=== PATIENT | male | born 1965 | race Two or more races ===

== ENCOUNTER 2024-08-30 23:13 | Inpatient (IN) | payer MEDICAID, OTHER ==
[~2024-08-30] VITALS: Ht 175.3 cm; Wt 88.5 kg
[2024-08-30 23:50] VITALS: PULSE 112; RESP 17; O2SAT 90
[2024-08-30] MEDS: DexAMETHasone SOD PHOS 10MG/1ML VIAL INJ IV ONE (23:50)
[2024-08-30 23:51] LABS: Basophils # (auto) 0.1 10 ^3/uL (0-0.2); Basophils % (auto) 0.5 % (0.0-2.0); Eosinophils # (auto) 0 10 ^3/uL (0-0.8); Hemoglobin 11.1 g/dL (13.5-17.5); Lymphocytes # (auto) 2.2 10 ^3/uL (0.4-5.4); Lymphocytes % (auto) 14.5 % (10.0-50.0); Mean Corpuscular Hemoglobin 29.5 pg (28.0-32.0); Mean Corpuscular Hgb Conc. 32.5 g/dL (32.0-36.0); Mean Corpuscular Volume 90.7 fL (80.0-100.0); Monocytes # (auto) 0.5 10 ^3/uL (0-1.3); Monocytes % (auto) 3.2 % (0.0-12.0); Neutrophils # (auto) 12.7 10 ^3/uL (1.6-8.6); Neutrophils % (auto) 81.8 % (37.0-80.0); Nucleated Red Blood Cells % 0.1 %; Platelet Count (auto) 88 10^3/uL (140-450); Red Blood Cells 3.75 10^6/uL (4.5-5.90); Red Cell Distribution Width 16.8 % (11.8-14.3); White Blood Cell 15.5 10^3/uL (4.4-10.8)
[2024-08-31] VITALS (12 sets, daily range): BP systolic 107–134; BP diastolic 68–82; PULSE 85–105; RESP 18–31; TEMP 97.9–98.2; O2SAT 93–97
[2024-08-31 00:06] LABS: Anion Gap 6 (5-15); Aspartate Aminotransferase 30 U/L (13-40); Blood Urea Nitrogen 16 mg/dL (9-23); Carbon Dioxide 27 mmol/L (20-31); Potassium 3.5 mmol/L (3.5-5.1); Sodium 142 mmol/L (136-145)
[2024-08-31 00:07] LABS: Alanine Aminotransferase 90 U/L (7-40); Albumin 3.1 g/dL (3.2-4.8); Alkaline Phosphatase 194 U/L (46-116); Bilirubin, Total 0.8 mg/dL (0.2-1.0); Calcium 8.4 mg/dL (8.7-10.4); Chloride 109 mmol/L (98-107); Glucose 118 mg/dL (74-106); Total Protein 4.5 g/dL (5.7-8.2)
--- NOTE | 2024-08-31 00:21 | DVH ---
CHEST RADIOGRAPH Indication: Shortness of breath Technique: Single frontal view of the chest was obtained COMPARISON: None FINDINGS: Lines and Tubes: None Lungs: Extensive opacities noted throughout both lungs greater on the right side. Pleura: No effusion. No pneumothorax. Cardiomediastinal contours: Unremarkable IMPRESSION: Extensive opacities throughout both lungs greater on the right side consistent with pneumonia.
[2024-08-31] MEDS ORDERED: VANCOMYCIN PER PHARMACY 0 MG IV SCH ×2 (01:15→03:00)
[2024-08-31] MEDS: SODIUM CHLORIDE 0.9% 2,000 ML IV ONE (01:16)
[2024-08-31] MEDS: PIPERACILLIN-TAZOB 3.375GM 100 ML IV ONE (01:16)
--- NOTE | 2024-08-31 01:25 | ED.PDOC ---
SOB-HPI HPI Comments This patient is a pleasant 58-year-old male who arrives the ED today via EMS due to complaints of shortness a breath and low O2 sats. Patient is currently at [facility] for management of acute respiratory distress secondary to a pneumonia diagnosis. EMS stated of on arrival, patient's O2 sat was in the mid 80s. Patient denies any fever nausea or vomiting. At arrival, patient was tachycardic and hypertensive. Patient was satting at 84% On room air. Chief Complaint: Shortness of Breath Time Seen by MD: 23:16 Reviewed notes: Nurses Notes, Clinical Data Management Director Notes Information Source: Patient, Emergency Med Personnel Mode of Arrival: Ambulatory Severity: Severe Timing: Hours Duration: Since onset Context: At Rest PE Risk Factors: None History of: Other (Currently being treated for pneumonia) Prehospital treatment: Treatment Modifying Factors: Nothing Associated Signs and Symptoms: Wheeze Past Medical History Past Medical History (Other): currently at [facility] receiving treatment for pneumonia Surgical History: Denies all surgeries Family History Family History: Reviewed,noncontributory to illness, No family hx of Cancer, No family hx of DM, No family hx of Heart osmar, No family hx of HTN, No family hx ofKidney osmar, No family hx of Liver osmar, No family hx of Lung osmar, No family hx of Stroke Social History Smoker: Non-Smoker Alcohol: Denies ETOH Use Drugs: Denies Drug Use Lives In: Home Constitutional: reports: weakness; denies: chills, diaphoresis, fatigue, fever, malaise, sweats, others EENTM: reports: throat swelling, others ( dysphagia); denies: blurred vision, double vision, ear bleeding, ear discharge, ear drainage, ear pain, ear ringing, eye pain, eye redness, hearing loss, mouth pain, mouth swelling, nasal discharge, nose bleeding, nose congestion, nose pain, photophobia, tearing, throat pain, voice changes Respiratory: reports: cough, shortness of breath; denies: hemoptysis, orthopnea, SOB at rest, SOB with excertion, stridor, wheezing, others Cardiovascular: denies: chest pain, dizzy spells, diaphoresis, Dyspnea on exertion, edema, irregular heart beat, left arm pain, lightheadedness, palpitations, PND, syncope, others Gastrointestinal: denies: abdomen distended, abdominal pain, blood streaked bowels, constipated, diarrhea, dysphagia, difficulty swallowing, hematemesis, melena, nausea, poor appetite, poor fluid intake, rectal bleeding, rectal pain, vomiting, others Genitourinary: denies: burning, dysuria, flank pain, frequency, hematuria, incontinence, penile discharge, penile sore, pain, testicle pain, testicle swelling, urgency, others Neurological: denies: dizziness, fainting, headache, left sided numbness, left sided weakness, numbness, paresthesia, pre-existing deficit, right sided numbness, right sided weakness, seizure, speech problems, tingling, tremors, weakness, others Musculoskeletal: denies: back pain, gout, joint pain, joint swelling, muscle pain, muscle stiffness, neck pain, others Integumetry: denies: bruises, change in color, change in hair/nails, dryness, laceration, lesions, lumps, rash, wounds, others Allergic/Immunocompromised: denies: Difficulty Healing, Frequent Infections, Hives, Itching, others Hematologic/Lymphatic: denies: anemia, blood clots, easy bleeding, easy bruising, swollen glands, others Endocrine: denies: excessive hunger, excessive sweating, excessive thirst, excessive urination, flushing, intolerance to cold, intolerance to heat, unexplained weight gain, unexplained weight loss, others Psychiatric: denies: anxiety, bipolar disorder, depression, hopeless, panic disorder, schizophrenia, sleepless, suicidal, others Physical Exam General Appearance: Moderate Distress ( moderate distress due to shortness a breath and throat tightness concerns.), Normal HEENT: Normal ENT Inspection, Pharynx Normal, TMs Normal, Other ( Patient complains of tightness in the throat, but on evaluation airway looks patent. No erythema or edema.) Neck: Full Range of Motion, Non-Tender, Normal, Normal Inspection Respiratory: Other ( Diffuse rhonchi and wheezing appreciated throughout complete right upper middle and lower lung anderson as well as left lower lung field. No definitive accessory muscle use, but approaching mild respiratory distress.) Cardiovascular: No Edema, No JVD, No Murmur, No Gallop, Normal Peripheral Pulses, Tachycardia Breast Exam: Deferred Gastrointestinal: No Organomegaly, Non Tender, No Pulsatile Mass, Normal Bowel Sounds, Soft Genitalia: Deferred Pelvic: Deferred Rectal: Deferred Extremities: No calf tenderness, Normal capillary refill, Non-tender, No pedal edema Neurologic: Alert, Normal Affect, No Sensory Deficits Cerebellar Function: NOT DONE Reflexes: NOT DONE Skin: Dry, Normal Color, Warm Lymphatic: No Adenopathy Was a procedure done? Was a procedure done?: No Differential Dx Differential Diagnosis: Anxiety, Asthma, Bronchitis, CHF, COPD, Pneumonia, Pneumothorax, Respiratory Distress, URI, Other ( Mets) X-Ray, Labs, Meds, VS Vital Signs Date Time Temp Pulse Resp B/P (MAP) Pulse Ox O2 Delivery O2 Flow Rate FiO2 08/31/24 02:00 98.2 102 31 119/69 (86) 93 98.2 08/30/24 23:50 98.4 112 17 110/74 (86) 90 98.4 08/30/24 23:50 112 17 90 Simple Mask* 10 99 08/30/24 23:13 114 08/30/24 23:13 98.9 112 30 117/73 (88) 84 98.9 Lab Test 08/31/24 02:05 08/30/24 23:30 Range/Units Lactic Acid Level 1.8 2.5 *H 0.4-2.0 mmol/L White Blood Count 15.5 H 4.4-10.8 10^3/uL Red Blood Count 3.75 L 4.5-5.90 10^6/uL Hemoglobin 11.1 L 13.5-17.5 g/dL Hematocrit 34.0 L 41.0-53.0 % Mean Corpuscular Volume 90.7 80.0-100.0 fL Mean Corpuscular Hemoglobin 29.5 28.0-32.0 pg Mean Corpuscular Hemoglobin Concent 32.5 32.0-36.0 g/dL Red Cell Distribution Width 16.8 H 11.8-14.3 % Platelet Count 88 L 140-450 10^3/uL Mean Platelet Volume 8.8 6.9-10.8 fL Neutrophils (%) (Auto) 81.8 H 37.0-80.0 % Lymphocytes (%) (Auto) 14.5 10.0-50.0 % Monocytes (%) (Auto) 3.2 0.0-12.0 % Eosinophils (%) (Auto) 0.0 0.0-7.0 % Basophils (%) (Auto) 0.5 0.0-2.0 % Neutrophils # (Auto) 12.7 H 1.6-8.6 10 ^3/uL Lymphocytes # (Auto) 2.2 0.4-5.4 10 ^3/uL Monocytes # (Auto) 0.5 0-1.3 10 ^3/uL Eosinophils # (Auto) 0 0-0.8 10 ^3/uL Basophils # (Auto) 0.1 0-0.2 10 ^3/uL Nucleated Red Blood Cells 0.1 % Prothrombin Time Pending Prothrombin Time INR Pending Activated Partial Thromboplast Time Pending Sodium Level 142 136-145 mmol/L Potassium Level 3.5 3.5-5.1 mmol/L Chloride Level 109 H 98-107 mmol/L Carbon Dioxide Level 27 20-31 mmol/L Anion Gap 6 5-15 Blood Urea Nitrogen 16 9-23 mg/dL Creatinine 0.41 L 0.700-1.30 mg/dL Glomerular Filtration Rate Calc 126 >90 mL/min BUN/Creatinine Ratio 39.0 H 10.0-20.0 Serum Glucose 118 H 74-106 mg/dL Calcium Level 8.4 L 8.7-10.4 mg/dL Total Bilirubin 0.8 0.2-1.0 mg/dL Aspartate Amino Transferase (AST) 30 13-40 U/L Alanine Aminotransferase (ALT) 90 H 7-40 U/L Alkaline Phosphatase 194 H 46-116 U/L Troponin I High Sensitivity 9 </=54 ng/L B-Type Natriuretic Peptide 92.95 0-100 pg/mL Total Protein 4.5 L 5.7-8.2 g/dL Albumin 3.1 L 3.2-4.8 g/dL Current Medications Medications (Trade) Dose Ordered Sig/Jaden Route Start Time Stop Time Status Last Admin Dexamethasone Sodium Phosphate (Decadron Injection) 10 mg ONCE ONCE IV 08/30/24 23:30 08/30/24 23:31 DC 08/30/24 23:50 Piperacillin Sod/ Tazobactam Sod 100 ml @ 100 mls/hr ONCE ONCE IV 08/31/24 01:15 08/31/24 02:14 DC 08/31/24 01:16 Sodium Chloride 2,000 ml @ 1,000 mls/hr Q2H ONCE IV 08/31/24 01:15 08/31/24 03:14 DC 08/31/24 01:16 Vancomycin HCl 200 ml @ 133.333 mls/hr Q2H IV 08/31/24 01:30 08/31/24 04:59 08/31/24 01:59 X-Ray, Labs, Meds, VS Comment Patient continued to require increase oxygen needs while in the ED. patient is currently on 10 L of O2 on a mass. all studies performed the ED were evaluated by me personally. EKG revealed a sinus tachycardia with a rate of 114. Atrial premature complexes noted with the abnormal R-wave progression and nonspecific T-wave abnormalities. NC interval of 112 and QT interval of 344. [place] [id number]. Mild anemia and elevated alk phosphatase noted. Imaging studies revealed extensive opacities throughout both lung anderson with right-sided greater than left consistent with Pneumonia. Patient's x-rays were concerning for possible mets. CT of neck and chest were pending at time of this note. Patient will be admitted for sepsis and acute respiratory distress. Time of 1ST Reevaluation: 01:20 Reevaluation 1ST: Improved Consultation: PCP Patient Education/Counseling: Diagnosis, Treatment Family Education/Counseling: Diagnosis, Treatment Sepsis Sepsis Reasesment Focused Exam Sepsis focused exam: focus exam completed (01:00) Departure 1 Departure Time of Disposition: 03:22 ([place] Authorization to admit at [facility]: [id number] with multifocal pulmonary emboli as well as multifocal consolidation. Patient with a history of lymphoma. We will empirically cover patient with antibiotics start patient on anticoagulation consulted DNR team. And we will admit patient for further workup.) Impression: Primary Impression: Acute respiratory distress Additional Impressions: Pneumonia Qualified Codes: J18.9 - Pneumonia, unspecified organism Bilateral pulmonary embolism Disposition: ADMITTED INPATIENT Admit to: [facility] Condition: Guarded Discharged With: Self Critical Care Note Critical Care Time?: Yes (1 hr-critical care time only) Critical care comment: Due to the high probability of a clinically significant and possibly life- threatening deterioration, the patient required my highest level of preparedness to intervene emergently and therefore, I personally provided 1 hour of critical care time exclusive of time spent on separate billable procedures. This critical care time includes, but is not limited to, obtaining additional history, re-examination of the patient, evaluation of pulse oximetry, ordering and reviewing of studies, arranging urgent treatment with the development of a management plan as well as evaluation of patient's response to treatments, frequent reassessments and discussions with other providers. Stability Stability form required: No Heart Score Heart Score: Heart Score Response (Comments) Value History Slightly Suspicious 0 EKG Repolarization Disturb 1 Age 45-64 1 Risk Factors 1 or 2 risk factors 1 Troponin Normal limit 0 Total 3 ROSALIA CRAIG August 31, 2024 01:25 GLORIA RITCHIE MD August 31, 2024 03:23
[2024-08-31 01:42] LABS: Lactic Acid w/Reflex 2.5 mmol/L (0.4-2.0)
[2024-08-31] MEDS: IOHEXOL 350 MG/ML 100ML IJ ONE (01:58)
[2024-08-31] MEDS: VANCOMYCIN 1GM/200ML PM 200 ML IV SCH ×2 (01:59→21:11)
[2024-08-31] MEDS: PANTOPRAZOLE 40 MG/10 ML VIAL INJ IV ONE (03:00)
[2024-08-31] MEDS: SODIUM CHLORIDE 0.9% 1,000 ML IV ONE (03:00)
[2024-08-31] MEDS ORDERED: HEPARIN DRIP/D5W 100UNITS/ML 250 ML IV SCH (03:00)
[2024-08-31] MEDS ORDERED: HEPARIN SODIUM (PORCINE) 5000 UNITS/ML 1ML VIAL IV ONE (03:00)
--- NOTE | 2024-08-31 03:03 | DVHHPRES ---
History of Present Illness Resident Creating Document: BOOM BRADFORD History of Present Illness Jose Aaron is a 58-year-old male patient who presents to the ED with chief complaint of desaturation at the low 80s on his home oxygen (3 L/min), not responding with increasing oxygen flow. Patient also complains of oral cavity pain associated with thrush. Patient does have history of lymphoma, was treated with chemotherapy but since receiving chemotherapy patient had multifocal pneumonia, completed t5 different courses of antibiotics with no response, last admission due to multifocal pneumonia he was diagnosed with PE and DVT, he is currently on Pradaxa. Patient decided to discontinue chemotherapy, patient is currently a chemical code. Denies fever, chills, palpitation, syncope, chest pain, dyspnea, nausea, vomiting, diarrhea, constipation, bleeding, recent travel, sick contacts and motor or sensory deficits. Past medical history: Lymphoma diagnosed approximately three years ago, started chemotherapy and presented multifocal pneumonia requiring five different courses of antibiotic (all between one in two weeks) but did not respond. Patient is currently with no chemotherapy. Last admission was approximately two wants and a half ago where he was diagnosed with PE and DVT besides is multifocal pneumonia. Completed bronchoscopy which was complicated by pneumothorax. GERD Surgical history: Bronchoscopy complicated with pneumothorax, Family history: Mother has heart disease Social history: Lives in [place] with (she is the next of kin). Denies current tobacco, alcohol and other drug abuse. Allergies: Bactrim and metoprolol Home medication: Albuterol, amlodipine, Benadryl, bisoprolol, Diflucan, Dulcolax, Atrovent, Lomotil, Maalox, Pradaxa, prednisone, Protonix, Remeron, Sudafed Patient seen and examined at bedside. Still does not complain of dyspnea. He is currently on BiPAP. Past Medical History Per HPI Past Surgical History Per HPI Family History Per HPI Past Social History Per HPI Review of Systems Review of Systems Per HPI Allergies: Coded Allergies: Metoprolol (Verified Allergy, Unknown, 08/31/24) Sulfamethoxazole w/Trimethoprim (Verified Allergy, Unknown, 08/31/24) Medications Current Medications Medications Dose Ordered Sig/Jaden Route Start Time Stop Time Status Last Admin Dose Admin Vancomycin HCl 0 ml @ 0 mls/hr UD IV 08/31/24 01:15 UNV Vancomycin HCl 200 ml @ 133.333 mls/hr Q2H IV 08/31/24 01:30 08/31/24 04:59 08/31/24 01:59 133.333 MLS/HR Heparin Sodium/ Dextrose 250 ml @ 32.4 mls/hr Q7H43M IV 08/31/24 03:00 UNV Vancomycin HCl 0 ml @ 0 mls/hr UD IV 08/31/24 03:00 UNV Piperacillin Sod/ Tazobactam Sod 100 ml @ 25 mls/hr Q8HR IV 08/31/24 06:00 UNV Pantoprazole Sodium 40 mg DAILY IV 08/31/24 10:00 UNV Sodium Chloride 1,000 ml @ 100 mls/hr Q10H IV 08/31/24 03:00 UNV Exam Vital Signs Vital Signs Date Time Temp Pulse Resp B/P (MAP) Pulse Ox O2 Delivery O2 Flow Rate FiO2 08/31/24 02:00 98.2 102 31 119/69 (86) 93 98.2 08/30/24 23:50 Simple Mask* 10 99 Exam Patient lying in bed, in no acute distress General: Lucid, afebrile, mucosae are moist, presents oral thrush. Hard lymphadenopathy on neck which showed non mobile Cardiovascular: Normal S1 and S2. No murmurs, gallops or rubs Respiratory: Regular ventilation mechanics, tachypnea. Bilateral rhonchus diffusely Abdomen: Soft, nontender, no organomegaly, normal bowel sounds MSK/skin: Mobilizes 4 limbs. Skin is dry and warm Neurological: Oriented in 3 spheres. No motor no sensitive deficits. Pupils are isocoric and reactive Labs/Xrays Labs Test 08/31/24 02:05 08/30/24 23:30 Range/Units Lactic Acid Level 1.8 0.4-2.0 mmol/L White Blood Count 15.5 H 4.4-10.8 10^3/uL Red Blood Count 3.75 L 4.5-5.90 10^6/uL Hemoglobin 11.1 L 13.5-17.5 g/dL Hematocrit 34.0 L 41.0-53.0 % Mean Corpuscular Volume 90.7 80.0-100.0 fL Mean Corpuscular Hemoglobin 29.5 28.0-32.0 pg Mean Corpuscular Hemoglobin Concent 32.5 32.0-36.0 g/dL Red Cell Distribution Width 16.8 H 11.8-14.3 % Platelet Count 88 L 140-450 10^3/uL Mean Platelet Volume 8.8 6.9-10.8 fL Neutrophils (%) (Auto) 81.8 H 37.0-80.0 % Lymphocytes (%) (Auto) 14.5 10.0-50.0 % Monocytes (%) (Auto) 3.2 0.0-12.0 % Eosinophils (%) (Auto) 0.0 0.0-7.0 % Basophils (%) (Auto) 0.5 0.0-2.0 % Neutrophils # (Auto) 12.7 H 1.6-8.6 10 ^3/uL Lymphocytes # (Auto) 2.2 0.4-5.4 10 ^3/uL Monocytes # (Auto) 0.5 0-1.3 10 ^3/uL Eosinophils # (Auto) 0 0-0.8 10 ^3/uL Basophils # (Auto) 0.1 0-0.2 10 ^3/uL Nucleated Red Blood Cells 0.1 % Sodium Level 142 136-145 mmol/L Potassium Level 3.5 3.5-5.1 mmol/L Chloride Level 109 H 98-107 mmol/L Carbon Dioxide Level 27 20-31 mmol/L Anion Gap 6 5-15 Blood Urea Nitrogen 16 9-23 mg/dL Creatinine 0.41 L 0.700-1.30 mg/dL Glomerular Filtration Rate Calc 126 >90 mL/min BUN/Creatinine Ratio 39.0 H 10.0-20.0 Serum Glucose 118 H 74-106 mg/dL Calcium Level 8.4 L 8.7-10.4 mg/dL Total Bilirubin 0.8 0.2-1.0 mg/dL Aspartate Amino Transferase (AST) 30 13-40 U/L Alanine Aminotransferase (ALT) 90 H 7-40 U/L Alkaline Phosphatase 194 H 46-116 U/L Troponin I High Sensitivity 9 </=54 ng/L B-Type Natriuretic Peptide 92.95 0-100 pg/mL Total Protein 4.5 L 5.7-8.2 g/dL Albumin 3.1 L 3.2-4.8 g/dL Assessment/Plan Assessment/Plan Assessment: Acute on chronic respiratory failure Sepsis secondary to pneumonia Multifocal pneumonia Gram-positive/Gram-negative/fungal Pulmonary embolism DVT Lymphoma currently under no chemotherapy Thrombocytopenia Normocytic anemia Oral thrush Plan: Currently under IV fluids, empiric IV antibiotics (fluconazole, vancomycin and Zosyn), on apixaban (patient has thrombocytopenia, could not give heparin drip), and requiring oxygen therapy, steroids and bronchodilators. Ordered cardiological consult to evaluate thrombectomy and IVC placement. Patient is on apixaban since he has thrombocytopenia, can not indicate heparin drip. Patient currently with recurrent lymphoma, did not tolerate chemotherapy since patient presented multifocal pneumonia after treatment. Indicated nystatin and lidocaine swish and swallow. Goals of care discussed with patient for over 18 minutes: Chemical code. Patient does not want to be comfort measures at this time, he does agree currently with eventual thrombectomy in IVC filter placement. To be discussed with primary team. Discussed plan with Dr. Grewal, patient and nurses: Currently on oxygen therapy (between non-rebreather mask and BiPAP), IV fluids in, empiric IV antibiotic, on apixaban, IV steroids and bronchodilators. Consulted Cardiology to evaluate eventual thrombectomy/IVC filter placement. Further discussion of goals of care in hospice care should be considered. Patient has poor prognosis Plan discussed with: Patient, Other (Nurses) My Orders Orders - BOOM BRADFORD RESIDENT Procedure Category Date Status Time Admit ADMIT 08/31/24 Transmitted 02:54 Code Status CODE 08/31/24 Transmitted 02:54 Vital Signs [facility] 08/31/24 In Process 02:54 Review Orders With [facility] 08/31/24 In Process Adm. 02:54 Notify Of Changes [facility] 08/31/24 In Process From Base 02:54 Advance Directive [facility] 08/31/24 In Process 02:54 Patient Condition ORDERS 08/31/24 Transmitted 02:54 Allergies [facility] 08/31/24 In Process 02:54 Oxygen By Nasal RT 08/31/24 Transmitted Cannula 02:54 Stat Ekg For Chest [facility] 08/31/24 In Process Pain 02:54 Notify Of Changes [facility] 08/31/24 In Process From Base 02:54 Silverware Etcher For [facility] 08/31/24 In Process 24 Hours 02:54 Emergency Dysrhythmia [facility] 08/31/24 In Process Protocol 02:54 Rhythm Strips Once [facility] 08/31/24 In Process Every Shift 02:54 Platelet Monitoring [facility] 08/31/24 In Process 02:55 Vte Protocol Initiated [facility] 08/31/24 In Process 02:55 Heparin Per [facility] 08/31/24 In Process Standardized Proce 02:55 Discontinue All Im [facility] 08/31/24 In Process Injections 02:55 PTPTT LAB 08/31/24 Logged 02:55 Complete Blood Count LAB 08/31/24 Logged 02:55 Heparin Sodium PHA 08/31/24 Logged (Porcine) 03:00 Piperacillin-Tazob PHA 08/31/24 Logged 3.375gm (Zosyn 3.375g 06:00 Pantoprazole PHA 08/31/24 Logged (Protonix) 03:00 Pantoprazole PHA 08/31/24 Logged (Protonix) 10:00 Sodium Chloride 0.9% PHA 08/31/24 Logged 03:00 Sodium Chloride 0.9% PHA 08/31/24 Logged 03:00 Echo 2d Mode Cardiac US 08/31/24 Logged DOP 02:55 Bilat Lower Dvt US 08/31/24 Logged 02:55 Abg W/ Co-Ox RT 08/31/24 Logged 02:55 Heparin Drip/D5w PHA 08/31/24 Logged 100units/Ml 03:00 Vancomycin Per PHA 08/31/24 Logged Pharmacy 03:00 Mrsa Screen [facility] 08/31/24 Logged 03:00 Urine Bacterial [facility] 08/31/24 Logged Culture 03:00 Respiratory Culture [facility] 08/31/24 Logged W/ Gs 03:00 Sputum Induction RT 08/31/24 Logged 03:00 Covid19 Antigen [facility] 08/31/24 Logged Rapid Influenza A&B LAB 08/31/24 Logged 03:00 Electrocardigram EKG 08/31/24 Transmitted 03:00 * Cardiology Consult CONS 08/31/24 Transmitted 03:00 Date of Service: August 31, 2024 Billing Provider: MAISHA GREWAL MD Common Visit Codes: [id number] INP/OBS CARE (HIGH) BOOM BRADFORD RESIDENT August 31, 2024 03:03
--- NOTE | 2024-08-31 03:04 | DVH ---
CTA Chest with intravenous contrast INDICATION: Shortness a breath/Mets COMPARISON: None TECHNIQUE: Multidetector spiral CTA of the chest was performed of the chest with intravenous contrast . PULMONARY ANGIOGRAPHY PROTOCOL was utilized using a bolus-tracking technique centered on the main p ulmonary artery. Axial, coronal and sagittal multiplanar and MIP reformats were performed. Radiation Dose : 1. Chest: CTDI volume is 47.21 mGy. Dose-length product is 1108.83 mGy*cm The dose indicators for CT are the volume Computed Tomography (CT) Dose Index (CTDIvol) and the Dose Length Product (DLP), and are measured in units of mGy and mGy-cm, respectively. These indicators are not patient dose, but values generated from the CT scanner acquisition factors. The report includes radiation exposure data for exposures received during this examination. Findings: Pulmonary artery: Multiple filling defects are noted bilaterally within the pulmonary arterial vasculature including at the left central lobar branch point extending into the segmental and subsegmental branches of the le ft upper and lower lobe as well as the lingula and also within the segmental and subsegmental branche s serving the right lower lobe. The main pulmonary artery is dilated, measuring 4.0 cm and the ascending aorta also measures 4.0 cm. Lower neck: Normal thyroid. Lungs: Multifocal parenchymal consolidation, most notably within almost the entire right upper lobe a s well as to a lesser degree within the left upper lobe, lingula and scattered infiltrate within the bibasilar regions. A 1.5 cm lateral left upper lobe nodular focus is noted. No evidence of pleural ef fusion or pneumothorax. Heart/Vascular Structures: Heart is mildly enlarged. No pericardial effusion. Lymph Nodes: Multiple pathologically enlarged mediastinal lymph nodes, the largest of which is a righ t paratracheal node measuring 4.6 x 3.3 cm. Additionally, multiple pathologically enlarged retroperitoneal lymph nodes adjacent to the aorta and inferior vena cava measure up to approximately 1.2 cm in short axis dimension. Musculoskeletal: No acute osseous abnormality. Soft tissues: Normal. Upper abdomen: Limited portions of the upper abdomen are unremarkable. IMPRESSION: 1. Multifocal bilateral pulmonary emboli, the largest of which is located at the left lobar branch po int. 2. Multifocal bilateral parenchymal consolidation, most notably within nearly the entire right upper lobe, consistent with multifocal pneumonia. Focal nodular morphology may be consistent with nodular c onsolidation versus underlying true pulmonary nodule. 3. Mediastinal and retroperitoneal lymphadenopathy concerning for metastatic disease and underlying m alignancy of uncertain origin. 4. These findings were discussed with and acknowledged by Dr. Best of the emergency department at 2: 54 a.m. On August 31, 2024
--- NOTE | 2024-08-31 03:19 | DVH ---
EXAM: CT NECK WITH CONTRAST SOFT INDICATION: Dysphagia /Mets Exam Date: 08/31/2024 01:52 AM COMPARISON: None TECHNIQUE: CT of the neck with intravenous contrast. RADIATION DOSE: CTDIvol: 22.05 mGy, DLP: 713.13 mGy*cm CONTRAST: Type of contrast: Omnipaque 350 Contrast injected: 50 ml Contrast ingested: None FINDINGS: Several conspicuous bilateral cervical lymph nodes measure up to approximately 1.0 cm in short axis d imension. Several enlarged lymph nodes within the superior mediastinum measure up to approximately 3. 6 x 3.1 cm. The fat planes of the neck appear intact. The airway and larynx are unremarkable. The parotid, submandibular and thyroid glands are unremarkable. The vascular structures of the neck appear patent. Multifocal consolidation is noted within the bilateral lung apices, right greater than left. The cadet ited visualized portions of the brain are unremarkable. The osseous structures are unremarkable. IMPRESSION: 1. Multiple pathologically enlarged superior mediastinal lymph nodes and conspicuous mildly enlarged bilateral cervical lymph nodes concerning for possible metastatic disease and underlying malignancy o f uncertain origin. 2. Biapical pulmonary parenchymal consolidation consistent with multifocal pneumonia.
[2024-08-31 03:27] LABS: INR 1.06 (0.9-1.15); Partial Thromboplastin Time 30.6 SEC (24.5-34.5); Prothrombin Time 11.2 sec (9.3-11.8)
[2024-08-31 04:01] LABS: Rapid Influenza A Negative (Negative); Rapid Influenza B Negative (Negative)
[2024-08-31 04:02] LABS: COVID19 ANTIGEN SOFIA FIA NEGATIVE (NEGATIVE)
[2024-08-31] MEDS: SODIUM CHLORIDE 0.9% 1,000 ML IV SCH (04:09)
[2024-08-31 04:47] LABS: Urine Bacteria None Seen /hpf (None Seen)
[2024-08-31 05:13] LABS: Basophils # (auto) 0 10 ^3/uL (0-0.2); Basophils % (auto) 0.1 % (0.0-2.0); Eosinophils # (auto) 0 10 ^3/uL (0-0.8); Hematocrit 29.1 % (41.0-53.0); Hemoglobin 9.6 g/dL (13.5-17.5); Lymphocytes # (auto) 0.7 10 ^3/uL (0.4-5.4); Lymphocytes % (auto) 6.4 % (10.0-50.0); Mean Corpuscular Hemoglobin 29.6 pg (28.0-32.0); Mean Corpuscular Volume 89.7 fL (80.0-100.0); Monocytes # (auto) 0.2 10 ^3/uL (0-1.3); Monocytes % (auto) 1.7 % (0.0-12.0); Neutrophils # (auto) 10.6 10 ^3/uL (1.6-8.6); Neutrophils % (auto) 91.8 % (37.0-80.0); Platelet Count (auto) 82 10^3/uL (140-450); Red Blood Cells 3.24 10^6/uL (4.5-5.90); Red Cell Distribution Width 16.1 % (11.8-14.3); White Blood Cell 11.6 10^3/uL (4.4-10.8)
[2024-08-31 05:17] LABS: Urine Blood Negative /uL (Negative); Urine Clarity Clear (Clear); Urine Color Light-Yellow (Yellow); Urine Protein, UAD Negative (Negative); Urine Specific Gravity 1.045 (1.001-1.035); Urine Squamous Epithelial Cell FEW /hpf (<5); Urine Urobilinogen Normal (Negative); Urine WBC 1 /HPF (0-3)
[2024-08-31 05:18] LABS: Amphetamine Screen, Urine Neg (NEGATIVE); Benzodiazephine Screen, Urine Neg (NEGATIVE)
[2024-08-31 05:19] LABS: Barbiturate Scree,Urine Neg (NEGATIVE); Cannabinoid Screen, Urine Neg (NEGATIVE); Cocaine Screen, Urine Neg (NEGATIVE); Opiate Scree,Urine Neg (NEGATIVE); Phencyclidine Screen, Urine Neg (NEGATIVE)
[2024-08-31 05:29] LABS: Anion Gap 10 (5-15); Aspartate Aminotransferase 25 U/L (13-40); BUN/Creatinine Ratio 38.7 (10.0-20.0); Blood Urea Nitrogen 12 mg/dL (9-23); Carbon Dioxide 23 mmol/L (20-31); LDL Cholesterol 61 mg/dL (< 100); Potassium 3.7 mmol/L (3.5-5.1); Sodium 141 mmol/L (136-145); Triglycerides 85 mg/dL (< 150)
[2024-08-31 05:30] LABS: Alanine Aminotransferase 79 U/L (7-40); Albumin 2.7 g/dL (3.2-4.8); Alkaline Phosphatase 168 U/L (46-116); Bilirubin, Total 0.8 mg/dL (0.2-1.0); Chloride 108 mmol/L (98-107); Cholesterol 104 mg/dL (< 200); Glucose 148 mg/dL (74-106); Magnesium 1.5 mg/dL (1.6-2.6); Phosphorus 2.5 mg/dL (2.4-5.1); Total Protein 4.1 g/dL (5.7-8.2)
[2024-08-31 05:31] LABS: HDL Cholesterol 28 mg/dL (40-59)
[2024-08-31] MEDS: PIPERACILLIN-TAZOB 3.375GM 100 ML IV SCH (06:02)
[2024-08-31] MEDS ORDERED: FLUCONAZOLE 200MG/100ML 100 ML IV SCH (07:00)
--- NOTE | 2024-08-31 07:12 | ECG ---
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
[2024-08-31] MEDS ORDERED: APIXABAN 5 MG TAB PO SCH (10:00)
[2024-08-31] MEDS: NYSTATIN (MOUTH-THROAT) 500,000 UNITS/5 ML SUSP MT ONE (10:37)
[2024-08-31] MEDS: methylPREDNISolone SOD SUCC 40 MG/ML VL IV SCH (11:14)
[2024-08-31] MEDS: PANTOPRAZOLE 40 MG/10 ML VIAL INJ IV SCH (11:14)
[2024-08-31] MEDS: FLUCONAZOLE 200MG/100ML 100 ML IV SCH (11:14)
--- NOTE | 2024-08-31 11:41 | DVHINCON2 ---
[facility] 08/31/24 1141: Date Seen: August 31, [address] Hughes Reason for Consultation Thrombectomy/IVC placement History of Present Illness This is a 58-year-old male presents in the ED with a chief complaint of low O2 saturation. Upon assessment, the patient is alert and oriented who reports resides in [place] [facility] acute when nursing staff noted O2 sat of 80%. In the emergency department, the patient is found to have multifocal bilateral pulmonary embolism for which prompted cardiology consult for evaluation of possible thrombectomy and IVC placement. The patient denies dizziness, syncope, chest pain, shortness of breath, or dyspnea. Significant past medical history of lymphoma opt out from chemo, DVT, PE on Pradaxa, and thrombocytopenia. Past Medical History As stated in HPI Past Surgical History Denies Family History Reviewed, non-contributory to the management of this case. Social History The patient lives at home, denies smoking, alcohol or illicit drugs abuse. Allergies: Coded Allergies: Metoprolol (Verified Allergy, Unknown, 08/31/24) Sulfamethoxazole w/Trimethoprim (Verified Allergy, Unknown, 08/31/24) Current Medications Current Medications Medications (Trade) Dose Ordered Sig/Jaden Route PRN Reason Start Time Stop Time Status Last Admin Vancomycin HCl 0 ml @ 0 mls/hr UD IV 08/31/24 01:15 08/31/24 06:03 DC Vancomycin HCl 200 ml @ 133.333 mls/hr Q2H IV 08/31/24 01:30 08/31/24 04:59 DC 08/31/24 03:30 Heparin Sodium/ Dextrose 250 ml @ 32.4 mls/hr Q7H43M IV 08/31/24 03:00 08/31/24 05:14 DC Vancomycin HCl 0 ml @ 0 mls/hr UD IV 08/31/24 03:00 Piperacillin Sod/ Tazobactam Sod 100 ml @ 25 mls/hr Q8HR IV 08/31/24 06:00 08/31/24 06:02 Pantoprazole Sodium (Protonix) 40 mg DAILY IV 08/31/24 10:00 08/31/24 11:14 Sodium Chloride 1,000 ml @ 100 mls/hr Q10H IV 08/31/24 03:00 08/31/24 04:09 Apixaban (Eliquis) 5 mg BID PO 08/31/24 10:00 Hold Methylprednisolone Sodium Succinate (Solu Medrol) 40 mg BID IV 08/31/24 10:00 08/31/24 11:14 Nystatin (Mycostatin (Mouth-Throat)) 5 ml QID MT 08/31/24 12:00 Lidocaine HCl (Xylocaine 2% Viscous) 10 ml Q4HP PRN MT FOR SORE THROAT 08/31/24 07:00 Fluconazole 100 ml @ 100 mls/hr Q1H IV 08/31/24 10:00 08/31/24 11:59 08/31/24 11:14 Fluconazole 100 ml @ 100 mls/hr Q1HR IV 08/31/24 07:00 08/31/24 06:56 DC Levalbuterol HCl (Xopenex Medneb) 0.625 mg Q6HR NEB 08/31/24 12:00 Ipratropium [place] (Atrovent Medneb) 0.5 mg Q6HWA NEB 08/31/24 12:00 Vancomycin HCl 200 ml @ 200 mls/hr Q8H IV 08/31/24 21:00 Review of Systems Constitutional: No symptom reported Ears, Nose, & Throat: No symptom reported Eyes: No symptom reported Neurological: No symptoms reported Pulmonary/Respiratory: low O2 sat Cardiovascular: No symptom reported Gastrointestinal: No symptom reported Genitourinary: No symptom reported Musculoskeletal: No symptom reported Skin: No symptom reported Psychiatric: No symptom reported Endocrine: No symptom reported Hematologic/Lymphatic: No symptom reported Vital Signs Vital Signs Date Time Temp Pulse Resp B/P (MAP) Pulse Ox O2 Delivery O2 Flow Rate FiO2 08/31/24 08:15 85 107/68 96 Facial BiPAP Mask 45 08/31/24 06:31 98.7 25 98.7 08/30/24 23:50 10 Physical Exam INITIAL VITAL SIGNS: Reviewed by me GENERAL: Alert and interactive. No acute distress. HEAD: Head is normocephalic and atraumatic. EYES: EOMI, PERRL. No scleral icterus. No conjunctival injection. ENT: Moist mucous membranes. NECK: Supple, No masses, Full range of motion. RESPIRATORY: No tachypnea. Clear breath sounds bilaterally. No wheezing, rales, rhonchi. CV: Regular rate and rhythm. No murmurs, rubs, or gallops. GI/: Active bowel sounds, soft, nondistended, nontender. No guarding. No rebound. No masses. No CVA tenderness. INTEGUMENTARY: Warm and dry. No obvious rashes. NEUROLOGIC: Alert and oriented. Face is symmetric. Speech is normal. Moves all extremities equally. Labs/Diagnostic Data Labs Test 08/31/24 04:47 08/31/24 04:35 08/31/24 03:20 08/31/24 03:08 Range/Units White Blood Count 11.6 #H 4.4-10.8 10^3/uL Red Blood Count 3.24 L 4.5-5.90 10^6/uL Hemoglobin 9.6 L 13.5-17.5 g/dL Hematocrit 29.1 #L 41.0-53.0 % Mean Corpuscular Volume 89.7 80.0-100.0 fL Mean Corpuscular Hemoglobin 29.6 28.0-32.0 pg Mean Corpuscular Hemoglobin Concent 33.0 32.0-36.0 g/dL Red Cell Distribution Width 16.1 H 11.8-14.3 % Platelet Count 82 L 140-450 10^3/uL Mean Platelet Volume 8.7 6.9-10.8 fL Neutrophils (%) (Auto) 91.8 H 37.0-80.0 % Lymphocytes (%) (Auto) 6.4 L 10.0-50.0 % Monocytes (%) (Auto) 1.7 0.0-12.0 % Eosinophils (%) (Auto) 0.0 0.0-7.0 % Basophils (%) (Auto) 0.1 0.0-2.0 % Neutrophils # (Auto) 10.6 H 1.6-8.6 10 ^3/uL Lymphocytes # (Auto) 0.7 0.4-5.4 10 ^3/uL Monocytes # (Auto) 0.2 0-1.3 10 ^3/uL Eosinophils # (Auto) 0 0-0.8 10 ^3/uL Basophils # (Auto) 0 0-0.2 10 ^3/uL Nucleated Red Blood Cells 0.0 % Sodium Level 141 136-145 mmol/L Potassium Level 3.7 3.5-5.1 mmol/L Chloride Level 108 H 98-107 mmol/L Carbon Dioxide Level 23 20-31 mmol/L Anion Gap 10 5-15 Blood Urea Nitrogen 12 9-23 mg/dL Creatinine 0.31 L 0.700-1.30 mg/dL Glomerular Filtration Rate Calc 137 >90 mL/min BUN/Creatinine Ratio 38.7 H 10.0-20.0 Serum Glucose 148 H 74-106 mg/dL Hemoglobin A1c 5.6 <5.7 % A1C Calcium Level 8.0 L 8.7-10.4 mg/dL Phosphorus Level 2.5 2.4-5.1 mg/dL Magnesium Level 1.5 L 1.6-2.6 mg/dL Total Bilirubin 0.8 0.2-1.0 mg/dL Aspartate Amino Transferase (AST) 25 13-40 U/L Alanine Aminotransferase (ALT) 79 H 7-40 U/L Alkaline Phosphatase 168 H 46-116 U/L Total Protein 4.1 L 5.7-8.2 g/dL Albumin 2.7 L 3.2-4.8 g/dL Triglycerides Level 85 < 150 mg/dL Cholesterol Level 104 < 200 mg/dL LDL Cholesterol 61 < 100 mg/dL HDL Cholesterol 28 L 40-59 mg/dL Thyroid Stimulating Hormone (TSH) 0.30 L 0.55-4.78 uIU/mL Urine Color Light-yellow Yellow Urine Clarity Clear Clear Urine pH 7.0 5.0-9.0 Urine Specific [place] 1.045 H 1.001-1.035 Urine Protein Negative Negative Urine Ketones Negative Negative Urine Blood Negative Negative /uL Urine Nitrite Negative Negative Urine Bilirubin Negative Negative Urine Urobilinogen Normal Negative mg/dL Urine Leukocyte Esterase Negative Negative /uL Urine RBC 1 0 - 3 /hpf Urine Microscopic WBC 1 0-3 /HPF Urine Squamous Epithelial Cells Few <5 /hpf Urine Bacteria None seen None Seen /hpf Urine Glucose Normal Normal mg/dL Urine Opiates Screen Neg NEGATIVE Urine Fentanyl Screen Neg NEGATIVE Urine Barbiturates Screen Neg NEGATIVE Urine Phencyclidine Screen Neg NEGATIVE Urine Amphetamines Screen Neg NEGATIVE Urine Benzodiazepines Screen Neg NEGATIVE Urine Cocaine Screen Neg NEGATIVE Urine Cannabinoids Screen Neg NEGATIVE Influenza Type A Antigen Negative Negative Influenza Type B Antigen Negative Negative SARS-CoV-2 Antigen (Rapid) Negative NEGATIVE Blood Gas Specimen Type Arterial Blood Gas Sample Site Right radial Blood Gas Patient Temperature 37.0 Arterial Blood Date Drawn [id number] Arterial Blood pH 7.439 7.350-7.450 Arterial Blood Partial Pressure CO2 36.2 35.0-48.0 mmHg Arterial Blood Partial Pressure O2 75.6 L 83.0-108.0 mmHg Arterial Blood HCO3 24.0 21.0-28.0 mmol/L Arterial Blood Oxygen Saturation 93.9 L 94.0-98.0 % Arterial Blood Base Excess 0.0 -2.0-3.0 mmol/L Arterial Blood Oxyhemoglobin 92.9 L 94.0-98.0 % Arterial Blood Carboxyhemoglobin 0.3 L 0.5-1.5 % Arterial Blood Methemoglobin 0.8 0.0-1.5 % Sim Test Modified Blood Gas Total Hemoglobin 9.50 L 13.5-17.5 g/dL Blood Gas Liter Flow 10.00 Blood Gas Modality Mask - simple FiO2 % 50.0 Test 08/31/24 02:05 08/30/24 23:30 Range/Units Lactic Acid Level 1.8 0.4-2.0 mmol/L Prothrombin Time 11.2 9.3-11.8 sec Prothrombin Time INR 1.06 0.9-1.15 Activated Partial Thromboplast Time 30.6 24.5-34.5 SEC Troponin I High Sensitivity 9 </=54 ng/L B-Type Natriuretic Peptide 92.95 0-100 pg/mL PROCEDURE(s): CTACH - CT ANGIO CHEST CONTRAST REASON: Shortness a breath/Mets ORDER NUMBER(s): [id number], ACCESSION NUMBER(s): [id number] CTA Chest with intravenous contrast INDICATION: Shortness a breath/Mets COMPARISON: None TECHNIQUE: Multidetector spiral CTA of the chest was performed of the chest with intravenous contrast. PULMONARY ANGIOGRAPHY PROTOCOL was utilized using a bolus- tracking technique centered on the main pulmonary artery. Axial, coronal and sagittal multiplanar and MIP reformats were performed. Radiation Dose : 1. Chest: CTDI volume is 47.21 mGy. Dose-length product is 1108.83 mGy*cm The dose indicators for CT are the volume Computed Tomography (CT) Dose Index (CTDIvol) and the Dose Length Product (DLP), and are measured in units of mGy and mGy-cm, respectively. These indicators are not patient dose, but values generated from the CT scanner acquisition factors. The report includes radiation exposure data for exposures received during this examination. Findings: Pulmonary artery: Multiple filling defects are noted bilaterally within the pulmonary arterial vasculature including at the left central lobar branch point extending into the segmental and subsegmental branches of the left upper and lower lobe as well as the lingula and also within the segmental and subsegmental branches serving the right lower lobe. The main pulmonary artery is dilated, measuring 4.0 cm and the ascending aorta also measures 4.0 cm. Lower neck: Normal thyroid. Lungs: Multifocal parenchymal consolidation, most notably within almost the entire right upper lobe as well as to a lesser degree within the left upper lobe, lingula and scattered infiltrate within the bibasilar regions. A 1.5 cm lateral left upper lobe nodular focus is noted. No evidence of pleural effusion or pneumothorax. Heart/Vascular Structures: Heart is mildly enlarged. No pericardial effusion. Lymph Nodes: Multiple pathologically enlarged mediastinal lymph nodes, the largest of which is a right paratracheal node measuring 4.6 x 3.3 cm. Additionally, multiple pathologically enlarged retroperitoneal lymph nodes adjacent to the aorta and inferior vena cava measure up to approximately 1.2 cm in short axis dimension. Musculoskeletal: No acute osseous abnormality. Soft tissues: Normal. Upper abdomen: Limited portions of the upper abdomen are unremarkable. IMPRESSION: 1. Multifocal bilateral pulmonary emboli, the largest of which is located at the left lobar branch point. 2. Multifocal bilateral parenchymal consolidation, most notably within nearly the entire right upper lobe, consistent with multifocal pneumonia. Focal nodular morphology may be consistent with nodular consolidation versus underlying true pulmonary nodule. 3. Mediastinal and retroperitoneal lymphadenopathy concerning for metastatic disease and underlying malignancy of uncertain origin. 4. These findings were discussed with and acknowledged by Dr. Best of the emergency department at 2:54 a.m. On August 31, 2024 Assessment Multifocal bilateral pulmonary embolism hx of DVT and PE eliquis on Pradaxa Thrombocytopenia Acute on chronic respiratory failure Sepsis, pneumonia Lymphoma Plan/Recommendation (Dr. Bolden ): Case discussed with Dr. Bolden, rare recommend consulting IR for IVC placement. Recommend to DC Eliquis and transition to therapeutic Lovenox until the procedure. In the meantime, we will get transthoracic echocardiogram to evaluate cardiac function. Given stable clinical presentation with stable BP and heart rate, recommends Medical management for now. This medical document was created using an electronic medical record system with voice recognition software and computerized dictation system. Although this document has been carefully reviewed, there might still be some phonetic and typographical errors. Occasional wrong-word or ``sound-alike substitutions may have occurred due to the inherent limitations of voice recognition software. These areas are purely typographical due to imperfections of the software programs and do not reflect any compromise in the patient's medical care. Please read the chart carefully and recognize, using context, where these substitutions have occurred. Plan discussed with: Patient Plan discussed with: Patient NYHA Physical activity limitations: NA Date of Service: August 31, 2024 Billing Provider: MAURICE BOLDEN MD Cardiology Common Codes: NOT BILLABLE Cardiology Consultation Codes: [id number] CONSULT <60MIN MAURICE BOLDEN MD 08/31/24 1356: Allergies: Coded Allergies: Metoprolol (Verified Allergy, Unknown, 08/31/24) Sulfamethoxazole w/Trimethoprim (Verified Allergy, Unknown, 08/31/24) Plan/Recommendation pt seen with RN agree with INTERNET MARKETING COORDINATOR assessment and plan CTA reviewed, significant L sided thrombus, some on R lower on o2 HR and bp stable echo -- medical therapy for now has active pop dvt and L leg > R leg, consider IVC filter given low PLTs very poor prognosis senior care Plan discussed with: Patient WILLIELALY Orr FOREIGN SERVICE TEACHER August 31, 2024 11:41 MAURICE BOLDEN MD August 31, 2024 13:56
[2024-08-31] MEDS: IPRATROPIUM BROM 0.5 MG/2.5ML INH SOL NEB SCH (12:18)
[2024-08-31] MEDS: LEVALBUTEROL HCL 1.25 MG/3 ML NEB NEB SCH (12:18)
--- NOTE | 2024-08-31 12:26 | DVHSR ---
APPROVED REPORT EXAM: Two-dimensional and M-mode echocardiogram with Doppler and color Doppler. Blood Pressure: 128/82 mmHg INDICATION PE RISK FACTORS Height: 5'9", Weight: 180 DIMENSIONS LVDd (3.8-5.7cm)LA (2D)3.8 (1.9-4.0cm)Aortic Root (2.0-3.7cm) EF (%) 58.0 (55-70%)Rt. Atrium3.4 (1.9-4.0cm)Asc. Aorta cm Mitral Valve MitralMitral Stenosis E wave0.74m/sMV Mean GR.mmHg A wave0.77m/sMV Peak GR.mmHg E/A ratio1.02D MVAcm2 DECEL [id number] 1/2 Timems Aortic Valve Aortic ValveAortic Stenosis V10.98m/Marcelo Mean GR.3mmHg V21.23m/Marcelo Peak GR.6mmHg LVOT Diameter1.8 (1.8-2.4cm)Doppler AVA2.03cm2 Tricuspid Valve TR Velocity2.92m/s [id number] Other Information Quality : Technically LimitedRhythm : Technically limited study due to body habitus. Conclusion lvef 65% normal rv function normal atria no severe valve abnormalities noted
--- NOTE | 2024-08-31 14:03 | DVH ---
EXAM: US Duplex Bilateral Lower Extremities Veins CLINICAL INDICATION: PE, rule out DVT TECHNIQUE: Real-time duplex ultrasound scan of the bilateral lower extremity veins integrating B-mod e two-dimensional vascular structure, Doppler spectral analysis, color flow Doppler imaging and compr ession. COMPARISON: None FINDINGS: RIGHT DEEP VEINS: Unremarkable. No DVT in the right common femoral, femoral, proximal deep femoral or popliteal veins. The veins demonstrate normal color flow, are normally compressible, with normal phasic flow and/or augmentation response. RIGHT SUPERFICIAL VEINS: Unremarkable. No thrombus in the visualized right great saphenous vein. LEFT DEEP VEINS: DVT in the distal left superficial femoral vein, popliteal vein, and posterior tib ial veins. LEFT SUPERFICIAL VEINS: Unremarkable. No thrombus in the visualized left great saphenous vein. SOFT TISSUES: No acute findings. No popliteal cyst. OTHER FINDINGS: . IMPRESSION: DVT in the distal left superficial femoral vein, popliteal vein, and posterior tibial veins.
[2024-08-31] MEDS: LIDOCAINE VISCOUS 2% 15ML UD MT PRN (15:06)
[2024-08-31] MEDS: NYSTATIN (MOUTH-THROAT) 500,000 UNITS/5 ML SUSP MT SCH (15:06)
[2024-08-31] MEDS: VANCOMYCIN 1GM/200ML PM 200 ML IV ONE (15:07)
[2024-08-31] MEDS: ENOXAPARIN SOD 80 MG/0.8ML SYRINGE SC SCH (22:56)
[2024-09-01] VITALS (18 sets, daily range): BP systolic 117–136; BP diastolic 70–76; PULSE 69–109; RESP 18–22; TEMP 97.4–98.7; O2SAT 91–100
[2024-09-01 04:13] LABS: Basophils # (auto) 0 10 ^3/uL (0-0.2); Basophils % (auto) 0.1 % (0.0-2.0); Eosinophils # (auto) 0 10 ^3/uL (0-0.8); Hematocrit 28.9 % (41.0-53.0); Hemoglobin 9.5 g/dL (13.5-17.5); Lymphocytes # (auto) 0.7 10 ^3/uL (0.4-5.4); Lymphocytes % (auto) 6.1 % (10.0-50.0); Mean Corpuscular Hemoglobin 29.7 pg (28.0-32.0); Mean Corpuscular Volume 90.1 fL (80.0-100.0); Monocytes # (auto) 0.2 10 ^3/uL (0-1.3); Neutrophils # (auto) 10.9 10 ^3/uL (1.6-8.6); Neutrophils % (auto) 91.8 % (37.0-80.0); Platelet Count (auto) 102 10^3/uL (140-450); Red Cell Distribution Width 16.8 % (11.8-14.3); White Blood Cell 11.9 10^3/uL (4.4-10.8)
--- NOTE | 2024-09-01 15:41 | DVHPN2 ---
Subjective in bed feeling better with less SOB Changes from previous H/P or p: No Changes Objective Vitals Vital Signs Date Time Temp Pulse Resp B/P (MAP) Pulse Ox O2 Delivery O2 Flow Rate FiO2 09/01/24 13:00 97.8 93 18 135/75 (95) 95 97.8 09/01/24 11:58 Oxymizer 6.0 09/01/24 11:58 N/A Intake/Output Intake and Output 09/01/24 07:00 Intake Total 825 ml Output Total 450 ml Balance 375 ml Intake Oral 400 ml IV Total 425 ml Output Urine Total 450 ml # Bowel Movements 1 General Appearance: Alert, Oriented X3 Lungs: Clear to auscultation Cardiovascular: Regular rate, Normal S1, Normal S2 Medications Current Medications Medications Dose Ordered Sig/Jaden Route Start Time Stop Time Status Last Admin Dose Admin Vancomycin HCl 0 ml @ 0 mls/hr UD IV 08/31/24 03:00 Piperacillin Sod/ Tazobactam Sod 100 ml @ 25 mls/hr Q8HR IV 08/31/24 06:00 09/01/24 15:14 25 MLS/HR Pantoprazole Sodium 40 mg DAILY IV 08/31/24 10:00 09/01/24 10:13 40 MG Sodium Chloride 1,000 ml @ 100 mls/hr Q10H IV 08/31/24 03:00 09/01/24 10:13 100 MLS/HR Methylprednisolone Sodium Succinate 40 mg BID IV 08/31/24 10:00 09/01/24 10:13 40 MG Nystatin 5 ml QID MT 08/31/24 12:00 09/01/24 12:02 5 ML Lidocaine HCl 10 ml Q4HP PRN MT 08/31/24 07:00 09/01/24 12:11 10 ML Levalbuterol HCl 0.625 mg Q6HR NEB 08/31/24 12:00 09/01/24 11:58 0.625 MG Ipratropium [place] 0.5 mg Q6HWA [facility] 08/31/24 12:00 09/01/24 11:57 0.5 MG Vancomycin HCl 200 ml @ 200 mls/hr Q8H IV 08/31/24 21:00 09/01/24 13:13 200 MLS/HR Enoxaparin Sodium 80 mg Q12HR SC 08/31/24 22:00 09/01/24 10:13 80 MG Laboratory Results Laboratory Tests 08/31/24 04:47 09/01/24 03:57 Urinalysis Test 08/31/24 04:35 Urine Color Light-yellow (Yellow) Urine Clarity Clear (Clear) Urine pH 7.0 (5.0-9.0) Urine Specific [place] 1.045 (1.001-1.035) Urine Protein Negative (Negative) Urine Ketones Negative (Negative) Urine Blood Negative /uL (Negative) Urine Nitrite Negative (Negative) Urine Bilirubin Negative (Negative) Urine Urobilinogen Normal mg/dL (Negative) Urine Leukocyte Esterase Negative /uL (Negative) Urine RBC 1 /hpf (0 - 3) Urine Microscopic WBC 1 /HPF (0-3) Urine Squamous Epithelial Cells Few /hpf (<5) Urine Bacteria None seen /hpf (None Seen) Urine Glucose Normal mg/dL (Normal) Microbiology Microbiology Date/Time Source Procedure Growth Status 08/31/24 04:35 Voided Urine Urine Culture - Preliminary Resulted 08/31/24 03:20 Nose MRSA Screen - Final Complete 08/30/24 23:30 Blood Blood Culture - Preliminary NO GROWTH AFTER 24 HOURS OF INCUBATION. Resulted Assessment/Plan Assessment/Plan Acute on chronic respiratory failure Sepsis secondary to pneumonia Multifocal pneumonia Gram-positive/Gram-negative/fungal Pulmonary embolism DVT Lymphoma currently under no chemotherapy Thrombocytopenia Normocytic anemia Oral thrush Plan: Currently under IV fluids, empiric IV antibiotics (fluconazole, vancomycin and Zosyn), on apixaban (patient has thrombocytopenia, could not give heparin drip), and requiring oxygen therapy, steroids and bronchodilators. On Lovenox Consult IR for IVC filter Patient currently with recurrent lymphoma, did not tolerate chemotherapy since patient presented multifocal pneumonia after treatment. Indicated nystatin and lidocaine swish and swallow. Plan discussed with: Patient My Orders Orders - PRAMOD BRAMBILA MD Procedure Category Date Status Time Mrsa Screen SANDRA 09/01/24 Logged 10:43 * Radiologist Consult CONS 09/01/24 Transmitted 10:37 Date of Service: September 01, 2024 Billing Provider: PRAMOD BRAMBILA MD Common Visit Codes: [id number] INP/OBS CARE(HIGH) PRAMOD BRAMBILA MD September 01, 2024 15:40
[2024-09-02] VITALS (26 sets, daily range): BP systolic 115–136; BP diastolic 73–93; PULSE 81–125; RESP 16–28; TEMP 97.6–98.6; O2SAT 84–97
--- NOTE | 2024-09-02 09:31 | DVHPN2 ---
Progress Note Date Seen: September 02, 2024 Medical Necessity Reason Pt with a Central, PICC or Fol: No Subjective Patient reports: Feels better Objective vital signs Vital Sign Date Time Temp Pulse Resp B/P (MAP) Pulse Ox O2 Delivery O2 Flow Rate FiO2 09/02/24 09:00 97.8 102 18 129/77 (94) 91 97.8 09/02/24 08:00 Nasal Cannula* 6 44 Total Intake and Output 09/01/24 09/01/24 09/02/24 15:00 23:00 07:00 Intake Total 600 ml 1075 ml 400 ml Output Total 300 ml Balance 600 ml 1075 ml 100 ml medications Current Medications Medications Dose Ordered Sig/Jaden Route Start Time Stop Time Status Last Admin Dose Admin Vancomycin HCl 0 ml @ 0 mls/hr UD IV 08/31/24 03:00 Piperacillin Sod/ Tazobactam Sod 100 ml @ 25 mls/hr Q8HR IV 08/31/24 06:00 09/01/24 23:24 25 MLS/HR Pantoprazole Sodium 40 mg DAILY IV 08/31/24 10:00 09/01/24 10:13 40 MG Sodium Chloride 1,000 ml @ 100 mls/hr Q10H IV 08/31/24 03:00 09/01/24 10:13 100 MLS/HR Methylprednisolone Sodium Succinate 40 mg BID IV 08/31/24 10:00 09/01/24 22:03 40 MG Nystatin 5 ml QID [place] 08/31/24 12:00 09/01/24 22:03 5 ML Lidocaine HCl 10 ml Q4HP PRN [place] 08/31/24 07:00 09/01/24 18:31 10 ML Levalbuterol HCl 0.625 mg Q6HR [facility] 08/31/24 12:00 09/02/24 06:07 0.625 MG Ipratropium [place] 0.5 mg Q6HWA [facility] 08/31/24 12:00 09/02/24 06:07 0.5 MG Vancomycin HCl 200 ml @ 200 mls/hr Q8H IV 08/31/24 21:00 09/02/24 05:45 200 MLS/HR Enoxaparin Sodium 80 mg Q12HR [place] 08/31/24 22:00 09/01/24 22:03 80 MG Examination: GENERAL:Abnormal, HEENT:Abnormal, LUNGS:Abnormal, CVS:Abnormal, ABDOMEN:Abnormal laboratory and microbiology Laboratory Tests 09/01/24 03:57 08/31/24 04:47 Test 08/31/24 04:47 Range/Units Serum Glucose 148 H 74-106 mg/dL Microbiology Date/Time Source Procedure Growth Status 08/31/24 04:35 Voided Urine Urine Culture - Final Complete 08/31/24 03:20 Nose MRSA Screen - Final Complete 08/30/24 23:30 Blood Blood Culture - Preliminary NO GROWTH AFTER 48 HOURS OF INCUBATION. Resulted Problem List/Assessment/Plan Problem List/Assessment/Plan DVT PE anemia lymphoma low PLTs consider IVC filter cont anticoag for now supportive care , medical therapy high risk pt given active malignancy untreated, poor prognosis Plan discussed with: Patient Date of Service: September 02, 2024 Billing Provider: MAURICE BOLDEN MD Common Visit Codes: NOT BILLABLE MAURICE BOLDEN MD September 02, 2024 09:31
[2024-09-02 10:38] LABS: Free T4 (Free Thyroxine) 0.81 ng/dL (0.89-1.76); T3 Total 0.62 ng/mL (0.60-1.81)
[2024-09-02] MEDS: IODIXANOL 320MG/ML 100ML BTL IV ONE (11:00)
[2024-09-02] MEDS: fentaNYL CITRATE 100 MCG/2 ML VL ONE (11:00)
[2024-09-02] MEDS: LIDOCAINE 2%HCL (LOCAL ANESTH.) INJ 10ml MDV ONE (11:01)
[2024-09-02] MEDS: MIDAZOLAM HCL 2MG/2ML 2ml VIAL (1mg/ml) ONE (11:01)
--- NOTE | 2024-09-02 11:28 | DVH ---
XY INFERIOR VENA CAVA FILTER, HISTORY: FILTER PL for DVT, PE, thrombocytopenia, high risk of bleeding. PROCEDURE: Informed consent was obtained. The patient was placed on the fluoroscopic table in supine position. The right groin was prepped with chlorhexidine which was allowed to dry and draped in the u sual sterile fashion. Time out was performed. Following administration of 1% local lidocaine, the com mon femoral vein was accessed with a micropuncture set under ultrasound guidance, and an image docume nting patency sent to PACS. A cavogram was performed and the level of the renal veins were identifie d. The catheter was exchanged for a 9.6 Georgian introducer sheath, and a Bard G2 Tonia IVC filter was deployed in an infrarenal location. The introducer sheath was removed and the venotomy closed with m anual compression. Post-deployment image was obtained. No immediate complication was identified. DAP 482 FLUOROSCOPY TIME: 1.9 minutes. CONTRAST USED: 15 mL . SEDATION: Dr. Maddie Mccarthy was personally responsible for the administration of moderate sedation during the procedure performed, including the use of an independent trained observer who had no other duties during the procedure. The drugs utilized were IV fentanyl and versed (see nursing log for details). The total time of supervision by the attending physician was approximately 30 minutes. FINDINGS: There is a patent single IVC visualized without intraluminal filling defect. No renal venou s anomaly is noted. Post-procedure image demonstrates good positioning of the IVC filter in an infrar enal position. IMPRESSION: Successful IVC filter placement in the infra-renal location. PLAN: Consideration should be made for removal of this retrievable filter after and if medical necess ity for caval filtration is no longer present. If we in IR are unable to contact the patient in a jeffery alli fashion, please contact our office, and we will attempt to arrange for filter retrieval at the ea rliest convenience.
--- NOTE | 2024-09-02 16:03 | DVHPN2 ---
Subjective Seen and examined at bedside, on 10L oxygen. Patient needs to be transferred to [facility] for Oncology. Changes from previous H/P or p: No Changes Objective Vitals Vital Signs Date Time Temp Pulse Resp B/P (MAP) Pulse Ox O2 Delivery O2 Flow Rate FiO2 09/02/24 15:33 94 Mask 10.0 09/02/24 15:33 99 09/02/24 13:00 98.1 102 18 133/85 (101) 98.1 Intake/Output Intake and Output 09/02/24 07:00 Intake Total 2075 ml Output Total 300 ml Balance 1775 ml Intake Oral 975 ml IV Total 1100 ml Output Urine Total 300 ml # Voids 4 # Bowel Movements 2 General Appearance: Alert, Oriented X3 Lungs: Other (diminished) Cardiovascular: Regular rate, Normal S1, Normal S2 Abdomen: Normal bowel sounds, Soft Medications Current Medications Medications Dose Ordered Sig/Jaden Route Start Time Stop Time Status Last Admin Dose Admin Vancomycin HCl 0 ml @ 0 mls/hr UD IV 08/31/24 03:00 Piperacillin Sod/ Tazobactam Sod 100 ml @ 25 mls/hr Q8HR IV 08/31/24 06:00 09/02/24 15:02 25 MLS/HR Pantoprazole Sodium 40 mg DAILY IV 08/31/24 10:00 09/01/24 10:13 40 MG Sodium Chloride 1,000 ml @ 100 mls/hr Q10H IV 08/31/24 03:00 09/01/24 10:13 100 MLS/HR Methylprednisolone Sodium Succinate 40 mg BID IV 08/31/24 10:00 09/01/24 22:03 40 MG Nystatin 5 ml QID MT 08/31/24 12:00 09/01/24 22:03 5 ML Lidocaine HCl 10 ml Q4HP PRN MT 08/31/24 07:00 09/01/24 18:31 10 ML Levalbuterol HCl 0.625 mg Q6HR [facility] 08/31/24 12:00 09/02/24 12:44 0.625 MG Ipratropium [place] 0.5 mg Q6HWA [facility] 08/31/24 12:00 09/02/24 12:44 0.5 MG Vancomycin HCl 200 ml @ 200 mls/hr Q8H IV 08/31/24 21:00 09/02/24 12:54 200 MLS/HR Enoxaparin Sodium 80 mg Q12HR SC 08/31/24 22:00 09/01/24 22:03 80 MG Laboratory Results Laboratory Tests 08/31/24 04:47 09/01/24 03:57 Urinalysis Test 08/31/24 04:35 Urine Color Light-yellow (Yellow) Urine Clarity Clear (Clear) Urine pH 7.0 (5.0-9.0) Urine Specific [place] 1.045 (1.001-1.035) Urine Protein Negative (Negative) Urine Ketones Negative (Negative) Urine Blood Negative /uL (Negative) Urine Nitrite Negative (Negative) Urine Bilirubin Negative (Negative) Urine Urobilinogen Normal mg/dL (Negative) Urine Leukocyte Esterase Negative /uL (Negative) Urine RBC 1 /hpf (0 - 3) Urine Microscopic WBC 1 /HPF (0-3) Urine Squamous Epithelial Cells Few /hpf (<5) Urine Bacteria None seen /hpf (None Seen) Urine Glucose Normal mg/dL (Normal) Microbiology Microbiology Date/Time Source Procedure Growth Status 08/31/24 04:35 Voided Urine Urine Culture - Final Complete 08/31/24 03:20 Nose MRSA Screen - Final Complete 08/30/24 23:30 Blood Blood Culture - Preliminary NO GROWTH AFTER 48 HOURS OF INCUBATION. Resulted Assessment/Plan Assessment/Plan Acute on chronic respiratory failure - Titrate oxygen as tolerated Sepsis secondary to pneumonia- COnt Abx Multifocal pneumonia Gram-positive/Gram-negative Pulmonary embolism- on Lovenox Subq/ s/p IVC Filter DVT Lymphoma currently under no chemotherapy Thrombocytopenia Normocytic anemia Oral thrush Moderate protein malnutrition- Dietary Consult Critical care time 45 mins Plan discussed with: Patient, Spouse My Orders Orders - MAISHA LIPSCOMB MD Procedure Category Date Status Time * City Mail Carrier CONS 09/02/24 Transmitted Consult Doxycycline Tablet PHA 09/02/24 Logged (Vibramycin Tablet) 16:00 Doxycycline Tablet PHA 09/02/24 Logged (Vibramycin Tablet) 22:00 Pantoprazole Tablet PHA 09/03/24 Logged (Protonix Tablet) 06:00 Micafungin Sodium PHA 09/02/24 Verified (Mycamine) 16:00 Micafungin Sodium PHA 09/03/24 Verified (Mycamine) 10:00 Magnesium Oxide PHA 09/02/24 Verified Tablet (Mag-Ox Tablet) 16:00 Magnesium Oxide PHA 09/02/24 Verified Tablet (Mag-Ox Tablet) 22:00 Date of Service: September 02, 2024 Billing Provider: MAISHA LIPSCOMB MD Common Visit Codes: [id number] CARE 30-74 MIN MAISHA LIPSCOMB MD September 02, 2024 16:03
[2024-09-02] MEDS: MICAFUNGIN SODIUM 100 MG in SODIUM CHL 0.9% 100 ML IV ONE (16:54)
[2024-09-02] MEDS: DOXYCYCLINE 100 MG TAB/CAP PO ONE (16:55)
[2024-09-02] MEDS: MAGNESIUM OXIDE 400 MG TAB PO ONE (16:55)
--- NOTE | 2024-09-02 18:51 | DVHDS2 ---
Discharge Summary Date of Admission August 31, 2024 at 02:54 Date of Discharge: Oct 27, 2024 Admitting Diagnosis Acute on chronic respiratory failure Labs/Diagnostic Data: Laboratory Results Test 09/01/24 03:57 08/31/24 04:47 08/31/24 04:35 08/31/24 03:20 White Blood Count 11.9 10^3/uL (4.4-10.8) Red Blood Count 3.20 10^6/uL (4.5-5.90) Hemoglobin 9.5 g/dL (13.5-17.5) Hematocrit 28.9 % (41.0-53.0) Mean Corpuscular Volume 90.1 fL (80.0-100.0) Mean Corpuscular Hemoglobin 29.7 pg (28.0-32.0) Mean Corpuscular Hemoglobin Concent 33.0 g/dL (32.0-36.0) Red Cell Distribution Width 16.8 % (11.8-14.3) Platelet Count 102 10^3/uL (140-450) Mean Platelet Volume 8.6 fL (6.9-10.8) Neutrophils (%) (Auto) 91.8 % (37.0-80.0) Lymphocytes (%) (Auto) 6.1 % (10.0-50.0) Monocytes (%) (Auto) 2.0 % (0.0-12.0) Eosinophils (%) (Auto) 0.0 % (0.0-7.0) Basophils (%) (Auto) 0.1 % (0.0-2.0) Neutrophils # (Auto) 10.9 10 ^3/uL (1.6-8.6) Lymphocytes # (Auto) 0.7 10 ^3/uL (0.4-5.4) Monocytes # (Auto) 0.2 10 ^3/uL (0-1.3) Eosinophils # (Auto) 0 10 ^3/uL (0-0.8) Basophils # (Auto) 0 10 ^3/uL (0-0.2) Nucleated Red Blood Cells 0.0 % Creatinine 0.31 mg/dL (0.700-1.30) Glomerular Filtration Rate Calc 137 mL/min (>90) Vancomycin Level Trough 13.6 ug/mL (5-10) Sodium Level 141 mmol/L (136-145) Potassium Level 3.7 mmol/L (3.5-5.1) Chloride Level 108 mmol/L (98-107) Carbon Dioxide Level 23 mmol/L (20-31) Anion Gap 10 (5-15) Blood Urea Nitrogen 12 mg/dL (9-23) BUN/Creatinine Ratio 38.7 (10.0-20.0) Serum Glucose 148 mg/dL (74-106) Hemoglobin A1c 5.6 % A1C (<5.7) Calcium Level 8.0 mg/dL (8.7-10.4) Phosphorus Level 2.5 mg/dL (2.4-5.1) Magnesium Level 1.5 mg/dL (1.6-2.6) Total Bilirubin 0.8 mg/dL (0.2-1.0) Aspartate Amino Transferase (AST) 25 U/L (13-40) Alanine Aminotransferase (ALT) 79 U/L (7-40) Alkaline Phosphatase 168 U/L (46-116) Total Protein 4.1 g/dL (5.7-8.2) Albumin 2.7 g/dL (3.2-4.8) Triglycerides Level 85 mg/dL (< 150) Cholesterol Level 104 mg/dL (< 200) LDL Cholesterol 61 mg/dL (< 100) HDL Cholesterol 28 mg/dL (40-59) Vitamin B12 Level 349 pg/mL (211-911) Vitamin D 25-Hydroxy 17.3 ng/mL (30.0-100) Thyroid Stimulating Hormone (TSH) 0.30 uIU/mL (0.55-4.78) Free Thyroxine (T4) Calculated 0.81 ng/dL (0.89-1.76) Total Triiodothyronine (TT3) 0.62 ng/mL (0.60-1.81) Urine Color Light-yellow (Yellow) Urine Clarity Clear (Clear) Urine pH 7.0 (5.0-9.0) Urine Specific [place] 1.045 (1.001-1.035) Urine Protein Negative (Negative) Urine Ketones Negative (Negative) Urine Blood Negative /uL (Negative) Urine Nitrite Negative (Negative) Urine Bilirubin Negative (Negative) Urine Urobilinogen Normal mg/dL (Negative) Urine Leukocyte Esterase Negative /uL (Negative) Urine RBC 1 /hpf (0 - 3) Urine Microscopic WBC 1 /HPF (0-3) Urine Squamous Epithelial Cells Few /hpf (<5) Urine Bacteria None seen /hpf (None Seen) Urine Glucose Normal mg/dL (Normal) Urine Opiates Screen Neg (NEGATIVE) Urine Fentanyl Screen Neg (NEGATIVE) Urine Barbiturates Screen Neg (NEGATIVE) Urine Phencyclidine Screen Neg (NEGATIVE) Urine Amphetamines Screen Neg (NEGATIVE) Urine Benzodiazepines Screen Neg (NEGATIVE) Urine Cocaine Screen Neg (NEGATIVE) Urine Cannabinoids Screen Neg (NEGATIVE) Influenza Type A Antigen Negative (Negative) Influenza Type B Antigen Negative (Negative) SARS-CoV-2 Antigen (Rapid) Negative (NEGATIVE) Test 08/31/24 03:08 08/31/24 02:05 08/30/24 23:30 Blood Gas Specimen Type Arterial Blood Gas Sample Site Right radial Blood Gas Patient Temperature 37.0 Arterial Blood Date Drawn [id number] Arterial Blood pH 7.439 (7.350-7.450) Arterial Blood Partial Pressure CO2 36.2 mmHg (35.0-48.0) Arterial Blood Partial Pressure O2 75.6 mmHg (83.0-108.0) Arterial Blood HCO3 24.0 mmol/L (21.0-28.0) Arterial Blood Oxygen Saturation 93.9 % (94.0-98.0) Arterial Blood Base Excess 0.0 mmol/L (-2.0-3.0) Arterial Blood Oxyhemoglobin 92.9 % (94.0-98.0) Arterial Blood Carboxyhemoglobin 0.3 % (0.5-1.5) Arterial Blood Methemoglobin 0.8 % (0.0-1.5) Sim Test Modified Blood Gas Total Hemoglobin 9.50 g/dL (13.5-17.5) Blood Gas Liter Flow 10.00 Blood Gas Modality Mask - simple FiO2 % 50.0 Lactic Acid Level 1.8 mmol/L (0.4-2.0) Prothrombin Time 11.2 sec (9.3-11.8) Prothrombin Time INR 1.06 (0.9-1.15) Activated Partial Thromboplast Time 30.6 SEC (24.5-34.5) Troponin I High Sensitivity 9 ng/L (</=54) B-Type Natriuretic Peptide 92.95 pg/mL (0-100) Other Laboratory Tests 09/01/24 03:57 08/31/24 04:47 Brief Hx & Hospital Course: Jose Aaron is a 58-year-old male patient who presents to the ED with chief complaint of desaturation at the low 80s on his home oxygen (3 L/min), not responding with increasing oxygen flow. Patient also complains of oral cavity pain associated with thrush. Patient does have history of lymphoma, was treated with chemotherapy but since receiving chemotherapy patient had multifocal pneumonia, completed t5 different courses of antibiotics with no response, last admission due to multifocal pneumonia he was diagnosed with PE and DVT, he is currently on Pradaxa. Patient decided to discontinue chemotherapy, patient is currently a chemical code. Patient was found to have a DVT and Pulm Embolism. Patient was on oxygen for an extended period of time. Ultimately, patient was discharged home to see Tal. Condition at Discharge: Poor Final Diagnosis/Problems List Acute on chronic respiratory failure - Titrate oxygen as tolerated Sepsis secondary to pneumonia- COnt Abx Multifocal pneumonia Gram-positive/Gram-negative Pulmonary embolism- on Lovenox Subq/ s/p IVC Filter DVT Lymphoma currently under no chemotherapy Thrombocytopenia Normocytic anemia Oral thrush Moderate protein malnutrition- Dietary Consult Discharge Disposition: Home Discharge Instruct/Medications Diet: Regular Activity: Bed rest Discharge Statement: "Patient was advised to return to the ER or call 911 if any headaches, dizziness, shortness of breath, chest pain, abdominal pain, bleeding, fevers, or worsening of medical condition. Patient was counseled about treatment plan, medications, possible side effects, patientverbalized understanding. All questions were answered to the best of my ability. This discharge took greater then 30 minutes in planning, reviewing documentation, counseling the patient, and discussing with other team members." ASSESSMENT ASSESSMENT Assessment Date of Service: September 02, 2024 Billing Provider: MAISHA LIPSCOMB MD Common Visit Codes: [id number] DISCH DAY >30min MAISHA LIPSCOMB MD September 02, 2024 18:51
[2024-09-02] MEDS: DOXYCYCLINE 100 MG TAB/CAP PO SCH (23:04)
[2024-09-02] MEDS: MAGNESIUM OXIDE 400 MG TAB PO SCH (23:04)
[2024-09-03] VITALS (21 sets, daily range): BP systolic 122–158; BP diastolic 74–99; PULSE 63–125; RESP 25–44; TEMP 97.8–99; O2SAT 90–97
[2024-09-03] MEDS: LORazepam 2MG/ML-1ML VIAL IV PRN (01:18)
[2024-09-03 07:54] LABS: Basophils # (auto) 0 10 ^3/uL (0-0.2); Basophils % (auto) 0.1 % (0.0-2.0); Eosinophils # (auto) 0 10 ^3/uL (0-0.8); Hematocrit 32.4 % (41.0-53.0); Hemoglobin 10.8 g/dL (13.5-17.5); Lymphocytes # (auto) 1.1 10 ^3/uL (0.4-5.4); Lymphocytes % (auto) 13.2 % (10.0-50.0); Mean Corpuscular Hemoglobin 30.4 pg (28.0-32.0); Mean Corpuscular Hgb Conc. 33.4 g/dL (32.0-36.0); Mean Corpuscular Volume 91.2 fL (80.0-100.0); Monocytes # (auto) 0.2 10 ^3/uL (0-1.3); Neutrophils % (auto) 84.7 % (37.0-80.0); Nucleated Red Blood Cells % 0.1 %; Platelet Count (auto) 105 10^3/uL (140-450); Red Blood Cells 3.56 10^6/uL (4.5-5.90); Red Cell Distribution Width 16.8 % (11.8-14.3); White Blood Cell 8.2 10^3/uL (4.4-10.8)
[2024-09-03 07:55] LABS: Anion Gap 8 (5-15); Carbon Dioxide 25 mmol/L (20-31); Chloride 105 mmol/L (98-107); Sodium 138 mmol/L (136-145)
[2024-09-03 08:01] LABS: BUN/Creatinine Ratio 30.3 (10.0-20.0); Blood Urea Nitrogen 10 mg/dL (9-23)
[2024-09-03 08:02] LABS: Calcium 8.4 mg/dL (8.7-10.4); Glucose 110 mg/dL (74-106); Potassium 3.4 mmol/L (3.5-5.1)
[2024-09-03] MEDS: PANTOPRAZOLE 40 MG TAB PO SCH (08:16)
[2024-09-03 08:23] LABS: Magnesium 1.7 mg/dL (1.6-2.6)
[2024-09-03] MEDS ORDERED: BISO5TAB44 PO (12:13)
[2024-09-03] MEDS: MICAFUNGIN SODIUM 100 MG in SODIUM CHL 0.9% 100 ML IV SCH (12:46)
[2024-09-03 14:20] LABS: INR 1.13 (0.9-1.15); Partial Thromboplastin Time 34.5 SEC (24.5-34.5); Prothrombin Time 11.8 sec (9.3-11.8)
[2024-09-03] MEDS: LIDOCAINE 1% (LOCAL ANESTH.) PF 5ml SDV ID ONE (15:15)
[2024-09-03] MEDS ORDERED: [UNRECOGNIZED DRUG - CODE] PO (20:07)
[2024-09-03] MEDS ORDERED: MIRT-94 PO (20:07)
[2024-09-03] MEDS ORDERED: PANT40TA2 PO (20:07)
[2024-09-03] MEDS ORDERED: MAA30LQ PO (20:07)
[2024-09-03] MEDS ORDERED: DABI150C5 PO (20:07)
[2024-09-03] MEDS ORDERED: AMLO1TAB22 PO (20:07)
[2024-09-03] MEDS ORDERED: MONT-8 PO (20:07)
[2024-09-03] MEDS ORDERED: PRE1T PO (20:07)
[2024-09-03] MEDS ORDERED: FLEETMIN PR (20:07)
[2024-09-03] MEDS ORDERED: PRED20TA2 PO (20:07)
[2024-09-03] MEDS ORDERED: FURO40TA4 PO (20:07)
[2024-09-03] MEDS ORDERED: MELA3TAB27 PO (20:07)
[2024-09-03] MEDS: VANCOMYCIN 1GM/200ML PM 200 ML IV SCH (20:38)
[2024-09-03] MEDS: FUROSEMIDE 40 MG/4 ML VIAL IV ONE (20:39)
[2024-09-03] MEDS: SODIUM CHLOR 0.9% PF (SALINE LOCK) 10ML VIAL/SYR IV SCH (21:55)
[2024-09-04] VITALS (19 sets, daily range): BP systolic 103–128; BP diastolic 57–91; PULSE 71–108; RESP 17–61; TEMP 97.6–99.3; O2SAT 90–95
[2024-09-04 07:03] LABS: Basophils # (auto) 0 10 ^3/uL (0-0.2); Basophils % (auto) 0.2 % (0.0-2.0); Eosinophils # (auto) 0 10 ^3/uL (0-0.8); Hematocrit 31.2 % (41.0-53.0); Hemoglobin 10.8 g/dL (13.5-17.5); Lymphocytes # (auto) 1.6 10 ^3/uL (0.4-5.4); Lymphocytes % (auto) 19.5 % (10.0-50.0); Mean Corpuscular Hemoglobin 30.8 pg (28.0-32.0); Mean Corpuscular Hgb Conc. 34.7 g/dL (32.0-36.0); Mean Corpuscular Volume 88.7 fL (80.0-100.0); Monocytes # (auto) 0.2 10 ^3/uL (0-1.3); Monocytes % (auto) 2.6 % (0.0-12.0); Neutrophils # (auto) 6.3 10 ^3/uL (1.6-8.6); Neutrophils % (auto) 77.7 % (37.0-80.0); Platelet Count (auto) 114 10^3/uL (140-450); Red Blood Cells 3.52 10^6/uL (4.5-5.90); Red Cell Distribution Width 16.6 % (11.8-14.3); White Blood Cell 8.1 10^3/uL (4.4-10.8)
[2024-09-04 07:15] LABS: Magnesium 1.9 mg/dL (1.6-2.6)
[2024-09-04] MEDS: FUROSEMIDE 40 MG/4 ML VIAL IV SCH (09:38)
[2024-09-04] MEDS: BISOPROLOL 5MG TABLET PO SCH (12:30)
[2024-09-04 13:49] LABS: Basophils # (auto) 0 10 ^3/uL (0-0.2); Basophils % (auto) 0.1 % (0.0-2.0); Eosinophils # (auto) 0 10 ^3/uL (0-0.8); Hemoglobin 11.6 g/dL (13.5-17.5); Lymphocytes # (auto) 0.7 10 ^3/uL (0.4-5.4); Lymphocytes % (auto) 6.1 % (10.0-50.0); Mean Corpuscular Hemoglobin 29.7 pg (28.0-32.0); Mean Corpuscular Hgb Conc. 33.3 g/dL (32.0-36.0); Mean Corpuscular Volume 89.3 fL (80.0-100.0); Monocytes # (auto) 0.3 10 ^3/uL (0-1.3); Monocytes % (auto) 2.7 % (0.0-12.0); Neutrophils # (auto) 10.8 10 ^3/uL (1.6-8.6); Neutrophils % (auto) 91.1 % (37.0-80.0); Platelet Count (auto) 145 10^3/uL (140-450); Red Blood Cells 3.91 10^6/uL (4.5-5.90); Red Cell Distribution Width 16.8 % (11.8-14.3); White Blood Cell 11.9 10^3/uL (4.4-10.8)
[2024-09-04] MEDS: PANTOPRAZOLE 80 MG in SODIUM CHL 0.9% 100 ML IV ONE (13:58)
[2024-09-04] MEDS: PANTOPRAZOLE 40mg/50ML NS AE 50 ML IV SCH (14:45)
--- NOTE | 2024-09-04 22:42 | DVHPN2 ---
Subjective The patient is seen and examined at bedside. The patient off BiPAP today. Feel better. The patient is supposed to be discharged today to [place]. Reviewed: Care Plan, H&P, Labs, Medications, Previous Orders, Radiology Changes from previous H/P or p: No Changes Objective Vitals Vital Signs Date Time Temp Pulse Resp B/P (MAP) Pulse Ox O2 Delivery O2 Flow Rate FiO2 09/04/24 19:29 101 22 92 09/04/24 19:23 Simple Mask* 10 99 09/04/24 16:38 99.3 128/85 (99) 99.3 Intake/Output Intake and Output 09/04/24 07:00 Intake Total 700 ml Output Total 5150 ml Balance -4450 ml Intake Oral 100 ml IV Total 600 ml Output Urine Total 5150 ml # Bowel Movements 1 General Appearance: Alert, Oriented X3 Lungs: Other (diminished) Cardiovascular: Regular rate, Normal S1, Normal S2 Abdomen: Normal bowel sounds, Soft Medications Current Medications Medications Dose Ordered Sig/Jaden Route Start Time Stop Time Status Last Admin Dose Admin Vancomycin HCl 0 ml @ 0 mls/hr UD IV 08/31/24 03:00 Piperacillin Sod/ Tazobactam Sod 100 ml @ 25 mls/hr Q8HR IV 08/31/24 06:00 09/04/24 14:43 25 MLS/HR Methylprednisolone Sodium Succinate 40 mg BID IV 08/31/24 10:00 09/04/24 21:10 40 MG Nystatin 5 ml QID OR 08/31/24 12:00 09/01/24 22:03 5 ML Lidocaine HCl 10 ml Q4HP PRN OR 08/31/24 07:00 09/01/24 18:31 10 ML Levalbuterol HCl 0.625 mg Q6HR [facility] 08/31/24 12:00 09/04/24 19:22 0.625 MG Ipratropium [place] 0.5 mg Q6HWA [facility] 08/31/24 12:00 09/04/24 19:22 0.5 MG Enoxaparin Sodium 80 mg Q12HR SC 08/31/24 22:00 09/04/24 09:36 80 MG Doxycycline Monohydrate 100 mg Q12HR PO 09/02/24 22:00 09/04/24 09:35 100 MG Pantoprazole Sodium 40 mg DAILY@0600 PO 09/03/24 06:00 09/04/24 05:10 40 MG Micafungin Sodium 100 mg/Sodium Chloride 100 ml @ 100 mls/hr DAILY IV 09/03/24 10:00 09/04/24 09:38 100 MLS/HR Magnesium Oxide 800 mg BID PO 09/02/24 22:00 09/04/24 21:10 800 MG Lorazepam 0.5 mg Q12HP PRN IV 09/03/24 01:15 09/03/24 01:18 0.5 MG Furosemide 40 mg DAILY IV 09/04/24 10:00 09/04/24 09:38 40 MG Patient Own Medication 1 DAILY PO 09/04/24 10:00 09/04/24 12:30 1 Vancomycin HCl 200 ml @ 200 mls/hr Q8H IV 09/03/24 21:00 09/04/24 20:58 200 MLS/HR Sodium Chloride 10 ml QSHIFT@10,22 IV 09/03/24 22:00 09/04/24 20:59 10 ML Pantoprazole Sodium 50 ml @ 10 mls/hr Q5H IV 09/04/24 13:15 09/04/24 18:15 10 MLS/HR Laboratory Results Laboratory Tests 09/03/24 06:22 09/04/24 06:06 09/04/24 13:30 Chemistry Test 09/04/24 06:06 Magnesium Level 1.9 mg/dL (1.6-2.6) Urinalysis Test 08/31/24 04:35 Urine Color Light-yellow (Yellow) Urine Clarity Clear (Clear) Urine pH 7.0 (5.0-9.0) Urine Specific [place] 1.045 (1.001-1.035) Urine Protein Negative (Negative) Urine Ketones Negative (Negative) Urine Blood Negative /uL (Negative) Urine Nitrite Negative (Negative) Urine Bilirubin Negative (Negative) Urine Urobilinogen Normal mg/dL (Negative) Urine Leukocyte Esterase Negative /uL (Negative) Urine RBC 1 /hpf (0 - 3) Urine Microscopic WBC 1 /HPF (0-3) Urine Squamous Epithelial Cells Few /hpf (<5) Urine Bacteria None seen /hpf (None Seen) Urine Glucose Normal mg/dL (Normal) Microbiology Microbiology Date/Time Source Procedure Growth Status 08/31/24 04:35 Voided Urine Urine Culture - Final Complete 08/31/24 03:20 Nose MRSA Screen - Final Complete 08/30/24 23:30 Blood Blood Culture - Preliminary NO GROWTH AFTER 72 HOURS OF INCUBATION. Resulted Labs and/or images reviewed: Labs reviewed by me Assessment/Plan Assessment/Plan Acute on chronic respiratory failure Sepsis secondary to pneumonia Multifocal pneumonia Gram-positive/Gram-negative Pulmonary embolism DVT Lymphoma currently under no chemotherapy Thrombocytopenia Normocytic anemia Oral thrush Moderate protein malnutrition- Dietary Consult Continuing current management. Continuing IV antibiotic. Continuing with Lovenox Transfer to [place] when bed available Patient is stable to transfer Addendum: RN informed me that the patient had a large bowel movement and is was bloody. I am going to hold Lovenox for now. I will put the patient on Protonix drip. I am going to consult GI. This medical document was created using an electronic medical record system with [employer] computerized dictation system. Although this document has been carefully reviewed, there may still be some phonetic and typographical errors. These areas are purely typographical due to imperfections of the software programs, and do not reflect any compromise in the patient's medical care. Plan discussed with: Patient My Orders Orders - KRISTI CRUZ MD Procedure Category Date Status Time * Wound Consult CONS 09/04/24 Transmitted Pantoprazole PHA 09/04/24 In Process 40mg/50ml Ns Ae 13:15 * [facility] [employer] Superintendent CONS 09/04/24 Transmitted 13:17 Date of Service: September 04, 2024 Billing Provider: KRISTI CRUZ MD Common Visit Codes: [id number] INP/OBS CARE(HIGH) KRISTI CRUZ MD September 04, 2024 22:42
--- NOTE | 2024-09-04 22:42 | DVHPN2 ---
Subjective Patient is seen and examined at bedside. Remained on BiPAP. Reviewed: Care Plan, H&P, Labs, Medications, Previous Orders, Radiology Changes from previous H/P or p: No Changes Objective Vitals Vital Signs Date Time Temp Pulse Resp B/P (MAP) Pulse Ox O2 Delivery O2 Flow Rate FiO2 09/03/24 19:29 101 22 92 09/03/24 19:23 Simple Mask* 10 99 09/02/24 16:38 99.3 128/85 (99) 99.3 Intake/Output Intake and Output 09/04/24 07:00 Intake Total 700 ml Output Total 5150 ml Balance -4450 ml Intake Oral 100 ml IV Total 600 ml Output Urine Total 5150 ml # Bowel Movements 1 General Appearance: Alert, Oriented X3 Lungs: Other (diminished) Cardiovascular: Regular rate, Normal S1, Normal S2 Abdomen: Normal bowel sounds, Soft Medications Current Medications Medications Dose Ordered Sig/Jaden Route Start Time Stop Time Status Last Admin Dose Admin Vancomycin HCl 0 ml @ 0 mls/hr UD IV 08/31/24 03:00 Piperacillin Sod/ Tazobactam Sod 100 ml @ 25 mls/hr Q8HR IV 08/31/24 06:00 09/04/24 14:43 25 MLS/HR Methylprednisolone Sodium Succinate 40 mg BID IV 08/31/24 10:00 09/04/24 21:10 40 MG Nystatin 5 ml QID MT 08/31/24 12:00 09/01/24 22:03 5 ML Lidocaine HCl 10 ml Q4HP PRN [place] 08/31/24 07:00 09/01/24 18:31 10 ML Levalbuterol HCl 0.625 mg Q6HR [facility] 08/31/24 12:00 09/04/24 19:22 0.625 MG Ipratropium [place] 0.5 mg Q6HWA [facility] 08/31/24 12:00 09/04/24 19:22 0.5 MG Enoxaparin Sodium 80 mg Q12HR SC 08/31/24 22:00 09/04/24 09:36 80 MG Doxycycline Monohydrate 100 mg Q12HR PO 09/02/24 22:00 09/04/24 09:35 100 MG Pantoprazole Sodium 40 mg DAILY@0600 PO 09/03/24 06:00 09/04/24 05:10 40 MG Micafungin Sodium 100 mg/Sodium Chloride 100 ml @ 100 mls/hr DAILY IV 09/03/24 10:00 09/04/24 09:38 100 MLS/HR Magnesium Oxide 800 mg BID PO 09/02/24 22:00 09/04/24 21:10 800 MG Lorazepam 0.5 mg Q12HP PRN IV 09/03/24 01:15 09/03/24 01:18 0.5 MG Furosemide 40 mg DAILY IV 09/04/24 10:00 09/04/24 09:38 40 MG Patient Own Medication 1 DAILY PO 09/04/24 10:00 09/04/24 12:30 1 Vancomycin HCl 200 ml @ 200 mls/hr Q8H IV 09/03/24 21:00 09/04/24 20:58 200 MLS/HR Sodium Chloride 10 ml QSHIFT@10,22 IV 09/03/24 22:00 09/04/24 20:59 10 ML Pantoprazole Sodium 50 ml @ 10 mls/hr Q5H IV 09/04/24 13:15 09/04/24 18:15 10 MLS/HR Laboratory Results Laboratory Tests 09/03/24 06:22 09/04/24 06:06 09/04/24 13:30 Chemistry Test 09/04/24 06:06 Magnesium Level 1.9 mg/dL (1.6-2.6) Urinalysis Test 08/31/24 04:35 Urine Color Light-yellow (Yellow) Urine Clarity Clear (Clear) Urine pH 7.0 (5.0-9.0) Urine Specific [place] 1.045 (1.001-1.035) Urine Protein Negative (Negative) Urine Ketones Negative (Negative) Urine Blood Negative /uL (Negative) Urine Nitrite Negative (Negative) Urine Bilirubin Negative (Negative) Urine Urobilinogen Normal mg/dL (Negative) Urine Leukocyte Esterase Negative /uL (Negative) Urine RBC 1 /hpf (0 - 3) Urine Microscopic WBC 1 /HPF (0-3) Urine Squamous Epithelial Cells Few /hpf (<5) Urine Bacteria None seen /hpf (None Seen) Urine Glucose Normal mg/dL (Normal) Microbiology Microbiology Date/Time Source Procedure Growth Status 08/31/24 04:35 Voided Urine Urine Culture - Final Complete 08/31/24 03:20 Nose MRSA Screen - Final Complete 08/30/24 23:30 Blood Blood Culture - Preliminary NO GROWTH AFTER 72 HOURS OF INCUBATION. Resulted Labs and/or images reviewed: Labs reviewed by me Assessment/Plan Assessment/Plan Acute on chronic respiratory failure - Titrate oxygen as tolerated Sepsis secondary to pneumonia Multifocal pneumonia Gram-positive/Gram-negative Pulmonary embolism- DVT Lymphoma currently under no chemotherapy Thrombocytopenia Normocytic anemia Oral thrush Moderate protein malnutrition- Dietary Consult Continuing current management. Continuing with Lovenox for DVT. Patient has status post IVC filter. Continuing to wean off BiPAP Continuing with IV antibiotics Stable to transfer to [place] Plan discussed with: Patient My Orders Orders - KRISTI CRUZ MD Procedure Category Date Status Time * Wound Consult CONS 09/04/24 Transmitted Pantoprazole PHA 09/04/24 In Process 40mg/50ml Ns Ae 13:15 * [facility] Statistician Theoretical CONS 09/04/24 Transmitted 13:17 Date of Service: September 03, 2024 Billing Provider: KRISTI CRUZ MD Common Visit Codes: [id number] INP/OBS CARE(HIGH) KRISTI CRUZ MD September 04, 2024 22:42
--- NOTE | 2024-09-04 23:13 | DVHINCON2 ---
Date of service: September 04, 2024 Referring Physician Annamaria Betancur Reason for Consultation Blood in stool History of Present Illness Jose Aaron is a 58-year-old male patient who presents to the ED with chief complaint of desaturation at the low 80s on his home oxygen (3 L/min), not responding with increasing oxygen flow. Patient also complains of oral cavity pain associated with thrush. Patient does have history of lymphoma, was treated with chemotherapy but since receiving chemotherapy patient had multifocal pneumonia, completed t5 different courses of antibiotics with no response, last admission due to multifocal pneumonia he was diagnosed with PE and DVT, he is currently on Pradaxa. Patient decided to discontinue chemotherapy, patient is currently a chemical code. Patient states he only has occasional bright red blood per rectum especially if he is straining or is constipated. Today because he had trouble using the be dpan he felt that aggravated his rectum and he had some Rectal bleeding along with his bowel movement. He has not had a recent colonoscopy Past Medical History Lymphoma PE DVT GERD Past Surgical History Bronchoscopy Family History: Patient reports no known family medical history. Allergies: Coded Allergies: Metoprolol (Verified Allergy, Unknown, 08/31/24) Sulfamethoxazole w/Trimethoprim (Verified Allergy, Unknown, 08/31/24) Home Meds Reported Medications Melatonin (KP MELATONIN) 3 Mg Tab, 3 MG PO HS PRN for FOR INSOMNIA, TAB 09/03/24 Prednisone (Prednisone) 20 Mg Tab, 40 MG PO DAILY, MG 09/03/24 Prednisone (PREDNISONE) 1 Mg Tb, 4 TAB PO DAILY, #120 TAB 3 Refills 09/03/24 Alum & Mag Hydrox-Simethicone (Maalox Plus) 30 Ml Ss, 30 ML PO Q6HP, ML 09/03/24 Sodium Phosphate/Biphosphate (Fleet Enema) 133 Ml Rc, 133 ML NV [id number], SUPP.RECT 09/03/24 Dabigatran Etexilate Mesylate (Pradaxa) 150 Mg Cap, 1 CAP PO BID, #180 CAP 1 Refill 09/03/24 Amlodipine Besylate (Amlodipine Besylate) 5 Mg Tab, 1 TAB PO DAILY, #30 TAB 5 Refills 09/03/24 Pantoprazole Sodium Sesquihydr (Protonix) 40 Mg Tab, 40 MG PO DAILY, #30 TAB 5/6/25 Montelukast Sodium (MONTELUKAST SODIUM) 10 Mg Tab, 1 TAB PO HS, #30 TAB 5 Refills 09/03/24 Dapsone (Dapsone) 100 Mg Tab, 100 MG PO DAILY, TAB 09/03/24 Mirtazapine (REMERON) 30 Mg Tab, 15 MG PO HS, TAB 09/03/24 Furosemide (Furosemide) 40 Mg Tab, 1 TAB PO DAILY, #30 TAB 5 Refills 09/03/24 Bisoprolol Fumarate (Bisoprolol Fumarate) 5 Mg Tab, 1 TAB PO DAILY, #90 TAB 3 Refills 09/03/24 Current Medications Current Medications Medications (Trade) Dose Ordered Sig/Jaden Route PRN Reason Start Time Stop Time Status Last Admin Furosemide (Lasix Injection) 40 mg DAILY IV 09/04/24 10:00 09/04/24 09:38 Patient Own Medication 1 DAILY PO 09/04/24 10:00 09/04/24 12:30 Pantoprazole Sodium 50 ml @ 10 mls/hr Q5H IV 09/04/24 13:15 09/04/24 18:15 Vital Signs Vital Signs Date Time Temp Pulse Resp B/P (MAP) Pulse Ox O2 Delivery O2 Flow Rate FiO2 09/04/24 19:29 101 22 92 09/04/24 19:23 Simple Mask* 10 99 09/04/24 16:38 99.3 128/85 (99) 99.3 Physical Exam GENERAL: Alert and interactive. No acute distress. HEAD: Head is normocephalic and atraumatic. EYES: EOMI, PERRL. No scleral icterus. No conjunctival injection. ENT: Moist mucous membranes. NECK: Supple, No masses, Full range of motion. RESPIRATORY: No tachypnea. Clear breath sounds bilaterally. No wheezing, rales, rhonchi. CV: Regular rate and rhythm. No murmurs, rubs, or gallops. GI/: Active bowel sounds, soft, nondistended, nontender. No guarding. No rebound. No masses. No CVA tenderness. INTEGUMENTARY: Warm and dry. No obvious rashes. NEUROLOGIC: Alert and oriented. Face is symmetric. Speech is normal. Moves all extremities equally. Labs/Diagnostic Data Labs Test 09/04/24 13:30 09/04/24 06:06 09/03/24 14:51 09/03/24 13:48 Range/Units White Blood Count 11.9 #H 4.4-10.8 10^3/uL Red Blood Count 3.91 L 4.5-5.90 10^6/uL Hemoglobin 11.6 L 13.5-17.5 g/dL Hematocrit 35.0 #L 41.0-53.0 % Mean Corpuscular Volume 89.3 80.0-100.0 fL Mean Corpuscular Hemoglobin 29.7 28.0-32.0 pg Mean Corpuscular Hemoglobin Concent 33.3 32.0-36.0 g/dL Red Cell Distribution Width 16.8 H 11.8-14.3 % Platelet Count 145 140-450 10^3/uL Mean Platelet Volume 8.3 6.9-10.8 fL Neutrophils (%) (Auto) 91.1 H 37.0-80.0 % Lymphocytes (%) (Auto) 6.1 L 10.0-50.0 % Monocytes (%) (Auto) 2.7 0.0-12.0 % Eosinophils (%) (Auto) 0.0 0.0-7.0 % Basophils (%) (Auto) 0.1 0.0-2.0 % Neutrophils # (Auto) 10.8 H 1.6-8.6 10 ^3/uL Lymphocytes # (Auto) 0.7 0.4-5.4 10 ^3/uL Monocytes # (Auto) 0.3 0-1.3 10 ^3/uL Eosinophils # (Auto) 0 0-0.8 10 ^3/uL Basophils # (Auto) 0 0-0.2 10 ^3/uL Nucleated Red Blood Cells 0.0 % Creatinine 0.36 L 0.700-1.30 mg/dL Glomerular Filtration Rate Calc 131 >90 mL/min Magnesium Level 1.9 1.6-2.6 mg/dL Vancomycin Level Trough 12.7 H 5-10 ug/mL Prothrombin Time 11.8 9.3-11.8 sec Prothrombin Time INR 1.13 0.9-1.15 Activated Partial Thromboplast Time 34.5 24.5-34.5 SEC Test 09/03/24 06:22 08/31/24 04:47 08/31/24 04:35 08/31/24 03:20 Range/Units Sodium Level 138 136-145 mmol/L Potassium Level 3.4 L 3.5-5.1 mmol/L Chloride Level 105 98-107 mmol/L Carbon Dioxide Level 25 20-31 mmol/L Anion Gap 8 5-15 Blood Urea Nitrogen 10 9-23 mg/dL BUN/Creatinine Ratio 30.3 H 10.0-20.0 Serum Glucose 110 H 74-106 mg/dL Calcium Level 8.4 L 8.7-10.4 mg/dL Hemoglobin A1c 5.6 <5.7 % A1C Phosphorus Level 2.5 2.4-5.1 mg/dL Total Bilirubin 0.8 0.2-1.0 mg/dL Aspartate Amino Transferase (AST) 25 13-40 U/L Alanine Aminotransferase (ALT) 79 H 7-40 U/L Alkaline Phosphatase 168 H 46-116 U/L Total Protein 4.1 L 5.7-8.2 g/dL Albumin 2.7 L 3.2-4.8 g/dL Triglycerides Level 85 < 150 mg/dL Cholesterol Level 104 < 200 mg/dL LDL Cholesterol 61 < 100 mg/dL HDL Cholesterol 28 L 40-59 mg/dL Vitamin B12 Level 349 211-911 pg/mL Vitamin D 25-Hydroxy 17.3 L 30.0-100 ng/mL Thyroid Stimulating Hormone (TSH) 0.30 L 0.55-4.78 uIU/mL Free Thyroxine (T4) Calculated 0.81 L 0.89-1.76 ng/dL Total Triiodothyronine (TT3) 0.62 0.60-1.81 ng/mL Urine Color Light-yellow Yellow Urine Clarity Clear Clear Urine pH 7.0 5.0-9.0 Urine Specific [place] 1.045 H 1.001-1.035 Urine Protein Negative Negative Urine Ketones Negative Negative Urine Blood Negative Negative /uL Urine Nitrite Negative Negative Urine Bilirubin Negative Negative Urine Urobilinogen Normal Negative mg/dL Urine Leukocyte Esterase Negative Negative /uL Urine RBC 1 0 - 3 /hpf Urine Microscopic WBC 1 0-3 /HPF Urine Squamous Epithelial Cells Few <5 /hpf Urine Bacteria None seen None Seen /hpf Urine Glucose Normal Normal mg/dL Urine Opiates Screen Neg NEGATIVE Urine Fentanyl Screen Neg NEGATIVE Urine Barbiturates Screen Neg NEGATIVE Urine Phencyclidine Screen Neg NEGATIVE Urine Amphetamines Screen Neg NEGATIVE Urine Benzodiazepines Screen Neg NEGATIVE Urine Cocaine Screen Neg NEGATIVE Urine Cannabinoids Screen Neg NEGATIVE Influenza Type A Antigen Negative Negative Influenza Type B Antigen Negative Negative SARS-CoV-2 Antigen (Rapid) Negative NEGATIVE Test 08/31/24 03:08 08/31/24 02:05 08/30/24 23:30 Range/Units Blood Gas Specimen Type Arterial Blood Gas Sample Site Right radial Blood Gas Patient Temperature 37.0 Arterial Blood Date Drawn [id number] Arterial Blood pH 7.439 7.350-7.450 Arterial Blood Partial Pressure CO2 36.2 35.0-48.0 mmHg Arterial Blood Partial Pressure O2 75.6 L 83.0-108.0 mmHg Arterial Blood HCO3 24.0 21.0-28.0 mmol/L Arterial Blood Oxygen Saturation 93.9 L 94.0-98.0 % Arterial Blood Base Excess 0.0 -2.0-3.0 mmol/L Arterial Blood Oxyhemoglobin 92.9 L 94.0-98.0 % Arterial Blood Carboxyhemoglobin 0.3 L 0.5-1.5 % Arterial Blood Methemoglobin 0.8 0.0-1.5 % Sim Test Modified Blood Gas Total Hemoglobin 9.50 L 13.5-17.5 g/dL Blood Gas Liter Flow 10.00 Blood Gas Modality Mask - simple FiO2 % 50.0 Lactic Acid Level 1.8 0.4-2.0 mmol/L Troponin I High Sensitivity 9 </=54 ng/L B-Type Natriuretic Peptide 92.95 0-100 pg/mL Microbiology Date/Time Source Procedure Growth Status 08/31/24 04:35 Voided Urine Urine Culture - Final Complete 08/31/24 03:20 Nose MRSA Screen - Final Complete 08/30/24 23:30 Blood Blood Culture - Preliminary NO GROWTH AFTER 72 HOURS OF INCUBATION. Resulted Venogram IMPRESSION: Successful IVC filter placement in the infra-renal location. CT scan soft tissues of the neck IMPRESSION: 1. Multiple pathologically enlarged superior mediastinal lymph nodes and conspicuous mildly enlarged bilateral cervical lymph nodes concerning for possible metastatic disease and underlying malignancy of uncertain origin. 2. Biapical pulmonary parenchymal consolidation consistent with multifocal pneumonia. Extremity venous study IMPRESSION: DVT in the distal left superficial femoral vein, popliteal vein, and posterior tibial veins. Problems(with codes): (1) Rectal bleeding (2) Pneumonia (3) Acute respiratory distress (4) Bilateral pulmonary embolism (5) Sepsis (6) Leukocytosis (7) Anemia (8) DVT (deep venous thrombosis) Plan/Recommendation Assessment and plan Since the patient has undergone an IVC filter placement at this time I will hold his Lovenox Continue local anorectal hemorrhoidal care Monitor labs, check CEA level Stool softeners Patient was advised an elective colonoscopy at [place] once medically stabilized Plan discussed with: Patient ELTON LEBLANC MD September 04, 2024 23:13
[2024-09-05] VITALS (18 sets, daily range): BP systolic 109–139; BP diastolic 55–76; PULSE 87–104; RESP 18–34; TEMP 97.8–99; O2SAT 85–99
[2024-09-05 07:20] LABS: Basophils # (auto) 0 10 ^3/uL (0-0.2); Basophils % (auto) 0.3 % (0.0-2.0); Eosinophils # (auto) 0 10 ^3/uL (0-0.8); Hematocrit 31.1 % (41.0-53.0); Hemoglobin 10.4 g/dL (13.5-17.5); Lymphocytes # (auto) 1.5 10 ^3/uL (0.4-5.4); Lymphocytes % (auto) 20.3 % (10.0-50.0); Mean Corpuscular Hemoglobin 29.9 pg (28.0-32.0); Mean Corpuscular Hgb Conc. 33.4 g/dL (32.0-36.0); Mean Corpuscular Volume 89.5 fL (80.0-100.0); Monocytes # (auto) 0.2 10 ^3/uL (0-1.3); Monocytes % (auto) 2.8 % (0.0-12.0); Neutrophils # (auto) 5.6 10 ^3/uL (1.6-8.6); Neutrophils % (auto) 76.6 % (37.0-80.0); Nucleated Red Blood Cells % 0.2 %; Platelet Count (auto) 123 10^3/uL (140-450); Red Blood Cells 3.47 10^6/uL (4.5-5.90); Red Cell Distribution Width 16.8 % (11.8-14.3); White Blood Cell 7.3 10^3/uL (4.4-10.8)
[2024-09-05 07:40] LABS: Magnesium 2.1 mg/dL (1.6-2.6)
--- NOTE | 2024-09-05 11:51 | DVHPN2 ---
Subjective The patient is seen and examined at bedside. The patient off BiPAP today. Feel better. The patient is supposed to be discharged today to [place]. Reviewed: Care Plan, H&P, Labs, Medications, Previous Orders, Radiology Changes from previous H/P or p: No Changes Objective Vitals Vital Signs Date Time Temp Pulse Resp B/P (MAP) Pulse Ox O2 Delivery O2 Flow Rate FiO2 09/05/24 08:54 121/68 09/05/24 08:42 98.7 104 18 90 98.7 09/05/24 08:00 Simple Mask* 10 60 Bi-Pap+ 60 Intake/Output Intake and Output 09/05/24 07:00 Intake Total 800 ml Output Total 2650 ml Balance -1850 ml Intake Oral 800 ml Output Urine Total 2650 ml # Bowel Movements 2 General Appearance: Alert, Oriented X3 Lungs: Other (diminished) Cardiovascular: Regular rate, Normal S1, Normal S2 Abdomen: Normal bowel sounds, Soft Medications Current Medications Medications Dose Ordered Sig/Jaden Route Start Time Stop Time Status Last Admin Dose Admin Vancomycin HCl 0 ml @ 0 mls/hr UD IV 08/31/24 03:00 Piperacillin Sod/ Tazobactam Sod 100 ml @ 25 mls/hr Q8HR IV 08/31/24 06:00 09/05/24 07:00 25 MLS/HR Methylprednisolone Sodium Succinate 40 mg BID IV 08/31/24 10:00 09/05/24 08:55 40 MG Nystatin 5 ml QID [place] 08/31/24 12:00 09/01/24 22:03 5 ML Lidocaine HCl 10 ml Q4HP PRN [place] 08/31/24 07:00 09/01/24 18:31 10 ML Levalbuterol HCl 0.625 mg Q6HR [facility] 08/31/24 12:00 09/05/24 06:18 0.625 MG Ipratropium [place] 0.5 mg Q6HWA [facility] 08/31/24 12:00 09/05/24 06:18 0.5 MG Doxycycline Monohydrate 100 mg Q12HR PO 09/02/24 22:00 09/05/24 08:57 100 MG Pantoprazole Sodium 40 mg DAILY@0600 PO 09/03/24 06:00 09/05/24 07:05 40 MG Micafungin Sodium 100 mg/Sodium Chloride 100 ml @ 100 mls/hr DAILY IV 09/03/24 10:00 09/05/24 08:53 100 MLS/HR Magnesium Oxide 800 mg BID PO 09/02/24 22:00 09/05/24 08:57 800 MG Lorazepam 0.5 mg Q12HP PRN IV 09/03/24 01:15 09/04/24 23:09 0.5 MG Furosemide 40 mg DAILY IV 09/04/24 10:00 09/05/24 08:54 40 MG Patient Own Medication 1 DAILY PO 09/04/24 10:00 09/05/24 08:56 1 Vancomycin HCl 200 ml @ 200 mls/hr Q8H IV 09/03/24 21:00 09/05/24 05:00 200 MLS/HR Sodium Chloride 10 ml QSHIFT@,22 IV 09/03/24 22:00 09/05/24 08:56 10 ML Pantoprazole Sodium 50 ml @ 10 mls/hr Q5H IV 09/04/24 13:15 09/05/24 11:17 10 MLS/HR Laboratory Results Laboratory Tests 09/03/24 06:22 09/05/24 06:46 Chemistry Test 09/05/24 06:46 Magnesium Level 2.1 mg/dL (1.6-2.6) Urinalysis Test 08/31/24 04:35 Urine Color Light-yellow (Yellow) Urine Clarity Clear (Clear) Urine pH 7.0 (5.0-9.0) Urine Specific [place] 1.045 (1.001-1.035) Urine Protein Negative (Negative) Urine Ketones Negative (Negative) Urine Blood Negative /uL (Negative) Urine Nitrite Negative (Negative) Urine Bilirubin Negative (Negative) Urine Urobilinogen Normal mg/dL (Negative) Urine Leukocyte Esterase Negative /uL (Negative) Urine RBC 1 /hpf (0 - 3) Urine Microscopic WBC 1 /HPF (0-3) Urine Squamous Epithelial Cells Few /hpf (<5) Urine Bacteria None seen /hpf (None Seen) Urine Glucose Normal mg/dL (Normal) Microbiology Microbiology Date/Time Source Procedure Growth Status 08/31/24 04:35 Voided Urine Urine Culture - Final Complete 08/31/24 03:20 Nose MRSA Screen - Final Complete 08/30/24 23:30 Blood Blood Culture - Final NO GROWTH AFTER 5 DAYS OF INCUBATION. Complete Labs and/or images reviewed: Labs reviewed by me Assessment/Plan Assessment/Plan Acute on chronic respiratory failure Sepsis secondary to pneumonia Multifocal pneumonia Gram-positive/Gram-negative Pulmonary embolism DVT Lymphoma currently under no chemotherapy Thrombocytopenia Normocytic anemia Oral thrush Moderate protein malnutrition- Dietary Consult Rectal bleed with hemorrhoid, Continuing current management. Continuing IV antibiotic. DC thanh Appreciate GI input Local treatment of hemorrhoid with cream Transfer to [place] when bed available Patient is stable to transfer This medical document was created using an electronic medical record system with [employer] direct computerized dictation system. Although this document has been carefully reviewed, there may still be some phonetic and typographical errors. These areas are purely typographical due to imperfections of the software programs, and do not reflect any compromise in the patient's medical care. Plan discussed with: Patient My Orders Orders - KRISTI CRUZ MD Procedure Category Date Status Time Pantoprazole PHA 09/04/24 In Process 40mg/50ml Ns Ae 13:15 * [facility] [employer] CONS 09/04/24 Transmitted 13:17 Date of Service: September 05, 2024 Billing Provider: KRISTI CRUZ MD Common Visit Codes: [id number] INP/OBS CARE(HIGH) KRISTI CRUZ MD September 05, 2024 11:51
[2024-09-05] MEDS: VANCOMYCIN 750MG KIT 100 ML IV SCH (20:14)
[2024-09-06] VITALS (15 sets, daily range): BP systolic 116–128; BP diastolic 72–79; PULSE 81–96; RESP 18–24; TEMP 97.4–98.7; O2SAT 91–100
[2024-09-06 06:48] LABS: Basophils # (auto) 0 10 ^3/uL (0-0.2); Basophils % (auto) 0.3 % (0.0-2.0); Eosinophils # (auto) 0 10 ^3/uL (0-0.8); Hematocrit 29.7 % (41.0-53.0); Lymphocytes # (auto) 0.6 10 ^3/uL (0.4-5.4); Lymphocytes % (auto) 9.9 % (10.0-50.0); Mean Corpuscular Hemoglobin 30.1 pg (28.0-32.0); Mean Corpuscular Hgb Conc. 33.5 g/dL (32.0-36.0); Mean Corpuscular Volume 89.7 fL (80.0-100.0); Monocytes # (auto) 0.1 10 ^3/uL (0-1.3); Monocytes % (auto) 2.4 % (0.0-12.0); Neutrophils # (auto) 5.1 10 ^3/uL (1.6-8.6); Neutrophils % (auto) 87.4 % (37.0-80.0); Nucleated Red Blood Cells % 0.1 %; Platelet Count (auto) 132 10^3/uL (140-450); Red Blood Cells 3.31 10^6/uL (4.5-5.90); Red Cell Distribution Width 16.5 % (11.8-14.3); White Blood Cell 5.9 10^3/uL (4.4-10.8)
[2024-09-06 06:49] LABS: Chloride 102 mmol/L (98-107); Potassium 3.8 mmol/L (3.5-5.1); Sodium 141 mmol/L (136-145)
[2024-09-06 06:50] LABS: Anion Gap 6 (5-15); Calcium 8.8 mg/dL (8.7-10.4)
[2024-09-06 06:54] LABS: Carbon Dioxide 33 mmol/L (20-31)
[2024-09-06 06:55] LABS: BUN/Creatinine Ratio 52.8 (10.0-20.0); Blood Urea Nitrogen 19 mg/dL (9-23)
[2024-09-06 06:56] LABS: Glucose 137 mg/dL (74-106)
--- NOTE | 2024-09-06 12:31 | DVHPN2 ---
Subjective The patient is seen and examined at bedside. The patient off BiPAP today. Feel better. The patient is supposed to be discharged today to [place]. The patient on 10L oxymizer, only increase up to 15 L when he eat. Reviewed: Care Plan, H&P, Labs, Medications, Previous Orders, Radiology Changes from previous H/P or p: No Changes Objective Vitals Vital Signs Date Time Temp Pulse Resp B/P (MAP) Pulse Ox O2 Delivery O2 Flow Rate FiO2 09/06/24 11:55 98.1 81 20 116/72 (87) 92 98.1 09/06/24 08:00 Simple Mask* 10 60 Bi-Pap+ 60 Intake/Output Intake and Output 09/06/24 07:00 Intake Total 1390 ml Output Total 2000 ml Balance -610 ml Intake Oral 700 ml IV Total 690 ml Output Urine Total 2000 ml General Appearance: Alert, Oriented X3 Lungs: Other (diminished) Cardiovascular: Regular rate, Normal S1, Normal S2 Abdomen: Normal bowel sounds, Soft Medications Current Medications Medications Dose Ordered Sig/Jaden Route Start Time Stop Time Status Last Admin Dose Admin Vancomycin HCl 0 ml @ 0 mls/hr UD IV 08/31/24 03:00 Piperacillin Sod/ Tazobactam Sod 100 ml @ 25 mls/hr Q8HR IV 08/31/24 06:00 09/06/24 05:20 25 MLS/HR Methylprednisolone Sodium Succinate 40 mg BID IV 08/31/24 10:00 09/06/24 09:03 40 MG Nystatin 5 ml QID [place] 08/31/24 12:00 09/06/24 12:12 5 ML Lidocaine HCl 10 ml Q4HP PRN [place] 08/31/24 07:00 09/05/24 21:40 10 ML Levalbuterol HCl 0.625 mg Q6HR [facility] 08/31/24 12:00 09/06/24 11:54 0.625 MG Ipratropium [place] 0.5 mg Q6HWA [facility] 08/31/24 12:00 09/06/24 11:54 0.5 MG Doxycycline Monohydrate 100 mg Q12HR PO 09/02/24 22:00 09/06/24 09:03 100 MG Pantoprazole Sodium 40 mg DAILY@0600 PO 09/03/24 06:00 09/06/24 05:20 40 MG Micafungin Sodium 100 mg/Sodium Chloride 100 ml @ 100 mls/hr DAILY IV 09/03/24 10:00 09/06/24 10:02 100 MLS/HR Magnesium Oxide 800 mg BID PO 09/02/24 22:00 09/06/24 09:04 800 MG Lorazepam 0.5 mg Q12HP PRN IV 09/03/24 01:15 09/04/24 23:09 0.5 MG Furosemide 40 mg DAILY IV 09/04/24 10:00 09/06/24 09:03 40 MG Patient Own Medication 1 DAILY PO 09/04/24 10:00 09/06/24 09:04 1 Sodium Chloride 10 ml QSHIFT@10,22 IV 09/03/24 22:00 09/06/24 09:04 10 ML Pantoprazole Sodium 50 ml @ 10 mls/hr Q5H IV 09/04/24 13:15 09/06/24 10:02 10 MLS/HR Vancomycin HCl 100 ml @ 100 mls/hr Q8H IV 09/05/24 20:00 09/06/24 12:12 100 MLS/HR Laboratory Results Laboratory Tests 09/06/24 06:18 Chemistry Test 09/06/24 06:18 Calcium Level 8.8 mg/dL (8.7-10.4) Urinalysis Test 08/31/24 04:35 Urine Color Light-yellow (Yellow) Urine Clarity Clear (Clear) Urine pH 7.0 (5.0-9.0) Urine Specific [place] 1.045 (1.001-1.035) Urine Protein Negative (Negative) Urine Ketones Negative (Negative) Urine Blood Negative /uL (Negative) Urine Nitrite Negative (Negative) Urine Bilirubin Negative (Negative) Urine Urobilinogen Normal mg/dL (Negative) Urine Leukocyte Esterase Negative /uL (Negative) Urine RBC 1 /hpf (0 - 3) Urine Microscopic WBC 1 /HPF (0-3) Urine Squamous Epithelial Cells Few /hpf (<5) Urine Bacteria None seen /hpf (None Seen) Urine Glucose Normal mg/dL (Normal) Microbiology Microbiology Date/Time Source Procedure Growth Status 08/31/24 04:35 Voided Urine Urine Culture - Final Complete 08/31/24 03:20 Nose MRSA Screen - Final Complete 08/30/24 23:30 Blood Blood Culture - Final NO GROWTH AFTER 5 DAYS OF INCUBATION. Complete Labs and/or images reviewed: Labs reviewed by me Assessment/Plan Assessment/Plan Acute on chronic respiratory failure Sepsis secondary to pneumonia Multifocal pneumonia Gram-positive/Gram-negative Pulmonary embolism DVT Lymphoma currently under no chemotherapy Thrombocytopenia Normocytic anemia Oral thrush Moderate protein malnutrition- Dietary Consult Rectal bleed with hemorrhoid, Continuing current management. Continuing IV antibiotic. JEN law Appreciate GI input Local treatment of hemorrhoid with cream Transfer to [place] when bed available Patient is stable to transfer Addendum, per CM, [place] doesn't want to take patient today because his oximyzer up to 15L. Told them that it only up when he eat. I will wean down. DW patient. This medical document was created using an electronic medical record system with [employer] direct computerized dictation system. Although this document has been carefully reviewed, there may still be some phonetic and typographical errors. These areas are purely typographical due to imperfections of the software programs, and do not reflect any compromise in the patient's medical care. Plan discussed with: Patient My Orders Orders - KRISTI CRUZ MD Procedure Category Date Status Time Apply Barrier Cream IRVIN 09/05/24 In Process 13:45 Date of Service: September 06, 2024 Billing Provider: KRISTI CRUZ MD Common Visit Codes: [id number] INP/OBS CARE(HIGH) KRISTI CRUZ MD September 06, 2024 12:31
--- NOTE | 2024-09-06 23:10 | DVHPN2 ---
Progress Note - Dictate Date Seen: September 06, 2024 Medical Necessity Reason Pt with a Central, PICC or Fol: No Subjective No new complaints Rectal bleeding resolving H/H stable at 10 vital signs Vital Sign Date Time Temp Pulse Resp B/P (MAP) Pulse Ox O2 Delivery O2 Flow Rate FiO2 09/06/24 21:07 98.4 93 18 119/77 (91) 96 98.4 09/06/24 19:30 Oxymizer 10 60 60 Total Intake and Output 09/05/24 09/05/24 09/06/24 15:00 23:00 07:00 Intake Total 200 ml 500 ml 690 ml Output Total 1700 ml 300 ml Balance 200 ml -1200 ml 390 ml medications Current Medications Medications Dose Ordered Sig/Jaden Route Start Time Stop Time Status Last Admin Dose Admin Vancomycin HCl 0 ml @ 0 mls/hr UD IV 08/31/24 03:00 Piperacillin Sod/ Tazobactam Sod 100 ml @ 25 mls/hr Q8HR IV 08/31/24 06:00 09/06/24 22:07 25 MLS/HR Methylprednisolone Sodium Succinate 40 mg BID IV 08/31/24 10:00 09/06/24 22:07 40 MG Nystatin 5 ml QID [place] 08/31/24 12:00 09/06/24 22:07 5 ML Lidocaine HCl 10 ml Q4HP PRN [place] 08/31/24 07:00 09/05/24 21:40 10 ML Levalbuterol HCl 0.625 mg Q6HR [facility] 08/31/24 12:00 09/06/24 18:45 0.625 MG Ipratropium [place] 0.5 mg Q6HWA [facility] 08/31/24 12:00 09/06/24 18:45 0.5 MG Doxycycline Monohydrate 100 mg Q12HR PO 09/02/24 22:00 09/06/24 22:08 100 MG Pantoprazole Sodium 40 mg DAILY@0600 PO 09/03/24 06:00 09/06/24 05:20 40 MG Micafungin Sodium 100 mg/Sodium Chloride 100 ml @ 100 mls/hr DAILY IV 09/03/24 10:00 09/06/24 10:02 100 MLS/HR Magnesium Oxide 800 mg BID PO 09/02/24 22:00 09/06/24 22:07 800 MG Lorazepam 0.5 mg Q12HP PRN IV 09/03/24 01:15 09/04/24 23:09 0.5 MG Furosemide 40 mg DAILY IV 09/04/24 10:00 09/06/24 09:03 40 MG Patient Own Medication 1 DAILY PO 09/04/24 10:00 09/06/24 09:04 1 Sodium Chloride 10 ml QSHIFT@10,22 IV 09/03/24 22:00 09/06/24 22:07 10 ML Pantoprazole Sodium 50 ml @ 10 mls/hr Q5H IV 09/04/24 13:15 09/06/24 20:21 10 MLS/HR Vancomycin HCl 100 ml @ 100 mls/hr Q8H IV 09/05/24 20:00 09/06/24 20:21 100 MLS/HR objective General Appearance: Alert, Oriented X3 Lungs: Other (diminished); on high flow oxygen Cardiovascular: Regular rate, Normal S1, Normal S2 Abdomen: Normal bowel sounds, Soft laboratory and microbiology Laboratory Tests 09/06/24 06:18 Test 09/06/24 06:18 Range/Units Serum Glucose 137 H 74-106 mg/dL Problems(with codes): (1) DVT (deep venous thrombosis) (2) Rectal bleeding (3) Pneumonia (4) Acute respiratory distress (5) Bilateral pulmonary embolism Prognosis PLAN Continue supportive care Pt not a candidate for colonoscopy at this time Pt will arrange it electively as an outpt once medically stabilized Plan discussed with: Patient, Other (Nurse) ELTON LEBLANC MD September 06, 2024 23:10
[2024-09-07] VITALS (24 sets, daily range): BP systolic 110–128; BP diastolic 67–80; PULSE 87–115; RESP 18–24; TEMP 97.8–98.6; O2SAT 85–98
[2024-09-07] MEDS: HEPARIN IN NS 1000Units/500mL 1,500 ML ONE (06:59)
[2024-09-07] MEDS: IOHEXOL 350 MG/ML 100ML IJ ONE (06:59)
[2024-09-07 11:37] LABS: Basophils # (auto) 0 10 ^3/uL (0-0.2); Eosinophils # (auto) 0 10 ^3/uL (0-0.8); Eosinophils % (auto) 0.1 % (0.0-7.0); Hematocrit 33.4 % (41.0-53.0); Lymphocytes # (auto) 0.6 10 ^3/uL (0.4-5.4); Lymphocytes % (auto) 5.4 % (10.0-50.0); Mean Corpuscular Hemoglobin 29.5 pg (28.0-32.0); Mean Corpuscular Volume 89.3 fL (80.0-100.0); Monocytes # (auto) 0.3 10 ^3/uL (0-1.3); Monocytes % (auto) 2.4 % (0.0-12.0); Neutrophils # (auto) 10.5 10 ^3/uL (1.6-8.6); Neutrophils % (auto) 92.1 % (37.0-80.0); Platelet Count (auto) 137 10^3/uL (140-450); Red Blood Cells 3.74 10^6/uL (4.5-5.90); Red Cell Distribution Width 16.3 % (11.8-14.3); White Blood Cell 11.4 10^3/uL (4.4-10.8)
[2024-09-07 11:43] LABS: Magnesium 1.9 mg/dL (1.6-2.6)
--- NOTE | 2024-09-07 14:00 | DVHPN2 ---
Subjective The patient is seen and examined at bedside. The patient off BiPAP today. Feel better. The patient on 10 L of Oxymizer today. at bedside. Reviewed: Care Plan, H&P, Labs, Medications, Previous Orders, Radiology Changes from previous H/P or p: No Changes Objective Vitals Vital Signs Date Time Temp Pulse Resp B/P (MAP) Pulse Ox O2 Delivery O2 Flow Rate FiO2 09/07/24 13:00 98.3 115 22 118/80 (93) 92 98.3 09/07/24 12:09 Mask 10.0 09/07/24 12:09 N/A Intake/Output Intake and Output 09/07/24 07:00 Intake Total 1490 ml Output Total 1875 ml Balance -385 ml Intake Oral 1040 ml IV Total 450 ml Output Urine Total 1875 ml # Bowel Movements 1 General Appearance: Alert, Oriented X3 Lungs: Other (diminished) Cardiovascular: Regular rate, Normal S1, Normal S2 Abdomen: Normal bowel sounds, Soft Medications Current Medications Medications Dose Ordered Sig/Jaden Route Start Time Stop Time Status Last Admin Dose Admin Vancomycin HCl 0 ml @ 0 mls/hr UD IV 08/31/24 03:00 Piperacillin Sod/ Tazobactam Sod 100 ml @ 25 mls/hr Q8HR IV 08/31/24 06:00 09/07/24 13:06 25 MLS/HR Methylprednisolone Sodium Succinate 40 mg BID IV 08/31/24 10:00 09/07/24 08:24 40 MG Nystatin 5 ml QID MT 08/31/24 12:00 09/07/24 10:48 5 ML Lidocaine HCl 10 ml Q4HP PRN OR 08/31/24 07:00 09/05/24 21:40 10 ML Levalbuterol HCl 0.625 mg Q6HR NEB 08/31/24 12:00 09/07/24 12:08 0.625 MG Ipratropium [place] 0.5 mg Q6HWA [facility] 08/31/24 12:00 09/07/24 12:08 0.5 MG Doxycycline Monohydrate 100 mg Q12HR PO 09/02/24 22:00 09/07/24 08:23 100 MG Pantoprazole Sodium 40 mg DAILY@0600 PO 09/03/24 06:00 09/06/24 05:20 40 MG Micafungin Sodium 100 mg/Sodium Chloride 100 ml @ 100 mls/hr DAILY IV 09/03/24 10:00 09/07/24 08:24 100 MLS/HR Magnesium Oxide 800 mg BID PO 09/02/24 22:00 09/07/24 08:23 800 MG Lorazepam 0.5 mg Q12HP PRN IV 09/03/24 01:15 09/07/24 00:24 0.5 MG Furosemide 40 mg DAILY IV 09/04/24 10:00 09/07/24 08:24 40 MG Patient Own Medication 1 DAILY PO 09/04/24 10:00 09/07/24 10:47 1 Sodium Chloride 10 ml QSHIFT@10,22 IV 09/03/24 22:00 09/07/24 10:53 10 ML Pantoprazole Sodium 50 ml @ 10 mls/hr Q5H IV 09/04/24 13:15 09/07/24 12:30 10 MLS/HR Vancomycin HCl 100 ml @ 100 mls/hr Q8H IV 09/05/24 20:00 09/07/24 10:48 100 MLS/HR Laboratory Results Laboratory Tests 09/06/24 06:18 09/07/24 10:32 Chemistry Test 09/07/24 10:32 Magnesium Level 1.9 mg/dL (1.6-2.6) Urinalysis Test 08/31/24 04:35 Urine Color Light-yellow (Yellow) Urine Clarity Clear (Clear) Urine pH 7.0 (5.0-9.0) Urine Specific [place] 1.045 (1.001-1.035) Urine Protein Negative (Negative) Urine Ketones Negative (Negative) Urine Blood Negative /uL (Negative) Urine Nitrite Negative (Negative) Urine Bilirubin Negative (Negative) Urine Urobilinogen Normal mg/dL (Negative) Urine Leukocyte Esterase Negative /uL (Negative) Urine RBC 1 /hpf (0 - 3) Urine Microscopic WBC 1 /HPF (0-3) Urine Squamous Epithelial Cells Few /hpf (<5) Urine Bacteria None seen /hpf (None Seen) Urine Glucose Normal mg/dL (Normal) Microbiology Microbiology Date/Time Source Procedure Growth Status 08/31/24 04:35 Voided Urine Urine Culture - Final Complete 08/31/24 03:20 Nose MRSA Screen - Final Complete 08/30/24 23:30 Blood Blood Culture - Final NO GROWTH AFTER 5 DAYS OF INCUBATION. Complete Labs and/or images reviewed: Labs reviewed by me Assessment/Plan Assessment/Plan Acute on chronic respiratory failure Sepsis secondary to pneumonia Multifocal pneumonia Gram-positive/Gram-negative Pulmonary embolism DVT Lymphoma currently under no chemotherapy Thrombocytopenia Normocytic anemia Oral thrush Moderate protein malnutrition- Dietary Consult Rectal bleed with hemorrhoid, Continuing current management. Continuing IV antibiotic. DC thanh Appreciate GI input Local treatment of hemorrhoid with cream Transfer to [place] when bed available Patient is stable to transfer Discussed with and patient regarding to delay and transfer and why. Addendum, per CM, [facility] doesn't want to take patient today because his oximyzer up to 10L. Per RN [facility] now want his Oxymizer down to 5L to be stable for them to transfer. DW patient. This medical document was created using an electronic medical record system with [employer] direct computerized dictation system. Although this document has been carefully reviewed, there may still be some phonetic and typographical errors. These areas are purely typographical due to imperfections of the software programs, and do not reflect any compromise in the patient's medical care. Plan discussed with: Patient Date of Service: September 07, 2024 Billing Provider: KRISTI CRUZ MD Common Visit Codes: [id number] INP/OBS CARE(HIGH) KRISTI CRUZ MD September 07, 2024 14:00
--- NOTE | 2024-09-07 16:58 | DVHPN2 ---
Progress Note - Dictate Date Seen: September 07, 2024 Medical Necessity Reason Pt with a Central, PICC or Fol: No Subjective No new complaints Rectal bleeding resolving H/H stable at 11 vital signs Vital Sign Date Time Temp Pulse Resp B/P (MAP) Pulse Ox O2 Delivery O2 Flow Rate FiO2 09/07/24 14:59 93 Simple Mask* 10 99 09/07/24 13:00 98.3 115 22 118/80 (93) 98.3 Total Intake and Output 09/06/24 09/06/24 09/07/24 15:00 23:00 07:00 Intake Total 350 ml 740 ml 400 ml Output Total 1475 ml 200 ml 200 ml Balance -1125 ml 540 ml 200 ml medications Current Medications Medications Dose Ordered Sig/Jaden Route Start Time Stop Time Status Last Admin Dose Admin Vancomycin HCl 0 ml @ 0 mls/hr UD IV 08/31/24 03:00 Piperacillin Sod/ Tazobactam Sod 100 ml @ 25 mls/hr Q8HR IV 08/31/24 06:00 09/07/24 13:06 25 MLS/HR Methylprednisolone Sodium Succinate 40 mg BID IV 08/31/24 10:00 09/07/24 08:24 40 MG Nystatin 5 ml QID MT 08/31/24 12:00 09/07/24 10:48 5 ML Lidocaine HCl 10 ml Q4HP PRN [place] 08/31/24 07:00 09/05/24 21:40 10 ML Levalbuterol HCl 0.625 mg Q6HR [facility] 08/31/24 12:00 09/07/24 12:08 0.625 MG Ipratropium [place] 0.5 mg Q6HWA [facility] 08/31/24 12:00 09/07/24 12:08 0.5 MG Doxycycline Monohydrate 100 mg Q12HR PO 09/02/24 22:00 09/07/24 08:23 100 MG Pantoprazole Sodium 40 mg DAILY@0600 PO 09/03/24 06:00 09/06/24 05:20 40 MG Micafungin Sodium 100 mg/Sodium Chloride 100 ml @ 100 mls/hr DAILY IV 09/03/24 10:00 09/07/24 08:24 100 MLS/HR Magnesium Oxide 800 mg BID PO 09/02/24 22:00 09/07/24 08:23 800 MG Lorazepam 0.5 mg Q12HP PRN IV 09/03/24 01:15 09/07/24 00:24 0.5 MG Furosemide 40 mg DAILY IV 09/04/24 10:00 09/07/24 08:24 40 MG Patient Own Medication 1 DAILY PO 09/04/24 10:00 09/07/24 10:47 1 Sodium Chloride 10 ml QSHIFT@10,22 IV 09/03/24 22:00 09/07/24 10:53 10 ML Pantoprazole Sodium 50 ml @ 10 mls/hr Q5H IV 09/04/24 13:15 09/07/24 16:32 10 MLS/HR Vancomycin HCl 100 ml @ 100 mls/hr Q8H IV 09/05/24 20:00 09/07/24 10:48 100 MLS/HR objective General Appearance: Alert, Oriented X3 Lungs: Other (diminished); on high flow oxygen Cardiovascular: Regular rate, Normal S1, Normal S2 Abdomen: Normal bowel sounds, Soft laboratory and microbiology Laboratory Tests 09/07/24 10:32 09/06/24 06:18 Test 09/06/24 06:18 Range/Units Serum Glucose 137 H 74-106 mg/dL Problems(with codes): (1) DVT (deep venous thrombosis) (2) Rectal bleeding (3) Pneumonia (4) Acute respiratory distress (5) Bilateral pulmonary embolism (6) Sepsis (7) Leukocytosis (8) Anemia Prognosis PLAN The patient off BiPAP today. Feel better. The patient is supposed to be discharged today to [place]. The patient on 10L oxymizer, only increase up to 15 L when he eat. Elective colonoscopy advised once patient is medically stabilized Dietary Evaluation Review Recommendations by RD: Protein Supplementation Comments: 1) Initiate Ensure qd; Encourage optimal PO intake 2) Refer to outpatient RD for weight management 3) Follow-up with cardiology, pulmonology, and gastroenterology 4) Continue to monitor I&O, labs, and skin integrity Expected Outcomes/Goals: 1) appetite and labs to improve 2) follow-up in 3-5 days Plan discussed with: Patient ELTON LEBLANC MD September 07, 2024 16:58
[2024-09-08] VITALS (27 sets, daily range): BP systolic 116–120; BP diastolic 62–83; PULSE 85–107; RESP 18–26; TEMP 97.6–98.1; O2SAT 75–98
[2024-09-08 06:02] LABS: Hematocrit 29.8 % (41.0-53.0); Hemoglobin 10.1 g/dL (13.5-17.5); Mean Corpuscular Hemoglobin 30.3 pg (28.0-32.0); Mean Corpuscular Volume 89.3 fL (80.0-100.0); Platelet Count (auto) 118 10^3/uL (140-450); Red Blood Cells 3.34 10^6/uL (4.5-5.90); Red Cell Distribution Width 16.3 % (11.8-14.3); White Blood Cell 7.8 10^3/uL (4.4-10.8)
[2024-09-08 06:15] LABS: Basophils % (manual) 0 (0.0-2.0); Blast Cells 0; Eosinophils % (manual) 0 (0-7); Metamyelocytes % 0; Myelocytes % 0; Promyelocytes % 0; Reactive Lymphocytes 0
[2024-09-08 07:34] LABS: Band Neutrophils % (manual) 29; Lymphocytes % (manual) 7 (10.0-50.0); Monocytes % (manual) 5 (0-12); Platelet Estimate Decreased
[2024-09-08 07:35] LABS: Anisocytosis Slight
[2024-09-08] MEDS ORDERED: ONDANSETRON HCL 4 MG/2 ML VIAL IV PRN (09:00)
[2024-09-08] MEDS: LORazepam 2MG/ML-1ML VIAL IV PRN (09:11)
--- NOTE | 2024-09-08 16:04 | DVH ---
CHEST RADIOGRAPH Indication: Increased oxygen demands Technique: Single frontal view of the chest was obtained Comparison: XY CHEST PORTABLE on DOS: 08/30/24 FINDINGS: Lines and Tubes: None Lungs: Extensive bilateral pulmonary airspace disease. Appears worsening on the right. Pleura: No effusion. No pneumothorax. Cardiomediastinal contours: Unremarkable Bones: No acute osseous abnormality. IMPRESSION: 1. Bilateral pulmonary airspace disease appears worsening on the right when compared to 08/30/2024. HS:Y
[2024-09-08 16:22] LABS: Base Excess 7.3 mmol/L (-2.0-3.0)
[2024-09-08 16:23] LABS: Basophils # (auto) 0 10 ^3/uL (0-0.2); Basophils % (auto) 0.2 % (0.0-2.0); Eosinophils # (auto) 0 10 ^3/uL (0-0.8); Hematocrit 30.1 % (41.0-53.0); Lymphocytes # (auto) 1.3 10 ^3/uL (0.4-5.4); Lymphocytes % (auto) 12.7 % (10.0-50.0); Mean Corpuscular Hemoglobin 29.9 pg (28.0-32.0); Mean Corpuscular Hgb Conc. 33.3 g/dL (32.0-36.0); Mean Corpuscular Volume 89.6 fL (80.0-100.0); Monocytes # (auto) 0.2 10 ^3/uL (0-1.3); Monocytes % (auto) 1.5 % (0.0-12.0); Neutrophils % (auto) 85.6 % (37.0-80.0); Platelet Count (auto) 131 10^3/uL (140-450); Red Blood Cells 3.35 10^6/uL (4.5-5.90); Red Cell Distribution Width 16.5 % (11.8-14.3); White Blood Cell 10.5 10^3/uL (4.4-10.8)
[2024-09-08 16:54] LABS: Alanine Aminotransferase 34 U/L (7-40); Anion Gap 5 (5-15); Aspartate Aminotransferase 14 U/L (13-40); BUN/Creatinine Ratio 43.9 (10.0-20.0); Bilirubin, Total 0.8 mg/dL (0.2-1.0); Blood Urea Nitrogen 18 mg/dL (9-23); Chloride 99 mmol/L (98-107); Magnesium 1.8 mg/dL (1.6-2.6); Phosphorus 2.9 mg/dL (2.4-5.1); Potassium 3.5 mmol/L (3.5-5.1); Sodium 141 mmol/L (136-145)
[2024-09-08 17:00] LABS: Albumin 2.9 g/dL (3.2-4.8); Alkaline Phosphatase 141 U/L (46-116); Calcium 8.6 mg/dL (8.7-10.4); Carbon Dioxide 37 mmol/L (20-31); Glucose 122 mg/dL (74-106); Total Protein 4.7 g/dL (5.7-8.2)
--- NOTE | 2024-09-08 23:09 | DVHPN2 ---
Subjective The patient is seen and examined at bedside. The patient has to restart BiPAP today. Reviewed: Care Plan, H&P, Labs, Medications, Previous Orders, Radiology Changes from previous H/P or p: No Changes Objective Vitals Vital Signs Date Time Temp Pulse Resp B/P (MAP) Pulse Ox O2 Delivery O2 Flow Rate FiO2 09/08/24 22:19 86 95 Facial BiPAP Mask 75 09/08/24 21:00 98.0 18 116/80 (92) 98.0 09/08/24 14:11 20.0 Intake/Output Intake and Output 09/08/24 07:00 Intake Total 1041 ml Output Total 1400 ml Balance -359 ml Intake Oral 641 ml IV Total 400 ml Output Urine Total 1400 ml General Appearance: Alert, Oriented X3 Lungs: Other (diminished) Cardiovascular: Regular rate, Normal S1, Normal S2 Abdomen: Normal bowel sounds, Soft Medications Current Medications Medications Dose Ordered Sig/Jaden Route Start Time Stop Time Status Last Admin Dose Admin Vancomycin HCl 0 ml @ 0 mls/hr UD IV 08/31/24 03:00 Piperacillin Sod/ Tazobactam Sod 100 ml @ 25 mls/hr Q8HR IV 08/31/24 06:00 09/08/24 22:10 25 MLS/HR Methylprednisolone Sodium Succinate 40 mg BID IV 08/31/24 10:00 09/08/24 22:10 40 MG Nystatin 5 ml QID MT 08/31/24 12:00 09/08/24 11:55 5 ML Lidocaine HCl 10 ml Q4HP PRN [place] 08/31/24 07:00 09/05/24 21:40 10 ML Levalbuterol HCl 0.625 mg Q6HR [facility] 08/31/24 12:00 09/08/24 18:27 0.625 MG Ipratropium [place] 0.5 mg Q6HWA [facility] 08/31/24 12:00 09/08/24 18:27 0.5 MG Doxycycline Monohydrate 100 mg Q12HR PO 09/02/24 22:00 09/08/24 08:09 100 MG Pantoprazole Sodium 40 mg DAILY@0600 PO 09/03/24 06:00 Hold 09/08/24 05:55 40 MG Micafungin Sodium 100 mg/Sodium Chloride 100 ml @ 100 mls/hr DAILY IV 09/03/24 10:00 09/08/24 08:10 100 MLS/HR Magnesium Oxide 800 mg BID PO 09/02/24 22:00 09/08/24 08:09 800 MG Furosemide 40 mg DAILY IV 09/04/24 10:00 09/08/24 08:10 40 MG Patient Own Medication 1 DAILY PO 09/04/24 10:00 09/08/24 11:55 1 Sodium Chloride 10 ml QSHIFT@10,22 IV 09/03/24 22:00 09/08/24 22:14 10 ML Pantoprazole Sodium 50 ml @ 10 mls/hr Q5H IV 09/04/24 13:15 09/08/24 22:11 10 MLS/HR Vancomycin HCl 100 ml @ 100 mls/hr Q8H IV 09/05/24 20:00 09/08/24 20:30 100 MLS/HR Lorazepam 0.5 mg Q6HP PRN IV 09/08/24 09:00 09/08/24 14:39 0.5 MG Ondansetron HCl 4 mg Q4HPRN PRN IV 09/08/24 09:00 Laboratory Results Laboratory Tests 09/08/24 16:07 Chemistry Test 09/08/24 16:07 Albumin 2.9 g/dL (3.2-4.8) L Calcium Level 8.6 mg/dL (8.7-10.4) L Magnesium Level 1.8 mg/dL (1.6-2.6) Phosphorus Level 2.9 mg/dL (2.4-5.1) Total Protein 4.7 g/dL (5.7-8.2) L LFT Test 09/08/24 16:07 Alanine Aminotransferase (ALT) 34 U/L (7-40) Alkaline Phosphatase 141 U/L (46-116) H Aspartate Amino Transferase (AST) 14 U/L (13-40) Total Bilirubin 0.8 mg/dL (0.2-1.0) Urinalysis Test 08/31/24 04:35 Urine Color Light-yellow (Yellow) Urine Clarity Clear (Clear) Urine pH 7.0 (5.0-9.0) Urine Specific [place] 1.045 (1.001-1.035) Urine Protein Negative (Negative) Urine Ketones Negative (Negative) Urine Blood Negative /uL (Negative) Urine Nitrite Negative (Negative) Urine Bilirubin Negative (Negative) Urine Urobilinogen Normal mg/dL (Negative) Urine Leukocyte Esterase Negative /uL (Negative) Urine RBC 1 /hpf (0 - 3) Urine Microscopic WBC 1 /HPF (0-3) Urine Squamous Epithelial Cells Few /hpf (<5) Urine Bacteria None seen /hpf (None Seen) Urine Glucose Normal mg/dL (Normal) Blood Gas Results Test 09/08/24 16:17 Arterial Blood pH 7.467 (7.350-7.450) FiO2 % 55.0 Microbiology Microbiology Date/Time Source Procedure Growth Status 08/31/24 04:35 Voided Urine Urine Culture - Final Complete 08/31/24 03:20 Nose MRSA Screen - Final Complete 08/30/24 23:30 Blood Blood Culture - Final NO GROWTH AFTER 5 DAYS OF INCUBATION. Complete Labs and/or images reviewed: Labs reviewed by me Assessment/Plan Assessment/Plan Acute on chronic respiratory failure Sepsis secondary to pneumonia Multifocal pneumonia Gram-positive/Gram-negative Pulmonary embolism DVT Lymphoma currently under no chemotherapy Thrombocytopenia Normocytic anemia Oral thrush Moderate protein malnutrition- Dietary Consult Rectal bleed with hemorrhoid, Continuing current management. Continuing IV antibiotic. JEN law Appreciate GI input Local treatment of hemorrhoid with cream Transfer to [place] when bed available This medical document was created using an electronic medical record system with [employer] direct computerized dictation system. Although this document has been carefully reviewed, there may still be some phonetic and typographical errors. These areas are purely typographical due to imperfections of the software programs, and do not reflect any compromise in the patient's medical care. Plan discussed with: Patient, Spouse My Orders Orders - KRISTI CRUZ MD Procedure Category Date Status Time Lorazepam 2mg/Ml Inj PHA 09/08/24 In Process (Ativan Inj) 09:00 Ondansetron Hcl PHA 09/08/24 In Process (Zofran) 09:00 Chest Xray 1 View XY 09/08/24 Resulted 15:06 *Consult CONS 09/08/24 Transmitted / 15:36 Date of Service: September 08, 2024 Billing Provider: KRISTI CRUZ MD Common Visit Codes: [id number] INP/OBS CARE(HIGH) KRISTI CRUZ MD September 08, 2024 23:09
--- NOTE | 2024-09-08 23:40 | DVHINCON2 ---
Date of service: September 08, 2024 Referring Physician Annamaria Betancur MD Reason for Consultation Acute hypoxic respiratory failure, multifocal pneumonia, pulmonary embolism, pulmonary edema History of Present Illness A 58-year-old man with PMHx of lymphoma, hx of PE/DVT, multifocal pneumonia. and GERD who presented to ED on 08/31/24 with chief complaint of desaturation to the low 80s on his home oxygen (3 L/min), not responding with increasing oxygen flow. Patient also complained of oral cavity pain from thrush. Note, lymphoma was dx'd approximately 2021, started chemotherapy and presented with multifocal pneumonia requiring 5 different courses of antibiotic (all between one and two weeks) but did not respond. Currently not on chemotherapy. Last admission was approximately 2.5 weeks ago, where he was diagnosed with PE and DVT besides multifocal pneumonia. Completed bronchoscopy which was complicated by pneumothorax. Pt is currently on Pradaxa. He decided to discontinue chemotherapy, he is currently a chemical code. Denies fever, chills, palpitations, chest pain or other acute complaints. Patient was admitted for further care, and pulmonary consultation is requested for evaluation and management due to the above findings. Review of Systems: 14-point review of systems negative unless otherwise noted above. Past Medical History: Lymphoma, PE, DVT, multifocal pneumonia. GERD. Past Surgical History: Bronchoscopy (complicated by pneumothorax) Medications: Reviewed. Allergies: Metoprolol Sulfamethoxazole Family History: Mother has heart disease. No family history of lung disorders. Social History: Nonsmoker. No alcohol or illicit drug use. Family History: Patient reports no known family medical history. Allergies: Coded Allergies: Metoprolol (Verified Allergy, Unknown, 08/31/24) Sulfamethoxazole w/Trimethoprim (Verified Allergy, Unknown, 08/31/24) Home Meds Reported Medications Melatonin ( MELATONIN) 3 Mg Tab, 3 MG PO HS PRN for FOR INSOMNIA, TAB 09/03/24 Prednisone (Prednisone) 20 Mg Tab, 40 MG PO DAILY, MG 09/03/24 Prednisone (PREDNISONE) 1 Mg Tb, 4 TAB PO DAILY, #120 TAB 3 Refills 09/03/24 Alum & Mag Hydrox-Simethicone (Maalox Plus) 30 Ml Ss, 30 ML PO Q6HP, ML 09/03/24 Sodium Phosphate/Biphosphate (Fleet Enema) 133 Ml Rc, 133 ML MS [id number], SUPP.RECT 5/6/25 Dabigatran Etexilate Mesylate (Pradaxa) 150 Mg Cap, 1 CAP PO BID, #180 CAP 1 Refill 09/03/24 Amlodipine Besylate (Amlodipine Besylate) 5 Mg Tab, 1 TAB PO DAILY, #30 TAB 5 Refills 09/03/24 Pantoprazole Sodium Sesquihydr (Protonix) 40 Mg Tab, 40 MG PO DAILY, #30 TAB 09/03/24 Montelukast Sodium (MONTELUKAST SODIUM) 10 Mg Tab, 1 TAB PO HS, #30 TAB 5 Refills 09/03/24 Dapsone (Dapsone) 100 Mg Tab, 100 MG PO DAILY, TAB 09/03/24 Mirtazapine (REMERON) 30 Mg Tab, 15 MG PO HS, TAB 09/03/24 Furosemide (Furosemide) 40 Mg Tab, 1 TAB PO DAILY, #30 TAB 5 Refills 09/03/24 Bisoprolol Fumarate (Bisoprolol Fumarate) 5 Mg Tab, 1 TAB PO DAILY, #90 TAB 3 Refills 09/03/24 Current Medications Current Medications Medications (Trade) Dose Ordered Sig/Jaden Route PRN Reason Start Time Stop Time Status Last Admin Lorazepam (Ativan Inj) 0.5 mg Q6HP PRN IV ANXIETY 09/08/24 09:00 09/08/24 14:39 Ondansetron HCl (Zofran) 4 mg Q4HPRN PRN IV NAUSEA / VOMITING 09/08/24 09:00 Vital Signs Vital Signs Date Time Temp Pulse Resp B/P (MAP) Pulse Ox O2 Delivery O2 Flow Rate FiO2 09/08/24 22:19 86 95 Facial BiPAP Mask 75 09/08/24 21:00 98.0 18 116/80 (92) 98.0 09/08/24 14:11 20.0 Physical Exam Gen.: Patient lying in bed in no apparent distress. On BiPAP. Head: Normocephalic, atraumatic. Eyes: EOMI/PERRLA. Ears: Normal hearing. Normal anatomy. Neck/trachea: Trachea midline, supple. Nose: Normal external anatomy. Mouth: Moist mucous membranes. Chest: Decreased air entry bilaterally. No wheezing or rhonchi. Cardiovascular: Positive S1, positive S2. Regular rate and rhythm. Abdomen: Positive bowel sounds in all 4 quadrants. Soft, non-tender, non- distended. : Deferred. Rectal: Deferred. Skin: Warm, dry. Intact. Extremities: 2+ radial pulses bilaterally. No lower extremity edema. Neuro: Awake, alert, oriented x3. No gross motor or sensory deficits. Cranial nerves II through XII intact. Gait not assessed. Labs/Diagnostic Data Labs Test 09/08/24 16:17 09/08/24 16:07 09/08/24 05:28 09/06/24 19:04 Range/Units Blood Gas Specimen Type Arterial Blood Gas Sample Site Right radial Blood Gas Patient Temperature 37.0 Arterial Blood Date Drawn [id number] Arterial Blood pH 7.467 H 7.350-7.450 Arterial Blood Partial Pressure CO2 45.1 35.0-48.0 mmHg Arterial Blood Partial Pressure O2 81.1 L 83.0-108.0 mmHg Arterial Blood HCO3 31.9 H 21.0-28.0 mmol/L Arterial Blood Oxygen Saturation 95.0 94.0-98.0 % Arterial Blood Base Excess 7.3 H -2.0-3.0 mmol/L Arterial Blood Oxyhemoglobin 94.5 94.0-98.0 % Arterial Blood Carboxyhemoglobin 0.2 L 0.5-1.5 % Arterial Blood Methemoglobin 0.3 0.0-1.5 % Sim Test Modified Blood Gas Total Hemoglobin 10.60 L 13.5-17.5 g/dL Blood Gas Set Respiration Rate 14.0 Blood Gas Modality Mask - bipap FiO2 % 55.0 Blood Gas EPAP 8 Blood Gas IPAP 12 White Blood Count 10.5 # 4.4-10.8 10^3/uL Red Blood Count 3.35 L 4.5-5.90 10^6/uL Hemoglobin 10.0 L 13.5-17.5 g/dL Hematocrit 30.1 L 41.0-53.0 % Mean Corpuscular Volume 89.6 80.0-100.0 fL Mean Corpuscular Hemoglobin 29.9 28.0-32.0 pg Mean Corpuscular Hemoglobin Concent 33.3 32.0-36.0 g/dL Red Cell Distribution Width 16.5 H 11.8-14.3 % Platelet Count 131 L 140-450 10^3/uL Mean Platelet Volume 8.1 6.9-10.8 fL Neutrophils (%) (Auto) 85.6 H 37.0-80.0 % Lymphocytes (%) (Auto) 12.7 10.0-50.0 % Monocytes (%) (Auto) 1.5 0.0-12.0 % Eosinophils (%) (Auto) 0.0 0.0-7.0 % Basophils (%) (Auto) 0.2 0.0-2.0 % Neutrophils # (Auto) 9.0 H 1.6-8.6 10 ^3/uL Lymphocytes # (Auto) 1.3 0.4-5.4 10 ^3/uL Monocytes # (Auto) 0.2 0-1.3 10 ^3/uL Eosinophils # (Auto) 0 0-0.8 10 ^3/uL Basophils # (Auto) 0 0-0.2 10 ^3/uL Nucleated Red Blood Cells 0.0 % Sodium Level 141 136-145 mmol/L Potassium Level 3.5 3.5-5.1 mmol/L Chloride Level 99 98-107 mmol/L Carbon Dioxide Level 37 H 20-31 mmol/L Anion Gap 5 5-15 Blood Urea Nitrogen 18 9-23 mg/dL Creatinine 0.41 L 0.700-1.30 mg/dL Glomerular Filtration Rate Calc 126 >90 mL/min BUN/Creatinine Ratio 43.9 H 10.0-20.0 Serum Glucose 122 H 74-106 mg/dL Calcium Level 8.6 L 8.7-10.4 mg/dL Phosphorus Level 2.9 2.4-5.1 mg/dL Magnesium Level 1.8 1.6-2.6 mg/dL Total Bilirubin 0.8 0.2-1.0 mg/dL Aspartate Amino Transferase (AST) 14 13-40 U/L Alanine Aminotransferase (ALT) 34 7-40 U/L Alkaline Phosphatase 141 H 46-116 U/L Total Protein 4.7 L 5.7-8.2 g/dL Albumin 2.9 L 3.2-4.8 g/dL Differential Total Cells Counted 100.0 100 Neutrophils % (Manual) 59 37.0-80.0 Band Neutrophils % (Manual) 29 Lymphocytes % (Manual) 7 L 10.0-50.0 Monocytes % (Manual) 5 0-12 Eosinophils % (Manual) 0 0-7 Basophils % (Manual) 0 0.0-2.0 Metamyelocytes % (manual) 0 Myelocytes % (Manual) 0 Promyelocytes % (Manual) 0 Blast Cells % (Manual) 0 Reactive Lymphocytes 0 Platelet Estimate Decreased Anisocytosis (manual) Slight Vancomycin Level Trough 17.3 H 5-10 ug/mL Test 09/05/24 18:17 09/05/24 06:46 09/03/24 13:48 08/31/24 04:47 Range/Units Random Vancomycin Level 13.2 H 5-10 ug/mL Carcinoembryonic Antigen 10.19 <=5.0 ng/mL Prothrombin Time 11.8 9.3-11.8 sec Prothrombin Time INR 1.13 0.9-1.15 Activated Partial Thromboplast Time 34.5 24.5-34.5 SEC Hemoglobin A1c 5.6 <5.7 % A1C Triglycerides Level 85 < 150 mg/dL Cholesterol Level 104 < 200 mg/dL LDL Cholesterol 61 < 100 mg/dL HDL Cholesterol 28 L 40-59 mg/dL Vitamin B12 Level 349 211-911 pg/mL Vitamin D 25-Hydroxy 17.3 L 30.0-100 ng/mL Thyroid Stimulating Hormone (TSH) 0.30 L 0.55-4.78 uIU/mL Free Thyroxine (T4) Calculated 0.81 L 0.89-1.76 ng/dL Total Triiodothyronine (TT3) 0.62 0.60-1.81 ng/mL Test 08/31/24 04:35 08/31/24 03:20 08/31/24 03:08 08/31/24 02:05 Range/Units Urine Color Light-yellow Yellow Urine Clarity Clear Clear Urine pH 7.0 5.0-9.0 Urine Specific [place] 1.045 H 1.001-1.035 Urine Protein Negative Negative Urine Ketones Negative Negative Urine Blood Negative Negative /uL Urine Nitrite Negative Negative Urine Bilirubin Negative Negative Urine Urobilinogen Normal Negative mg/dL Urine Leukocyte Esterase Negative Negative /uL Urine RBC 1 0 - 3 /hpf Urine Microscopic WBC 1 0-3 /HPF Urine Squamous Epithelial Cells Few <5 /hpf Urine Bacteria None seen None Seen /hpf Urine Glucose Normal Normal mg/dL Urine Opiates Screen Neg NEGATIVE Urine Fentanyl Screen Neg NEGATIVE Urine Barbiturates Screen Neg NEGATIVE Urine Phencyclidine Screen Neg NEGATIVE Urine Amphetamines Screen Neg NEGATIVE Urine Benzodiazepines Screen Neg NEGATIVE Urine Cocaine Screen Neg NEGATIVE Urine Cannabinoids Screen Neg NEGATIVE Influenza Type A Antigen Negative Negative Influenza Type B Antigen Negative Negative SARS-CoV-2 Antigen (Rapid) Negative NEGATIVE Blood Gas Liter Flow 10.00 Lactic Acid Level 1.8 0.4-2.0 mmol/L Test 08/30/24 23:30 Range/Units Troponin I High Sensitivity 9 </=54 ng/L B-Type Natriuretic Peptide 92.95 0-100 pg/mL Microbiology Date/Time Source Procedure Growth Status 08/31/24 04:35 Voided Urine Urine Culture - Final Complete 08/31/24 03:20 Nose MRSA Screen - Final Complete 08/30/24 23:30 Blood Blood Culture - Final NO GROWTH AFTER 5 DAYS OF INCUBATION. Complete Assessment Impression: Acute hypoxic respiratory failure On noninvasive ventilation Pneumonia, multifocal Pulmonary embolism Atelectasis Pulmonary edema Hemorrhoids Plan: Started BiPAP with IPAP 12, EPAP 8, FiO2 50% Taper FiO2 as tolerated Titrate to keep O2 sats above 92%. Monitor respiratory status closely Obtain STAT ABG and STAT chest x-ray Continue antibiotics Micafungin Continue bronchodilators Incentive spirometry Continue diuresis with Lasix d/t pulmonary edema Monitor renal function. Monitor electrolytes. Supplement as necessary. Monitor ins and outs. Monitor hemoglobin Obtain STAT CBC, CMP, mag and phos GI prophylaxis - Protonix drip DVT prophylaxis. Prognosis: Poor given patient's multiple co-morbidities. Condition: Critical Rest of plan per hospitalist and other consultants. A total of 35 minutes of critical care time was spent reviewing the patient record, examining the patient, making a diagnostic and therapeutic plan, discussing this plan with the medical personnel, following up on diagnostic studies and following the patient for clinical stability excluding any and all procedures. At least 50% of this time was spent in direct, [id number] contact. Thank you Dr. Betancur, for allowing me to participate in this patient's care. Further recommendations will depend on the patient's clinical course. Please do not hesitate to contact me if you have any questions or concerns. This medical document was created using an electronic medical record system with [employer] system. Although these documentations are being carefully reviewed, there may still be some phonetic and typographical changes. The errors are purely typographical, due to imperfection on the software program, and do not reflect any compromise in the patient's medical care. Plan discussed with: Other (EVERT Ty/Dr. Betancur) BRITTANI MARCIAL MD September 08, 2024 23:40
[2024-09-09] VITALS (11 sets, daily range): BP systolic 114–123; BP diastolic 68–83; PULSE 76–101; RESP 16–18; TEMP 97.4–98; O2SAT 95–100
--- NOTE | 2024-09-09 18:54 | DVHPN2 ---
Subjective still on high flow oxygen Reviewed: Care Plan, H&P, Labs, Medications, Previous Orders, Radiology Changes from previous H/P or p: No Changes Objective Vitals Vital Signs Date Time Temp Pulse Resp B/P (MAP) Pulse Ox O2 Delivery O2 Flow Rate FiO2 09/09/24 17:00 97.8 101 18 123/68 (86) 96 97.8 09/09/24 08:09 Oxymizer 15 N/A Intake/Output Intake and Output 09/09/24 07:00 Intake Total 1504 ml Output Total 1350 ml Balance 154 ml Intake Oral 201 ml IV Total 1303 ml Output Urine Total 1350 ml General Appearance: Alert, Oriented X3 Lungs: Other (diminished) Cardiovascular: Regular rate, Normal S1, Normal S2 Abdomen: Normal bowel sounds, Soft Medications Current Medications Medications Dose Ordered Sig/Jaden Route Start Time Stop Time Status Last Admin Dose Admin Vancomycin HCl 0 ml @ 0 mls/hr UD IV 08/31/24 03:00 Piperacillin Sod/ Tazobactam Sod 100 ml @ 25 mls/hr Q8HR IV 08/31/24 06:00 09/09/24 14:13 25 MLS/HR Methylprednisolone Sodium Succinate 40 mg BID IV 08/31/24 10:00 09/09/24 09:26 40 MG Nystatin 5 ml QID MT 08/31/24 12:00 09/09/24 17:33 5 ML Lidocaine HCl 10 ml Q4HP PRN UT 08/31/24 07:00 09/05/24 21:40 10 ML Levalbuterol HCl 0.625 mg Q6HR [facility] 08/31/24 12:00 09/08/24 18:27 0.625 MG Ipratropium [place] 0.5 mg Q6HWA [facility] 08/31/24 12:00 09/08/24 18:27 0.5 MG Doxycycline Monohydrate 100 mg Q12HR PO 09/02/24 22:00 09/09/24 09:25 100 MG Pantoprazole Sodium 40 mg DAILY@0600 PO 09/03/24 06:00 Hold 09/08/24 05:55 40 MG Micafungin Sodium 100 mg/Sodium Chloride 100 ml @ 100 mls/hr DAILY IV 09/03/24 10:00 09/09/24 10:40 100 MLS/HR Magnesium Oxide 800 mg BID PO 09/02/24 22:00 09/09/24 09:25 800 MG Furosemide 40 mg DAILY IV 09/04/24 10:00 09/09/24 09:27 40 MG Patient Own Medication 1 DAILY PO 09/04/24 10:00 09/09/24 09:26 1 Sodium Chloride 10 ml QSHIFT@10,22 IV 09/03/24 22:00 09/09/24 09:27 10 ML Pantoprazole Sodium 50 ml @ 10 mls/hr Q5H IV 09/04/24 13:15 09/09/24 17:34 10 MLS/HR Vancomycin HCl 100 ml @ 100 mls/hr Q8H IV 09/05/24 20:00 09/09/24 03:58 100 MLS/HR Lorazepam 0.5 mg Q6HP PRN IV 09/08/24 09:00 09/08/24 14:39 0.5 MG Ondansetron HCl 4 mg Q4HPRN PRN IV 09/08/24 09:00 Laboratory Results Laboratory Tests 09/08/24 16:07 Chemistry Test 09/09/24 11:06 Magnesium Level 1.9 mg/dL (1.6-2.6) Urinalysis Test 08/31/24 04:35 Urine Color Light-yellow (Yellow) Urine Clarity Clear (Clear) Urine pH 7.0 (5.0-9.0) Urine Specific [place] 1.045 (1.001-1.035) Urine Protein Negative (Negative) Urine Ketones Negative (Negative) Urine Blood Negative /uL (Negative) Urine Nitrite Negative (Negative) Urine Bilirubin Negative (Negative) Urine Urobilinogen Normal mg/dL (Negative) Urine Leukocyte Esterase Negative /uL (Negative) Urine RBC 1 /hpf (0 - 3) Urine Microscopic WBC 1 /HPF (0-3) Urine Squamous Epithelial Cells Few /hpf (<5) Urine Bacteria None seen /hpf (None Seen) Urine Glucose Normal mg/dL (Normal) Microbiology Microbiology Date/Time Source Procedure Growth Status 08/31/24 04:35 Voided Urine Urine Culture - Final Complete 08/31/24 03:20 Nose MRSA Screen - Final Complete 08/30/24 23:30 Blood Blood Culture - Final NO GROWTH AFTER 5 DAYS OF INCUBATION. Complete Assessment/Plan Assessment/Plan Acute on chronic respiratory failure Sepsis secondary to pneumonia Multifocal pneumonia Gram-positive/Gram-negative Pulmonary embolism DVT Lymphoma currently under no chemotherapy Thrombocytopenia Normocytic anemia Oral thrush Moderate protein malnutrition- Dietary Consult Rectal bleed with hemorrhoid, Continuing current management. Continuing IV antibiotic. JEN law Appreciate GI input Local treatment of hemorrhoid with cream Not safe to transfer per [place] due to high oxygen demands Plan discussed with: Patient Date of Service: September 09, 2024 Billing Provider: PRAMOD BRAMBILA MD Common Visit Codes: [id number] INP/OBS CARE(HIGH) PRAMOD BRAMBILA MD September 09, 2024 18:53
--- NOTE | 2024-09-09 22:20 | DVHPN2 ---
Progress Note - Dictate Date Seen: September 09, 2024 Medical Necessity Reason Pt with a Central, PICC or Fol: No Subjective Patient seen and examined at bedside. Currently on supplemental oxygen Overnight events reviewed. vital signs Vital Sign Date Time Temp Pulse Resp B/P (MAP) Pulse Ox O2 Delivery O2 Flow Rate FiO2 09/09/24 20:00 91 09/09/24 17:00 97.8 18 123/68 (86) 96 97.8 09/09/24 08:09 Oxymizer 15 N/A Total Intake and Output 09/08/24 09/08/24 09/09/24 15:00 23:00 07:00 Intake Total 1153 ml 151 ml 200 ml Output Total 600 ml 750 ml Balance 553 ml 151 ml -550 ml medications Current Medications Medications Dose Ordered Sig/Jaden Route Start Time Stop Time Status Last Admin Dose Admin Vancomycin HCl 0 ml @ 0 mls/hr UD IV 08/31/24 03:00 Piperacillin Sod/ Tazobactam Sod 100 ml @ 25 mls/hr Q8HR IV 08/31/24 06:00 09/09/24 21:12 25 MLS/HR Methylprednisolone Sodium Succinate 40 mg BID IV 08/31/24 10:00 09/09/24 21:10 40 MG Nystatin 5 ml QID MT 08/31/24 12:00 09/09/24 21:09 5 ML Lidocaine HCl 10 ml Q4HP PRN MT 08/31/24 07:00 09/05/24 21:40 10 ML Levalbuterol HCl 0.625 mg Q6HR [facility] 08/31/24 12:00 09/08/24 18:27 0.625 MG Ipratropium [place] 0.5 mg Q6HWA [facility] 08/31/24 12:00 09/08/24 18:27 0.5 MG Doxycycline Monohydrate 100 mg Q12HR PO 09/02/24 22:00 09/09/24 21:09 100 MG Pantoprazole Sodium 40 mg DAILY@0600 PO 09/03/24 06:00 Hold 09/08/24 05:55 40 MG Micafungin Sodium 100 mg/Sodium Chloride 100 ml @ 100 mls/hr DAILY IV 09/03/24 10:00 09/09/24 10:40 100 MLS/HR Magnesium Oxide 800 mg BID PO 09/02/24 22:00 09/09/24 21:09 800 MG Furosemide 40 mg DAILY IV 09/04/24 10:00 09/09/24 09:27 40 MG Patient Own Medication 1 DAILY PO 09/04/24 10:00 09/09/24 09:26 1 Sodium Chloride 10 ml QSHIFT@10,22 IV 09/03/24 22:00 09/09/24 21:10 10 ML Pantoprazole Sodium 50 ml @ 10 mls/hr Q5H IV 09/04/24 13:15 09/09/24 17:34 10 MLS/HR Vancomycin HCl 100 ml @ 100 mls/hr Q8H IV 09/05/24 20:00 09/09/24 20:12 100 MLS/HR Lorazepam 0.5 mg Q6HP PRN IV 09/08/24 09:00 09/08/24 14:39 0.5 MG Ondansetron HCl 4 mg Q4HPRN PRN IV 09/08/24 09:00 objective Gen.: Patient lying in bed in no apparent distress. On supplemental oxygen. Head: Normocephalic, atraumatic. Eyes: EOMI/PERRLA. Ears: Normal hearing. Normal anatomy. Neck/trachea: Trachea midline, supple. Nose: Normal external anatomy. Mouth: Moist mucous membranes. Chest: Decreased air entry bilaterally. No wheezing or rhonchi. Cardiovascular: Positive S1, positive S2. Regular rate and rhythm. Abdomen: Positive bowel sounds in all 4 quadrants. Soft, non-tender, non- distended. : Deferred. Rectal: Deferred. Skin: Warm, dry. Intact. Extremities: 2+ radial pulses bilaterally. No lower extremity edema. Neuro: Awake, alert, oriented x3. No gross motor or sensory deficits. Cranial nerves II through XII intact. Gait not assessed. laboratory and microbiology Laboratory Tests 09/08/24 16:07 Test 09/08/24 16:07 Range/Units Serum Glucose 122 H 74-106 mg/dL Assessment/Plan Impression: Acute hypoxic respiratory failure On noninvasive ventilation Pneumonia, multifocal Pulmonary embolism Atelectasis Pulmonary edema Hemorrhoids Events: Off BiPAP this morning Currently on supplemental oxygen, 15 LPM Oxymizer O2 sats 98% Taper O2 as tolerated BiPAP PRN Patient feels better this morning. No new complaints. Chest x-ray pending Continue antibiotics Continue bronchodilators Continue antifungal IV steroids Incentive spirometry Diurese with Lasix as tolerated Monitor renal function. Monitor electrolytes. Supplement as necessary. Magnesium supplementation Labs and imaging reviewed. Rest of plan as noted below. Plan: Supplemental oxygen Titrate to keep O2 sats above 92%. BiPAP PRN Monitor respiratory status closely d/t increased O2 requirements Continue antibiotics Micafungin Continue bronchodilators Incentive spirometry Diurese with Lasix d/t pulmonary edema Monitor renal function. Monitor electrolytes. Supplement as necessary. Monitor ins and outs. Monitor hemoglobin GI prophylaxis - Protonix drip DVT prophylaxis. Prognosis: Poor given patient's multiple co-morbidities. Rest of plan per hospitalist and other consultants. Thank you Dr. Betancur, for allowing me to participate in this patient's care. Further recommendations will depend on the patient's clinical course. Please do not hesitate to contact me if you have any questions or concerns. This medical document was created using an electronic medical record system with [employer] dictation system. Although these documentations are being carefully reviewed, there may still be some phonetic and typographical changes. The errors are purely typographical, due to imperfection on the software program, and do not reflect any compromise in the patient's medical care. Dietary Evaluation Review Recommendations by RD: Protein Supplementation Comments: 1) Initiate Ensure qd; Encourage optimal PO intake 2) Refer to outpatient RD for weight management 3) Follow-up with cardiology, pulmonology, and gastroenterology 4) Continue to monitor I&O, labs, and skin integrity Expected Outcomes/Goals: 1) appetite and labs to improve 2) follow-up in 3-5 days Plan discussed with: Patient, Other (EVERT Mahajan) BRITTANI MARCIAL MD September 09, 2024 22:20
[2024-09-10] VITALS (12 sets, daily range): BP systolic 106–124; BP diastolic 73–85; PULSE 74–97; RESP 18–24; TEMP 97.6–98; O2SAT 92–100
--- NOTE | 2024-09-10 16:39 | DVHPN2 ---
Subjective still on high flow oxygen Reviewed: Care Plan, H&P, Labs, Medications, Previous Orders, Radiology Changes from previous H/P or p: No Changes Objective Vitals Vital Signs Date Time Temp Pulse Resp B/P (MAP) Pulse Ox O2 Delivery O2 Flow Rate FiO2 09/10/24 13:00 97.7 86 19 116/75 (89) 93 97.7 09/10/24 07:52 Oxymizer 10 N/A Intake/Output Intake and Output 09/10/24 07:00 Intake Total 1100 ml Output Total 1300 ml Balance -200 ml Intake Oral 500 ml IV Total 600 ml Output Urine Total 1300 ml # Bowel Movements 2 General Appearance: Alert, Oriented X3 Lungs: Other (diminished) Cardiovascular: Regular rate, Normal S1, Normal S2 Abdomen: Normal bowel sounds, Soft Medications Current Medications Medications Dose Ordered Sig/Jaden Route Start Time Stop Time Status Last Admin Dose Admin Vancomycin HCl 0 ml @ 0 mls/hr UD IV 08/31/24 03:00 Piperacillin Sod/ Tazobactam Sod 100 ml @ 25 mls/hr Q8HR IV 08/31/24 06:00 09/10/24 15:05 25 MLS/HR Methylprednisolone Sodium Succinate 40 mg BID IV 08/31/24 10:00 09/10/24 09:13 40 MG Nystatin 5 ml QID MT 08/31/24 12:00 09/10/24 11:48 5 ML Lidocaine HCl 10 ml Q4HP PRN [place] 08/31/24 07:00 09/05/24 21:40 10 ML Levalbuterol HCl 0.625 mg Q6HR [facility] 08/31/24 12:00 09/08/24 18:27 0.625 MG Ipratropium [place] 0.5 mg Q6HWA [facility] 08/31/24 12:00 09/08/24 18:27 0.5 MG Doxycycline Monohydrate 100 mg Q12HR PO 09/02/24 22:00 09/10/24 09:14 100 MG Pantoprazole Sodium 40 mg DAILY@0600 PO 09/03/24 06:00 Hold 09/08/24 05:55 40 MG Micafungin Sodium 100 mg/Sodium Chloride 100 ml @ 100 mls/hr DAILY IV 09/03/24 10:00 09/10/24 09:38 100 MLS/HR Magnesium Oxide 800 mg BID PO 09/02/24 22:00 09/10/24 09:14 800 MG Furosemide 40 mg DAILY IV 09/04/24 10:00 09/10/24 09:15 40 MG Patient Own Medication 1 DAILY PO 09/04/24 10:00 09/10/24 09:14 1 Sodium Chloride 10 ml QSHIFT@10,22 IV 09/03/24 22:00 09/10/24 10:34 10 ML Pantoprazole Sodium 50 ml @ 10 mls/hr Q5H IV 09/04/24 13:15 09/10/24 15:05 10 MLS/HR Lorazepam 0.5 mg Q6HP PRN IV 09/08/24 09:00 09/10/24 09:37 0.5 MG Ondansetron HCl 4 mg Q4HPRN PRN IV 09/08/24 09:00 Vancomycin HCl 150 ml @ 150 mls/hr Q8H IV 09/10/24 20:00 Laboratory Results Laboratory Tests 09/08/24 16:07 Urinalysis Test 08/31/24 04:35 Urine Color Light-yellow (Yellow) Urine Clarity Clear (Clear) Urine pH 7.0 (5.0-9.0) Urine Specific [place] 1.045 (1.001-1.035) Urine Protein Negative (Negative) Urine Ketones Negative (Negative) Urine Blood Negative /uL (Negative) Urine Nitrite Negative (Negative) Urine Bilirubin Negative (Negative) Urine Urobilinogen Normal mg/dL (Negative) Urine Leukocyte Esterase Negative /uL (Negative) Urine RBC 1 /hpf (0 - 3) Urine Microscopic WBC 1 /HPF (0-3) Urine Squamous Epithelial Cells Few /hpf (<5) Urine Bacteria None seen /hpf (None Seen) Urine Glucose Normal mg/dL (Normal) Microbiology Microbiology Date/Time Source Procedure Growth Status 08/31/24 04:35 Voided Urine Urine Culture - Final Complete 08/31/24 03:20 Nose MRSA Screen - Final Complete 08/30/24 23:30 Blood Blood Culture - Final NO GROWTH AFTER 5 DAYS OF INCUBATION. Complete Assessment/Plan Assessment/Plan Acute on chronic respiratory failure Sepsis secondary to pneumonia Multifocal pneumonia Gram-positive/Gram-negative Pulmonary embolism DVT Lymphoma currently under no chemotherapy Thrombocytopenia Normocytic anemia Oral thrush Moderate protein malnutrition- Dietary Consult Rectal bleed with hemorrhoid, Continuing current management. Continuing IV antibiotic. JEN law Appreciate GI input Local treatment of hemorrhoid with cream Not safe to transfer per [place] due to high oxygen demands Plan discussed with: Patient Date of Service: September 10, 2024 Billing Provider: PRAMOD BRAMBILA MD Common Visit Codes: [id number] INP/OBS CARE(HIGH) PRAMOD BRAMBILA MD September 10, 2024 16:39
[2024-09-10] MEDS: VANCOMYCIN 750mg/150ml 150 ML IV SCH (20:57)
--- NOTE | 2024-09-10 21:12 | DVHPN2 ---
Progress Note - Dictate Date Seen: September 10, 2024 Medical Necessity Reason Pt with a Central, PICC or Fol: No Subjective Patient seen and examined at bedside. Currently on supplemental oxygen Overnight events reviewed. vital signs Vital Sign Date Time Temp Pulse Resp B/P (MAP) Pulse Ox O2 Delivery O2 Flow Rate FiO2 09/10/24 19:52 93 22 96 09/10/24 19:44 Oxymizer 10 N/A 09/10/24 17:00 98.0 124/85 (98) 98.0 Total Intake and Output 09/09/24 09/09/24 09/10/24 15:00 23:00 07:00 Intake Total 150 ml 250 ml 700 ml Output Total 900 ml 400 ml Balance 150 ml -650 ml 300 ml medications Current Medications Medications Dose Ordered Sig/Jaden Route Start Time Stop Time Status Last Admin Dose Admin Vancomycin HCl 0 ml @ 0 mls/hr UD IV 08/31/24 03:00 Piperacillin Sod/ Tazobactam Sod 100 ml @ 25 mls/hr Q8HR IV 08/31/24 06:00 09/10/24 15:05 25 MLS/HR Methylprednisolone Sodium Succinate 40 mg BID IV 08/31/24 10:00 09/10/24 09:13 40 MG Nystatin 5 ml QID MT 08/31/24 12:00 09/10/24 17:14 5 ML Lidocaine HCl 10 ml Q4HP PRN MT 08/31/24 07:00 09/05/24 21:40 10 ML Levalbuterol HCl 0.625 mg Q6HR [facility] 08/31/24 12:00 09/10/24 19:44 0.625 MG Ipratropium [place] 0.5 mg Q6HWA [facility] 08/31/24 12:00 09/10/24 19:44 0.5 MG Doxycycline Monohydrate 100 mg Q12HR PO 09/02/24 22:00 09/10/24 09:14 100 MG Pantoprazole Sodium 40 mg DAILY@0600 PO 09/03/24 06:00 Hold 09/08/24 05:55 40 MG Micafungin Sodium 100 mg/Sodium Chloride 100 ml @ 100 mls/hr DAILY IV 09/03/24 10:00 09/10/24 09:38 100 MLS/HR Magnesium Oxide 800 mg BID PO 09/02/24 22:00 09/10/24 09:14 800 MG Furosemide 40 mg DAILY IV 09/04/24 10:00 09/10/24 09:15 40 MG Patient Own Medication 1 DAILY PO 09/04/24 10:00 09/10/24 09:14 1 Sodium Chloride 10 ml QSHIFT@10,22 IV 09/03/24 22:00 09/10/24 10:34 10 ML Pantoprazole Sodium 50 ml @ 10 mls/hr Q5H IV 09/04/24 13:15 09/10/24 15:05 10 MLS/HR Lorazepam 0.5 mg Q6HP PRN IV 09/08/24 09:00 09/10/24 09:37 0.5 MG Ondansetron HCl 4 mg Q4HPRN PRN IV 09/08/24 09:00 Vancomycin HCl 150 ml @ 150 mls/hr Q8H IV 09/10/24 20:00 Sodium Chloride 1 spr QID PRN EACHNOSTRI 09/10/24 20:00 objective Gen.: Patient lying in bed in no apparent distress. On supplemental oxygen. Head: Normocephalic, atraumatic. Eyes: EOMI/PERRLA. Ears: Normal hearing. Normal anatomy. Neck/trachea: Trachea midline, supple. Nose: Normal external anatomy. Mouth: Moist mucous membranes. Chest: Decreased air entry bilaterally. No wheezing or rhonchi. Cardiovascular: Positive S1, positive S2. Regular rate and rhythm. Abdomen: Positive bowel sounds in all 4 quadrants. Soft, non-tender, non- distended. : Deferred. Rectal: Deferred. Skin: Warm, dry. Intact. Extremities: 2+ radial pulses bilaterally. No lower extremity edema. Neuro: Awake, alert, oriented x3. No gross motor or sensory deficits. Cranial nerves II through XII intact. Gait not assessed. laboratory and microbiology Laboratory Tests 09/08/24 16:07 Test 09/08/24 16:07 Range/Units Serum Glucose 122 H 74-106 mg/dL Assessment/Plan Impression: Acute hypoxic respiratory failure On noninvasive ventilation Pneumonia, multifocal Pulmonary embolism Atelectasis Pulmonary edema Hemorrhoids Events: Currently on supplemental oxygen, 10 LPM Oxymizer O2 sats 94% Taper O2 as tolerated BiPAP PRN Patient feels better this morning. No new complaints. Chest x-ray pending Continue antibiotics and antifungals. Continue bronchodilators IV steroids Obtain CXR in am for interval changes. Incentive spirometry Diurese with Lasix as tolerated Monitor renal function. Monitor electrolytes. Supplement as necessary. Magnesium supplementation On protonix drip. Monitor Hgb. Labs and imaging reviewed. Rest of plan as noted below. Plan: Supplemental oxygen Titrate to keep O2 sats above 92%. BiPAP PRN Monitor respiratory status closely d/t increased O2 requirements Continue antibiotics Micafungin Continue bronchodilators Incentive spirometry Diurese with Lasix d/t pulmonary edema Monitor renal function. Monitor electrolytes. Supplement as necessary. Monitor ins and outs. Monitor hemoglobin GI prophylaxis - Protonix drip DVT prophylaxis. Prognosis: Poor given patient's multiple co-morbidities. Rest of plan per hospitalist and other consultants. Thank you Dr. Betancur, for allowing me to participate in this patient's care. Further recommendations will depend on the patient's clinical course. Please do not hesitate to contact me if you have any questions or concerns. This medical document was created using an electronic medical record system with [email or web address] dictation system. Although these documentations are being carefully reviewed, there may still be some phonetic and typographical changes. The errors are purely typographical, due to imperfection on the software program, and do not reflect any compromise in the patient's medical care. Dietary Evaluation Review Recommendations by RD: Protein Supplementation Comments: 1) Initiate Ensure qd; Encourage optimal PO intake 2) Refer to outpatient RD for weight management 3) Follow-up with cardiology, pulmonology, and gastroenterology 4) Continue to monitor I&O, labs, and skin integrity Expected Outcomes/Goals: 1) appetite and labs to improve 2) follow-up in 3-5 days Plan discussed with: Patient, Other (EVERT Gunn) BRITTANI MARCIAL MD September 10, 2024 21:12
--- NOTE | 2024-09-10 21:46 | DVHPN2 ---
Progress Note - Dictate Date Seen: September 10, 2024 Medical Necessity Reason Pt with a Central, PICC or Fol: No Subjective No new complaints Rectal bleeding resolved H/H stable at 11.1 Tolerating diet vital signs Vital Sign Date Time Temp Pulse Resp B/P (MAP) Pulse Ox O2 Delivery O2 Flow Rate FiO2 09/10/24 19:52 93 22 96 09/10/24 19:44 Oxymizer 10 N/A 09/10/24 17:00 98.0 124/85 (98) 98.0 Total Intake and Output 09/09/24 09/09/24 09/10/24 15:00 23:00 07:00 Intake Total 150 ml 250 ml 700 ml Output Total 900 ml 400 ml Balance 150 ml -650 ml 300 ml medications Current Medications Medications Dose Ordered Sig/Jaden Route Start Time Stop Time Status Last Admin Dose Admin Vancomycin HCl 0 ml @ 0 mls/hr UD IV 08/31/24 03:00 Piperacillin Sod/ Tazobactam Sod 100 ml @ 25 mls/hr Q8HR IV 08/31/24 06:00 09/10/24 21:03 25 MLS/HR Methylprednisolone Sodium Succinate 40 mg BID IV 08/31/24 10:00 09/10/24 20:57 40 MG Nystatin 5 ml QID [place] 08/31/24 12:00 09/10/24 20:58 5 ML Lidocaine HCl 10 ml Q4HP PRN [place] 08/31/24 07:00 09/05/24 21:40 10 ML Levalbuterol HCl 0.625 mg Q6HR [facility] 08/31/24 12:00 09/10/24 19:44 0.625 MG Ipratropium [place] 0.5 mg Q6HWA [facility] 08/31/24 12:00 09/10/24 19:44 0.5 MG Doxycycline Monohydrate 100 mg Q12HR PO 09/02/24 22:00 09/10/24 20:58 100 MG Pantoprazole Sodium 40 mg DAILY@0600 PO 09/03/24 06:00 Hold 09/08/24 05:55 40 MG Micafungin Sodium 100 mg/Sodium Chloride 100 ml @ 100 mls/hr DAILY IV 09/03/24 10:00 09/10/24 09:38 100 MLS/HR Magnesium Oxide 800 mg BID PO 09/02/24 22:00 09/10/24 20:58 800 MG Furosemide 40 mg DAILY IV 09/04/24 10:00 09/10/24 09:15 40 MG Patient Own Medication 1 DAILY PO 09/04/24 10:00 09/10/24 09:14 1 Sodium Chloride 10 ml QSHIFT@10,22 IV 09/03/24 22:00 09/10/24 20:57 10 ML Pantoprazole Sodium 50 ml @ 10 mls/hr Q5H IV 09/04/24 13:15 09/10/24 21:11 10 MLS/HR Lorazepam 0.5 mg Q6HP PRN IV 09/08/24 09:00 09/10/24 09:37 0.5 MG Ondansetron HCl 4 mg Q4HPRN PRN IV 09/08/24 09:00 Vancomycin HCl 150 ml @ 150 mls/hr Q8H IV 09/10/24 20:00 09/10/24 20:57 150 MLS/HR Sodium Chloride 1 spr QID PRN EACHNOSTRI 09/10/24 20:00 objective General Appearance: Alert, Oriented X3 Lungs: Other (diminished); on high flow oxygen Cardiovascular: Regular rate, Normal S1, Normal S2 Abdomen: Normal bowel sounds, Soft laboratory and microbiology Laboratory Tests 09/08/24 16:07 Test 09/08/24 16:07 Range/Units Serum Glucose 122 H 74-106 mg/dL Problems(with codes): (1) DVT (deep venous thrombosis) (2) Rectal bleeding (3) Pneumonia (4) Acute respiratory distress (5) Bilateral pulmonary embolism (6) Leukocytosis Prognosis Plan Patient is not stable for transfer to [place] Continue oxygen supplementation Continue supportive care Patient not stable for a colonoscopy examination at this time Dietary Evaluation Review Recommendations by RD: Protein Supplementation Comments: 1) Initiate Ensure qd; Encourage optimal PO intake 2) Refer to outpatient RD for weight management 3) Follow-up with cardiology, pulmonology, and gastroenterology 4) Continue to monitor I&O, labs, and skin integrity Expected Outcomes/Goals: 1) appetite and labs to improve 2) follow-up in 3-5 days Plan discussed with: Patient, Other (Nurse) ELTON LEBLANC MD September 10, 2024 21:46
--- NOTE | 2024-09-10 22:18 | DVH ---
CHEST RADIOGRAPH Indication: interval changes, s/p diuresis Technique: Single frontal view of the chest was obtained Comparison: XY CHEST XRAY 1 VIEW on DOS: 09/08/24, XY CHEST PORTABLE on DOS: 08/30/24 FINDINGS: Lines and Tubes: Left-sided catheter with tip in superior vena cava. Lungs: Patchy airspace consolidation seen in both lungs but more pronounced in the right upper lung f ollowed by left upper lung field Pleura: No effusion. No pneumothorax. Cardiomediastinal contours: Unremarkable Bones: No acute osseous abnormality. There is an IVC filter. IMPRESSION: 1. Diffuse infiltrate seen in both lungs more pronounced in right upper lung
--- NOTE | 2024-09-10 23:29 | DVHPN2 ---
Progress Note - Dictate Date Seen: September 10, 2024 Medical Necessity Reason Pt with a Central, PICC or Fol: No Subjective Patient seen and examined at bedside. Currently on supplemental oxygen Overnight events reviewed. vital signs Vital Sign Date Time Temp Pulse Resp B/P (MAP) Pulse Ox O2 Delivery O2 Flow Rate FiO2 09/10/24 19:52 93 22 96 09/10/24 19:44 Oxymizer 10 N/A 09/10/24 17:00 98.0 124/85 (98) 98.0 Total Intake and Output 09/09/24 09/09/24 09/10/24 15:00 23:00 07:00 Intake Total 150 ml 250 ml 700 ml Output Total 900 ml 400 ml Balance 150 ml -650 ml 300 ml medications Current Medications Medications Dose Ordered Sig/Jaden Route Start Time Stop Time Status Last Admin Dose Admin Vancomycin HCl 0 ml @ 0 mls/hr UD IV 08/31/24 03:00 Piperacillin Sod/ Tazobactam Sod 100 ml @ 25 mls/hr Q8HR IV 08/31/24 06:00 09/10/24 21:03 25 MLS/HR Methylprednisolone Sodium Succinate 40 mg BID IV 08/31/24 10:00 09/10/24 20:57 40 MG Nystatin 5 ml QID MT 08/31/24 12:00 09/10/24 20:58 5 ML Lidocaine HCl 10 ml Q4HP PRN [place] 08/31/24 07:00 09/05/24 21:40 10 ML Levalbuterol HCl 0.625 mg Q6HR [facility] 08/31/24 12:00 09/10/24 19:44 0.625 MG Ipratropium [place] 0.5 mg Q6HWA [facility] 08/31/24 12:00 09/10/24 19:44 0.5 MG Doxycycline Monohydrate 100 mg Q12HR PO 09/02/24 22:00 09/10/24 20:58 100 MG Pantoprazole Sodium 40 mg DAILY@0600 PO 09/03/24 06:00 Hold 09/08/24 05:55 40 MG Micafungin Sodium 100 mg/Sodium Chloride 100 ml @ 100 mls/hr DAILY IV 09/03/24 10:00 09/10/24 09:38 100 MLS/HR Magnesium Oxide 800 mg BID PO 09/02/24 22:00 09/10/24 20:58 800 MG Furosemide 40 mg DAILY IV 09/04/24 10:00 09/10/24 09:15 40 MG Patient Own Medication 1 DAILY PO 09/04/24 10:00 09/10/24 09:14 1 Sodium Chloride 10 ml QSHIFT@10,22 IV 09/03/24 22:00 09/10/24 20:57 10 ML Pantoprazole Sodium 50 ml @ 10 mls/hr Q5H IV 09/04/24 13:15 09/10/24 21:11 10 MLS/HR Lorazepam 0.5 mg Q6HP PRN IV 09/08/24 09:00 09/10/24 09:37 0.5 MG Ondansetron HCl 4 mg Q4HPRN PRN IV 09/08/24 09:00 Vancomycin HCl 150 ml @ 150 mls/hr Q8H IV 09/10/24 20:00 09/10/24 20:57 150 MLS/HR Sodium Chloride 1 spr QID PRN EACHNOSTRI 09/10/24 20:00 objective Gen.: Patient lying in bed in no apparent distress. On supplemental oxygen. Head: Normocephalic, atraumatic. Eyes: EOMI/PERRLA. Ears: Normal hearing. Normal anatomy. Neck/trachea: Trachea midline, supple. Nose: Normal external anatomy. Mouth: Moist mucous membranes. Chest: Decreased air entry bilaterally. No wheezing or rhonchi. Cardiovascular: Positive S1, positive S2. Regular rate and rhythm. Abdomen: Positive bowel sounds in all 4 quadrants. Soft, non-tender, non- distended. : Deferred. Rectal: Deferred. Skin: Warm, dry. Intact. Extremities: 2+ radial pulses bilaterally. No lower extremity edema. Neuro: Awake, alert, oriented x3. No gross motor or sensory deficits. Cranial nerves II through XII intact. Gait not assessed. laboratory and microbiology Laboratory Tests 09/08/24 16:07 Test 09/08/24 16:07 Range/Units Serum Glucose 122 H 74-106 mg/dL Assessment/Plan Impression: Acute hypoxic respiratory failure On noninvasive ventilation Pneumonia, multifocal Pulmonary embolism Atelectasis Pulmonary edema Hemorrhoids Events: Currently on supplemental oxygen, 10 LPM Oxymizer O2 sats 94% Taper O2 as tolerated BiPAP PRN Patient feels better this morning. No new complaints. Chest x-ray pending Continue antibiotics and antifungals. Continue bronchodilators IV steroids Obtain CXR in am for interval changes. Incentive spirometry Diurese with Lasix as tolerated Monitor renal function. Monitor electrolytes. Supplement as necessary. Magnesium supplementation On protonix drip. Monitor Hgb. Labs and imaging reviewed. Rest of plan as noted below. Plan: Supplemental oxygen Titrate to keep O2 sats above 92%. BiPAP PRN Monitor respiratory status closely d/t increased O2 requirements Continue antibiotics Micafungin Continue bronchodilators Incentive spirometry Diurese with Lasix d/t pulmonary edema Monitor renal function. Monitor electrolytes. Supplement as necessary. Monitor ins and outs. Monitor hemoglobin GI prophylaxis - Protonix drip DVT prophylaxis. Prognosis: Poor given patient's multiple co-morbidities. Rest of plan per hospitalist and other consultants. Thank you Dr. Betancur, for allowing me to participate in this patient's care. Further recommendations will depend on the patient's clinical course. Please do not hesitate to contact me if you have any questions or concerns. This medical document was created using an electronic medical record system with [employer] dictation system. Although these documentations are being carefully reviewed, there may still be some phonetic and typographical changes. The errors are purely typographical, due to imperfection on the software program, and do not reflect any compromise in the patient's medical care. Dietary Evaluation Review Recommendations by RD: Protein Supplementation Comments: 1) Initiate Ensure qd; Encourage optimal PO intake 2) Refer to outpatient RD for weight management 3) Follow-up with cardiology, pulmonology, and gastroenterology 4) Continue to monitor I&O, labs, and skin integrity Expected Outcomes/Goals: 1) appetite and labs to improve 2) follow-up in 3-5 days BRITTANI MARCIAL MD September 10, 2024 23:29
[2024-09-11] VITALS (16 sets, daily range): BP systolic 101–119; BP diastolic 65–77; PULSE 86–117; RESP 16–22; TEMP 97.4–98.9; O2SAT 92–99
[2024-09-11] MEDS: SALINE 0.65 % NASAL SPRAY 45ML BOTTLE EACHNOSTRI PRN (05:39)
[2024-09-11 07:34] LABS: Basophils # (auto) 0 10 ^3/uL (0-0.2); Basophils % (auto) 0.2 % (0.0-2.0); Eosinophils # (auto) 0 10 ^3/uL (0-0.8); Eosinophils % (auto) 0.1 % (0.0-7.0); Hematocrit 30.3 % (41.0-53.0); Hemoglobin 9.9 g/dL (13.5-17.5); Lymphocytes # (auto) 1.8 10 ^3/uL (0.4-5.4); Lymphocytes % (auto) 15.2 % (10.0-50.0); Mean Corpuscular Hemoglobin 29.5 pg (28.0-32.0); Mean Corpuscular Hgb Conc. 32.8 g/dL (32.0-36.0); Monocytes # (auto) 0.3 10 ^3/uL (0-1.3); Monocytes % (auto) 2.3 % (0.0-12.0); Neutrophils # (auto) 9.7 10 ^3/uL (1.6-8.6); Neutrophils % (auto) 82.2 % (37.0-80.0); Platelet Count (auto) 112 10^3/uL (140-450); Red Blood Cells 3.37 10^6/uL (4.5-5.90); Red Cell Distribution Width 16.4 % (11.8-14.3); White Blood Cell 11.8 10^3/uL (4.4-10.8)
--- NOTE | 2024-09-11 18:46 | DVHPN2 ---
Subjective still on high flow oxygen Reviewed: Care Plan, H&P, Labs, Medications, Previous Orders, Radiology Changes from previous H/P or p: No Changes Objective Vitals Vital Signs Date Time Temp Pulse Resp B/P (MAP) Pulse Ox O2 Delivery O2 Flow Rate FiO2 09/11/24 17:02 97.4 94 19 118/75 (89) 98 97.4 09/11/24 11:06 Oxymizer 10 N/A Intake/Output Intake and Output 09/11/24 07:00 Intake Total 1400 ml Output Total 2450 ml Balance -1050 ml Intake Oral 400 ml IV Total 1000 ml Output Urine Total 2450 ml # Bowel Movements 1 General Appearance: Alert, Oriented X3 Lungs: Other (diminished) Cardiovascular: Regular rate, Normal S1, Normal S2 Abdomen: Normal bowel sounds, Soft Medications Current Medications Medications Dose Ordered Sig/Jaden Route Start Time Stop Time Status Last Admin Dose Admin Methylprednisolone Sodium Succinate 40 mg BID IV 08/31/24 10:00 09/11/24 08:31 40 MG Nystatin 5 ml QID [place] 08/31/24 12:00 09/11/24 05:37 5 ML Lidocaine HCl 10 ml Q4HP PRN [place] 08/31/24 07:00 09/05/24 21:40 10 ML Levalbuterol HCl 0.625 mg Q6HR [facility] 08/31/24 12:00 09/11/24 11:06 0.625 MG Ipratropium [place] 0.5 mg Q6HWA [facility] 08/31/24 12:00 09/11/24 11:06 0.5 MG Doxycycline Monohydrate 100 mg Q12HR PO 09/02/24 22:00 09/11/24 08:31 100 MG Pantoprazole Sodium 40 mg DAILY@0600 PO 09/03/24 06:00 Hold 09/08/24 05:55 40 MG Micafungin Sodium 100 mg/Sodium Chloride 100 ml @ 100 mls/hr DAILY IV 09/03/24 10:00 09/11/24 08:31 100 MLS/HR Magnesium Oxide 800 mg BID PO 09/02/24 22:00 09/11/24 08:31 800 MG Furosemide 40 mg DAILY IV 09/04/24 10:00 09/11/24 08:32 40 MG Patient Own Medication 1 DAILY PO 09/04/24 10:00 09/11/24 09:23 1 Sodium Chloride 10 ml QSHIFT@10,22 IV 09/03/24 22:00 09/11/24 08:32 10 ML Pantoprazole Sodium 50 ml @ 10 mls/hr Q5H IV 09/04/24 13:15 09/11/24 18:37 10 MLS/HR Lorazepam 0.5 mg Q6HP PRN IV 09/08/24 09:00 09/10/24 09:37 0.5 MG Ondansetron HCl 4 mg Q4HPRN PRN IV 09/08/24 09:00 Vancomycin HCl 150 ml @ 150 mls/hr Q8H IV 09/10/24 20:00 09/11/24 11:46 150 MLS/HR Sodium Chloride 1 spr QID PRN EACHNOSTRI 09/10/24 20:00 09/11/24 05:39 1 SPR Laboratory Results Laboratory Tests 09/08/24 16:07 09/11/24 06:51 Urinalysis Test 08/31/24 04:35 Urine Color Light-yellow (Yellow) Urine Clarity Clear (Clear) Urine pH 7.0 (5.0-9.0) Urine Specific [place] 1.045 (1.001-1.035) Urine Protein Negative (Negative) Urine Ketones Negative (Negative) Urine Blood Negative /uL (Negative) Urine Nitrite Negative (Negative) Urine Bilirubin Negative (Negative) Urine Urobilinogen Normal mg/dL (Negative) Urine Leukocyte Esterase Negative /uL (Negative) Urine RBC 1 /hpf (0 - 3) Urine Microscopic WBC 1 /HPF (0-3) Urine Squamous Epithelial Cells Few /hpf (<5) Urine Bacteria None seen /hpf (None Seen) Urine Glucose Normal mg/dL (Normal) Microbiology Microbiology Date/Time Source Procedure Growth Status 08/31/24 04:35 Voided Urine Urine Culture - Final Complete 08/31/24 03:20 Nose MRSA Screen - Final Complete 08/30/24 23:30 Blood Blood Culture - Final NO GROWTH AFTER 5 DAYS OF INCUBATION. Complete Assessment/Plan Assessment/Plan Acute on chronic respiratory failure Sepsis secondary to pneumonia Multifocal pneumonia Gram-positive/Gram-negative Pulmonary embolism DVT Lymphoma currently under no chemotherapy Thrombocytopenia Normocytic anemia Oral thrush Moderate protein malnutrition- Dietary Consult Rectal bleed with hemorrhoid, Continuing current management. Continuing IV antibiotic. JEN law Appreciate GI input Local treatment of hemorrhoid with cream Not safe to transfer per [place] due to high oxygen demands Plan discussed with: Patient My Orders Orders - PRAMOD BRAMBILA MD Procedure Category Date Status Time Pt Request For Service PT 09/11/24 Logged 12:08 Date of Service: September 11, 2024 Billing Provider: PRAMOD BRAMBILA MD Common Visit Codes: [id number] INP/OBS CARE(HIGH) PRAMOD BRAMBILA MD September 11, 2024 18:46
--- NOTE | 2024-09-11 22:13 | DVHPN2 ---
Progress Note - Dictate Date Seen: September 11, 2024 Medical Necessity Reason Pt with a Central, PICC or Fol: No Subjective Patient seen and examined at bedside. Remains on supplemental oxygen Overnight events reviewed. vital signs Vital Sign Date Time Temp Pulse Resp B/P (MAP) Pulse Ox O2 Delivery O2 Flow Rate FiO2 09/11/24 19:16 100 20 94 09/11/24 19:10 Oxymizer 10.0 09/11/24 19:10 N/A 09/11/24 17:02 97.4 118/75 (89) 97.4 Total Intake and Output 09/10/24 09/10/24 09/11/24 15:00 23:00 07:00 Intake Total 300 ml 400 ml 700 ml Output Total 2200 ml 250 ml Balance 300 ml -1800 ml 450 ml medications Current Medications Medications Dose Ordered Sig/Jaden Route Start Time Stop Time Status Last Admin Dose Admin Methylprednisolone Sodium Succinate 40 mg BID IV 08/31/24 10:00 09/11/24 08:31 40 MG Nystatin 5 ml QID [place] 08/31/24 12:00 09/11/24 05:37 5 ML Lidocaine HCl 10 ml Q4HP PRN [place] 08/31/24 07:00 09/05/24 21:40 10 ML Levalbuterol HCl 0.625 mg Q6HR [facility] 08/31/24 12:00 09/11/24 19:10 0.625 MG Ipratropium [place] 0.5 mg Q6HWA [facility] 08/31/24 12:00 09/11/24 19:11 0.5 MG Doxycycline Monohydrate 100 mg Q12HR PO 09/02/24 22:00 09/11/24 08:31 100 MG Pantoprazole Sodium 40 mg DAILY@0600 PO 09/03/24 06:00 Hold 09/08/24 05:55 40 MG Micafungin Sodium 100 mg/Sodium Chloride 100 ml @ 100 mls/hr DAILY IV 09/03/24 10:00 09/11/24 08:31 100 MLS/HR Magnesium Oxide 800 mg BID PO 09/02/24 22:00 09/11/24 08:31 800 MG Furosemide 40 mg DAILY IV 09/04/24 10:00 09/11/24 08:32 40 MG Patient Own Medication 1 DAILY PO 09/04/24 10:00 09/11/24 09:23 1 Sodium Chloride 10 ml QSHIFT@10,22 IV 09/03/24 22:00 09/11/24 08:32 10 ML Pantoprazole Sodium 50 ml @ 10 mls/hr Q5H IV 09/04/24 13:15 09/11/24 18:37 10 MLS/HR Lorazepam 0.5 mg Q6HP PRN IV 09/08/24 09:00 09/10/24 09:37 0.5 MG Ondansetron HCl 4 mg Q4HPRN PRN IV 09/08/24 09:00 Vancomycin HCl 150 ml @ 150 mls/hr Q8H IV 09/10/24 20:00 09/11/24 20:19 150 MLS/HR Sodium Chloride 1 spr QID PRN EACHNOSTRI 09/10/24 20:00 09/11/24 05:39 1 SPR objective Gen.: Patient lying in bed in no apparent distress. On supplemental oxygen. Head: Normocephalic, atraumatic. Eyes: EOMI/PERRLA. Ears: Normal hearing. Normal anatomy. Neck/trachea: Trachea midline, supple. Nose: Normal external anatomy. Mouth: Moist mucous membranes. Chest: Decreased air entry bilaterally. No wheezing or rhonchi. Cardiovascular: Positive S1, positive S2. Regular rate and rhythm. Abdomen: Positive bowel sounds in all 4 quadrants. Soft, non-tender, non- distended. : Deferred. Rectal: Deferred. Skin: Warm, dry. Intact. Extremities: 2+ radial pulses bilaterally. No lower extremity edema. Neuro: Awake, alert, oriented x3. No gross motor or sensory deficits. Cranial nerves II through XII intact. Gait not assessed. laboratory and microbiology Laboratory Tests 09/11/24 06:51 09/08/24 16:07 Test 09/08/24 16:07 Range/Units Serum Glucose 122 H 74-106 mg/dL Assessment/Plan Impression: Acute hypoxic respiratory failure Dependence on supplemental oxygen Pneumonia, multifocal Pulmonary embolism Atelectasis Pulmonary edema Hemorrhoids Events: Remains on supplemental oxygen, 10 LPM Oxymizer Taper O2 as tolerated Monitor closely d/t increased O2 requirements BiPAP PRN No new complaints. Chest x-ray reviewed, demonstrates diffuse infiltrates seen in both lungs, more pronounced in right upper lung. Continue antibiotics and antifungals. Continue bronchodilators IV steroids Incentive spirometry Diurese with Lasix as tolerated Monitor renal function. Monitor electrolytes. Supplement as necessary. Magnesium supplementation Maintain euvolemia Continue Protonix drip. Monitor Hgb. Labs and imaging reviewed. Rest of plan as noted below. Plan: Supplemental oxygen Titrate to keep O2 sats above 92%. BiPAP PRN Monitor respiratory status closely d/t increased O2 requirements Continue antibiotics Micafungin Continue bronchodilators Incentive spirometry Diurese with Lasix d/t pulmonary edema Monitor renal function. Monitor electrolytes. Supplement as necessary. Monitor ins and outs. Monitor hemoglobin GI prophylaxis - Protonix drip DVT prophylaxis. Prognosis: Poor given patient's multiple co-morbidities. Rest of plan per hospitalist and other consultants. Thank you Dr. Betancur, for allowing me to participate in this patient's care. Further recommendations will depend on the patient's clinical course. Please do not hesitate to contact me if you have any questions or concerns. This medical document was created using an electronic medical record system with [employer] dictation system. Although these documentations are being carefully reviewed, there may still be some phonetic and typographical changes. The errors are purely typographical, due to imperfection on the software program, and do not reflect any compromise in the patient's medical care. Dietary Evaluation Review Recommendations by RD: Protein Supplementation Comments: 1) Initiate Ensure qd; Encourage optimal PO intake 2) Refer to outpatient RD for weight management 3) Follow-up with cardiology, pulmonology, and gastroenterology 4) Continue to monitor I&O, labs, and skin integrity Expected Outcomes/Goals: 1) appetite and labs to improve 2) follow-up in 3-5 days Plan discussed with: Patient, Other (EVERT Gunn) BRITTANI MARCIAL MD September 11, 2024 22:13
[2024-09-12] VITALS (15 sets, daily range): BP systolic 108–126; BP diastolic 63–86; PULSE 86–109; RESP 16–22; TEMP 97.6–97.9; O2SAT 92–98
[2024-09-12 07:07] LABS: Basophils # (auto) 0 10 ^3/uL (0-0.2); Basophils % (auto) 0.3 % (0.0-2.0); Eosinophils # (auto) 0 10 ^3/uL (0-0.8); Hematocrit 30.8 % (41.0-53.0); Hemoglobin 10.2 g/dL (13.5-17.5); Lymphocytes # (auto) 2.4 10 ^3/uL (0.4-5.4); Lymphocytes % (auto) 18.4 % (10.0-50.0); Mean Corpuscular Hemoglobin 29.6 pg (28.0-32.0); Mean Corpuscular Volume 89.6 fL (80.0-100.0); Monocytes # (auto) 0.3 10 ^3/uL (0-1.3); Neutrophils # (auto) 10.4 10 ^3/uL (1.6-8.6); Neutrophils % (auto) 79.3 % (37.0-80.0); Nucleated Red Blood Cells % 0.1 %; Platelet Count (auto) 128 10^3/uL (140-450); Red Blood Cells 3.44 10^6/uL (4.5-5.90); Red Cell Distribution Width 16.6 % (11.8-14.3); White Blood Cell 13.2 10^3/uL (4.4-10.8)
--- NOTE | 2024-09-12 14:37 | DVHPN2 ---
Progress Note - Dictate Date Seen: September 12, 2024 Medical Necessity Reason Pt with a Central, PICC or Fol: No Subjective No new complaints Rectal bleeding resolved H/H stable at 10.2 Tolerating diet vital signs Vital Sign Date Time Temp Pulse Resp B/P (MAP) Pulse Ox O2 Delivery O2 Flow Rate FiO2 09/12/24 12:30 97.6 93 19 112/63 (79) 95 97.6 09/12/24 11:34 Oxymizer 10 N/A Total Intake and Output 09/11/24 09/11/24 09/12/24 15:00 23:00 07:00 Intake Total 250 ml 605 ml 740 ml Output Total 200 ml Balance 250 ml 605 ml 540 ml medications Current Medications Medications Dose Ordered Sig/Jaden Route Start Time Stop Time Status Last Admin Dose Admin Methylprednisolone Sodium Succinate 40 mg BID IV 08/31/24 10:00 09/12/24 08:58 40 MG Nystatin 5 ml QID [place] 08/31/24 12:00 09/11/24 05:37 5 ML Lidocaine HCl 10 ml Q4HP PRN [place] 08/31/24 07:00 09/05/24 21:40 10 ML Levalbuterol HCl 0.625 mg Q6HR [facility] 08/31/24 12:00 09/12/24 11:34 0.625 MG Ipratropium [place] 0.5 mg Q6HWA [facility] 08/31/24 12:00 09/12/24 11:34 0.5 MG Doxycycline Monohydrate 100 mg Q12HR PO 09/02/24 22:00 09/12/24 08:59 100 MG Pantoprazole Sodium 40 mg DAILY@0600 PO 09/03/24 06:00 Hold 09/08/24 05:55 40 MG Micafungin Sodium 100 mg/Sodium Chloride 100 ml @ 100 mls/hr DAILY IV 09/03/24 10:00 09/12/24 09:00 100 MLS/HR Magnesium Oxide 800 mg BID PO 09/02/24 22:00 09/12/24 08:59 800 MG Furosemide 40 mg DAILY IV 09/04/24 10:00 09/12/24 08:59 40 MG Patient Own Medication 1 DAILY PO 09/04/24 10:00 09/12/24 09:00 1 Sodium Chloride 10 ml QSHIFT@10,22 IV 09/03/24 22:00 09/12/24 09:00 10 ML Pantoprazole Sodium 50 ml @ 10 mls/hr Q5H IV 09/04/24 13:15 09/12/24 10:26 10 MLS/HR Lorazepam 0.5 mg Q6HP PRN IV 09/08/24 09:00 09/12/24 00:59 0.5 MG Ondansetron HCl 4 mg Q4HPRN PRN IV 09/08/24 09:00 Vancomycin HCl 150 ml @ 150 mls/hr Q8H IV 09/10/24 20:00 09/12/24 03:41 150 MLS/HR Sodium Chloride 1 spr QID PRN EACHNOSTRI 09/10/24 20:00 09/12/24 06:54 1 SPR objective General Appearance: Alert, Oriented X3 Lungs: Other (diminished); on high flow oxygen Cardiovascular: Regular rate, Normal S1, Normal S2 Abdomen: Normal bowel sounds, Soft laboratory and microbiology Laboratory Tests 09/12/24 06:39 09/08/24 16:07 Test 09/08/24 16:07 Range/Units Serum Glucose 122 H 74-106 mg/dL Problems(with codes): (1) Rectal bleeding (2) Pneumonia (3) Acute respiratory distress (4) Bilateral pulmonary embolism (5) Leukocytosis Prognosis Plan Patient is not stable for transfer to [place] Continue oxygen supplementation Continue supportive care Pulmonary follow up appreciated Patient not stable for a colonoscopy examination at this time Dietary Evaluation Review Recommendations by RD: Protein Supplementation Comments: 1) Initiate Ensure qd; Encourage optimal PO intake 2) Refer to outpatient RD for weight management 3) Follow-up with cardiology, pulmonology, and gastroenterology 4) Continue to monitor I&O, labs, and skin integrity Expected Outcomes/Goals: 1) appetite and labs to improve 2) follow-up in 3-5 days Plan discussed with: Patient ELTON LEBLANC MD September 12, 2024 14:37
--- NOTE | 2024-09-12 18:16 | DVHPN2 ---
Subjective still on high flow oxygen Reviewed: Care Plan, H&P, Labs, Medications, Previous Orders, Radiology Changes from previous H/P or p: No Changes Objective Vitals Vital Signs Date Time Temp Pulse Resp B/P (MAP) Pulse Ox O2 Delivery O2 Flow Rate FiO2 09/12/24 17:17 97.9 91 17 125/86 (99) 98 97.9 09/12/24 11:34 Oxymizer 10 N/A Intake/Output Intake and Output 09/12/24 07:00 Intake Total 1595 ml Output Total 200 ml Balance 1395 ml Intake Oral 900 ml IV Total 695 ml Output Urine Total 200 ml # Voids 4 # Bowel Movements 3 General Appearance: Alert, Oriented X3 Lungs: Other (diminished) Cardiovascular: Regular rate, Normal S1, Normal S2 Abdomen: Normal bowel sounds, Soft Medications Current Medications Medications Dose Ordered Sig/Jaden Route Start Time Stop Time Status Last Admin Dose Admin Methylprednisolone Sodium Succinate 40 mg BID IV 08/31/24 10:00 09/12/24 08:58 40 MG Nystatin 5 ml QID [place] 08/31/24 12:00 09/11/24 05:37 5 ML Lidocaine HCl 10 ml Q4HP PRN [place] 08/31/24 07:00 09/05/24 21:40 10 ML Levalbuterol HCl 0.625 mg Q6HR [facility] 08/31/24 12:00 09/12/24 11:34 0.625 MG Ipratropium [place] 0.5 mg Q6HWA [facility] 08/31/24 12:00 09/12/24 11:34 0.5 MG Doxycycline Monohydrate 100 mg Q12HR PO 09/02/24 22:00 09/12/24 08:59 100 MG Pantoprazole Sodium 40 mg DAILY@0600 PO 09/03/24 06:00 Hold 09/08/24 05:55 40 MG Micafungin Sodium 100 mg/Sodium Chloride 100 ml @ 100 mls/hr DAILY IV 09/03/24 10:00 09/12/24 09:00 100 MLS/HR Magnesium Oxide 800 mg BID PO 09/02/24 22:00 09/12/24 08:59 800 MG Furosemide 40 mg DAILY IV 09/04/24 10:00 09/12/24 08:59 40 MG Patient Own Medication 1 DAILY PO 09/04/24 10:00 09/12/24 09:00 1 Sodium Chloride 10 ml QSHIFT@10,22 IV 09/03/24 22:00 09/12/24 09:00 10 ML Pantoprazole Sodium 50 ml @ 10 mls/hr Q5H IV 09/04/24 13:15 09/12/24 15:35 10 MLS/HR Lorazepam 0.5 mg Q6HP PRN IV 09/08/24 09:00 09/12/24 00:59 0.5 MG Ondansetron HCl 4 mg Q4HPRN PRN IV 09/08/24 09:00 Vancomycin HCl 150 ml @ 150 mls/hr Q8H IV 09/10/24 20:00 09/12/24 03:41 150 MLS/HR Sodium Chloride 1 spr QID PRN EACHNOSTRI 09/10/24 20:00 09/12/24 06:54 1 SPR Laboratory Results Laboratory Tests 09/08/24 16:07 09/12/24 06:39 Urinalysis Test 08/31/24 04:35 Urine Color Light-yellow (Yellow) Urine Clarity Clear (Clear) Urine pH 7.0 (5.0-9.0) Urine Specific [place] 1.045 (1.001-1.035) Urine Protein Negative (Negative) Urine Ketones Negative (Negative) Urine Blood Negative /uL (Negative) Urine Nitrite Negative (Negative) Urine Bilirubin Negative (Negative) Urine Urobilinogen Normal mg/dL (Negative) Urine Leukocyte Esterase Negative /uL (Negative) Urine RBC 1 /hpf (0 - 3) Urine Microscopic WBC 1 /HPF (0-3) Urine Squamous Epithelial Cells Few /hpf (<5) Urine Bacteria None seen /hpf (None Seen) Urine Glucose Normal mg/dL (Normal) Microbiology Microbiology Date/Time Source Procedure Growth Status 08/31/24 04:35 Voided Urine Urine Culture - Final Complete 08/31/24 03:20 Nose MRSA Screen - Final Complete 08/30/24 23:30 Blood Blood Culture - Final NO GROWTH AFTER 5 DAYS OF INCUBATION. Complete Assessment/Plan Assessment/Plan Acute on chronic respiratory failure Sepsis secondary to pneumonia Multifocal pneumonia Gram-positive/Gram-negative Pulmonary embolism DVT Lymphoma currently under no chemotherapy Thrombocytopenia Normocytic anemia Oral thrush Moderate protein malnutrition- Dietary Consult Rectal bleed with hemorrhoid, Continuing current management. Continuing IV antibiotic. DC lovenox Appreciate GI input Local treatment of hemorrhoid with cream Not safe to transfer per [place] due to high oxygen demands Advance care planning spent 20 min discussing about poor prognosis due to PE and progressive lymphoma and multifocal pneumonia He is agreeable for hospice Plan discussed with: Patient My Orders Orders - PRAMOD BRAMBILA MD Procedure Category Date Status Time Notify Provider NOTICE 09/12/24 Transmitted Malnutrition 14:43 Increase Calorie NOURISH 09/12/24 Transmitted Intake 14:43 Nutritional NOURISH 09/12/24 Transmitted Supplements 14:43 Date of Service: September 12, 2024 Billing Provider: PRAMOD BRAMBILA MD Common Visit Codes: [id number] INP/OBS CARE(HIGH) Secondary Visit Codes: [id number] CARE PLAN 30 MINUTES PRAMOD BRAMBILA MD September 12, 2024 18:16
[2024-09-12] MEDS: VANCOMYCIN 750MG KIT 100 ML IV SCH (20:21)
--- NOTE | 2024-09-12 23:01 | DVHPN2 ---
Progress Note - Dictate Date Seen: September 12, 2024 Medical Necessity Reason Pt with a Central, PICC or Fol: No Subjective Patient seen and examined at bedside. Remains on supplemental oxygen Overnight events reviewed. vital signs Vital Sign Date Time Temp Pulse Resp B/P (MAP) Pulse Ox O2 Delivery O2 Flow Rate FiO2 09/12/24 21:00 97.8 109 16 116/73 (87) 93 97.8 09/12/24 11:34 Oxymizer 10 N/A Total Intake and Output 09/11/24 09/11/24 09/12/24 15:00 23:00 07:00 Intake Total 250 ml 605 ml 740 ml Output Total 200 ml Balance 250 ml 605 ml 540 ml medications Current Medications Medications Dose Ordered Sig/Jaden Route Start Time Stop Time Status Last Admin Dose Admin Methylprednisolone Sodium Succinate 40 mg BID IV 08/31/24 10:00 09/12/24 20:22 40 MG Nystatin 5 ml QID [place] 08/31/24 12:00 09/11/24 05:37 5 ML Lidocaine HCl 10 ml Q4HP PRN [place] 08/31/24 07:00 09/05/24 21:40 10 ML Levalbuterol HCl 0.625 mg Q6HR [facility] 08/31/24 12:00 09/12/24 19:13 0.625 MG Ipratropium [place] 0.5 mg Q6HWA [facility] 08/31/24 12:00 09/12/24 19:13 0.5 MG Doxycycline Monohydrate 100 mg Q12HR PO 09/02/24 22:00 09/12/24 20:22 100 MG Pantoprazole Sodium 40 mg DAILY@0600 PO 09/03/24 06:00 Hold 09/08/24 05:55 40 MG Micafungin Sodium 100 mg/Sodium Chloride 100 ml @ 100 mls/hr DAILY IV 09/03/24 10:00 09/12/24 09:00 100 MLS/HR Magnesium Oxide 800 mg BID PO 09/02/24 22:00 09/12/24 20:22 800 MG Furosemide 40 mg DAILY IV 09/04/24 10:00 09/12/24 08:59 40 MG Patient Own Medication 1 DAILY PO 09/04/24 10:00 09/12/24 09:00 1 Sodium Chloride 10 ml QSHIFT@,22 IV 09/03/24 22:00 09/12/24 09:00 10 ML Pantoprazole Sodium 50 ml @ 10 mls/hr Q5H IV 09/04/24 13:15 09/12/24 15:35 10 MLS/HR Lorazepam 0.5 mg Q6HP PRN IV 09/08/24 09:00 09/12/24 00:59 0.5 MG Ondansetron HCl 4 mg Q4HPRN PRN IV 09/08/24 09:00 Sodium Chloride 1 spr QID PRN EACHNOSTRI 09/10/24 20:00 09/12/24 06:54 1 SPR Vancomycin HCl 100 ml @ 100 mls/hr Q10H IV 09/12/24 20:00 09/12/24 20:21 100 MLS/HR objective Gen.: Patient lying in bed in no apparent distress. On supplemental oxygen. Head: Normocephalic, atraumatic. Eyes: EOMI/PERRLA. Ears: Normal hearing. Normal anatomy. Neck/trachea: Trachea midline, supple. Nose: Normal external anatomy. Mouth: Moist mucous membranes. Chest: Decreased air entry bilaterally. No wheezing or rhonchi. Cardiovascular: Positive S1, positive S2. Regular rate and rhythm. Abdomen: Positive bowel sounds in all 4 quadrants. Soft, non-tender, non- distended. : Deferred. Rectal: Deferred. Skin: Warm, dry. Intact. Extremities: 2+ radial pulses bilaterally. No lower extremity edema. Neuro: Awake, alert, oriented x3. No gross motor or sensory deficits. Cranial nerves II through XII intact. Gait not assessed. laboratory and microbiology Laboratory Tests 09/12/24 06:39 09/08/24 16:07 Test 09/08/24 16:07 Range/Units Serum Glucose 122 H 74-106 mg/dL Assessment/Plan Impression: Acute hypoxic respiratory failure Dependence on supplemental oxygen Pneumonia, multifocal Pulmonary embolism Atelectasis Pulmonary edema Hemorrhoids Events: Remains on supplemental oxygen, 10 LPM simple mask Taper O2 as tolerated BiPAP PRN No new complaints. Obtain chest x-ray in AM to assess for interval changes. Continue antibiotics and antifungals. Continue bronchodilators Continue IV steroids Incentive spirometry Diurese with Lasix as tolerated Monitor renal function. Monitor electrolytes. Supplement as necessary. Magnesium supplementation Maintain euvolemia Continue Protonix drip. Monitor Hgb. Labs and imaging reviewed. Rest of plan as noted below. Plan: Supplemental oxygen Titrate to keep O2 sats above 92%. Continue antibiotics Micafungin Continue bronchodilators Incentive spirometry Diurese with Lasix d/t pulmonary edema Monitor renal function. Monitor electrolytes. Supplement as necessary. Monitor ins and outs. Monitor hemoglobin GI prophylaxis - Protonix drip DVT prophylaxis. Prognosis: Poor given patient's multiple co-morbidities. Rest of plan per hospitalist and other consultants. Thank you Dr. Betancur, for allowing me to participate in this patient's care. Further recommendations will depend on the patient's clinical course. Please do not hesitate to contact me if you have any questions or concerns. This medical document was created using an electronic medical record system with [employer] dictation system. Although these documentations are being carefully reviewed, there may still be some phonetic and typographical changes. The errors are purely typographical, due to imperfection on the software program, and do not reflect any compromise in the patient's medical care. Dietary Evaluation Review Recommendations by RD: Protein Supplementation Comments: 1) Initiate Ensure qd; Encourage optimal PO intake 2) Refer to outpatient RD for weight management 3) Follow-up with cardiology, pulmonology, and gastroenterology 4) Continue to monitor I&O, labs, and skin integrity Expected Outcomes/Goals: 1) appetite and labs to improve 2) follow-up in 3-5 days Plan discussed with: Patient, Other (EVERT Gunn) BRITTANI MARCIAL MD September 12, 2024 23:01
[2024-09-13] VITALS (9 sets, daily range): BP systolic 120–147; BP diastolic 73–85; PULSE 82–109; RESP 17–22; TEMP 97.3–98.2; O2SAT 92–99
[2024-09-13 07:13] LABS: Basophils # (auto) 0 10 ^3/uL (0-0.2); Basophils % (auto) 0.2 % (0.0-2.0); Eosinophils # (auto) 0 10 ^3/uL (0-0.8); Hematocrit 32.1 % (41.0-53.0); Hemoglobin 10.4 g/dL (13.5-17.5); Lymphocytes # (auto) 2.3 10 ^3/uL (0.4-5.4); Lymphocytes % (auto) 14.9 % (10.0-50.0); Mean Corpuscular Hemoglobin 29.3 pg (28.0-32.0); Mean Corpuscular Hgb Conc. 32.4 g/dL (32.0-36.0); Mean Corpuscular Volume 90.3 fL (80.0-100.0); Monocytes # (auto) 0.5 10 ^3/uL (0-1.3); Monocytes % (auto) 3.3 % (0.0-12.0); Neutrophils # (auto) 12.8 10 ^3/uL (1.6-8.6); Neutrophils % (auto) 81.6 % (37.0-80.0); Nucleated Red Blood Cells % 0.1 %; Platelet Count (auto) 136 10^3/uL (140-450); Red Blood Cells 3.56 10^6/uL (4.5-5.90); Red Cell Distribution Width 16.5 % (11.8-14.3); White Blood Cell 15.7 10^3/uL (4.4-10.8)
--- NOTE | 2024-09-13 10:45 | DVH ---
EXAM: XY CHEST XRAY 1 VIEW Indication: interval changes Technique: Single frontal view of the chest was obtained Comparison: XY CHEST XRAY 1 VIEW on DOS: 09/10/24, XY CHEST XRAY 1 VIEW on DOS: 09/08/24, XY CHEST PORT ABLE on DOS: 08/30/24 FINDINGS: Lines and Tubes: None Lungs: Multifocal consolidative opacities. Pleura: No effusion. No pneumothorax. Cardiomediastinal contours: Unremarkable Bones: No acute osseous abnormality. IMPRESSION: Multifocal pneumonia.
--- NOTE | 2024-09-13 12:00 | DVHPN2 ---
Progress Note - Dictate Date Seen: September 13, 2024 Medical Necessity Reason Pt with a Central, PICC or Fol: No Subjective No new complaints Rectal bleeding resolved H/H stable at 10.4 Tolerating diet Patient having trouble with physical therapy and also refusing some scheduled medications Continue to be short of breath requiring oxygen supplementation vital signs Vital Sign Date Time Temp Pulse Resp B/P (MAP) Pulse Ox O2 Delivery O2 Flow Rate FiO2 09/13/24 10:03 140/78 09/13/24 09:00 98.1 87 20 99 98.1 09/13/24 07:11 Oxymizer 8.0 09/13/24 07:11 N/A Total Intake and Output 09/12/24 09/12/24 09/13/24 14:59 22:59 06:59 Intake Total 150 ml 680 ml 100 ml Output Total 1550 ml 400 ml Balance 150 ml -870 ml -300 ml medications Current Medications Medications Dose Ordered Sig/Jaden Route Start Time Stop Time Status Last Admin Dose Admin Methylprednisolone Sodium Succinate 40 mg BID IV 08/31/24 10:00 09/13/24 10:01 40 MG Nystatin 5 ml QID [place] 08/31/24 12:00 09/11/24 05:37 5 ML Lidocaine HCl 10 ml Q4HP PRN [place] 08/31/24 07:00 09/05/24 21:40 10 ML Levalbuterol HCl 0.625 mg Q6HR [facility] 08/31/24 12:00 09/13/24 07:11 0.625 MG Ipratropium [place] 0.5 mg Q6HWA [facility] 08/31/24 12:00 09/13/24 07:11 0.5 MG Doxycycline Monohydrate 100 mg Q12HR PO 09/02/24 22:00 09/13/24 10:00 100 MG Pantoprazole Sodium 40 mg DAILY@0600 PO 09/03/24 06:00 Hold 09/08/24 05:55 40 MG Micafungin Sodium 100 mg/Sodium Chloride 100 ml @ 100 mls/hr DAILY IV 09/03/24 10:00 09/13/24 10:01 100 MLS/HR Magnesium Oxide 800 mg BID PO 09/02/24 22:00 09/13/24 10:00 800 MG Furosemide 40 mg DAILY IV 09/04/24 10:00 09/13/24 10:03 40 MG Patient Own Medication 1 DAILY PO 09/04/24 10:00 09/13/24 10:03 1 Sodium Chloride 10 ml QSHIFT@10,22 IV 09/03/24 22:00 09/13/24 10:20 10 ML Pantoprazole Sodium 50 ml @ 10 mls/hr Q5H IV 09/04/24 13:15 09/13/24 09:59 10 MLS/HR Lorazepam 0.5 mg Q6HP PRN IV 09/08/24 09:00 09/12/24 00:59 0.5 MG Ondansetron HCl 4 mg Q4HPRN PRN IV 09/08/24 09:00 Sodium Chloride 1 spr QID PRN EACHNOSTRI 09/10/24 20:00 09/13/24 10:01 1 SPR Vancomycin HCl 100 ml @ 100 mls/hr Q10H IV 09/12/24 20:00 09/13/24 06:00 100 MLS/HR Acetaminophen/ Hydrocodone Bitart 1 tab Q6HPRN PRN PO 09/13/24 11:45 UNV objective General Appearance: Alert, Oriented X3 Lungs: Other (diminished); on high flow oxygen Cardiovascular: Regular rate, Normal S1, Normal S2 Abdomen: Normal bowel sounds, Soft laboratory and microbiology Laboratory Tests 09/13/24 05:59 09/08/24 16:07 Test 09/08/24 16:07 Range/Units Serum Glucose 122 H 74-106 mg/dL Problems(with codes): (1) DVT (deep venous thrombosis) (2) Rectal bleeding (3) Pneumonia (4) Acute respiratory distress (5) Bilateral pulmonary embolism (6) Sepsis (7) Leukocytosis (8) Anemia Prognosis Plan Patient is not stable for transfer to [place] Continue oxygen supplementation Continue supportive care Okay to put him on anticoagulation GI Services with monitor for any active GI bleeding Pulmonary follow up appreciated Patient not stable for a colonoscopy examination at this time Dietary Evaluation Review Recommendations by RD: Protein Supplementation Comments: 1) Initiate Ensure qd; Encourage optimal PO intake 2) Refer to outpatient RD for weight management 3) Follow-up with cardiology, pulmonology, and gastroenterology 4) Continue to monitor I&O, labs, and skin integrity Expected Outcomes/Goals: 1) appetite and labs to improve 2) follow-up in 3-5 days Plan discussed with: Patient ELTON LEBLANC MD September 13, 2024 12:00
[2024-09-13] MEDS: HYDROcodone-ACET 5/325MG TAB PO PRN (12:08)
[2024-09-13] MEDS: VANCOMYCIN 750mg/150ml 150 ML IV SCH (15:30)
--- NOTE | 2024-09-13 17:16 | DVHPN2 ---
Subjective still on high flow oxygen Reviewed: Care Plan, H&P, Labs, Medications, Previous Orders, Radiology Changes from previous H/P or p: No Changes Objective Vitals Vital Signs Date Time Temp Pulse Resp B/P (MAP) Pulse Ox O2 Delivery O2 Flow Rate FiO2 09/13/24 16:40 98.2 109 20 129/85 (100) 93 98.2 09/13/24 08:00 Oxymizer 10 N/A Intake/Output Intake and Output 09/13/24 07:00 Intake Total 930 ml Output Total 1950 ml Balance -1020 ml Intake Oral 600 ml IV Total 330 ml Output Urine Total 1950 ml # Bowel Movements 4 General Appearance: Alert, Oriented X3 Lungs: Other (diminished) Cardiovascular: Regular rate, Normal S1, Normal S2 Abdomen: Normal bowel sounds, Soft Medications Current Medications Medications Dose Ordered Sig/Jaden Route Start Time Stop Time Status Last Admin Dose Admin Methylprednisolone Sodium Succinate 40 mg BID IV 08/31/24 10:00 09/13/24 10:01 40 MG Nystatin 5 ml QID [place] 08/31/24 12:00 09/11/24 05:37 5 ML Lidocaine HCl 10 ml Q4HP PRN [place] 08/31/24 07:00 09/05/24 21:40 10 ML Levalbuterol HCl 0.625 mg Q6HR [facility] 08/31/24 12:00 09/13/24 07:11 0.625 MG Ipratropium [place] 0.5 mg Q6HWA [facility] 08/31/24 12:00 09/13/24 07:11 0.5 MG Doxycycline Monohydrate 100 mg Q12HR PO 09/02/24 22:00 09/13/24 10:00 100 MG Pantoprazole Sodium 40 mg DAILY@0600 PO 09/03/24 06:00 Hold 09/08/24 05:55 40 MG Micafungin Sodium 100 mg/Sodium Chloride 100 ml @ 100 mls/hr DAILY IV 09/03/24 10:00 09/13/24 10:01 100 MLS/HR Magnesium Oxide 800 mg BID PO 09/02/24 22:00 09/13/24 10:00 800 MG Furosemide 40 mg DAILY IV 09/04/24 10:00 09/13/24 10:03 40 MG Patient Own Medication 1 DAILY PO 09/04/24 10:00 09/13/24 10:03 1 Sodium Chloride 10 ml QSHIFT@10,22 IV 09/03/24 22:00 09/13/24 10:20 10 ML Pantoprazole Sodium 50 ml @ 10 mls/hr Q5H IV 09/04/24 13:15 09/13/24 15:30 10 MLS/HR Lorazepam 0.5 mg Q6HP PRN IV 09/08/24 09:00 09/12/24 00:59 0.5 MG Ondansetron HCl 4 mg Q4HPRN PRN IV 09/08/24 09:00 Sodium Chloride 1 spr QID PRN EACHNOSTRI 09/10/24 20:00 09/13/24 10:01 1 SPR Acetaminophen/ Hydrocodone Bitart 1 tab Q6HPRN PRN PO 09/13/24 11:45 09/13/24 12:08 1 TAB Vancomycin HCl 150 ml @ 150 mls/hr Q10H IV 09/14/24 02:00 Laboratory Results Laboratory Tests 09/08/24 16:07 09/13/24 05:59 Urinalysis Test 08/31/24 04:35 Urine Color Light-yellow (Yellow) Urine Clarity Clear (Clear) Urine pH 7.0 (5.0-9.0) Urine Specific [place] 1.045 (1.001-1.035) Urine Protein Negative (Negative) Urine Ketones Negative (Negative) Urine Blood Negative /uL (Negative) Urine Nitrite Negative (Negative) Urine Bilirubin Negative (Negative) Urine Urobilinogen Normal mg/dL (Negative) Urine Leukocyte Esterase Negative /uL (Negative) Urine RBC 1 /hpf (0 - 3) Urine Microscopic WBC 1 /HPF (0-3) Urine Squamous Epithelial Cells Few /hpf (<5) Urine Bacteria None seen /hpf (None Seen) Urine Glucose Normal mg/dL (Normal) Microbiology Microbiology Date/Time Source Procedure Growth Status 08/31/24 04:35 Voided Urine Urine Culture - Final Complete 08/31/24 03:20 Nose MRSA Screen - Final Complete 08/30/24 23:30 Blood Blood Culture - Final NO GROWTH AFTER 5 DAYS OF INCUBATION. Complete Assessment/Plan Assessment/Plan Acute on chronic respiratory failure Sepsis secondary to pneumonia Multifocal pneumonia Gram-positive/Gram-negative Pulmonary embolism DVT Lymphoma currently under no chemotherapy Thrombocytopenia Normocytic anemia Oral thrush Moderate protein malnutrition- Dietary Consult Rectal bleed with hemorrhoid, Continuing current management. Continuing IV antibiotic. DC lovenox Appreciate GI input Local treatment of hemorrhoid with cream Not safe to transfer per [place] due to high oxygen demands Advance care planning spent 20 min discussing about poor prognosis due to PE and progressive lymphoma and multifocal pneumonia He is agreeable for hospice Plan discussed with: Patient My Orders Orders - PRAMOD BRAMBILA MD Procedure Category Date Status Time Hydrocodone-Acet PHA 09/13/24 In Process 5/325mg Tab ([place] 11:45 Date of Service: September 13, 2024 Billing Provider: PRAMOD BRAMBILA MD Common Visit Codes: [id number] INP/OBS CARE(HIGH) PRAMOD BRAMBILA MD September 13, 2024 17:16
--- NOTE | 2024-09-13 22:09 | DVHPN2 ---
Progress Note - Dictate Date Seen: September 13, 2024 Medical Necessity Reason Pt with a Central, PICC or Fol: No Subjective Patient seen and examined at bedside. Remains on supplemental oxygen Overnight events reviewed. vital signs Vital Sign Date Time Temp Pulse Resp B/P (MAP) Pulse Ox O2 Delivery O2 Flow Rate FiO2 09/13/24 21:00 97.3 94 17 120/73 (89) 95 97.3 09/13/24 08:00 Oxymizer 10 N/A Total Intake and Output 09/12/24 09/12/24 09/13/24 15:00 23:00 07:00 Intake Total 150 ml 680 ml 100 ml Output Total 1550 ml 400 ml Balance 150 ml -870 ml -300 ml medications Current Medications Medications Dose Ordered Sig/Jaden Route Start Time Stop Time Status Last Admin Dose Admin Methylprednisolone Sodium Succinate 40 mg BID IV 08/31/24 10:00 09/13/24 21:49 40 MG Nystatin 5 ml QID [place] 08/31/24 12:00 09/11/24 05:37 5 ML Lidocaine HCl 10 ml Q4HP PRN [place] 08/31/24 07:00 09/05/24 21:40 10 ML Levalbuterol HCl 0.625 mg Q6HR [facility] 08/31/24 12:00 09/13/24 07:11 0.625 MG Ipratropium [place] 0.5 mg Q6HWA [facility] 08/31/24 12:00 09/13/24 07:11 0.5 MG Doxycycline Monohydrate 100 mg Q12HR PO 09/02/24 22:00 09/13/24 21:49 100 MG Pantoprazole Sodium 40 mg DAILY@0600 PO 09/03/24 06:00 Hold 09/08/24 05:55 40 MG Micafungin Sodium 100 mg/Sodium Chloride 100 ml @ 100 mls/hr DAILY IV 09/03/24 10:00 09/13/24 10:01 100 MLS/HR Magnesium Oxide 800 mg BID PO 09/02/24 22:00 09/13/24 21:49 800 MG Furosemide 40 mg DAILY IV 09/04/24 10:00 09/13/24 10:03 40 MG Patient Own Medication 1 DAILY PO 09/04/24 10:00 09/13/24 10:03 1 Sodium Chloride 10 ml QSHIFT@10,22 IV 09/03/24:00 09/13/24 21:52 10 ML Pantoprazole Sodium 50 ml @ 10 mls/hr Q5H IV 09/04/24 13:15 09/13/24 17:15 10 MLS/HR Lorazepam 0.5 mg Q6HP PRN IV 09/08/24 09:00 09/12/24 00:59 0.5 MG Ondansetron HCl 4 mg Q4HPRN PRN IV 09/08/24 09:00 Sodium Chloride 1 spr QID PRN EACHNOSTRI 09/10/24 20:00 09/13/24 10:01 1 SPR Acetaminophen/ Hydrocodone Bitart 1 tab Q6HPRN PRN PO 09/13/24 11:45 09/13/24 17:45 1 TAB Vancomycin HCl 150 ml @ 150 mls/hr Q10H IV 09/14/24 02:00 objective Gen.: Patient lying in bed in no apparent distress. On supplemental oxygen. Head: Normocephalic, atraumatic. Eyes: EOMI/PERRLA. Ears: Normal hearing. Normal anatomy. Neck/trachea: Trachea midline, supple. Nose: Normal external anatomy. Mouth: Moist mucous membranes. Chest: Decreased air entry bilaterally. No wheezing or rhonchi. Cardiovascular: Positive S1, positive S2. Regular rate and rhythm. Abdomen: Positive bowel sounds in all 4 quadrants. Soft, non-tender, non- distended. : Deferred. Rectal: Deferred. Skin: Warm, dry. Intact. Extremities: 2+ radial pulses bilaterally. No lower extremity edema. Neuro: Awake, alert, oriented x3. No gross motor or sensory deficits. Cranial nerves II through XII intact. Gait not assessed. laboratory and microbiology Laboratory Tests 09/13/24 05:59 09/08/24 16:07 Test 09/08/24 16:07 Range/Units Serum Glucose 122 H 74-106 mg/dL Assessment/Plan Impression: Acute hypoxic respiratory failure Dependence on supplemental oxygen Pneumonia, multifocal Pulmonary embolism Atelectasis Pulmonary edema Hemorrhoids Events: Remains on supplemental oxygen, 8 LPM Oxymask - 92% O2 sat Taper O2 as tolerated BiPAP PRN Improving oxygen requirements No new complaints. PT - partial stand Chest x-ray reveals findings c/w multifocal pneumonia. Continue antibiotics and antifungals. Continue bronchodilators Continue IV steroids Incentive spirometry Diurese with Lasix as tolerated Monitor renal function. Monitor electrolytes. Supplement as necessary. Magnesium supplementation Maintain euvolemia Continue Protonix drip. Monitor Hgb. Labs and imaging reviewed. Rest of plan as noted below. Plan: Supplemental oxygen Titrate to keep O2 sats above 92%. Continue antibiotics Micafungin Continue bronchodilators Incentive spirometry Diurese with Lasix d/t pulmonary edema Monitor renal function. Monitor electrolytes. Supplement as necessary. Monitor ins and outs. Monitor hemoglobin GI prophylaxis - Protonix drip DVT prophylaxis. Prognosis: Poor given patient's multiple co-morbidities. Rest of plan per hospitalist and other consultants. Thank you Dr. Betancur, for allowing me to participate in this patient's care. Further recommendations will depend on the patient's clinical course. Please do not hesitate to contact me if you have any questions or concerns. This medical document was created using an electronic medical record system with [employer] dictation system. Although these documentations are being carefully reviewed, there may still be some phonetic and typographical changes. The errors are purely typographical, due to imperfection on the software program, and do not reflect any compromise in the patient's medical care. Dietary Evaluation Review Recommendations by RD: Protein Supplementation Comments: 1) Initiate Ensure qd; Encourage optimal PO intake 2) Refer to outpatient RD for weight management 3) Follow-up with cardiology, pulmonology, and gastroenterology 4) Continue to monitor I&O, labs, and skin integrity Expected Outcomes/Goals: 1) appetite and labs to improve 2) follow-up in 3-5 days Plan discussed with: Patient, Other (EVERT Montaño) BRITTANI MARCIAL MD September 13, 2024 22:09
[2024-09-14] VITALS (15 sets, daily range): BP systolic 117–139; BP diastolic 71–88; PULSE 84–110; RESP 17–26; TEMP 97.2–97.7; O2SAT 91–99
[2024-09-14] MEDS: VANCOMYCIN 750mg/150ml 150 ML IV SCH (01:33)
[2024-09-14] MEDS ORDERED: VANCOMYCIN PER PHARMACY 0 MG IV SCH (16:00)
--- NOTE | 2024-09-14 16:02 | DVHPN2 ---
Subjective still on high flow oxygen down to 6L Reviewed: Care Plan, H&P, Labs, Medications, Previous Orders, Radiology Changes from previous H/P or p: No Changes Objective Vitals Vital Signs Date Time Temp Pulse Resp B/P (MAP) Pulse Ox O2 Delivery O2 Flow Rate FiO2 09/14/24 13:00 97.4 87 18 117/79 (92) 94 97.4 09/14/24 08:10 Oxymizer 8 N/A Intake/Output Intake and Output 09/14/24 07:00 Intake Total 1200 ml Output Total 1500 ml Balance -300 ml Intake Oral 1150 ml IV Total 50 ml Output Urine Total 1500 ml # Bowel Movements 5 General Appearance: Alert, Oriented X3 Lungs: Other (diminished) Cardiovascular: Regular rate, Normal S1, Normal S2 Abdomen: Normal bowel sounds, Soft Medications Current Medications Medications Dose Ordered Sig/Jaden Route Start Time Stop Time Status Last Admin Dose Admin Methylprednisolone Sodium Succinate 40 mg BID IV 08/31/24 10:00 09/14/24 09:54 40 MG Lidocaine HCl 10 ml Q4HP PRN [place] 08/31/24 07:00 09/05/24 21:40 10 ML Levalbuterol HCl 0.625 mg Q6HR NEB 08/31/24 12:00 09/14/24 06:12 0.625 MG Ipratropium [place] 0.5 mg Q6HWA [facility] 08/31/24 12:00 09/14/24 06:12 0.5 MG Pantoprazole Sodium 40 mg DAILY@0600 PO 09/03/24 06:00 Hold 09/08/24 05:55 40 MG Magnesium Oxide 800 mg BID PO 09/02/24 22:00 09/14/24 09:53 800 MG Furosemide 40 mg DAILY IV 09/04/24 10:00 09/14/24 09:55 40 MG Patient Own Medication 1 DAILY PO 09/04/24 10:00 09/14/24 09:54 1 Sodium Chloride 10 ml QSHIFT@10,22 IV 09/03/24 22:00 09/14/24 09:56 10 ML Pantoprazole Sodium 50 ml @ 10 mls/hr Q5H IV 09/04/24 13:15 09/14/24 13:29 10 MLS/HR Lorazepam 0.5 mg Q6HP PRN IV 09/08/24 09:00 09/12/24 00:59 0.5 MG Ondansetron HCl 4 mg Q4HPRN PRN IV 09/08/24 09:00 Sodium Chloride 1 spr QID PRN EACHNOSTRI 09/10/24 20:00 09/13/24 10:01 1 SPR Acetaminophen/ Hydrocodone Bitart 1 tab Q6HPRN PRN PO 09/13/24 11:45 09/14/24 13:20 1 TAB Vancomycin HCl 150 ml @ 150 mls/hr Q10H IV 09/14/24 02:00 09/14/24 11:45 150 MLS/HR Vancomycin HCl 0 ml @ 0 mls/hr UD IV 09/14/24 16:00 Laboratory Results Laboratory Tests 09/08/24 16:07 09/13/24 05:59 Urinalysis Test 08/31/24 04:35 Urine Color Light-yellow (Yellow) Urine Clarity Clear (Clear) Urine pH 7.0 (5.0-9.0) Urine Specific [place] 1.045 (1.001-1.035) Urine Protein Negative (Negative) Urine Ketones Negative (Negative) Urine Blood Negative /uL (Negative) Urine Nitrite Negative (Negative) Urine Bilirubin Negative (Negative) Urine Urobilinogen Normal mg/dL (Negative) Urine Leukocyte Esterase Negative /uL (Negative) Urine RBC 1 /hpf (0 - 3) Urine Microscopic WBC 1 /HPF (0-3) Urine Squamous Epithelial Cells Few /hpf (<5) Urine Bacteria None seen /hpf (None Seen) Urine Glucose Normal mg/dL (Normal) Microbiology Microbiology Date/Time Source Procedure Growth Status 08/31/24 04:35 Voided Urine Urine Culture - Final Complete 08/31/24 03:20 Nose MRSA Screen - Final Complete 08/30/24 23:30 Blood Blood Culture - Final NO GROWTH AFTER 5 DAYS OF INCUBATION. Complete Assessment/Plan Assessment/Plan Acute on chronic respiratory failure Sepsis secondary to pneumonia Multifocal pneumonia Gram-positive/Gram-negative Pulmonary embolism DVT Lymphoma currently under no chemotherapy Thrombocytopenia Normocytic anemia Oral thrush Moderate protein malnutrition- Dietary Consult Rectal bleed with hemorrhoid, Continuing current management. Continuing IV antibiotic. JEN law Appreciate GI input Local treatment of hemorrhoid with cream Not safe to transfer per [place] due to high oxygen demands Advance care planning spent 20 min discussing about poor prognosis due to PE and progressive lymphoma and multifocal pneumonia He is agreeable for hospice Plan discussed with: Patient My Orders Orders - PRAMOD BRAMBILA MD Procedure Category Date Status Time Vancomycin Per PHA 09/14/24 In Process Pharmacy 16:00 Date of Service: September 14, 2024 Billing Provider: PRAMOD BRAMBILA MD Common Visit Codes: [id number] INP/OBS CARE(HIGH) PRAMOD BRAMBILA MD September 14, 2024 16:02
--- NOTE | 2024-09-14 19:38 | DVHPN2 ---
Progress Note - Dictate Date Seen: September 14, 2024 Medical Necessity Reason Pt with a Central, PICC or Fol: No Subjective Patient seen and examined at bedside. Remains on supplemental oxygen Overnight events reviewed. vital signs Vital Sign Date Time Temp Pulse Resp B/P (MAP) Pulse Ox O2 Delivery O2 Flow Rate FiO2 09/14/24 19:19 92 Oxymizer 10.0 09/14/24 19:19 N/A 09/14/24 19:10 93 22 09/14/24 17:00 97.7 139/88 (105) 97.7 Total Intake and Output 09/13/24 09/13/24 09/14/24 15:00 23:00 07:00 Intake Total 750 ml 450 ml Output Total 1000 ml 500 ml Balance -250 ml -50 ml medications Current Medications Medications Dose Ordered Sig/Jaden Route Start Time Stop Time Status Last Admin Dose Admin Methylprednisolone Sodium Succinate 40 mg BID IV 08/31/24 10:00 09/14/24 09:54 40 MG Lidocaine HCl 10 ml Q4HP PRN [place] 08/31/24 07:00 09/05/24 21:40 10 ML Levalbuterol HCl 0.625 mg Q6HR NEB 08/31/24 12:00 09/14/24 19:17 0.625 MG Ipratropium [place] 0.5 mg Q6HWA [facility] 08/31/24 12:00 09/14/24 19:17 0.5 MG Pantoprazole Sodium 40 mg DAILY@0600 PO 09/03/24 06:00 Hold 09/08/24 05:55 40 MG Magnesium Oxide 800 mg BID PO 09/02/24 22:00 09/14/24 09:53 800 MG Furosemide 40 mg DAILY IV 09/04/24 10:00 09/14/24 09:55 40 MG Patient Own Medication 1 DAILY PO 09/04/24 10:00 09/14/24 09:54 1 Sodium Chloride 10 ml QSHIFT@10,22 IV 09/03/24 22:00 09/14/24 09:56 10 ML Pantoprazole Sodium 50 ml @ 10 mls/hr Q5H IV 09/04/24 13:15 09/14/24 18:05 10 MLS/HR Lorazepam 0.5 mg Q6HP PRN IV 09/08/24 09:00 09/14/24 18:02 0.5 MG Ondansetron HCl 4 mg Q4HPRN PRN IV 09/08/24 09:00 Sodium Chloride 1 spr QID PRN EACHNOSTRI 09/10/24 20:00 09/13/24 10:01 1 SPR Acetaminophen/ Hydrocodone Bitart 1 tab Q6HPRN PRN PO 09/13/24 11:45 09/14/24 13:20 1 TAB Vancomycin HCl 150 ml @ 150 mls/hr Q10H IV 09/14/24 02:00 09/14/24 11:45 150 MLS/HR Vancomycin HCl 0 ml @ 0 mls/hr UD IV 09/14/24 16:00 objective Gen.: Patient lying in bed in no apparent distress. On supplemental oxygen. Head: Normocephalic, atraumatic. Eyes: EOMI/PERRLA. Ears: Normal hearing. Normal anatomy. Neck/trachea: Trachea midline, supple. Nose: Normal external anatomy. Mouth: Moist mucous membranes. Chest: Decreased air entry bilaterally. No wheezing or rhonchi. Cardiovascular: Positive S1, positive S2. Regular rate and rhythm. Abdomen: Positive bowel sounds in all 4 quadrants. Soft, non-tender, non- distended. : Deferred. Rectal: Deferred. Skin: Warm, dry. Intact. Extremities: 2+ radial pulses bilaterally. No lower extremity edema. Neuro: Awake, alert, oriented x3. No gross motor or sensory deficits. Cranial nerves II through XII intact. Gait not assessed. laboratory and microbiology Laboratory Tests 09/13/24 05:59 09/08/24 16:07 Test 09/08/24 16:07 Range/Units Serum Glucose 122 H 74-106 mg/dL Assessment/Plan Impression: Acute hypoxic respiratory failure Dependence on supplemental oxygen Pneumonia, multifocal Pulmonary embolism Atelectasis Pulmonary edema Hemorrhoids Events: Remains on supplemental oxygen 8 LPM --> 6 LPM Oxymask Taper O2 as tolerated BiPAP PRN Improving oxygen requirements No new complaints. Chest x-ray reveals findings c/w multifocal pneumonia. Continue antibiotics and antifungals. Continue bronchodilators Continue IV steroids Incentive spirometry Diurese with Lasix as tolerated Monitor renal function. Monitor electrolytes. Supplement as necessary. Magnesium supplementation Maintain euvolemia Continue Protonix drip. Monitor Hgb. Physical therapy Labs and imaging reviewed. Rest of plan as noted below. Plan: Supplemental oxygen Titrate to keep O2 sats above 92%. Continue antibiotics Micafungin Continue bronchodilators Incentive spirometry Diurese with Lasix d/t pulmonary edema Monitor renal function. Monitor electrolytes. Supplement as necessary. Monitor ins and outs. Monitor hemoglobin GI prophylaxis - Protonix drip DVT prophylaxis. Prognosis: Poor given patient's multiple co-morbidities. Rest of plan per hospitalist and other consultants. Thank you Dr. Betancur, for allowing me to participate in this patient's care. Further recommendations will depend on the patient's clinical course. Please do not hesitate to contact me if you have any questions or concerns. This medical document was created using an electronic medical record system with [employer] dictation system. Although these documentations are being carefully reviewed, there may still be some phonetic and typographical changes. The errors are purely typographical, due to imperfection on the software program, and do not reflect any compromise in the patient's medical care. Dietary Evaluation Review Recommendations by RD: Protein Supplementation Comments: 1) Initiate Ensure qd; Encourage optimal PO intake 2) Refer to outpatient RD for weight management 3) Follow-up with cardiology, pulmonology, and gastroenterology 4) Continue to monitor I&O, labs, and skin integrity Expected Outcomes/Goals: 1) appetite and labs to improve 2) follow-up in 3-5 days Plan discussed with: Patient, Other (EVERT Corrales) BRITTANI MARCIAL MD September 14, 2024 19:37
[2024-09-15] VITALS (16 sets, daily range): BP systolic 106–132; BP diastolic 67–81; PULSE 89–107; RESP 17–20; TEMP 97.4–97.8; O2SAT 87–99
[2024-09-15 07:46] LABS: Hematocrit 31.9 % (41.0-53.0); Hemoglobin 10.5 g/dL (13.5-17.5); Mean Corpuscular Hemoglobin 29.6 pg (28.0-32.0); Mean Corpuscular Hgb Conc. 32.9 g/dL (32.0-36.0); Platelet Count (auto) 138 10^3/uL (140-450); Red Blood Cells 3.54 10^6/uL (4.5-5.90); Red Cell Distribution Width 16.7 % (11.8-14.3); White Blood Cell 21.2 10^3/uL (4.4-10.8)
[2024-09-15 07:52] LABS: Basophils % (manual) 0 (0.0-2.0); Blast Cells 0; Eosinophils % (manual) 0 (0-7); Myelocytes % 0; Promyelocytes % 0; Reactive Lymphocytes 0
[2024-09-15 08:09] LABS: Band Neutrophils % (manual) 7; Lymphocytes % (manual) 10 (10.0-50.0); Metamyelocytes % 1; Monocytes % (manual) 4 (0-12)
[2024-09-15 08:10] LABS: Anisocytosis Slight; Platelet Estimate Decreased
--- NOTE | 2024-09-15 14:00 | DVHPN2 ---
Subjective still on high flow oxygen down to 6L Reviewed: Care Plan, H&P, Labs, Medications, Previous Orders, Radiology Changes from previous H/P or p: No Changes Objective Vitals Vital Signs Date Time Temp Pulse Resp B/P (MAP) Pulse Ox O2 Delivery O2 Flow Rate FiO2 09/15/24 11:47 94 Mask 6.0 09/15/24 11:47 50 09/15/24 09:28 124/94 09/15/24 09:00 97.5 91 18 97.5 Intake/Output Intake and Output 09/15/24 07:00 Intake Total 1900 ml Output Total 2115 ml Balance -215 ml Intake Oral 1600 ml IV Total 300 ml Output Urine Total 2115 ml # Bowel Movements 3 General Appearance: Alert, Oriented X3 Lungs: Other (diminished) Cardiovascular: Regular rate, Normal S1, Normal S2 Abdomen: Normal bowel sounds, Soft Medications Current Medications Medications Dose Ordered Sig/Jaden Route Start Time Stop Time Status Last Admin Dose Admin Methylprednisolone Sodium Succinate 40 mg BID IV 08/31/24 10:00 09/15/24 09:26 40 MG Lidocaine HCl 10 ml Q4HP PRN [place] 08/31/24 07:00 09/05/24 21:40 10 ML Levalbuterol HCl 0.625 mg Q6HR NEB 08/31/24 12:00 09/15/24 00:22 0.625 MG Ipratropium [place] 0.5 mg Q6HWA [facility] 08/31/24 12:00 09/14/24 19:17 0.5 MG Pantoprazole Sodium 40 mg DAILY@0600 PO 09/03/24 06:00 Hold 09/08/24 05:55 40 MG Magnesium Oxide 800 mg BID PO 09/02/24 22:00 09/15/24 09:26 800 MG Furosemide 40 mg DAILY IV 09/04/24 10:00 09/15/24 09:28 40 MG Patient Own Medication 1 DAILY PO 09/04/24 10:00 09/15/24 09:27 1 Sodium Chloride 10 ml QSHIFT@10,22 IV 09/03/24 22:00 09/15/24 09:28 10 ML Pantoprazole Sodium 50 ml @ 10 mls/hr Q5H IV 09/04/24 13:15 09/15/24 09:25 10 MLS/HR Lorazepam 0.5 mg Q6HP PRN IV 09/08/24 09:00 09/14/24 18:02 0.5 MG Ondansetron HCl 4 mg Q4HPRN PRN IV 09/08/24 09:00 Sodium Chloride 1 spr QID PRN EACHNOSTRI 09/10/24 20:00 09/13/24 10:01 1 SPR Acetaminophen/ Hydrocodone Bitart 1 tab Q6HPRN PRN PO 09/13/24 11:45 09/15/24 09:26 1 TAB Vancomycin HCl 150 ml @ 150 mls/hr Q10H IV 09/14/24 02:00 09/15/24 09:22 150 MLS/HR Vancomycin HCl 0 ml @ 0 mls/hr UD IV 09/14/24 16:00 Laboratory Results Laboratory Tests 09/08/24 16:07 09/15/24 06:44 Urinalysis Test 08/31/24 04:35 Urine Color Light-yellow (Yellow) Urine Clarity Clear (Clear) Urine pH 7.0 (5.0-9.0) Urine Specific [place] 1.045 (1.001-1.035) Urine Protein Negative (Negative) Urine Ketones Negative (Negative) Urine Blood Negative /uL (Negative) Urine Nitrite Negative (Negative) Urine Bilirubin Negative (Negative) Urine Urobilinogen Normal mg/dL (Negative) Urine Leukocyte Esterase Negative /uL (Negative) Urine RBC 1 /hpf (0 - 3) Urine Microscopic WBC 1 /HPF (0-3) Urine Squamous Epithelial Cells Few /hpf (<5) Urine Bacteria None seen /hpf (None Seen) Urine Glucose Normal mg/dL (Normal) Microbiology Microbiology Date/Time Source Procedure Growth Status 08/31/24 04:35 Voided Urine Urine Culture - Final Complete 08/31/24 03:20 Nose MRSA Screen - Final Complete 08/30/24 23:30 Blood Blood Culture - Final NO GROWTH AFTER 5 DAYS OF INCUBATION. Complete Assessment/Plan Assessment/Plan Acute on chronic respiratory failure Sepsis secondary to pneumonia Multifocal pneumonia Gram-positive/Gram-negative Pulmonary embolism DVT Lymphoma currently under no chemotherapy Thrombocytopenia Normocytic anemia Oral thrush Moderate protein malnutrition- Dietary Consult Rectal bleed with hemorrhoid, Continuing current management. Continuing IV antibiotic. JEN law Appreciate GI input Local treatment of hemorrhoid with cream Not safe to transfer per [place] due to high oxygen demands Advance care planning spent 20 min discussing about poor prognosis due to PE and progressive lymphoma and multifocal pneumonia Because he feels he is improving now, he is not interest on hospice now Plan discussed with: Patient My Orders Orders - PRAMOD BRAMBILA MD Procedure Category Date Status Time Vancomycin Per PHA 09/14/24 In Process Pharmacy 16:00 Vancomycin,Trough LAB 09/16/24 Verified 03:00 Vancomycin Per IRVIN 09/14/24 In Process Pharmacy [facility] 16:17 Date of Service: September 15, 2024 Billing Provider: PRAMOD BRAMBILA MD Common Visit Codes: [id number] INP/OBS CARE(HIGH) Secondary Visit Codes: [id number] CARE PLAN 30 MINUTES PRAMOD BRAMBILA MD September 15, 2024 14:00
[2024-09-15] MEDS: DOXYCYCLINE 100MG/100ML 100 ML IV SCH (16:56)
[2024-09-15] MEDS: MICAFUNGIN SODIUM 100 MG in SODIUM CHL 0.9% 100 ML IV SCH (17:45)
--- NOTE | 2024-09-15 22:59 | DVHPN2 ---
Progress Note - Dictate Date Seen: September 15, 2024 Medical Necessity Reason Pt with a Central, PICC or Fol: No Subjective Patient seen and examined at bedside. Remains on supplemental oxygen Overnight events reviewed. vital signs Vital Sign Date Time Temp Pulse Resp B/P (MAP) Pulse Ox O2 Delivery O2 Flow Rate FiO2 09/15/24 21:00 97.8 107 18 106/67 (80) 94 97.8 09/15/24 20:00 Simple Mask* 6 50 Total Intake and Output 09/14/24 09/14/24 09/15/24 15:00 23:00 07:00 Intake Total 500 ml 600 ml 800 ml Output Total 1250 ml 865 ml Balance 500 ml -650 ml -65 ml medications Current Medications Medications Dose Ordered Sig/Jaden Route Start Time Stop Time Status Last Admin Dose Admin Methylprednisolone Sodium Succinate 40 mg BID IV 08/31/24 10:00 09/15/24 22:01 40 MG Lidocaine HCl 10 ml Q4HP PRN MT 08/31/24 07:00 09/05/24 21:40 10 ML Levalbuterol HCl 0.625 mg Q6HR NEB 08/31/24 12:00 09/15/24 19:31 0.625 MG Ipratropium [place] 0.5 mg Q6HWA NEB 08/31/24 12:00 09/15/24 19:31 0.5 MG Pantoprazole Sodium 40 mg DAILY@0600 PO 09/03/24 06:00 Hold 09/08/24 05:55 40 MG Magnesium Oxide 800 mg BID PO 09/02/24 22:00 09/15/24 22:01 800 MG Furosemide 40 mg DAILY IV 09/04/24 10:00 09/15/24 09:28 40 MG Patient Own Medication 1 DAILY PO 09/04/24 10:00 09/15/24 09:27 1 Sodium Chloride 10 ml QSHIFT@10,22 IV 09/03/24 22:00 09/15/24 22:01 10 ML Pantoprazole Sodium 50 ml @ 10 mls/hr Q5H IV 09/04/24 13:15 09/15/24 20:20 10 MLS/HR Lorazepam 0.5 mg Q6HP PRN IV 09/08/24 09:00 09/14/24 18:02 0.5 MG Ondansetron HCl 4 mg Q4HPRN PRN IV 09/08/24 09:00 Sodium Chloride 1 spr QID PRN EACHNOSTRI 09/10/24 20:00 09/13/24 10:01 1 SPR Acetaminophen/ Hydrocodone Bitart 1 tab Q6HPRN PRN PO 09/13/24 11:45 09/15/24 22:10 1 TAB Vancomycin HCl 150 ml @ 150 mls/hr Q10H IV 09/14/24 02:00 09/15/24 17:51 150 MLS/HR Vancomycin HCl 0 ml @ 0 mls/hr UD IV 09/14/24 16:00 Micafungin Sodium 100 mg/Sodium Chloride 100 ml @ 100 mls/hr DAILY@1700 IV 09/15/24 17:00 09/15/24 17:45 100 MLS/HR Doxycycline Hyclate 100 ml @ 50 mls/hr Q12H IV 09/15/24 16:30 09/15/24 16:56 50 MLS/HR objective Gen.: Patient lying in bed in no apparent distress. On supplemental oxygen. Head: Normocephalic, atraumatic. Eyes: EOMI/PERRLA. Ears: Normal hearing. Normal anatomy. Neck/trachea: Trachea midline, supple. Nose: Normal external anatomy. Mouth: Moist mucous membranes. Chest: Decreased air entry bilaterally. No wheezing or rhonchi. Cardiovascular: Positive S1, positive S2. Regular rate and rhythm. Abdomen: Positive bowel sounds in all 4 quadrants. Soft, non-tender, non- distended. : Deferred. Rectal: Deferred. Skin: Warm, dry. Intact. Extremities: 2+ radial pulses bilaterally. No lower extremity edema. Neuro: Awake, alert, oriented x3. No gross motor or sensory deficits. Cranial nerves II through XII intact. Gait not assessed. laboratory and microbiology Laboratory Tests 09/15/24 06:44 09/08/24 16:07 Test 09/08/24 16:07 Range/Units Serum Glucose 122 H 74-106 mg/dL Assessment/Plan Impression: Acute hypoxic respiratory failure Dependence on supplemental oxygen Pneumonia, multifocal Pulmonary embolism Atelectasis Pulmonary edema Hemorrhoids Events: Remains on supplemental oxygen On 8 LPM simple mask - O2 sat 95% Taper O2 as tolerated BiPAP PRN No new complaints. Continue antibiotics and antifungals. Continue bronchodilators Continue IV steroids Continue antiviral medication Incentive spirometry Diurese with Lasix as tolerated Monitor renal function. Monitor electrolytes. Supplement as necessary. Magnesium supplementation Maintain euvolemia Continue Protonix drip. Monitor Hgb. Physical therapy Anxiolytic PRN. Labs and imaging reviewed. Rest of plan as noted below. Plan: Supplemental oxygen Titrate to keep O2 sats above 92%. Continue antibiotics Micafungin Continue bronchodilators Incentive spirometry Diurese with Lasix d/t pulmonary edema Monitor renal function. Monitor electrolytes. Supplement as necessary. Monitor ins and outs. Monitor hemoglobin GI prophylaxis - Protonix drip DVT prophylaxis. Prognosis: Poor given patient's multiple co-morbidities. Rest of plan per hospitalist and other consultants. Thank you Dr. Betancur, for allowing me to participate in this patient's care. Further recommendations will depend on the patient's clinical course. Please do not hesitate to contact me if you have any questions or concerns. This medical document was created using an electronic medical record system with [employer] dictation system. Although these documentations are being carefully reviewed, there may still be some phonetic and typographical changes. The errors are purely typographical, due to imperfection on the software program, and do not reflect any compromise in the patient's medical care. Dietary Evaluation Review Recommendations by RD: Protein Supplementation Comments: 1) Initiate Ensure qd; Encourage optimal PO intake 2) Refer to outpatient RD for weight management 3) Follow-up with cardiology, pulmonology, and gastroenterology 4) Continue to monitor I&O, labs, and skin integrity Expected Outcomes/Goals: 1) appetite and labs to improve 2) follow-up in 3-5 days Plan discussed with: Patient, Other (EVERT Corrales) BRITTANI MARCIAL MD September 15, 2024 22:59
[2024-09-16] VITALS (11 sets, daily range): BP systolic 111–141; BP diastolic 81–93; PULSE 85–98; RESP 16–19; TEMP 97.2–99.3; O2SAT 94–99
[2024-09-16 07:02] LABS: Basophils # (auto) 0 10 ^3/uL (0-0.2); Basophils % (auto) 0.1 % (0.0-2.0); Eosinophils # (auto) 0 10 ^3/uL (0-0.8); Hemoglobin 9.7 g/dL (13.5-17.5); Lymphocytes # (auto) 2.6 10 ^3/uL (0.4-5.4); Lymphocytes % (auto) 13.1 % (10.0-50.0); Mean Corpuscular Hemoglobin 29.4 pg (28.0-32.0); Mean Corpuscular Hgb Conc. 32.4 g/dL (32.0-36.0); Mean Corpuscular Volume 90.8 fL (80.0-100.0); Monocytes # (auto) 0.5 10 ^3/uL (0-1.3); Monocytes % (auto) 2.4 % (0.0-12.0); Neutrophils # (auto) 16.8 10 ^3/uL (1.6-8.6); Neutrophils % (auto) 84.4 % (37.0-80.0); Nucleated Red Blood Cells % 0.1 %; Platelet Count (auto) 144 10^3/uL (140-450); Red Blood Cells 3.31 10^6/uL (4.5-5.90); Red Cell Distribution Width 16.6 % (11.8-14.3); White Blood Cell 19.9 10^3/uL (4.4-10.8)
--- NOTE | 2024-09-16 11:35 | DVHPN2 ---
Progress Note - Dictate Date Seen: September 16, 2024 Medical Necessity Reason Pt with a Central, PICC or Fol: No vital signs Vital Sign Date Time Temp Pulse Resp B/P (MAP) Pulse Ox O2 Delivery O2 Flow Rate FiO2 09/16/24 09:53 130/83 09/16/24 08:43 98.7 91 17 96 98.7 09/16/24 08:10 Oxymizer 6 N/A Total Intake and Output 09/15/24 09/15/24 09/16/24 15:00 23:00 07:00 Intake Total 730 ml 1100 ml 600 ml Output Total 800 ml 500 ml Balance 730 ml 300 ml 100 ml medications Current Medications Medications Dose Ordered Sig/Jaden Route Start Time Stop Time Status Last Admin Dose Admin Methylprednisolone Sodium Succinate 40 mg BID IV 08/31/24 10:00 09/16/24 09:52 40 MG Lidocaine HCl 10 ml Q4HP PRN MT 08/31/24 07:00 09/05/24 21:40 10 ML Levalbuterol HCl 0.625 mg Q6HR NEB 08/31/24 12:00 09/15/24 19:31 0.625 MG Ipratropium [place] 0.5 mg Q6HWA [facility] 08/31/24 12:00 09/15/24 19:31 0.5 MG Pantoprazole Sodium 40 mg DAILY@0600 PO 09/03/24 06:00 Hold 09/08/24 05:55 40 MG Magnesium Oxide 800 mg BID PO 09/02/24 22:00 09/16/24 09:47 800 MG Furosemide 40 mg DAILY IV 09/04/24 10:00 09/16/24 09:53 40 MG Patient Own Medication 1 DAILY PO 09/04/24 10:00 09/16/24 09:52 1 Sodium Chloride 10 ml QSHIFT@10,22 IV 09/03/24 22:00 09/16/24 09:53 10 ML Pantoprazole Sodium 50 ml @ 10 mls/hr Q5H IV 09/04/24 13:15 09/16/24 09:54 10 MLS/HR Lorazepam 0.5 mg Q6HP PRN IV 09/08/24 09:00 09/14/24 18:02 0.5 MG Ondansetron HCl 4 mg Q4HPRN PRN IV 09/08/24 09:00 Sodium Chloride 1 spr QID PRN EACHNOSTRI 09/10/24 20:00 09/13/24 10:01 1 SPR Acetaminophen/ Hydrocodone Bitart 1 tab Q6HPRN PRN PO 09/13/24 11:45 09/16/24 04:36 1 TAB Vancomycin HCl 0 ml @ 0 mls/hr UD IV 09/14/24 16:00 Micafungin Sodium 100 mg/Sodium Chloride 100 ml @ 100 mls/hr DAILY@1700 IV 09/15/24 17:00 09/15/24 17:45 100 MLS/HR Doxycycline Hyclate 100 ml @ 50 mls/hr Q12H IV 09/15/24 16:30 09/16/24 04:03 50 MLS/HR laboratory and microbiology Laboratory Tests 09/16/24 06:33 09/08/24 16:07 Test 09/08/24 16:07 Range/Units Serum Glucose 122 H 74-106 mg/dL Assessment/Plan Impression: Acute hypoxic respiratory failure Dependence on supplemental oxygen Pneumonia, multifocal Pulmonary embolism Atelectasis Pulmonary edema Hemorrhoids Patient seen and examined Events: Low oxygen requirements On 6 LPM Oxymask No distress Labs and imaging reviewed Chest x-ray reveals findings c/w multifocal pneumonia Plan: Supplemental oxygen Titrate to keep O2 sats above 92% Incentive spirometry Continue antibiotics F/u cultures and ID Continue bronchodilators Diurese Monitor renal function Monitor electrolytes Supplement as necessary Monitor ins and outs Monitor hemoglobin DVT prophylaxis Dietary Evaluation Review Recommendations by RD: Protein Supplementation Comments: 1) Initiate Ensure qd; Encourage optimal PO intake 2) Refer to outpatient RD for weight management 3) Follow-up with cardiology, pulmonology, and gastroenterology 4) Continue to monitor I&O, labs, and skin integrity Expected Outcomes/Goals: 1) appetite and labs to improve 2) follow-up in 3-5 days Plan discussed with: Patient TARUN DOSHI MD September 16, 2024 11:35
--- NOTE | 2024-09-16 12:23 | DVHPN2 ---
Subjective still on oxymizer 6lpm Reviewed: Care Plan, H&P, Labs, Medications, Previous Orders, Radiology Changes from previous H/P or p: No Changes Objective Vitals Vital Signs Date Time Temp Pulse Resp B/P (MAP) Pulse Ox O2 Delivery O2 Flow Rate FiO2 09/16/24 09:53 130/83 09/16/24 08:43 98.7 91 17 96 98.7 09/16/24 08:10 Oxymizer 6 N/A Intake/Output Intake and Output 09/16/24 07:00 Intake Total 2430 ml Output Total 1300 ml Balance 1130 ml Intake Oral 1780 ml IV Total 650 ml Output Urine Total 1300 ml Stool Total 0 ml # Bowel Movements 1 General Appearance: Alert, Oriented X3 Lungs: Other (diminished) Cardiovascular: Regular rate, Normal S1, Normal S2 Abdomen: Normal bowel sounds, Soft Medications Current Medications Medications Dose Ordered Sig/Jaden Route Start Time Stop Time Status Last Admin Dose Admin Methylprednisolone Sodium Succinate 40 mg BID IV 08/31/24 10:00 09/16/24 09:52 40 MG Lidocaine HCl 10 ml Q4HP PRN MT 08/31/24 07:00 09/05/24 21:40 10 ML Levalbuterol HCl 0.625 mg Q6HR NEB 08/31/24 12:00 09/15/24 19:31 0.625 MG Ipratropium [place] 0.5 mg Q6HWA [facility] 08/31/24 12:00 09/15/24 19:31 0.5 MG Pantoprazole Sodium 40 mg DAILY@0600 PO 09/03/24 06:00 Hold 09/08/24 05:55 40 MG Magnesium Oxide 800 mg BID PO 09/02/24 22:00 09/16/24 09:47 800 MG Furosemide 40 mg DAILY IV 09/04/24 10:00 09/16/24 09:53 40 MG Patient Own Medication 1 DAILY PO 09/04/24 10:00 09/16/24 09:52 1 Sodium Chloride 10 ml QSHIFT@10,22 IV 09/03/24 22:00 09/16/24 09:53 10 ML Pantoprazole Sodium 50 ml @ 10 mls/hr Q5H IV 09/04/24 13:15 09/16/24 09:54 10 MLS/HR Lorazepam 0.5 mg Q6HP PRN IV 09/08/24 09:00 09/14/24 18:02 0.5 MG Ondansetron HCl 4 mg Q4HPRN PRN IV 09/08/24 09:00 Sodium Chloride 1 spr QID PRN EACHNOSTRI 09/10/24 20:00 09/13/24 10:01 1 SPR Acetaminophen/ Hydrocodone Bitart 1 tab Q6HPRN PRN PO 09/13/24 11:45 09/16/24 04:36 1 TAB Vancomycin HCl 0 ml @ 0 mls/hr UD IV 09/14/24 16:00 Micafungin Sodium 100 mg/Sodium Chloride 100 ml @ 100 mls/hr DAILY@1700 IV 09/15/24 17:00 09/15/24 17:45 100 MLS/HR Doxycycline Hyclate 100 ml @ 50 mls/hr Q12H IV 09/15/24 16:30 09/16/24 04:03 50 MLS/HR Laboratory Results Laboratory Tests 09/08/24 16:07 09/16/24 06:33 Urinalysis Test 08/31/24 04:35 Urine Color Light-yellow (Yellow) Urine Clarity Clear (Clear) Urine pH 7.0 (5.0-9.0) Urine Specific [place] 1.045 (1.001-1.035) Urine Protein Negative (Negative) Urine Ketones Negative (Negative) Urine Blood Negative /uL (Negative) Urine Nitrite Negative (Negative) Urine Bilirubin Negative (Negative) Urine Urobilinogen Normal mg/dL (Negative) Urine Leukocyte Esterase Negative /uL (Negative) Urine RBC 1 /hpf (0 - 3) Urine Microscopic WBC 1 /HPF (0-3) Urine Squamous Epithelial Cells Few /hpf (<5) Urine Bacteria None seen /hpf (None Seen) Urine Glucose Normal mg/dL (Normal) Microbiology Microbiology Date/Time Source Procedure Growth Status 08/31/24 04:35 Voided Urine Urine Culture - Final Complete 08/31/24 03:20 Nose MRSA Screen - Final Complete 08/30/24 23:30 Blood Blood Culture - Final NO GROWTH AFTER 5 DAYS OF INCUBATION. Complete Assessment/Plan Assessment/Plan Acute on chronic respiratory failure Sepsis secondary to pneumonia Multifocal pneumonia Gram-positive/Gram-negative Pulmonary embolism DVT Lymphoma currently under no chemotherapy Thrombocytopenia Normocytic anemia Oral thrush Moderate protein malnutrition- Dietary Consult Rectal bleed with hemorrhoid, Continuing current management. Continuing IV antibiotic and antifungal DC lovenox Appreciate GI input Local treatment of hemorrhoid with cream Not safe to transfer per Rule due to high oxygen demands Plan discussed with: Patient Date of Service: September 16, 2024 Billing Provider: HUGO MOSER MD Common Visit Codes: [id number] INP/OBS CARE(HIGH) HUGO MOSER MD September 16, 2024 12:23
--- NOTE | 2024-09-16 14:47 | DVHPN2 ---
Progress Note - Dictate Date Seen: September 16, 2024 Medical Necessity Reason Pt with a Central, PICC or Fol: No Subjective No new complaints Rectal bleeding resolved H/H stable at 9.7 Tolerating diet well On 6 L oximizer vital signs Vital Sign Date Time Temp Pulse Resp B/P (MAP) Pulse Ox O2 Delivery O2 Flow Rate FiO2 09/16/24 13:02 98.2 93 17 121/82 (95) 95 98.2 09/16/24 12:43 Oxymizer 6 N/A Total Intake and Output 09/15/24 09/15/24 09/16/24 14:59 22:59 06:59 Intake Total 730 ml 1350 ml 600 ml Output Total 800 ml 500 ml Balance 730 ml 550 ml 100 ml medications Current Medications Medications Dose Ordered Sig/Jaden Route Start Time Stop Time Status Last Admin Dose Admin Methylprednisolone Sodium Succinate 40 mg BID IV 08/31/24 10:00 09/16/24 09:52 40 MG Lidocaine HCl 10 ml Q4HP PRN MT 08/31/24 07:00 09/05/24 21:40 10 ML Levalbuterol HCl 0.625 mg Q6HR NEB 08/31/24 12:00 09/15/24 19:31 0.625 MG Ipratropium [place] 0.5 mg Q6HWA [facility] 08/31/24 12:00 09/15/24 19:31 0.5 MG Pantoprazole Sodium 40 mg DAILY@0600 PO 09/03/24 06:00 Hold 09/08/24 05:55 40 MG Magnesium Oxide 800 mg BID PO 09/02/24 22:00 09/16/24 09:47 800 MG Furosemide 40 mg DAILY IV 09/04/24 10:00 09/16/24 09:53 40 MG Patient Own Medication 1 DAILY PO 09/04/24 10:00 09/16/24 09:52 1 Sodium Chloride 10 ml QSHIFT@10,22 IV 09/03/24 22:00 09/16/24 09:53 10 ML Pantoprazole Sodium 50 ml @ 10 mls/hr Q5H IV 09/04/24 13:15 09/16/24 09:54 10 MLS/HR Lorazepam 0.5 mg Q6HP PRN IV 09/08/24 09:00 09/14/24 18:02 0.5 MG Ondansetron HCl 4 mg Q4HPRN PRN IV 09/08/24 09:00 Sodium Chloride 1 spr QID PRN EACHNOSTRI 09/10/24 20:00 09/13/24 10:01 1 SPR Acetaminophen/ Hydrocodone Bitart 1 tab Q6HPRN PRN PO 09/13/24 11:45 09/16/24 04:36 1 TAB Vancomycin HCl 0 ml @ 0 mls/hr UD IV 09/14/24 16:00 Micafungin Sodium 100 mg/Sodium Chloride 100 ml @ 100 mls/hr DAILY@1700 IV 09/15/24 17:00 09/15/24 17:45 100 MLS/HR Doxycycline Hyclate 100 ml @ 50 mls/hr Q12H IV 09/15/24 16:30 09/16/24 04:03 50 MLS/HR objective General Appearance: Alert, Oriented X3 Lungs: Other (diminished); on high flow oxygen Cardiovascular: Regular rate, Normal S1, Normal S2 Abdomen: Normal bowel sounds, Soft laboratory and microbiology Laboratory Tests 09/16/24 06:33 09/08/24 16:07 Test 09/08/24 16:07 Range/Units Serum Glucose 122 H 74-106 mg/dL Problems(with codes): (1) DVT (deep venous thrombosis) (2) Rectal bleeding (3) Acute respiratory distress (4) Bilateral pulmonary embolism (5) Sepsis (6) Leukocytosis (7) Anemia Prognosis PLAN Continue diet as tolerated Monitor labs Outpatient elective colonoscopy at [facility] once medically stabilized Dietary Evaluation Review Recommendations by RD: Protein Supplementation Comments: 1) Initiate Ensure qd; Encourage optimal PO intake 2) Refer to outpatient RD for weight management 3) Follow-up with cardiology, pulmonology, and gastroenterology 4) Continue to monitor I&O, labs, and skin integrity Expected Outcomes/Goals: 1) appetite and labs to improve 2) follow-up in 3-5 days Plan discussed with: Patient, Other (Nurse) ELTON LEBLANC MD September 16, 2024 14:47
[2024-09-17] VITALS (12 sets, daily range): BP systolic 107–132; BP diastolic 67–88; PULSE 83–101; RESP 18–20; TEMP 97.4–98.3; O2SAT 94–100
[2024-09-17 07:26] LABS: Hematocrit 31.6 % (41.0-53.0); Hemoglobin 10.4 g/dL (13.5-17.5); Mean Corpuscular Hemoglobin 29.3 pg (28.0-32.0); Mean Corpuscular Hgb Conc. 32.8 g/dL (32.0-36.0); Mean Corpuscular Volume 89.3 fL (80.0-100.0); Platelet Count (auto) 147 10^3/uL (140-450); Red Blood Cells 3.54 10^6/uL (4.5-5.90); Red Cell Distribution Width 16.4 % (11.8-14.3); White Blood Cell 21.9 10^3/uL (4.4-10.8)
[2024-09-17 07:36] LABS: Potassium 3.9 mmol/L (3.5-5.1); Sodium 140 mmol/L (136-145)
[2024-09-17 07:37] LABS: Anion Gap 5 (5-15); Calcium 9.6 mg/dL (8.7-10.4)
[2024-09-17 07:42] LABS: BUN/Creatinine Ratio 65.8 (10.0-20.0); Carbon Dioxide 37 mmol/L (20-31); Chloride 98 mmol/L (98-107)
[2024-09-17 07:43] LABS: Blood Urea Nitrogen 25 mg/dL (9-23); Glucose 121 mg/dL (74-106); Magnesium 2.2 mg/dL (1.6-2.6)
[2024-09-17 07:44] LABS: Band Neutrophils % (manual) 0; Basophils % (manual) 0 (0.0-2.0); Blast Cells 0; Eosinophils % (manual) 0 (0-7); Metamyelocytes % 0; Myelocytes % 0; Phosphorus 3.6 mg/dL (2.4-5.1); Promyelocytes % 0; Reactive Lymphocytes 0
[2024-09-17 08:44] LABS: Lymphocytes % (manual) 16 (10.0-50.0); Monocytes % (manual) 4 (0-12); Platelet Estimate Adequate
--- NOTE | 2024-09-17 09:31 | DVHPN2 ---
Subjective still on oxymizer now 8 lpm however satting 98. will titrate down to >90. Reviewed: Care Plan, H&P, Labs, Medications, Previous Orders, Radiology Changes from previous H/P or p: No Changes Objective Vitals Vital Signs Date Time Temp Pulse Resp B/P (MAP) Pulse Ox O2 Delivery O2 Flow Rate FiO2 09/17/24 08:22 97.7 83 20 107/67 (80) 99 97.7 09/17/24 07:10 Oxymizer 8 N/A Intake/Output Intake and Output 09/17/24 07:00 Intake Total 1950 ml Output Total 1401 ml Balance 549 ml Intake Oral 1550 ml IV Total 400 ml Output Urine Total 1400 ml Stool Total 1 ml # Voids 6 General Appearance: Alert, Oriented X3 Lungs: Other (diminished) Cardiovascular: Regular rate, Normal S1, Normal S2 Abdomen: Normal bowel sounds, Soft Medications Current Medications Medications Dose Ordered Sig/Jaden Route Start Time Stop Time Status Last Admin Dose Admin Methylprednisolone Sodium Succinate 40 mg BID IV 08/31/24 10:00 09/16/24 21:16 40 MG Lidocaine HCl 10 ml Q4HP PRN [place] 08/31/24 07:00 09/05/24 21:40 10 ML Levalbuterol HCl 0.625 mg Q6HR NEB 08/31/24 12:00 09/15/24 19:31 0.625 MG Ipratropium [place] 0.[address] [facility] 08/31/24 12:00 09/15/24 19:31 0.5 MG Pantoprazole Sodium 40 mg DAILY@0600 PO 09/03/24 06:00 Hold 09/08/24 05:55 40 MG Magnesium Oxide 800 mg BID PO 09/02/24 22:00 09/16/24 21:16 800 MG Furosemide 40 mg DAILY IV 09/04/24 10:00 09/16/24 09:53 40 MG Patient Own Medication 1 DAILY PO 09/04/24 10:00 09/16/24 09:52 1 Sodium Chloride 10 ml QSHIFT@10,22 IV 09/03/24 22:00 09/16/24 21:16 10 ML Pantoprazole Sodium 50 ml @ 10 mls/hr Q5H IV 09/04/24 13:15 09/17/24 06:25 10 MLS/HR Lorazepam 0.5 mg Q6HP PRN IV 09/08/24 09:00 09/16/24 21:30 0.5 MG Ondansetron HCl 4 mg Q4HPRN PRN IV 09/08/24 09:00 Sodium Chloride 1 spr QID PRN EACHNOSTRI 09/10/24 20:00 09/13/24 10:01 1 SPR Acetaminophen/ Hydrocodone Bitart 1 tab Q6HPRN PRN PO 09/13/24 11:45 09/17/24 06:29 1 TAB Vancomycin HCl 0 ml @ 0 mls/hr UD IV 09/14/24 16:00 Micafungin Sodium 100 mg/Sodium Chloride 100 ml @ 100 mls/hr DAILY@1700 IV 09/15/24 17:00 09/16/24 16:38 100 MLS/HR Doxycycline Hyclate 100 ml @ 50 mls/hr Q12H IV 09/15/24 16:30 09/17/24 05:05 50 MLS/HR Laboratory Results Laboratory Tests 09/17/24 06:47 Chemistry Test 09/17/24 06:47 Calcium Level 9.6 mg/dL (8.7-10.4) Magnesium Level 2.2 mg/dL (1.6-2.6) Phosphorus Level 3.6 mg/dL (2.4-5.1) Urinalysis Test 08/31/24 04:35 Urine Color Light-yellow (Yellow) Urine Clarity Clear (Clear) Urine pH 7.0 (5.0-9.0) Urine Specific [place] 1.045 (1.001-1.035) Urine Protein Negative (Negative) Urine Ketones Negative (Negative) Urine Blood Negative /uL (Negative) Urine Nitrite Negative (Negative) Urine Bilirubin Negative (Negative) Urine Urobilinogen Normal mg/dL (Negative) Urine Leukocyte Esterase Negative /uL (Negative) Urine RBC 1 /hpf (0 - 3) Urine Microscopic WBC 1 /HPF (0-3) Urine Squamous Epithelial Cells Few /hpf (<5) Urine Bacteria None seen /hpf (None Seen) Urine Glucose Normal mg/dL (Normal) Microbiology Microbiology Date/Time Source Procedure Growth Status 08/31/24 04:35 Voided Urine Urine Culture - Final Complete 08/31/24 03:20 Nose MRSA Screen - Final Complete 08/30/24 23:30 Blood Blood Culture - Final NO GROWTH AFTER 5 DAYS OF INCUBATION. Complete Assessment/Plan Assessment/Plan Acute on chronic respiratory failure Sepsis secondary to pneumonia Multifocal pneumonia Gram-positive/Gram-negative Pulmonary embolism DVT Lymphoma currently under no chemotherapy Thrombocytopenia Normocytic anemia Oral thrush Moderate protein malnutrition- Dietary Consult Rectal bleed with hemorrhoid, c/w o2 supp maintain spo2 >90 Continuing current management. Continuing IV antibiotic and antifungal DC lovenox Appreciate GI input Local treatment of hemorrhoid with cream Not safe to transfer per [place] due to high oxygen demands Plan discussed with: Patient Date of Service: September 17, 2024 Billing Provider: HUGO MOSER MD Common Visit Codes: [id number] INP/OBS CARE(HIGH) HUGO MOSER MD September 17, 2024 09:31
[2024-09-17] MEDS: VANCOMYCIN 1GM/200ML PM 200 ML IV ONE (13:24)
--- NOTE | 2024-09-17 17:04 | DVH ---
Procedure: CT CHEST WITHOUT CONTRAST Reason for study/Clinical History: persistent hypoxemia Comparison Study: None TECHNIQUE: Multidetector CT of the chest was performed from the lung apices to the upper abdomen with out the use of intravenous contract. Axial, coronal and sagittal multiplanar reformats were performed . Radiation Dose Information: CT Dose: CTDI volume is 12.26 mGy. Dose-length product is 470.18 mGy*cm The dose indicators for CT are the volume Computed Tomography (CT) Dose Index (CTDIvol) and the Dose Length Product (DLP), and are measured in units of mGy and mGy-cm, respectively. These indicators are not patient dose, but values generated from the CT scanner acquisition factors. The report includes radiation exposure data for exposures received during this examination. FINDINGS: Lower neck: Left PICC in satisfactory position. Lungs: Masslike opacity in the lingula measures 1.3 cm. Bronchiectasis. Diffuse increased ground-glass attenuation throughout the lungs. Multifocal airspace consolidation most prominent in the right upper lobe. Heart/Vascular Structures: Cardiomegaly. Enlarged main pulmonary artery. Lymph Nodes: Nonspecific mediastinal adenopathy. For example, right upper paratracheal lymph node lance sures 2.7 cm. Pleura: No pleural effusion or significant pneumothorax. Musculoskeletal: No acute osseous abnormality. Soft tissues: Normal. Upper abdomen: Nonspecific infiltrative changes in the central mesentery. IMPRESSION: Findings are suggestive of severe multifocal pneumonia superimposed on possible chronic pulmonary fib rotic changes or changes of ARDS or hypersensitivity pneumonitis. Clinical correlation advised. Cardiomegaly and enlarged main pulmonary artery may represent a component of underlying pulmonary art erial hypertension. 1.3 cm masslike opacity in the lingula. Recommend repeat imaging after treatment to ensure complete r esolution and exclude underlying neoplasm. Nonspecific mediastinal adenopathy; possibly reactive. Nonspecific infiltrative changes in the central mesentery, partially imaged in the upper abdomen.
--- NOTE | 2024-09-17 19:39 | DVHPN2 ---
Progress Note - Dictate Date Seen: September 17, 2024 Medical Necessity Reason Pt with a Central, PICC or Fol: No vital signs Vital Sign Date Time Temp Pulse Resp B/P (MAP) Pulse Ox O2 Delivery O2 Flow Rate FiO2 09/17/24 18:19 94 Oxymizer 6 N/A 09/17/24 16:14 97.9 101 18 120/88 (99) 97.9 Total Intake and Output 09/16/24 09/16/24 09/17/24 15:00 23:00 07:00 Intake Total 50 ml 1400 ml 500 ml Output Total 1200 ml 201 ml Balance 50 ml 200 ml 299 ml medications Current Medications Medications Dose Ordered Sig/Jaden Route Start Time Stop Time Status Last Admin Dose Admin Methylprednisolone Sodium Succinate 40 mg BID IV 08/31/24 10:00 09/17/24 09:28 40 MG Lidocaine HCl 10 ml Q4HP PRN MT 08/31/24 07:00 09/05/24 21:40 10 ML Levalbuterol HCl 0.625 mg Q6HR NEB 08/31/24 12:00 09/15/24 19:31 0.625 MG Ipratropium [place] 0.5 mg Q6HWA NEB 08/31/24 12:00 09/15/24 19:31 0.5 MG Pantoprazole Sodium 40 mg DAILY@0600 PO 09/03/24 06:00 Hold 09/08/24 05:55 40 MG Magnesium Oxide 800 mg BID PO 09/02/24 22:00 09/17/24 09:29 800 MG Furosemide 40 mg DAILY IV 09/04/24 10:00 09/17/24 09:28 40 MG Patient Own Medication 1 DAILY PO 09/04/24 10:00 09/17/24 09:29 1 Sodium Chloride 10 ml QSHIFT@10,22 IV 09/03/24 22:00 09/17/24 09:28 10 ML Pantoprazole Sodium 50 ml @ 10 mls/hr Q5H IV 09/04/24 13:15 09/17/24 19:11 10 MLS/HR Lorazepam 0.5 mg Q6HP PRN IV 09/08/24 09:00 09/16/24 21:30 0.5 MG Ondansetron HCl 4 mg Q4HPRN PRN IV 09/08/24 09:00 Sodium Chloride 1 spr QID PRN EACHNOSTRI 09/10/24 20:00 09/13/24 10:01 1 SPR Acetaminophen/ Hydrocodone Bitart 1 tab Q6HPRN PRN PO 09/13/24 11:45 09/17/24 13:57 1 TAB Vancomycin HCl 0 ml @ 0 mls/hr UD IV 09/14/24 16:00 Micafungin Sodium 100 mg/Sodium Chloride 100 ml @ 100 mls/hr DAILY@1700 IV 09/15/24 17:00 09/17/24 18:45 100 MLS/HR Doxycycline Hyclate 100 ml @ 50 mls/hr Q12H IV 09/15/24 16:30 09/17/24 17:31 50 MLS/HR Vancomycin HCl 200 ml @ 200 mls/hr Q12H IV 09/18/24 01:00 laboratory and microbiology Laboratory Tests 09/17/24 06:47 Test 09/17/24 06:47 Range/Units Serum Glucose 121 H 74-106 mg/dL Assessment/Plan Impression: Acute hypoxic respiratory failure Dependence on supplemental oxygen Pneumonia, multifocal Pulmonary embolism Atelectasis Pulmonary edema Hemorrhoids Patient seen and examined Events: Low oxygen requirements On 6 LPM Oxymask No distress Labs and imaging reviewed Chest x-ray reveals findings c/w multifocal pneumonia Plan: Supplemental oxygen Titrate to keep O2 sats above 92% Incentive spirometry Continue antibiotics F/u cultures and ID Continue bronchodilators Diurese Monitor renal function Monitor electrolytes Supplement as necessary Monitor ins and outs Monitor hemoglobin DVT prophylaxis Dietary Evaluation Review Recommendations by RD: Protein Supplementation Comments: 1) Initiate Ensure qd; Encourage optimal PO intake 2) Refer to outpatient RD for weight management 3) Follow-up with cardiology, pulmonology, and gastroenterology 4) Continue to monitor I&O, labs, and skin integrity Expected Outcomes/Goals: 1) appetite and labs to improve 2) follow-up in 3-5 days Plan discussed with: Patient TARUN DOSHI MD September 17, 2024 19:39
--- NOTE | 2024-09-17 21:26 | DVH ---
INDICATION: dyspnea TECHNIQUE: Frontal view of the chest. COMPARISON: XY CHEST XRAY 1 VIEW on DOS: 09/13/24, XY CHEST XRAY 1 VIEW on DOS: 09/10/24, XY CHEST XRAY 1 VIEW on DOS: 09/08/24, XY CHEST PORTABLE on DOS: 08/30/24 FINDINGS: Findings:. The heart and mediastinal contours are grossly unremarkable. There is no evidence of pleu ral disease. The lungs demonstrate diffuse interstitial pulmonary edema. There is airspace consolidat ion seen in the right upper lung. Left-sided PICC catheter with tip in superior vena cava. The bon y structures of the chest are intact without fracture. IMPRESSION: 1. Multifocal pneumonia with interstitial pulmonary edema 2. Left-sided PICC catheter with tip in superior vena cava. Unchanged from prior study
[2024-09-17] MEDS: guaiFENesin-DM 100/10mg/5ml SYR PO ONE (23:12)
[2024-09-18] VITALS (12 sets, daily range): BP systolic 112–133; BP diastolic 54–84; PULSE 78–101; RESP 16–20; TEMP 97.6–98.3; O2SAT 92–99
[2024-09-18] MEDS: VANCOMYCIN 1GM/200ML PM 200 ML IV SCH (01:01)
[2024-09-18 07:45] LABS: Basophils # (auto) 0.2 10 ^3/uL (0-0.2); Basophils % (auto) 0.9 % (0.0-2.0); Eosinophils # (auto) 0 10 ^3/uL (0-0.8); Hemoglobin 9.8 g/dL (13.5-17.5); Lymphocytes # (auto) 6.7 10 ^3/uL (0.4-5.4); Lymphocytes % (auto) 30.3 % (10.0-50.0); Mean Corpuscular Hemoglobin 29.1 pg (28.0-32.0); Mean Corpuscular Hgb Conc. 32.8 g/dL (32.0-36.0); Mean Corpuscular Volume 88.8 fL (80.0-100.0); Monocytes # (auto) 0.5 10 ^3/uL (0-1.3); Monocytes % (auto) 2.4 % (0.0-12.0); Neutrophils # (auto) 14.6 10 ^3/uL (1.6-8.6); Neutrophils % (auto) 66.4 % (37.0-80.0); Platelet Count (auto) 146 10^3/uL (140-450); Red Blood Cells 3.38 10^6/uL (4.5-5.90); Red Cell Distribution Width 16.6 % (11.8-14.3)
--- NOTE | 2024-09-18 12:17 | DVHPN2 ---
Progress Note - Dictate Date Seen: September 18, 2024 Medical Necessity Reason Pt with a Central, PICC or Fol: No vital signs Vital Sign Date Time Temp Pulse Resp B/P (MAP) Pulse Ox O2 Delivery O2 Flow Rate FiO2 09/18/24 09:50 127/80 09/18/24 09:00 97.8 92 20 95 97.8 09/18/24 06:22 Oxymizer 6.0 09/18/24 06:22 N/A Total Intake and Output 09/17/24 09/17/24 09/18/24 15:00 23:00 07:00 Intake Total 200 ml 970 ml 975 ml Output Total 602 ml 351 ml Balance 200 ml 368 ml 624 ml medications Current Medications Medications Dose Ordered Sig/Jaden Route Start Time Stop Time Status Last Admin Dose Admin Methylprednisolone Sodium Succinate 40 mg BID IV 08/31/24 10:00 09/18/24 09:50 40 MG Lidocaine HCl 10 ml Q4HP PRN MT 08/31/24 07:00 09/05/24 21:40 10 ML Levalbuterol HCl 0.625 mg Q6HR NEB 08/31/24 12:00 09/18/24 06:22 0.625 MG Ipratropium [place] 0.5 mg Q6HWA NEB 08/31/24 12:00 09/18/24 06:22 0.5 MG Pantoprazole Sodium 40 mg DAILY@0600 PO 09/03/24 06:00 Hold 09/08/24 05:55 40 MG Magnesium Oxide 800 mg BID PO 09/02/24 22:00 09/18/24 09:51 800 MG Furosemide 40 mg DAILY IV 09/04/24 10:00 09/18/24 09:50 40 MG Patient Own Medication 1 DAILY PO 09/04/24 10:00 09/18/24 09:50 1 Sodium Chloride 10 ml QSHIFT@10,22 IV 09/03/24 22:00 09/18/24 09:50 10 ML Pantoprazole Sodium 50 ml @ 10 mls/hr Q5H IV 09/04/24 13:15 09/18/24 07:38 10 MLS/HR Lorazepam 0.5 mg Q6HP PRN IV 09/08/24 09:00 09/16/24 21:30 0.5 MG Ondansetron HCl 4 mg Q4HPRN PRN IV 09/08/24 09:00 Sodium Chloride 1 spr QID PRN EACHNOSTRI 09/10/24 20:00 09/13/24 10:01 1 SPR Acetaminophen/ Hydrocodone Bitart 1 tab Q6HPRN PRN PO 09/13/24 11:45 09/18/24 02:00 1 TAB Vancomycin HCl 0 ml @ 0 mls/hr UD IV 09/14/24 16:00 Micafungin Sodium 100 mg/Sodium Chloride 100 ml @ 100 mls/hr DAILY@1700 IV 09/15/24 17:00 09/17/24 18:45 100 MLS/HR Doxycycline Hyclate 100 ml @ 50 mls/hr Q12H IV 09/15/24 16:30 09/18/24 05:08 50 MLS/HR Vancomycin HCl 200 ml @ 200 mls/hr Q12H IV 09/18/24 01:00 09/18/24 01:01 200 MLS/HR laboratory and microbiology Laboratory Tests 09/18/24 07:32 09/18/24 06:31 09/17/24 06:47 Test 09/17/24 06:47 Range/Units Serum Glucose 121 H 74-106 mg/dL Assessment/Plan Impression: Acute hypoxic respiratory failure Dependence on supplemental oxygen Pneumonia, multifocal Pulmonary embolism Atelectasis Pulmonary edema Hemorrhoids Patient seen and examined Events: on protonix drip On 6 LPM Oxymask No distress CT chest reviewed Findings are suggestive of severe multifocal pneumonia superimposed on possible chronic pulmonary fibrotic changes or changes of ARDS or hypersensitivity pneumonitis. Clinical correlation advised. Cardiomegaly and enlarged main pulmonary artery may represent a component of underlying pulmonary arterial hypertension. 1.3 cm masslike opacity in the lingula. Recommend repeat imaging after treatment to ensure complete resolution and exclude underlying neoplasm. Nonspecific mediastinal adenopathy; possibly reactive. Nonspecific infiltrative changes in the central mesentery, partially imaged in the upper abdomen. Plan: Continue antibiotics F/u cultures and ID Continue bronchodilators steroids Diurese Monitor renal function Monitor electrolytes Supplement as necessary Monitor ins and outs Monitor hemoglobin DVT prophylaxis Dietary Evaluation Review Recommendations by RD: Protein Supplementation Comments: 1) Initiate Ensure qd; Encourage optimal PO intake 2) Refer to outpatient RD for weight management 3) Follow-up with cardiology, pulmonology, and gastroenterology 4) Continue to monitor I&O, labs, and skin integrity Expected Outcomes/Goals: 1) appetite and labs to improve 2) follow-up in 3-5 days Plan discussed with: Patient TARUN DOSHI MD September 18, 2024 12:17
[2024-09-18] MEDS: guaiFENesin-DM 100/10mg/5ml SYR PO PRN (13:51)
--- NOTE | 2024-09-18 23:41 | DVHPN2 ---
Progress Note - Dictate Date Seen: September 18, 2024 Medical Necessity Reason Pt with a Central, PICC or Fol: No Subjective No new complaints;For bowel movements recorded Rectal bleeding resolved H/H stable at 9.8 Tolerating diet well On 6 L oximizer vital signs Vital Sign Date Time Temp Pulse Resp B/P (MAP) Pulse Ox O2 Delivery O2 Flow Rate FiO2 09/18/24 21:00 97.6 86 18 123/80 (94) 95 97.6 09/18/24 20:00 Nasal Cannula* 6 44 Total Intake and Output 09/17/24 09/17/24 09/18/24 15:00 23:00 07:00 Intake Total 200 ml 970 ml 975 ml Output Total 602 ml 351 ml Balance 200 ml 368 ml 624 ml medications Current Medications Medications Dose Ordered Sig/Jaden Route Start Time Stop Time Status Last Admin Dose Admin Methylprednisolone Sodium Succinate 40 mg BID IV 08/31/24 10:00 09/18/24 21:33 40 MG Lidocaine HCl 10 ml Q4HP PRN MT 08/31/24 07:00 09/05/24 21:40 10 ML Levalbuterol HCl 0.625 mg Q6HR NEB 08/31/24 12:00 09/18/24 06:22 0.625 MG Ipratropium [place] 0.5 mg Q6HWA [facility] 08/31/24 12:00 09/18/24 06:22 0.5 MG Pantoprazole Sodium 40 mg DAILY@0600 PO 09/03/24 06:00 Hold 09/08/24 05:55 40 MG Magnesium Oxide 800 mg BID PO 09/02/24 22:00 09/18/24 21:57 800 MG Furosemide 40 mg DAILY IV 09/04/24 10:00 09/18/24 09:50 40 MG Patient Own Medication 1 DAILY PO 09/04/24 10:00 09/18/24 09:50 1 Sodium Chloride 10 ml QSHIFT@22 IV 09/03/24 22:00 09/18/24 21:57 10 ML Lorazepam 0.5 mg Q6HP PRN IV 09/08/24 09:00 09/16/24 21:30 0.5 MG Ondansetron HCl 4 mg Q4HPRN PRN IV 09/08/24 09:00 Sodium Chloride 1 spr QID PRN EACHNOSTRI 09/10/24 20:00 09/13/24 10:01 1 SPR Acetaminophen/ Hydrocodone Bitart 1 tab Q6HPRN PRN PO 09/13/24 11:45 09/18/24 21:45 1 TAB Vancomycin HCl 0 ml @ 0 mls/hr UD IV 09/14/24 16:00 Micafungin Sodium 100 mg/Sodium Chloride 100 ml @ 100 mls/hr DAILY@1700 IV 09/15/24 17:00 09/18/24 16:22 100 MLS/HR Doxycycline Hyclate 100 ml @ 50 mls/hr Q12H IV 09/15/24 16:30 09/18/24 16:21 50 MLS/HR Vancomycin HCl 200 ml @ 200 mls/hr Q12H IV 09/18/24 01:00 09/18/24 12:27 200 MLS/HR Guaifenesin/ Dextromethorphan 10 ml Q6HPRN PRN PO 09/18/24 13:15 09/18/24 13:51 10 ML objective General Appearance: Alert, Oriented X3 Lungs: Other (diminished); on high flow oxygen Cardiovascular: Regular rate, Normal S1, Normal S2 Abdomen: Normal bowel sounds, Soft laboratory and microbiology Laboratory Tests 09/18/24 07:32 09/18/24 06:31 09/17/24 06:47 Test 09/17/24 06:47 Range/Units Serum Glucose 121 H 74-106 mg/dL Problems(with codes): (1) DVT (deep venous thrombosis) (2) Rectal bleeding (3) Pneumonia (4) Acute respiratory distress (5) Leukocytosis (6) Anemia (7) Bilateral pulmonary embolism (8) S/P IVC filter Prognosis PLAN Continue diet as tolerated Monitor labs on IV antibiotics and IV steroids Anticoagulants on hold; patient S/P IVC filter Local hemorrhoidal care ; Anusol HC suppositories as needed Outpatient elective colonoscopy at [facility] once medically stabilized Dietary Evaluation Review Recommendations by RD: Protein Supplementation Comments: 1) Initiate Ensure qd; Encourage optimal PO intake 2) Refer to outpatient RD for weight management 3) Follow-up with cardiology, pulmonology, and gastroenterology 4) Continue to monitor I&O, labs, and skin integrity Expected Outcomes/Goals: 1) appetite and labs to improve 2) follow-up in 3-5 days Plan discussed with: Patient ELTON LEBLANC MD September 18, 2024 23:41
[2024-09-19] VITALS (10 sets, daily range): BP systolic 118–131; BP diastolic 73–84; PULSE 79–107; RESP 18–21; TEMP 97.1–98.4; O2SAT 87–99
[2024-09-19] MEDS ORDERED: LEVALBUTEROL HCL 1.25 MG/3 ML NEB NEB PRN (12:30)
[2024-09-19] MEDS ORDERED: IPRATROPIUM BROM 0.5 MG/2.5ML INH SOL NEB PRN (12:30)
--- NOTE | 2024-09-19 20:35 | DVHPN2 ---
Progress Note - Dictate Date Seen: September 19, 2024 Medical Necessity Reason Pt with a Central, PICC or Fol: No vital signs Vital Sign Date Time Temp Pulse Resp B/P (MAP) Pulse Ox O2 Delivery O2 Flow Rate FiO2 09/19/24 17:00 98.2 107 21 130/84 (99) 87 98.2 09/19/24 07:58 Oxymizer 5 N/A Total Intake and Output 09/18/24 09/18/24 09/19/24 15:00 23:00 07:00 Intake Total 200 ml 1250 ml 900 ml Output Total 1500 ml 600 ml 1050 ml Balance -1300 ml 650 ml -150 ml medications Current Medications Medications Dose Ordered Sig/Jaden Route Start Time Stop Time Status Last Admin Dose Admin Methylprednisolone Sodium Succinate 40 mg BID IV 08/31/24 10:00 09/19/24 09:27 40 MG Lidocaine HCl 10 ml Q4HP PRN MT 08/31/24 07:00 09/05/24 21:40 10 ML Pantoprazole Sodium 40 mg DAILY@0600 PO 09/03/24 06:00 Hold 09/08/24 05:55 40 MG Magnesium Oxide 800 mg BID PO 09/02/24 22:00 09/19/24 09:28 800 MG Furosemide 40 mg DAILY IV 09/04/24 10:00 09/19/24 09:27 40 MG Patient Own Medication 1 DAILY PO 09/04/24 10:00 09/19/24 09:28 1 Sodium Chloride 10 ml QSHIFT@10,22 IV 09/03/24 22:00 09/19/24 09:28 10 ML Lorazepam 0.5 mg Q6HP PRN IV 09/08/24 09:00 09/19/24 13:04 0.5 MG Ondansetron HCl 4 mg Q4HPRN PRN IV 09/08/24 09:00 Sodium Chloride 1 spr QID PRN EACHNOSTRI 09/10/24 20:00 09/13/24 10:01 1 SPR Acetaminophen/ Hydrocodone Bitart 1 tab Q6HPRN PRN PO 09/13/24 11:45 09/18/24 21:45 1 TAB Vancomycin HCl 0 ml @ 0 mls/hr UD IV 09/14/24 16:00 Micafungin Sodium 100 mg/Sodium Chloride 100 ml @ 100 mls/hr DAILY@1700 IV 09/15/24 17:00 09/19/24 18:11 100 MLS/HR Doxycycline Hyclate 100 ml @ 50 mls/hr Q12H IV 09/15/24 16:30 09/19/24 16:29 50 MLS/HR Guaifenesin/ Dextromethorphan 10 ml Q6HPRN PRN PO 09/18/24 13:15 09/18/24 13:51 10 ML Ipratropium [place] 0.5 mg Q6HPRN PRN NEB 09/19/24 12:30 Levalbuterol HCl 0.625 mg Q6HPRN PRN NEB 09/19/24 12:30 Vancomycin HCl 200 ml @ 200 mls/hr Q10H IV 09/19/24 23:00 laboratory and microbiology Laboratory Tests 09/19/24 00:40 09/18/24 07:32 09/17/24 06:47 Test 09/17/24 06:47 Range/Units Serum Glucose 121 H 74-106 mg/dL Assessment/Plan Impression: Acute hypoxic respiratory failure Dependence on supplemental oxygen Pneumonia, multifocal Pulmonary embolism Atelectasis Pulmonary edema Hemorrhoids Patient seen and examined Events: Increasing oxygen requirements On 10 LPM Oxymask Persistent infiltrates seen on cxr Plan: Continue antibiotics F/u cultures and ID Continue bronchodilators steroids Diurese Monitor renal function Monitor electrolytes Supplement as necessary Monitor ins and outs Monitor hemoglobin Recommend family discussion regarding goals of care DVT prophylaxis Dietary Evaluation Review Recommendations by RD: Protein Supplementation Comments: 1) Initiate Ensure qd; Encourage optimal PO intake 2) Refer to outpatient RD for weight management 3) Follow-up with cardiology, pulmonology, and gastroenterology 4) Continue to monitor I&O, labs, and skin integrity Expected Outcomes/Goals: 1) appetite and labs to improve 2) follow-up in 3-5 days Plan discussed with: Patient TARUN DOSHI MD September 19, 2024 20:35
[2024-09-20] VITALS (12 sets, daily range): BP systolic 116–136; BP diastolic 65–90; PULSE 73–99; RESP 16–20; TEMP 97.8–98.6; O2SAT 93–100
[2024-09-20] MEDS: VANCOMYCIN 1GM/200ML PM 200 ML IV SCH (01:28)
[2024-09-20 06:27] LABS: Basophils # (auto) 0.1 10 ^3/uL (0-0.2); Basophils % (auto) 0.3 % (0.0-2.0); Eosinophils # (auto) 0 10 ^3/uL (0-0.8); Hemoglobin 9.9 g/dL (13.5-17.5); Mean Corpuscular Hemoglobin 29.4 pg (28.0-32.0); Monocytes # (auto) 0.1 10 ^3/uL (0-1.3); Monocytes % (auto) 0.7 % (0.0-12.0); Neutrophils # (auto) 13.2 10 ^3/uL (1.6-8.6); Platelet Count (auto) 120 10^3/uL (140-450); Red Blood Cells 3.37 10^6/uL (4.5-5.90); Red Cell Distribution Width 16.5 % (11.8-14.3); White Blood Cell 19.5 10^3/uL (4.4-10.8)
[2024-09-20] MEDS: FUROSEMIDE 40 MG/4 ML VIAL IV SCH (14:00)
--- NOTE | 2024-09-20 14:20 | DVHPN2 ---
Progress Note - Dictate Date Seen: September 20, 2024 Medical Necessity Reason Pt with a Central, PICC or Fol: No vital signs Vital Sign Date Time Temp Pulse Resp B/P (MAP) Pulse Ox O2 Delivery O2 Flow Rate FiO2 09/20/24 12:45 97.9 80 16 121/65 (83) 94 97.9 09/20/24 08:10 Hi-Flow [place] 6 N/A Total Intake and Output 09/19/24 09/19/24 09/20/24 15:00 23:00 07:00 Intake Total 440 ml 670 ml 700 ml Output Total 100 ml Balance 340 ml 670 ml 700 ml medications Current Medications Medications Dose Ordered Sig/Jaden Route Start Time Stop Time Status Last Admin Dose Admin Methylprednisolone Sodium Succinate 40 mg BID IV 08/31/24 10:00 09/20/24 09:24 40 MG Lidocaine HCl 10 ml Q4HP PRN MT 08/31/24 07:00 09/05/24 21:40 10 ML Pantoprazole Sodium 40 mg DAILY@0600 PO 09/03/24 06:00 Hold 09/08/24 05:55 40 MG Magnesium Oxide 800 mg BID PO 09/02/24 22:00 09/20/24 09:25 800 MG Patient Own Medication 1 DAILY PO 09/04/24 10:00 09/20/24 09:25 1 Sodium Chloride 10 ml QSHIFT@10,22 IV 09/03/24 22:00 09/20/24 09:26 10 ML Lorazepam 0.5 mg Q6HP PRN IV 09/08/24 09:00 09/19/24 13:04 0.5 MG Ondansetron HCl 4 mg Q4HPRN PRN IV 09/08/24 09:00 Sodium Chloride 1 spr QID PRN EACHNOSTRI 09/10/24 20:00 09/13/24 10:01 1 SPR Acetaminophen/ Hydrocodone Bitart 1 tab Q6HPRN PRN PO 09/13/24 11:45 09/20/24 12:31 1 TAB Vancomycin HCl 0 ml @ 0 mls/hr UD IV 09/14/24 16:00 Micafungin Sodium 100 mg/Sodium Chloride 100 ml @ 100 mls/hr DAILY@1700 IV 09/15/24 17:00 09/19/24 18:11 100 MLS/HR Doxycycline Hyclate 100 ml @ 50 mls/hr Q12H IV 09/15/24 16:30 09/20/24 04:32 50 MLS/HR Guaifenesin/ Dextromethorphan 10 ml Q6HPRN PRN PO 09/18/24 13:15 09/18/24 13:51 10 ML Ipratropium [place] 0.5 mg Q6HPRN PRN NEB 09/19/24 12:30 Levalbuterol HCl 0.625 mg Q6HPRN PRN NEB 09/19/24 12:30 Vancomycin HCl 200 ml @ 200 mls/hr Q10H IV 09/19/24 23:00 09/20/24 09:24 200 MLS/HR Furosemide 40 mg DAILY IV 09/20/24 14:00 laboratory and microbiology Laboratory Tests 09/20/24 04:56 09/17/24 06:47 Test 09/17/24 06:47 Range/Units Serum Glucose 121 H 74-106 mg/dL Assessment/Plan Impression: Acute hypoxic respiratory failure Dependence on supplemental oxygen Pneumonia, multifocal Pulmonary embolism Atelectasis Pulmonary edema Hemorrhoids Patient seen and examined Events: On 10 LPM Oxymask Persistent infiltrates seen on cxr No acute events Plan: Continue antibiotics F/u cultures and ID Continue bronchodilators steroids Diurese Monitor renal function Monitor electrolytes Supplement as necessary Monitor ins and outs Monitor hemoglobin Recommend family discussion regarding goals of care DVT prophylaxis Dietary Evaluation Review Recommendations by RD: Protein Supplementation Comments: 1) Initiate Ensure qd; Encourage optimal PO intake 2) Refer to outpatient RD for weight management 3) Follow-up with cardiology, pulmonology, and gastroenterology 4) Continue to monitor I&O, labs, and skin integrity Expected Outcomes/Goals: 1) appetite and labs to improve 2) follow-up in 3-5 days Plan discussed with: Patient TARUN DOSHI MD September 20, 2024 14:20
[2024-09-21] VITALS (10 sets, daily range): BP systolic 112–137; BP diastolic 61–87; PULSE 83–97; RESP 17–20; TEMP 97.4–98; O2SAT 94–99
--- NOTE | 2024-09-21 06:42 | DVHPN2 ---
Reviewed: Care Plan, H&P, Labs, Medications, Previous Orders, Radiology Changes from previous H/P or p: No Changes General: Per HPI Objective Vitals Vital Signs Date Time Temp Pulse Resp B/P (MAP) Pulse Ox O2 Delivery O2 Flow Rate FiO2 09/21/24 05:00 97.9 89 17 131/87 (102) 96 97.9 09/20/24 20:57 Hi-Flow NC 6 N/A Intake/Output Intake and Output 09/21/24 07:00 Intake Total 575 ml Output Total 610 ml Balance -35 ml Intake Oral 275 ml IV Total 300 ml Output Urine Total 610 ml # Voids 2 # Bowel Movements 1 General Appearance: Alert, Oriented X3 Lungs: Other (diminished) Cardiovascular: Regular rate, Normal S1, Normal S2 Abdomen: Normal bowel sounds, Soft Medications Current Medications Medications Dose Ordered Sig/Jaden Route Start Time Stop Time Status Last Admin Dose Admin Methylprednisolone Sodium Succinate 40 mg BID IV 08/31/24 10:00 09/20/24 22:10 40 MG Lidocaine HCl 10 ml Q4HP PRN MT 08/31/24 07:00 09/05/24 21:40 10 ML Pantoprazole Sodium 40 mg DAILY@0600 PO 09/03/24 06:00 Hold 09/08/24 05:55 40 MG Magnesium Oxide 800 mg BID PO 09/02/24 22:00 09/20/24 22:10 800 MG Patient Own Medication 1 DAILY PO 09/04/24 10:00 09/20/24 09:25 1 Sodium Chloride 10 ml QSHIFT@10,22 IV 09/03/24 22:00 09/20/24 22:10 10 ML Lorazepam 0.5 mg Q6HP PRN IV 09/08/24 09:00 09/21/24 01:04 0.5 MG Ondansetron HCl 4 mg Q4HPRN PRN IV 09/08/24 09:00 Sodium Chloride 1 spr QID PRN EACHNOSTRI 09/10/24 20:00 09/13/24 10:01 1 SPR Acetaminophen/ Hydrocodone Bitart 1 tab Q6HPRN PRN PO 09/13/24 11:45 09/20/24 12:31 1 TAB Vancomycin HCl 0 ml @ 0 mls/hr UD IV 09/14/24 16:00 Micafungin Sodium 100 mg/Sodium Chloride 100 ml @ 100 mls/hr DAILY@1700 IV 09/15/24 17:00 09/20/24 17:59 100 MLS/HR Doxycycline Hyclate 100 ml @ 50 mls/hr Q12H IV 09/15/24 16:30 09/21/24 04:17 50 MLS/HR Guaifenesin/ Dextromethorphan 10 ml Q6HPRN PRN PO 09/18/24 13:15 09/21/24 05:23 10 ML Ipratropium [place] 0.5 mg Q6HPRN PRN NEB 09/19/24 12:30 Levalbuterol HCl 0.625 mg Q6HPRN PRN NEB 09/19/24 12:30 Vancomycin HCl 200 ml @ 200 mls/hr Q10H IV 09/19/24 23:00 09/20/24 18:54 200 MLS/HR Furosemide 40 mg DAILY IV 09/20/24 14:00 Laboratory Results Laboratory Tests 09/17/24 06:47 09/20/24 04:56 09/21/24 05:06 Urinalysis Test 08/31/24 04:35 Urine Color Light-yellow (Yellow) Urine Clarity Clear (Clear) Urine pH 7.0 (5.0-9.0) Urine Specific [place] 1.045 (1.001-1.035) Urine Protein Negative (Negative) Urine Ketones Negative (Negative) Urine Blood Negative /uL (Negative) Urine Nitrite Negative (Negative) Urine Bilirubin Negative (Negative) Urine Urobilinogen Normal mg/dL (Negative) Urine Leukocyte Esterase Negative /uL (Negative) Urine RBC 1 /hpf (0 - 3) Urine Microscopic WBC 1 /HPF (0-3) Urine Squamous Epithelial Cells Few /hpf (<5) Urine Bacteria None seen /hpf (None Seen) Urine Glucose Normal mg/dL (Normal) Microbiology Microbiology Date/Time Source Procedure Growth Status 08/31/24 04:35 Voided Urine Urine Culture - Final Complete 08/31/24 03:20 Nose MRSA Screen - Final Complete 08/30/24 23:30 Blood Blood Culture - Final NO GROWTH AFTER 5 DAYS OF INCUBATION. Complete Assessment/Plan Assessment/Plan Acute on chronic respiratory failure Sepsis secondary to pneumonia Multifocal pneumonia Gram-positive/Gram-negative Pulmonary embolism DVT Lymphoma currently under no chemotherapy Thrombocytopenia Normocytic anemia Oral thrush Moderate protein malnutrition- Dietary Consult Rectal bleed with hemorrhoid, c/w o2 supp maintain spo2 >90 Continuing current management. Continuing IV antibiotic and antifungal DC lovenox Appreciate GI input Local treatment of hemorrhoid with cream Not safe to transfer per [facility] due to high oxygen demands 09/18/2024: discussed with daughter and pt at bedside pt is concerned "a hole in my lung" when he was at [facility]. likely referring to a chest tube placement answered all questions by daughters and patient pt asked questions regarding his care at [facility], which I could not confirm as this is from outside hospital pt was on 15 liter oxymizer and weaning down as tolerated Plan discussed with: Patient My Orders Orders - JORDAN WHITAKER DO Procedure Category Date Status Time Furosemide Injection PHA 09/20/24 In Process (Lasix Injection) 14:00 Date of Service: September 18, 2024 Billing Provider: JORDAN WHITAKER DO Common Visit Codes: [id number] INP/OBS CARE(HIGH) JORDAN WHITAKER DO September 21, 2024 06:42
--- NOTE | 2024-09-21 06:44 | DVHPN2 ---
Reviewed: Care Plan, H&P, Labs, Medications, Previous Orders, Radiology Changes from previous H/P or p: No Changes General: Per HPI Objective Vitals Vital Signs Date Time Temp Pulse Resp B/P (MAP) Pulse Ox O2 Delivery O2 Flow Rate FiO2 09/21/24 05:00 97.9 89 17 131/87 (102) 96 97.9 09/20/24 20:57 Hi-Flow NC 6 N/A Intake/Output Intake and Output 09/21/24 07:00 Intake Total 575 ml Output Total 610 ml Balance -35 ml Intake Oral 275 ml IV Total 300 ml Output Urine Total 610 ml # Voids 2 # Bowel Movements 1 General Appearance: Alert, Oriented X3 Lungs: Other (diminished) Cardiovascular: Regular rate, Normal S1, Normal S2 Abdomen: Normal bowel sounds, Soft Medications Current Medications Medications Dose Ordered Sig/Jaden Route Start Time Stop Time Status Last Admin Dose Admin Methylprednisolone Sodium Succinate 40 mg BID IV 08/31/24 10:00 09/20/24 22:10 40 MG Lidocaine HCl 10 ml Q4HP PRN MT 08/31/24 07:00 09/05/24 21:40 10 ML Pantoprazole Sodium 40 mg DAILY@0600 PO 09/03/24 06:00 Hold 09/08/24 05:55 40 MG Magnesium Oxide 800 mg BID PO 09/02/24 22:00 09/20/24 22:10 800 MG Patient Own Medication 1 DAILY PO 09/04/24 10:00 09/20/24 09:25 1 Sodium Chloride 10 ml QSHIFT@10,22 IV 09/03/24 22:00 09/20/24 22:10 10 ML Lorazepam 0.5 mg Q6HP PRN IV 09/08/24 09:00 09/21/24 01:04 0.5 MG Ondansetron HCl 4 mg Q4HPRN PRN IV 09/08/24 09:00 Sodium Chloride 1 spr QID PRN EACHNOSTRI 09/10/24 20:00 09/13/24 10:01 1 SPR Acetaminophen/ Hydrocodone Bitart 1 tab Q6HPRN PRN PO 09/13/24 11:45 09/20/24 12:31 1 TAB Vancomycin HCl 0 ml @ 0 mls/hr UD IV 09/14/24 16:00 Micafungin Sodium 100 mg/Sodium Chloride 100 ml @ 100 mls/hr DAILY@1700 IV 09/15/24 17:00 09/20/24 17:59 100 MLS/HR Doxycycline Hyclate 100 ml @ 50 mls/hr Q12H IV 09/15/24 16:30 09/21/24 04:17 50 MLS/HR Guaifenesin/ Dextromethorphan 10 ml Q6HPRN PRN PO 09/18/24 13:15 09/21/24 05:23 10 ML Ipratropium [place] 0.5 mg Q6HPRN PRN NEB 09/19/24 12:30 Levalbuterol HCl 0.625 mg Q6HPRN PRN NEB 09/19/24 12:30 Vancomycin HCl 200 ml @ 200 mls/hr Q10H IV 09/19/24 23:00 09/20/24 18:54 200 MLS/HR Furosemide 40 mg DAILY IV 09/20/24 14:00 Laboratory Results Laboratory Tests 09/17/24 06:47 09/20/24 04:56 09/21/24 05:06 Urinalysis Test 08/31/24 04:35 Urine Color Light-yellow (Yellow) Urine Clarity Clear (Clear) Urine pH 7.0 (5.0-9.0) Urine Specific [place] 1.045 (1.001-1.035) Urine Protein Negative (Negative) Urine Ketones Negative (Negative) Urine Blood Negative /uL (Negative) Urine Nitrite Negative (Negative) Urine Bilirubin Negative (Negative) Urine Urobilinogen Normal mg/dL (Negative) Urine Leukocyte Esterase Negative /uL (Negative) Urine RBC 1 /hpf (0 - 3) Urine Microscopic WBC 1 /HPF (0-3) Urine Squamous Epithelial Cells Few /hpf (<5) Urine Bacteria None seen /hpf (None Seen) Urine Glucose Normal mg/dL (Normal) Microbiology Microbiology Date/Time Source Procedure Growth Status 08/31/24 04:35 Voided Urine Urine Culture - Final Complete 08/31/24 03:20 Nose MRSA Screen - Final Complete 08/30/24 23:30 Blood Blood Culture - Final NO GROWTH AFTER 5 DAYS OF INCUBATION. Complete Assessment/Plan Assessment/Plan Acute on chronic respiratory failure Sepsis secondary to pneumonia Multifocal pneumonia Gram-positive/Gram-negative Pulmonary embolism DVT Lymphoma currently under no chemotherapy Thrombocytopenia Normocytic anemia Oral thrush Moderate protein malnutrition- Dietary Consult Rectal bleed with hemorrhoid, c/w o2 supp maintain spo2 >90 Continuing current management. Continuing IV antibiotic and antifungal DC lovenox Appreciate GI input Local treatment of hemorrhoid with cream Not safe to transfer per [facility] due to high oxygen demands 09/18/2024: discussed with daughter and pt at bedside pt is concerned "a hole in my lung" when he was at [facility]. likely referring to a chest tube placement answered all questions by daughters and patient pt asked questions regarding his care at [facility], which I could not confirm as this is from outside hospital pt was on 15 liter oxymizer and weaning down as tolerated 09/19/2024: pt is improving weaning down to just 4-5 liters but still on oxymizer 09/20/2024: pt is now on just 4 liter NC but during PT, pt desats, and needed to increase to 7 liters for transfer, pt is stable if still needs to be transferred Plan discussed with: Patient My Orders Orders - JORDAN WHITAKER DO Procedure Category Date Status Time Furosemide Injection PHA 09/20/24 In Process (Lasix Injection) 14:00 Date of Service: September 20, 2024 Billing Provider: JORDAN WHITAKER DO Common Visit Codes: [id number] INP/OBS CARE(HIGH) JORDAN WHITAKER DO September 21, 2024 06:44
[2024-09-21] MEDS: FUROSEMIDE 40 MG/4 ML VIAL IV ONE (11:00)
--- NOTE | 2024-09-21 16:28 | DVHPN2 ---
Progress Note - Dictate Date Seen: September 21, 2024 Medical Necessity Reason Pt with a Central, PICC or Fol: No vital signs Vital Sign Date Time Temp Pulse Resp B/P (MAP) Pulse Ox O2 Delivery O2 Flow Rate FiO2 09/21/24 13:00 97.9 87 20 115/61 (79) 94 97.9 09/21/24 08:00 Hi-Flow NC 6 N/A Total Intake and Output 09/20/24 09/20/24 09/21/24 15:00 23:00 07:00 Intake Total 200 ml 100 ml 375 ml Output Total 260 ml 350 ml Balance 200 ml -160 ml 25 ml medications Current Medications Medications Dose Ordered Sig/Jaden Route Start Time Stop Time Status Last Admin Dose Admin Methylprednisolone Sodium Succinate 40 mg BID IV 08/31/24 10:00 09/21/24 10:48 40 MG Lidocaine HCl 10 ml Q4HP PRN MT 08/31/24 07:00 09/05/24 21:40 10 ML Pantoprazole Sodium 40 mg DAILY@0600 PO 09/03/24 06:00 Hold 09/08/24 05:55 40 MG Magnesium Oxide 800 mg BID PO 09/02/24 22:00 09/21/24 10:47 800 MG Patient Own Medication 1 DAILY PO 09/04/24 10:00 09/21/24 10:48 1 Sodium Chloride 10 ml QSHIFT@10,22 IV 09/03/24 22:00 09/21/24 10:49 10 ML Lorazepam 0.5 mg Q6HP PRN IV 09/08/24 09:00 09/21/24 01:04 0.5 MG Ondansetron HCl 4 mg Q4HPRN PRN IV 09/08/24 09:00 Sodium Chloride 1 spr QID PRN EACHNOSTRI 09/10/24 20:00 09/13/24 10:01 1 SPR Acetaminophen/ Hydrocodone Bitart 1 tab Q6HPRN PRN PO 09/13/24 11:45 09/20/24 12:31 1 TAB Vancomycin HCl 0 ml @ 0 mls/hr UD IV 09/14/24 16:00 Micafungin Sodium 100 mg/Sodium Chloride 100 ml @ 100 mls/hr DAILY@1700 IV 09/15/24 17:00 09/20/24 17:59 100 MLS/HR Doxycycline Hyclate 100 ml @ 50 mls/hr Q12H IV 09/15/24 16:30 09/21/24 15:37 50 MLS/HR Guaifenesin/ Dextromethorphan 10 ml Q6HPRN PRN PO 09/18/24 13:15 09/21/24 05:23 10 ML Ipratropium [place] 0.5 mg Q6HPRN PRN NEB 09/19/24 12:30 Levalbuterol HCl 0.625 mg Q6HPRN PRN NEB 09/19/24 12:30 Vancomycin HCl 200 ml @ 200 mls/hr Q10H IV 09/19/24 23:00 09/21/24 15:39 200 MLS/HR Furosemide 40 mg DAILY IV 09/22/24 10:00 laboratory and microbiology Laboratory Tests 09/21/24 05:06 09/20/24 04:56 09/17/24 06:47 Test 09/17/24 06:47 Range/Units Serum Glucose 121 H 74-106 mg/dL Assessment/Plan Impression: Acute hypoxic respiratory failure Dependence on supplemental oxygen Pneumonia, multifocal Pulmonary embolism Atelectasis Pulmonary edema Hemorrhoids Patient seen and examined Events: On 8-10 LPM Oxymask Chest x-ray shows bilateral unresolving infiltrates Plan: Continue antibiotics F/u cultures and ID Continue bronchodilators steroids Diurese Monitor renal function Monitor electrolytes Supplement as necessary Monitor ins and outs Monitor hemoglobin Recommend family discussion regarding goals of care May require LTACH placement DVT prophylaxis Dietary Evaluation Review Recommendations by RD: Protein Supplementation Comments: 1) Initiate Ensure qd; Encourage optimal PO intake 2) Refer to outpatient RD for weight management 3) Follow-up with cardiology, pulmonology, and gastroenterology 4) Continue to monitor I&O, labs, and skin integrity Expected Outcomes/Goals: 1) appetite and labs to improve 2) follow-up in 3-5 days Plan discussed with: Patient TARUN DOSHI MD September 21, 2024 16:28
--- NOTE | 2024-09-21 19:46 | DVHPN2 ---
Subjective oxygen at 6L Reviewed: Care Plan, H&P, Labs, Medications, Previous Orders, Radiology Changes from previous H/P or p: No Changes General: Per HPI Objective Vitals Vital Signs Date Time Temp Pulse Resp B/P (MAP) Pulse Ox O2 Delivery O2 Flow Rate FiO2 09/21/24 17:00 98.0 96 20 137/82 (100) 94 98.0 09/21/24 08:00 Hi-Flow NC 6 N/A Intake/Output Intake and Output 09/21/24 07:00 Intake Total 675 ml Output Total 610 ml Balance 65 ml Intake Oral 275 ml IV Total 400 ml Output Urine Total 610 ml # Voids 2 # Bowel Movements 1 General Appearance: Alert, Oriented X3 Lungs: Other (diminished) Cardiovascular: Regular rate, Normal S1, Normal S2 Abdomen: Normal bowel sounds, Soft Medications Current Medications Medications Dose Ordered Sig/Jaden Route Start Time Stop Time Status Last Admin Dose Admin Methylprednisolone Sodium Succinate 40 mg BID IV 08/31/24 10:00 09/21/24 10:48 40 MG Lidocaine HCl 10 ml Q4HP PRN MT 08/31/24 07:00 09/05/24 21:40 10 ML Pantoprazole Sodium 40 mg DAILY@0600 PO 09/03/24 06:00 Hold 09/08/24 05:55 40 MG Magnesium Oxide 800 mg BID PO 09/02/24 22:00 09/21/24 10:47 800 MG Patient Own Medication 1 DAILY PO 09/04/24 10:00 09/21/24 10:48 1 Sodium Chloride 10 ml QSHIFT@10,22 IV 09/03/24 22:00 09/21/24 10:49 10 ML Lorazepam 0.5 mg Q6HP PRN IV 09/08/24 09:00 09/21/24 01:04 0.5 MG Ondansetron HCl 4 mg Q4HPRN PRN IV 09/08/24 09:00 Sodium Chloride 1 spr QID PRN EACHNOSTRI 09/10/24 20:00 09/13/24 10:01 1 SPR Acetaminophen/ Hydrocodone Bitart 1 tab Q6HPRN PRN PO 09/13/24 11:45 09/20/24 12:31 1 TAB Vancomycin HCl 0 ml @ 0 mls/hr UD IV 09/14/24 16:00 Micafungin Sodium 100 mg/Sodium Chloride 100 ml @ 100 mls/hr DAILY@1700 IV 09/15/24 17:00 09/21/24 17:11 100 MLS/HR Doxycycline Hyclate 100 ml @ 50 mls/hr Q12H IV 09/15/24 16:30 09/21/24 15:37 50 MLS/HR Guaifenesin/ Dextromethorphan 10 ml Q6HPRN PRN PO 09/18/24 13:15 09/21/24 17:12 10 ML Ipratropium [place] 0.5 mg Q6HPRN PRN NEB 09/19/24 12:30 Levalbuterol HCl 0.625 mg Q6HPRN PRN NEB 09/19/24 12:30 Vancomycin HCl 200 ml @ 200 mls/hr Q10H IV 09/19/24 23:00 09/21/24 15:39 200 MLS/HR Furosemide 40 mg DAILY IV 09/22/24 10:00 Laboratory Results Laboratory Tests 09/17/24 06:47 09/20/24 04:56 09/21/24 05:06 Urinalysis Test 08/31/24 04:35 Urine Color Light-yellow (Yellow) Urine Clarity Clear (Clear) Urine pH 7.0 (5.0-9.0) Urine Specific [place] 1.045 (1.001-1.035) Urine Protein Negative (Negative) Urine Ketones Negative (Negative) Urine Blood Negative /uL (Negative) Urine Nitrite Negative (Negative) Urine Bilirubin Negative (Negative) Urine Urobilinogen Normal mg/dL (Negative) Urine Leukocyte Esterase Negative /uL (Negative) Urine RBC 1 /hpf (0 - 3) Urine Microscopic WBC 1 /HPF (0-3) Urine Squamous Epithelial Cells Few /hpf (<5) Urine Bacteria None seen /hpf (None Seen) Urine Glucose Normal mg/dL (Normal) Microbiology Microbiology Date/Time Source Procedure Growth Status 08/31/24 04:35 Voided Urine Urine Culture - Final Complete 08/31/24 03:20 Nose MRSA Screen - Final Complete 08/30/24 23:30 Blood Blood Culture - Final NO GROWTH AFTER 5 DAYS OF INCUBATION. Complete Assessment/Plan Assessment/Plan Acute on chronic respiratory failure Sepsis secondary to pneumonia Multifocal pneumonia Gram-positive/Gram-negative Pulmonary embolism DVT Lymphoma currently under no chemotherapy Thrombocytopenia Normocytic anemia Oral thrush Moderate protein malnutrition- Dietary Consult Rectal bleed with hemorrhoid, c/w o2 supp maintain spo2 >90 Continuing current management. Continuing IV antibiotic and antifungal DC lovenox Appreciate GI input Local treatment of hemorrhoid with cream Not safe to transfer per [facility] due to high oxygen demands 09/18/2024: discussed with daughter and pt at bedside pt is concerned "a hole in my lung" when he was at [facility]. likely referring to a chest tube placement answered all questions by daughters and patient pt asked questions regarding his care at [facility], which I could not confirm as this is from outside hospital pt was on 15 liter oxymizer and weaning down as tolerated 09/19/2024: pt is improving weaning down to just 4-5 liters but still on oxymizer 09/20/2024: pt is now on just 4 liter NC but during PT, pt desats, and needed to increase to 7 liters for transfer, pt is stable if still needs to be transferred 09/21 Continues on 4-6 L a day Feeling better Plan discussed with: Patient My Orders Orders - PRAMOD BRAMBILA MD Procedure Category Date Status Time Complete Blood Count LAB 09/22/24 Verified 04:00 Creatinine LAB 09/22/24 Verified 04:00 Vancomycin,Trough LAB 09/23/24 Verified 16:00 Vancomycin Per IRVIN 09/21/24 In Process [facility] 09:39 Transfer Orders XFER 09/21/24 Transmitted 13:18 Date of Service: September 21, 2024 Billing Provider: PRAMOD BRAMBILA MD Common Visit Codes: [id number] INP/OBS CARE(HIGH) PRAMOD BRAMBILA MD September 21, 2024 19:46
[2024-09-22] VITALS (9 sets, daily range): BP systolic 107–137; BP diastolic 37–82; PULSE 80–102; RESP 18–32; TEMP 97.6–98.2; O2SAT 94–99
[2024-09-22 07:17] LABS: Basophils # (auto) 0 10 ^3/uL (0-0.2); Basophils % (auto) 0.2 % (0.0-2.0); Eosinophils # (auto) 0 10 ^3/uL (0-0.8); Hematocrit 31.6 % (41.0-53.0); Hemoglobin 10.4 g/dL (13.5-17.5); Lymphocytes # (auto) 4.5 10 ^3/uL (0.4-5.4); Lymphocytes % (auto) 22.5 % (10.0-50.0); Mean Corpuscular Hemoglobin 29.8 pg (28.0-32.0); Mean Corpuscular Volume 90.5 fL (80.0-100.0); Monocytes # (auto) 0.4 10 ^3/uL (0-1.3); Monocytes % (auto) 1.9 % (0.0-12.0); Neutrophils % (auto) 75.4 % (37.0-80.0); Nucleated Red Blood Cells % 0.1 %; Platelet Count (auto) 124 10^3/uL (140-450); Red Cell Distribution Width 17.1 % (11.8-14.3); White Blood Cell 19.9 10^3/uL (4.4-10.8)
[2024-09-22] MEDS: FUROSEMIDE 40 MG/4 ML VIAL IV SCH (09:46)
--- NOTE | 2024-09-22 10:13 | DVHPN2 ---
Progress Note - Dictate Date Seen: September 22, 2024 Medical Necessity Reason Pt with a Central, PICC or Fol: No vital signs Vital Sign Date Time Temp Pulse Resp B/P (MAP) Pulse Ox O2 Delivery O2 Flow Rate FiO2 09/22/24 09:46 107/62 09/22/24 09:00 97.6 84 18 97 97.6 09/21/24 20:00 Nasal Cannula* 6 44 Total Intake and Output 09/21/24 09/21/24 09/22/24 15:00 23:00 07:00 Intake Total 640 ml 1040 ml 550 ml Output Total 1500 ml Balance 640 ml -460 ml 550 ml medications Current Medications Medications Dose Ordered Sig/Jaden Route Start Time Stop Time Status Last Admin Dose Admin Methylprednisolone Sodium Succinate 40 mg BID IV 08/31/24 10:00 09/22/24 09:46 40 MG Lidocaine HCl 10 ml Q4HP PRN MT 08/31/24 07:00 09/05/24 21:40 10 ML Pantoprazole Sodium 40 mg DAILY@0600 PO 09/03/24 06:00 Hold 09/08/24 05:55 40 MG Magnesium Oxide 800 mg BID PO 09/02/24 22:00 09/22/24 09:46 800 MG Patient Own Medication 1 DAILY PO 09/04/24 10:00 09/22/24 09:52 1 Sodium Chloride 10 ml QSHIFT@10,22 IV 09/03/24 22:00 09/22/24 09:45 10 ML Lorazepam 0.5 mg Q6HP PRN IV 09/08/24 09:00 09/21/24 23:45 0.5 MG Ondansetron HCl 4 mg Q4HPRN PRN IV 09/08/24 09:00 Sodium Chloride 1 spr QID PRN EACHNOSTRI 09/10/24 20:00 09/13/24 10:01 1 SPR Acetaminophen/ Hydrocodone Bitart 1 tab Q6HPRN PRN PO 09/13/24 11:45 09/22/24 06:05 1 TAB Vancomycin HCl 0 ml @ 0 mls/hr UD IV 09/14/24 16:00 Micafungin Sodium 100 mg/Sodium Chloride 100 ml @ 100 mls/hr DAILY@1700 IV 09/15/24 17:00 09/21/24 17:11 100 MLS/HR Doxycycline Hyclate 100 ml @ 50 mls/hr Q12H IV 09/15/24 16:30 09/22/24 04:07 50 MLS/HR Guaifenesin/ Dextromethorphan 10 ml Q6HPRN PRN PO 09/18/24 13:15 09/22/24 04:55 10 ML Ipratropium [place] 0.5 mg Q6HPRN PRN NEB 09/19/24 12:30 Levalbuterol HCl 0.625 mg Q6HPRN PRN NEB 09/19/24 12:30 Vancomycin HCl 200 ml @ 200 mls/hr Q10H IV 09/19/24 23:00 09/22/24 00:50 200 MLS/HR Furosemide 40 mg DAILY IV 09/22/24 10:00 09/22/24 09:46 40 MG laboratory and microbiology Laboratory Tests 09/22/24 04:57 09/17/24 06:47 Test 09/17/24 06:47 Range/Units Serum Glucose 121 H 74-106 mg/dL Assessment/Plan Impression: Acute hypoxic respiratory failure Dependence on supplemental oxygen Pneumonia, multifocal Pulmonary embolism Atelectasis Pulmonary edema Hemorrhoids Patient seen and examined Events: On 5 LPM Oxymask Some improvement noted No distress Plan: Continue antibiotics F/u cultures and ID Continue bronchodilators steroids Diurese Monitor renal function Monitor electrolytes Supplement as necessary Monitor ins and outs Monitor hemoglobin May require LTACH placement DVT prophylaxis Dietary Evaluation Review Recommendations by RD: Protein Supplementation Comments: 1) Initiate Ensure qd; Encourage optimal PO intake 2) Refer to outpatient RD for weight management 3) Follow-up with cardiology, pulmonology, and gastroenterology 4) Continue to monitor I&O, labs, and skin integrity Expected Outcomes/Goals: 1) appetite and labs to improve 2) follow-up in 3-5 days Plan discussed with: Patient TARUN DOSHI MD September 22, 2024 10:13
--- NOTE | 2024-09-22 17:53 | DVHPN2 ---
Subjective oxygen at 6L Reviewed: Care Plan, H&P, Labs, Medications, Previous Orders, Radiology Changes from previous H/P or p: No Changes General: Per HPI Objective Vitals Vital Signs Date Time Temp Pulse Resp B/P (MAP) Pulse Ox O2 Delivery O2 Flow Rate FiO2 09/22/24 13:00 97.8 83 18 126/77 (93) 94 97.8 09/22/24 08:00 Hi-Flow NC 6 N/A Intake/Output Intake and Output 09/22/24 07:00 Intake Total 2230 ml Output Total 1500 ml Balance 730 ml Intake Oral 1330 ml IV Total 900 ml Output Urine Total 1500 ml # Voids 1 # Bowel Movements 1 General Appearance: Alert, Oriented X3 Lungs: Other (diminished) Cardiovascular: Regular rate, Normal S1, Normal S2 Abdomen: Normal bowel sounds, Soft Medications Current Medications Medications Dose Ordered Sig/Jaden Route Start Time Stop Time Status Last Admin Dose Admin Methylprednisolone Sodium Succinate 40 mg BID IV 08/31/24 10:00 09/22/24 09:46 40 MG Lidocaine HCl 10 ml Q4HP PRN MT 08/31/24 07:00 09/22/24 10:35 10 ML Pantoprazole Sodium 40 mg DAILY@0600 PO 09/03/24 06:00 Hold 09/08/24 05:55 40 MG Magnesium Oxide 800 mg BID PO 09/02/24 22:00 09/22/24 09:46 800 MG Patient Own Medication 1 DAILY PO 09/04/24 10:00 09/22/24 09:52 1 Sodium Chloride 10 ml QSHIFT@10,22 IV 09/03/24 22:00 09/22/24 09:45 10 ML Lorazepam 0.5 mg Q6HP PRN IV 09/08/24 09:00 09/21/24 23:45 0.5 MG Ondansetron HCl 4 mg Q4HPRN PRN IV 09/08/24 09:00 Sodium Chloride 1 spr QID PRN EACHNOSTRI 09/10/24 20:00 09/13/24 10:01 1 SPR Vancomycin HCl 0 ml @ 0 mls/hr UD IV 09/14/24 16:00 Micafungin Sodium 100 mg/Sodium Chloride 100 ml @ 100 mls/hr DAILY@1700 IV 09/15/24 17:00 09/21/24 17:11 100 MLS/HR Doxycycline Hyclate 100 ml @ 50 mls/hr Q12H IV 09/15/24 16:30 09/22/24 15:20 50 MLS/HR Guaifenesin/ Dextromethorphan 10 ml Q6HPRN PRN PO 09/18/24 13:15 09/22/24 04:55 10 ML Ipratropium [place] 0.5 mg Q6HPRN PRN NEB 09/19/24 12:30 Levalbuterol HCl 0.625 mg Q6HPRN PRN NEB 09/19/24 12:30 Vancomycin HCl 200 ml @ 200 mls/hr Q10H IV 09/19/24 23:00 09/22/24 10:26 200 MLS/HR Furosemide 40 mg DAILY IV 09/22/24 10:00 09/22/24 09:46 40 MG Laboratory Results Laboratory Tests 09/17/24 06:47 09/22/24 04:57 Urinalysis Test 08/31/24 04:35 Urine Color Light-yellow (Yellow) Urine Clarity Clear (Clear) Urine pH 7.0 (5.0-9.0) Urine Specific [place] 1.045 (1.001-1.035) Urine Protein Negative (Negative) Urine Ketones Negative (Negative) Urine Blood Negative /uL (Negative) Urine Nitrite Negative (Negative) Urine Bilirubin Negative (Negative) Urine Urobilinogen Normal mg/dL (Negative) Urine Leukocyte Esterase Negative /uL (Negative) Urine RBC 1 /hpf (0 - 3) Urine Microscopic WBC 1 /HPF (0-3) Urine Squamous Epithelial Cells Few /hpf (<5) Urine Bacteria None seen /hpf (None Seen) Urine Glucose Normal mg/dL (Normal) Microbiology Microbiology Date/Time Source Procedure Growth Status 08/31/24 04:35 Voided Urine Urine Culture - Final Complete 08/31/24 03:20 Nose MRSA Screen - Final Complete 08/30/24 23:30 Blood Blood Culture - Final NO GROWTH AFTER 5 DAYS OF INCUBATION. Complete Assessment/Plan Assessment/Plan Acute on chronic respiratory failure Sepsis secondary to pneumonia Multifocal pneumonia Gram-positive/Gram-negative Pulmonary embolism DVT Lymphoma currently under no chemotherapy Thrombocytopenia Normocytic anemia Oral thrush Moderate protein malnutrition- Dietary Consult Rectal bleed with hemorrhoid, c/w o2 supp maintain spo2 >90 Continuing current management. Continuing IV antibiotic and antifungal DC lovenox Appreciate GI input Local treatment of hemorrhoid with cream Not safe to transfer per [place] due to high oxygen demands 09/18/2024: discussed with daughter and pt at bedside pt is concerned "a hole in my lung" when he was at [place]. likely referring to a chest tube placement answered all questions by daughters and patient pt asked questions regarding his care at [place], which I could not confirm as this is from outside hospital pt was on 15 liter oxymizer and weaning down as tolerated 09/19/2024: pt is improving weaning down to just 4-5 liters but still on oxymizer 09/20/2024: pt is now on just 4 liter NC but during PT, pt desats, and needed to increase to 7 liters for transfer, pt is stable if still needs to be transferred 09/21 Continues on 4-6 L a day Feeling better Plan discussed with: Patient My Orders Orders - PRAMOD BRAMBILA MD Procedure Category Date Status Time Complete Blood Count LAB 09/23/24 Verified 04:00 Creatinine LAB 09/23/24 Verified 04:00 Date of Service: September 22, 2024 Billing Provider: PRAMOD BRAMBILA MD Common Visit Codes: [id number] INP/OBS CARE(HIGH) PRAMOD BRAMBILA MD September 22, 2024 17:53
[2024-09-22] MEDS ORDERED: hydrALAZINE HCL 20 MG/ML VL IV PRN (18:45)
[2024-09-22] MEDS: HYDROcodone-ACET 5/325MG TAB PO PRN (19:02)
--- NOTE | 2024-09-22 23:01 | DVHPN2 ---
Progress Note - Dictate Date Seen: September 22, 2024 Medical Necessity Reason Pt with a Central, PICC or Fol: No Subjective No new complaints; One bowel movements recordedThis morning Rectal bleeding resolved H/H stable at 9.8 Tolerating diet well On 6 L oximizer;O 2 sats 97 % vital signs Vital Sign Date Time Temp Pulse Resp B/P (MAP) Pulse Ox O2 Delivery O2 Flow Rate FiO2 09/22/24 20:44 98.2 102 32 132/82 (99) 97 98.2 09/22/24 20:00 Hi-Flow NC 6 N/A Total Intake and Output 09/21/24 09/21/24 09/22/24 15:00 23:00 07:00 Intake Total 640 ml 1040 ml 550 ml Output Total 1500 ml Balance 640 ml -460 ml 550 ml medications Current Medications Medications Dose Ordered Sig/Jaden Route Start Time Stop Time Status Last Admin Dose Admin Methylprednisolone Sodium Succinate 40 mg BID IV 08/31/24 10:00 09/22/24 21:22 40 MG Lidocaine HCl 10 ml Q4HP PRN MT 08/31/24 07:00 09/22/24 10:35 10 ML Pantoprazole Sodium 40 mg DAILY@0600 PO 09/03/24 06:00 Hold 09/08/24 05:55 40 MG Magnesium Oxide 800 mg BID PO 09/02/24 22:00 09/22/24 21:14 800 MG Patient Own Medication 1 DAILY PO 09/04/24 10:00 09/22/24 09:52 1 Sodium Chloride 10 ml QSHIFT@10,22 IV 09/03/24 22:00 09/22/24 21:22 10 ML Lorazepam 0.5 mg Q6HP PRN IV 09/08/24 09:00 09/21/24 23:45 0.5 MG Ondansetron HCl 4 mg Q4HPRN PRN IV 09/08/24 09:00 Sodium Chloride 1 spr QID PRN EACHNOSTRI 09/10/24 20:00 09/13/24 10:01 1 SPR Vancomycin HCl 0 ml @ 0 mls/hr UD IV 09/14/24 16:00 Micafungin Sodium 100 mg/Sodium Chloride 100 ml @ 100 mls/hr DAILY@1700 IV 09/15/24 17:00 09/22/24 17:47 100 MLS/HR Doxycycline Hyclate 100 ml @ 50 mls/hr Q12H IV 09/15/24 16:30 09/22/24 15:20 50 MLS/HR Guaifenesin/ Dextromethorphan 10 ml Q6HPRN PRN PO 09/18/24 13:15 09/22/24 21:14 10 ML Ipratropium [place] 0.5 mg Q6HPRN PRN NEB 09/19/24 12:30 Levalbuterol HCl 0.625 mg Q6HPRN PRN NEB 09/19/24 12:30 Vancomycin HCl 200 ml @ 200 mls/hr Q10H IV 09/19/24 23:00 09/22/24 21:13 200 MLS/HR Furosemide 40 mg DAILY IV 09/22/24 10:00 09/22/24 09:46 40 MG Acetaminophen/ Hydrocodone Bitart 1 tab Q6HPRN PRN PO 09/22/24 18:00 09/22/24 19:02 1 TAB Hydralazine HCl 10 mg Q6HP PRN IV 09/22/24 18:45 Cancel Docusate Sodium 100 mg BIDPRN PRN PO 09/22/24 20:00 objective General Appearance: Alert, Oriented X3 Lungs: Other (diminished); on high flow oxygen Cardiovascular: Regular rate, Normal S1, Normal S2 Abdomen: Normal bowel sounds, Soft laboratory and microbiology Laboratory Tests 09/22/24 04:57 09/17/24 06:47 Test 09/17/24 06:47 Range/Units Serum Glucose 121 H 74-106 mg/dL Problems(with codes): (1) S/P IVC filter (2) DVT (deep venous thrombosis) (3) Rectal bleeding (4) Pneumonia (5) Acute respiratory distress (6) Bilateral pulmonary embolism Prognosis PLAN Continue diet as tolerated Monitor labs on IV antibiotics and IV steroids Anticoagulants on hold; patient S/P IVC filter Local hemorrhoidal care ; Anusol HC suppositories as needed Outpatient elective colonoscopy at [place] once medically stabilized Dietary Evaluation Review Recommendations by RD: Protein Supplementation Comments: 1) Initiate Ensure qd; Encourage optimal PO intake 2) Refer to outpatient RD for weight management 3) Follow-up with cardiology, pulmonology, and gastroenterology 4) Continue to monitor I&O, labs, and skin integrity Expected Outcomes/Goals: 1) appetite and labs to improve 2) follow-up in 3-5 days Plan discussed with: Patient ELTON LEBLANC MD September 22, 2024 23:01
[2024-09-23] VITALS (9 sets, daily range): BP systolic 115–124; BP diastolic 70–79; PULSE 82–101; RESP 16–24; TEMP 97.6–98.3; O2SAT 94–100
[2024-09-23] MEDS: DOCUSATE SOD 100 MG CAP PO PRN (06:23)
[2024-09-23 09:09] LABS: Basophils # (auto) 0.1 10 ^3/uL (0-0.2); Basophils % (auto) 0.3 % (0.0-2.0); Eosinophils # (auto) 0 10 ^3/uL (0-0.8); Hematocrit 31.3 % (41.0-53.0); Hemoglobin 10.1 g/dL (13.5-17.5); Lymphocytes # (auto) 5.3 10 ^3/uL (0.4-5.4); Lymphocytes % (auto) 28.1 % (10.0-50.0); Mean Corpuscular Hemoglobin 29.5 pg (28.0-32.0); Mean Corpuscular Hgb Conc. 32.2 g/dL (32.0-36.0); Mean Corpuscular Volume 91.6 fL (80.0-100.0); Monocytes # (auto) 0.6 10 ^3/uL (0-1.3); Neutrophils # (auto) 12.8 10 ^3/uL (1.6-8.6); Neutrophils % (auto) 68.6 % (37.0-80.0); Nucleated Red Blood Cells % 0.1 %; Platelet Count (auto) 119 10^3/uL (140-450); Red Blood Cells 3.42 10^6/uL (4.5-5.90); Red Cell Distribution Width 17.6 % (11.8-14.3); White Blood Cell 18.7 10^3/uL (4.4-10.8)
--- NOTE | 2024-09-23 16:32 | DVHPN2 ---
Progress Note - Dictate Date Seen: September 23, 2024 Medical Necessity Reason Pt with a Central, PICC or Fol: No vital signs Vital Sign Date Time Temp Pulse Resp B/P (MAP) Pulse Ox O2 Delivery O2 Flow Rate FiO2 09/23/24 13:00 97.8 87 16 117/78 (91) 98 97.8 09/23/24 09:55 Nasal Cannula* 6 44 Total Intake and Output 09/22/24 09/22/24 09/23/24 15:00 23:00 07:00 Intake Total 610 ml 1490 ml 100 ml Balance 610 ml 1490 ml 100 ml medications Current Medications Medications Dose Ordered Sig/Jaden Route Start Time Stop Time Status Last Admin Dose Admin Methylprednisolone Sodium Succinate 40 mg BID IV 08/31/24 10:00 09/23/24 09:39 40 MG Lidocaine HCl 10 ml Q4HP PRN MT 08/31/24 07:00 09/22/24 10:35 10 ML Pantoprazole Sodium 40 mg DAILY@0600 PO 09/03/24 06:00 Hold 09/08/24 05:55 40 MG Magnesium Oxide 800 mg BID PO 09/02/24 22:00 09/23/24 09:39 800 MG Patient Own Medication 1 DAILY PO 09/04/24 10:00 09/23/24 09:40 1 Sodium Chloride 10 ml QSHIFT@10,22 IV 09/03/24 22:00 09/23/24 09:40 10 ML Lorazepam 0.5 mg Q6HP PRN IV 09/08/24 09:00 09/21/24 23:45 0.5 MG Ondansetron HCl 4 mg Q4HPRN PRN IV 09/08/24 09:00 Sodium Chloride 1 spr QID PRN EACHNOSTRI 09/10/24 20:00 09/13/24 10:01 1 SPR Vancomycin HCl 0 ml @ 0 mls/hr UD IV 09/14/24 16:00 Micafungin Sodium 100 mg/Sodium Chloride 100 ml @ 100 mls/hr DAILY@1700 IV 09/15/24 17:00 09/22/24 17:47 100 MLS/HR Doxycycline Hyclate 100 ml @ 50 mls/hr Q12H IV 09/15/24 16:30 09/23/24 15:28 50 MLS/HR Guaifenesin/ Dextromethorphan 10 ml Q6HPRN PRN PO 09/18/24 13:15 09/23/24 09:39 10 ML Ipratropium [place] 0.5 mg Q6HPRN PRN NEB 09/19/24 12:30 Levalbuterol HCl 0.625 mg Q6HPRN PRN NEB 09/19/24 12:30 Vancomycin HCl 200 ml @ 200 mls/hr Q10H IV 09/19/24 23:00 09/23/24 06:23 200 MLS/HR Furosemide 40 mg DAILY IV 09/22/24 10:00 09/23/24 09:40 40 MG Acetaminophen/ Hydrocodone Bitart 1 tab Q6HPRN PRN PO 09/22/24 18:00 09/23/24 12:36 1 TAB Hydralazine HCl 10 mg Q6HP PRN IV 09/22/24 18:45 Cancel Docusate Sodium 100 mg BIDPRN PRN PO 09/22/24 20:00 09/23/24 06:23 100 MG laboratory and microbiology Laboratory Tests 09/23/24 08:33 09/17/24 06:47 Test 09/17/24 06:47 Range/Units Serum Glucose 121 H 74-106 mg/dL Assessment/Plan Impression: Acute hypoxic respiratory failure Dependence on supplemental oxygen Pneumonia, multifocal Pulmonary embolism Atelectasis Pulmonary edema Hemorrhoids Patient seen and examined Events: On 5 LPM Oxymask Some improvement noted No acute events Plan: Continue antibiotics F/u cultures and ID Continue bronchodilators steroids Diurese Monitor renal function Monitor electrolytes Supplement as necessary Monitor ins and outs Monitor hemoglobin May require LTACH placement DVT prophylaxis Dietary Evaluation Review Recommendations by RD: Protein Supplementation Comments: 1) Initiate Ensure qd; Encourage optimal PO intake 2) Refer to outpatient RD for weight management 3) Follow-up with cardiology, pulmonology, and gastroenterology 4) Continue to monitor I&O, labs, and skin integrity Expected Outcomes/Goals: 1) appetite and labs to improve 2) follow-up in 3-5 days Plan discussed with: Patient TARUN DOSHI MD September 23, 2024 16:32
--- NOTE | 2024-09-23 21:06 | DVHPN2 ---
Subjective oxygen at 6L Reviewed: Care Plan, H&P, Labs, Medications, Previous Orders, Radiology Changes from previous H/P or p: No Changes General: Per HPI Objective Vitals Vital Signs Date Time Temp Pulse Resp B/P (MAP) Pulse Ox O2 Delivery O2 Flow Rate FiO2 09/23/24 18:11 96 Nasal Cannula* 6 44 09/23/24 16:37 97.6 101 18 124/70 (88) 97.6 Intake/Output Intake and Output 09/23/24 07:00 Intake Total 2200 ml Balance 2200 ml Intake Oral 1500 ml IV Total 700 ml # Voids 5 # Bowel Movements 1 General Appearance: Alert, Oriented X3 Lungs: Other (diminished) Cardiovascular: Regular rate, Normal S1, Normal S2 Abdomen: Normal bowel sounds, Soft Medications Current Medications Medications Dose Ordered Sig/Jaden Route Start Time Stop Time Status Last Admin Dose Admin Methylprednisolone Sodium Succinate 40 mg BID IV 08/31/24 10:00 09/23/24 09:39 40 MG Lidocaine HCl 10 ml Q4HP PRN MT 08/31/24 07:00 09/22/24 10:35 10 ML Pantoprazole Sodium 40 mg DAILY@0600 PO 09/03/24 06:00 Hold 09/08/24 05:55 40 MG Magnesium Oxide 800 mg BID PO 09/02/24 22:00 09/23/24 09:39 800 MG Patient Own Medication 1 DAILY PO 09/04/24 10:00 09/23/24 09:40 1 Sodium Chloride 10 ml QSHIFT@10,22 IV 09/03/24 22:00 09/23/24 09:40 10 ML Lorazepam 0.5 mg Q6HP PRN IV 09/08/24 09:00 09/21/24 23:45 0.5 MG Ondansetron HCl 4 mg Q4HPRN PRN IV 09/08/24 09:00 Sodium Chloride 1 spr QID PRN EACHNOSTRI 09/10/24 20:00 09/13/24 10:01 1 SPR Vancomycin HCl 0 ml @ 0 mls/hr UD IV 09/14/24 16:00 Micafungin Sodium 100 mg/Sodium Chloride 100 ml @ 100 mls/hr DAILY@1700 IV 09/15/24 17:00 09/23/24 18:36 100 MLS/HR Doxycycline Hyclate 100 ml @ 50 mls/hr Q12H IV 09/15/24 16:30 09/23/24 15:28 50 MLS/HR Guaifenesin/ Dextromethorphan 10 ml Q6HPRN PRN PO 09/18/24 13:15 09/23/24 18:36 10 ML Ipratropium [place] 0.5 mg Q6HPRN PRN NEB 09/19/24 12:30 Levalbuterol HCl 0.625 mg Q6HPRN PRN NEB 09/19/24 12:30 Vancomycin HCl 200 ml @ 200 mls/hr Q10H IV 09/19/24 23:00 09/23/24 17:30 200 MLS/HR Furosemide 40 mg DAILY IV 09/22/24 10:00 09/23/24 09:40 40 MG Acetaminophen/ Hydrocodone Bitart 1 tab Q6HPRN PRN PO 09/22/24 18:00 09/23/24 18:36 1 TAB Hydralazine HCl 10 mg Q6HP PRN IV 09/22/24 18:45 Cancel Docusate Sodium 100 mg BIDPRN PRN PO 09/22/24 20:00 09/23/24 06:23 100 MG Laboratory Results Laboratory Tests 09/17/24 06:47 09/23/24 08:33 Urinalysis Test 08/31/24 04:35 Urine Color Light-yellow (Yellow) Urine Clarity Clear (Clear) Urine pH 7.0 (5.0-9.0) Urine Specific [place] 1.045 (1.001-1.035) Urine Protein Negative (Negative) Urine Ketones Negative (Negative) Urine Blood Negative /uL (Negative) Urine Nitrite Negative (Negative) Urine Bilirubin Negative (Negative) Urine Urobilinogen Normal mg/dL (Negative) Urine Leukocyte Esterase Negative /uL (Negative) Urine RBC 1 /hpf (0 - 3) Urine Microscopic WBC 1 /HPF (0-3) Urine Squamous Epithelial Cells Few /hpf (<5) Urine Bacteria None seen /hpf (None Seen) Urine Glucose Normal mg/dL (Normal) Microbiology Microbiology Date/Time Source Procedure Growth Status 08/31/24 04:35 Voided Urine Urine Culture - Final Complete 08/31/24 03:20 Nose MRSA Screen - Final Complete 08/30/24 23:30 Blood Blood Culture - Final NO GROWTH AFTER 5 DAYS OF INCUBATION. Complete Assessment/Plan Assessment/Plan Acute on chronic respiratory failure Sepsis secondary to pneumonia Multifocal pneumonia Gram-positive/Gram-negative Pulmonary embolism DVT Lymphoma currently under no chemotherapy Thrombocytopenia Normocytic anemia Oral thrush Moderate protein malnutrition- Dietary Consult Rectal bleed with hemorrhoid, c/w o2 supp maintain spo2 >90 Continuing current management. Continuing IV antibiotic and antifungal DC lovenox Appreciate GI input Local treatment of hemorrhoid with cream Not safe to transfer per [facility] due to high oxygen demands 09/18/2024: discussed with daughter and pt at bedside pt is concerned "a hole in my lung" when he was at [facility]. likely referring to a chest tube placement answered all questions by daughters and patient pt asked questions regarding his care at [facility], which I could not confirm as this is from outside hospital pt was on 15 liter oxymizer and weaning down as tolerated 09/19/2024: pt is improving weaning down to just 4-5 liters but still on oxymizer 09/20/2024: pt is now on just 4 liter NC but during PT, pt desats, and needed to increase to 7 liters for transfer, pt is stable if still needs to be transferred 09/21 Continues on 4-6 L a day Feeling better Plan discussed with: Patient Date of Service: September 23, 2024 Billing Provider: PRAMOD BRAMBILA MD Common Visit Codes: [id number] INP/OBS CARE(HIGH) PRAMOD BRAMBILA MD September 23, 2024 21:06
[2024-09-24] VITALS (8 sets, daily range): BP systolic 112–134; BP diastolic 74–97; PULSE 80–103; RESP 17–18; TEMP 97.8–98.4; O2SAT 92–99
--- NOTE | 2024-09-24 19:06 | DVHPN2 ---
Subjective Down to 4L NC Reviewed: Care Plan, H&P, Labs, Medications, Previous Orders, Radiology Changes from previous H/P or p: No Changes General: Per HPI Objective Vitals Vital Signs Date Time Temp Pulse Resp B/P (MAP) Pulse Ox O2 Delivery O2 Flow Rate FiO2 09/24/24 17:01 98.4 93 17 118/86 (97) 94 98.4 09/24/24 08:00 Nasal Cannula* 4 36 Intake/Output Intake and Output 09/24/24 07:00 Intake Total 2865 ml Output Total 2251 ml Balance 614 ml Intake Oral 1965 ml IV Total 900 ml Output Urine Total 2250 ml Stool Total 1 ml # Bowel Movements 2 General Appearance: Alert, Oriented X3 Lungs: Other (diminished) Cardiovascular: Regular rate, Normal S1, Normal S2 Abdomen: Normal bowel sounds, Soft Medications Current Medications Medications Dose Ordered Sig/Jaden Route Start Time Stop Time Status Last Admin Dose Admin Methylprednisolone Sodium Succinate 40 mg BID IV 08/31/24 10:00 09/24/24 09:02 40 MG Lidocaine HCl 10 ml Q4HP PRN MT 08/31/24 07:00 09/22/24 10:35 10 ML Pantoprazole Sodium 40 mg DAILY@0600 PO 09/03/24 06:00 Hold 09/08/24 05:55 40 MG Magnesium Oxide 800 mg BID PO 09/02/24 22:00 09/24/24 09:02 800 MG Patient Own Medication 1 DAILY PO 09/04/24 10:00 09/24/24 10:02 1 Sodium Chloride 10 ml QSHIFT@10,22 IV 09/03/24 22:00 09/24/24 09:03 10 ML Lorazepam 0.5 mg Q6HP PRN IV 09/08/24 09:00 09/21/24 23:45 0.5 MG Ondansetron HCl 4 mg Q4HPRN PRN IV 09/08/24 09:00 Sodium Chloride 1 spr QID PRN EACHNOSTRI 09/10/24 20:00 09/13/24 10:01 1 SPR Vancomycin HCl 0 ml @ 0 mls/hr UD IV 09/14/24 16:00 Micafungin Sodium 100 mg/Sodium Chloride 100 ml @ 100 mls/hr DAILY@1700 IV 09/15/24 17:00 09/24/24 18:14 100 MLS/HR Doxycycline Hyclate 100 ml @ 50 mls/hr Q12H IV 09/15/24 16:30 09/24/24 17:07 50 MLS/HR Guaifenesin/ Dextromethorphan 10 ml Q6HPRN PRN PO 09/18/24 13:15 09/24/24 14:08 10 ML Ipratropium [place] 0.5 mg Q6HPRN PRN NEB 09/19/24 12:30 Levalbuterol HCl 0.625 mg Q6HPRN PRN NEB 09/19/24 12:30 Vancomycin HCl 200 ml @ 200 mls/hr Q10H IV 09/19/24 23:00 09/24/24 14:32 200 MLS/HR Furosemide 40 mg DAILY IV 09/22/24 10:00 09/24/24 09:03 40 MG Acetaminophen/ Hydrocodone Bitart 1 tab Q6HPRN PRN PO 09/22/24 18:00 09/24/24 14:08 1 TAB Hydralazine HCl 10 mg Q6HP PRN IV 09/22/24 18:45 Cancel Docusate Sodium 100 mg BIDPRN PRN PO 09/22/24 20:00 09/24/24 14:33 100 MG Laboratory Results Laboratory Tests 09/17/24 06:47 09/23/24 08:33 Urinalysis Test 08/31/24 04:35 Urine Color Light-yellow (Yellow) Urine Clarity Clear (Clear) Urine pH 7.0 (5.0-9.0) Urine Specific [place] 1.045 (1.001-1.035) Urine Protein Negative (Negative) Urine Ketones Negative (Negative) Urine Blood Negative /uL (Negative) Urine Nitrite Negative (Negative) Urine Bilirubin Negative (Negative) Urine Urobilinogen Normal mg/dL (Negative) Urine Leukocyte Esterase Negative /uL (Negative) Urine RBC 1 /hpf (0 - 3) Urine Microscopic WBC 1 /HPF (0-3) Urine Squamous Epithelial Cells Few /hpf (<5) Urine Bacteria None seen /hpf (None Seen) Urine Glucose Normal mg/dL (Normal) Microbiology Microbiology Date/Time Source Procedure Growth Status 08/31/24 04:35 Voided Urine Urine Culture - Final Complete 08/31/24 03:20 Nose MRSA Screen - Final Complete 08/30/24 23:30 Blood Blood Culture - Final NO GROWTH AFTER 5 DAYS OF INCUBATION. Complete Assessment/Plan Assessment/Plan Acute on chronic respiratory failure Sepsis secondary to pneumonia Multifocal pneumonia Gram-positive/Gram-negative Pulmonary embolism DVT Lymphoma currently under no chemotherapy Thrombocytopenia Normocytic anemia Oral thrush Moderate protein malnutrition- Dietary Consult Rectal bleed with hemorrhoid, c/w o2 supp maintain spo2 >90 Continuing current management. Continuing IV antibiotic and antifungal DC lovenox Appreciate GI input Local treatment of hemorrhoid with cream Not safe to transfer per [facility] due to high oxygen demands 09/18/2024: discussed with daughter and pt at bedside pt is concerned "a hole in my lung" when he was at [facility]. likely referring to a chest tube placement answered all questions by daughters and patient pt asked questions regarding his care at [facility], which I could not confirm as this is from outside hospital pt was on 15 liter oxymizer and weaning down as tolerated 09/19/2024: pt is improving weaning down to just 4-5 liters but still on oxymizer 09/20/2024: pt is now on just 4 liter NC but during PT, pt desats, and needed to increase to 7 liters for transfer, pt is stable if still needs to be transferred 09/21 Continues on 4-6 L a day Feeling better 09/24 Continues to improve on 4L Hope to dc soon if continues to improve Plan discussed with: Patient My Orders Orders - PRAMOD BRAMBILA MD Procedure Category Date Status Time Vancomycin,Trough LAB 09/24/24 Logged 22:00 Vancomycin Per [facility] 09/24/24 In Process [facility] 23:00 Date of Service: September 24, 2024 Billing Provider: PRAMOD BRAMBILA MD Common Visit Codes: [id number] INP/OBS CARE(HIGH) PRAMOD BRAMBILA MD September 24, 2024 19:06
--- NOTE | 2024-09-24 20:12 | DVHPN2 ---
Progress Note - Dictate Date Seen: September 24, 2024 Medical Necessity Reason Pt with a Central, PICC or Fol: No vital signs Vital Sign Date Time Temp Pulse Resp B/P (MAP) Pulse Ox O2 Delivery O2 Flow Rate FiO2 09/24/24 19:15 92 Nasal Cannula* 4 36 09/24/24 17:01 98.4 93 17 118/86 (97) 98.4 Total Intake and Output 09/23/24 09/23/24 09/24/24 15:00 23:00 07:00 Intake Total 200 ml 1640 ml 1025 ml Output Total 900 ml 750 ml 601 ml Balance -700 ml 890 ml 424 ml medications Current Medications Medications Dose Ordered Sig/Jaden Route Start Time Stop Time Status Last Admin Dose Admin Methylprednisolone Sodium Succinate 40 mg BID IV 08/31/24 10:00 09/24/24 09:02 40 MG Lidocaine HCl 10 ml Q4HP PRN MT 08/31/24 07:00 09/22/24 10:35 10 ML Pantoprazole Sodium 40 mg DAILY@0600 PO 09/03/24 06:00 Hold 09/08/24 05:55 40 MG Magnesium Oxide 800 mg BID PO 09/02/24 22:00 09/24/24 09:02 800 MG Patient Own Medication 1 DAILY PO 09/04/24 10:00 09/24/24 10:02 1 Sodium Chloride 10 ml QSHIFT@10,22 IV 09/03/24 22:00 09/24/24 09:03 10 ML Lorazepam 0.5 mg Q6HP PRN IV 09/08/24 09:00 09/21/24 23:45 0.5 MG Ondansetron HCl 4 mg Q4HPRN PRN IV 09/08/24 09:00 Sodium Chloride 1 spr QID PRN EACHNOSTRI 09/10/24 20:00 09/13/24 10:01 1 SPR Vancomycin HCl 0 ml @ 0 mls/hr UD IV 09/14/24 16:00 Micafungin Sodium 100 mg/Sodium Chloride 100 ml @ 100 mls/hr DAILY@1700 IV 09/15/24 17:00 09/24/24 18:14 100 MLS/HR Doxycycline Hyclate 100 ml @ 50 mls/hr Q12H IV 09/15/24 16:30 09/24/24 17:07 50 MLS/HR Guaifenesin/ Dextromethorphan 10 ml Q6HPRN PRN PO 09/18/24 13:15 09/24/24 14:08 10 ML Ipratropium [place] 0.5 mg Q6HPRN PRN NEB 09/19/24 12:30 Levalbuterol HCl 0.625 mg Q6HPRN PRN NEB 09/19/24 12:30 Vancomycin HCl 200 ml @ 200 mls/hr Q10H IV 09/19/24 23:00 09/24/24 14:32 200 MLS/HR Furosemide 40 mg DAILY IV 09/22/24 10:00 09/24/24 09:03 40 MG Acetaminophen/ Hydrocodone Bitart 1 tab Q6HPRN PRN PO 09/22/24 18:00 09/24/24 14:08 1 TAB Hydralazine HCl 10 mg Q6HP PRN IV 09/22/24 18:45 Cancel Docusate Sodium 100 mg BIDPRN PRN PO 09/22/24 20:00 09/24/24 14:33 100 MG laboratory and microbiology Laboratory Tests 09/23/24 08:33 09/17/24 06:47 Test 09/17/24 06:47 Range/Units Serum Glucose 121 H 74-106 mg/dL Assessment/Plan Impression: Acute hypoxic respiratory failure Dependence on supplemental oxygen Pneumonia, multifocal Pulmonary embolism Atelectasis Pulmonary edema Hemorrhoids Patient seen and examined Events: On 5 LPM Oxymask Some improvement noted No distress Plan: Continue antibiotics F/u cultures and ID Continue bronchodilators steroids Diurese Monitor renal function Monitor electrolytes Supplement as necessary Monitor ins and outs Monitor hemoglobin Awaiting placement DVT prophylaxis Dietary Evaluation Review Recommendations by RD: Protein Supplementation Comments: 1) Initiate Ensure qd; Encourage optimal PO intake 2) Refer to outpatient RD for weight management 3) Follow-up with cardiology, pulmonology, and gastroenterology 4) Continue to monitor I&O, labs, and skin integrity Expected Outcomes/Goals: 1) appetite and labs to improve 2) follow-up in 3-5 days Plan discussed with: Patient TARUN DOSHI MD September 24, 2024 20:11
[2024-09-25] VITALS (7 sets, daily range): BP systolic 114–123; BP diastolic 72–83; PULSE 73–101; RESP 17–18; TEMP 97.8–98.1; O2SAT 93–97
[2024-09-25] MEDS: KETOROLAC TROMETH 30 MG/ML 1ML VIAL IV ONE (08:22)
--- NOTE | 2024-09-25 18:07 | DVHPN2 ---
Subjective Down to 4L NC Reviewed: Care Plan, H&P, Labs, Medications, Previous Orders, Radiology Changes from previous H/P or p: No Changes General: Per HPI Objective Vitals Vital Signs Date Time Temp Pulse Resp B/P (MAP) Pulse Ox O2 Delivery O2 Flow Rate FiO2 09/25/24 16:56 98.1 94 18 123/76 (92) 96 98.1 09/25/24 10:14 Nasal Cannula* 4 36 Intake/Output Intake and Output 09/25/24 07:00 Intake Total 1400 ml Output Total 675 ml Balance 725 ml Intake Oral 1400 ml Output Urine Total 675 ml # Voids 6 # Bowel Movements 3 General Appearance: Alert, Oriented X3 Lungs: Other (diminished) Cardiovascular: Regular rate, Normal S1, Normal S2 Abdomen: Normal bowel sounds, Soft Medications Current Medications Medications Dose Ordered Sig/Jaden Route Start Time Stop Time Status Last Admin Dose Admin Methylprednisolone Sodium Succinate 40 mg BID IV 08/31/24 10:00 09/25/24 08:40 40 MG Lidocaine HCl 10 ml Q4HP PRN MT 08/31/24 07:00 09/22/24 10:35 10 ML Pantoprazole Sodium 40 mg DAILY@0600 PO 09/03/24 06:00 Hold 09/08/24 05:55 40 MG Magnesium Oxide 800 mg BID PO 09/02/24 22:00 09/25/24 08:43 800 MG Patient Own Medication 1 DAILY PO 09/04/24 10:00 09/25/24 08:42 1 Sodium Chloride 10 ml QSHIFT@10,22 IV 09/03/24 22:00 09/25/24 08:42 10 ML Lorazepam 0.5 mg Q6HP PRN IV 09/08/24 09:00 09/21/24 23:45 0.5 MG Ondansetron HCl 4 mg Q4HPRN PRN IV 09/08/24 09:00 Sodium Chloride 1 spr QID PRN EACHNOSTRI 09/10/24 20:00 09/13/24 10:01 1 SPR Vancomycin HCl 0 ml @ 0 mls/hr UD IV 09/14/24 16:00 Micafungin Sodium 100 mg/Sodium Chloride 100 ml @ 100 mls/hr DAILY@1700 IV 09/15/24 17:00 09/25/24 16:08 100 MLS/HR Doxycycline Hyclate 100 ml @ 50 mls/hr Q12H IV 09/15/24 16:30 09/25/24 16:09 50 MLS/HR Guaifenesin/ Dextromethorphan 10 ml Q6HPRN PRN PO 09/18/24 13:15 09/25/24 13:30 10 ML Ipratropium [place] 0.5 mg Q6HPRN PRN NEB 09/19/24 12:30 Levalbuterol HCl 0.625 mg Q6HPRN PRN NEB 09/19/24 12:30 Vancomycin HCl 200 ml @ 200 mls/hr Q10H IV 09/19/24 23:00 09/25/24 18:05 200 MLS/HR Furosemide 40 mg DAILY IV 09/22/24 10:00 09/25/24 08:41 40 MG Acetaminophen/ Hydrocodone Bitart 1 tab Q6HPRN PRN PO 09/22/24 18:00 09/25/24 13:30 1 TAB Hydralazine HCl 10 mg Q6HP PRN IV 09/22/24 18:45 Cancel Docusate Sodium 100 mg BIDPRN PRN PO 09/22/24 20:00 09/24/24 23:02 100 MG Laboratory Results Laboratory Tests 09/17/24 06:47 09/23/24 08:33 Urinalysis Test 08/31/24 04:35 Urine Color Light-yellow (Yellow) Urine Clarity Clear (Clear) Urine pH 7.0 (5.0-9.0) Urine Specific [place] 1.045 (1.001-1.035) Urine Protein Negative (Negative) Urine Ketones Negative (Negative) Urine Blood Negative /uL (Negative) Urine Nitrite Negative (Negative) Urine Bilirubin Negative (Negative) Urine Urobilinogen Normal mg/dL (Negative) Urine Leukocyte Esterase Negative /uL (Negative) Urine RBC 1 /hpf (0 - 3) Urine Microscopic WBC 1 /HPF (0-3) Urine Squamous Epithelial Cells Few /hpf (<5) Urine Bacteria None seen /hpf (None Seen) Urine Glucose Normal mg/dL (Normal) Microbiology Microbiology Date/Time Source Procedure Growth Status 08/31/24 04:35 Voided Urine Urine Culture - Final Complete 08/31/24 03:20 Nose MRSA Screen - Final Complete 08/30/24 23:30 Blood Blood Culture - Final NO GROWTH AFTER 5 DAYS OF INCUBATION. Complete Assessment/Plan Assessment/Plan Acute on chronic respiratory failure Sepsis secondary to pneumonia Multifocal pneumonia Gram-positive/Gram-negative Pulmonary embolism DVT Lymphoma currently under no chemotherapy Thrombocytopenia Normocytic anemia Oral thrush Moderate protein malnutrition- Dietary Consult Rectal bleed with hemorrhoid, c/w o2 supp maintain spo2 >90 Continuing current management. Continuing IV antibiotic and antifungal DC lovenox Appreciate GI input Local treatment of hemorrhoid with cream Not safe to transfer per [facility] due to high oxygen demands 09/18/2024: discussed with daughter and pt at bedside pt is concerned "a hole in my lung" when he was at [facility]. likely referring to a chest tube placement answered all questions by daughters and patient pt asked questions regarding his care at [facility], which I could not confirm as this is from outside hospital pt was on 15 liter oxymizer and weaning down as tolerated 09/19/2024: pt is improving weaning down to just 4-5 liters but still on oxymizer 09/20/2024: pt is now on just 4 liter NC but during PT, pt desats, and needed to increase to 7 liters for transfer, pt is stable if still needs to be transferred 09/21 Continues on 4-6 L a day Feeling better 09/24 Continues to improve on 4L Hope to dc soon if continues to improve 09/25 Plan to dc tomorrow Plan discussed with: Patient My Orders Orders - PRAMOD BRAMBILA MD Procedure Category Date Status Time Creatinine LAB 09/26/24 Verified 04:00 Date of Service: September 25, 2024 Billing Provider: PRAMOD BRAMBILA MD Common Visit Codes: [id number] INP/OBS CARE(HIGH) PRAMOD BRAMBILA MD September 25, 2024 18:07
--- NOTE | 2024-09-25 18:11 | DVHPN2 ---
Progress Note - Dictate Date Seen: September 25, 2024 Medical Necessity Reason Pt with a Central, PICC or Fol: No vital signs Vital Sign Date Time Temp Pulse Resp B/P (MAP) Pulse Ox O2 Delivery O2 Flow Rate FiO2 09/25/24 16:56 98.1 94 18 123/76 (92) 96 98.1 09/25/24 10:14 Nasal Cannula* 4 36 Total Intake and Output 09/24/24 09/24/24 09/25/24 15:00 23:00 07:00 Intake Total 900 ml 500 ml Output Total 675 ml Balance 900 ml -175 ml medications Current Medications Medications Dose Ordered Sig/Jaden Route Start Time Stop Time Status Last Admin Dose Admin Methylprednisolone Sodium Succinate 40 mg BID IV 08/31/24 10:00 09/25/24 08:40 40 MG Lidocaine HCl 10 ml Q4HP PRN MT 08/31/24 07:00 09/22/24 10:35 10 ML Pantoprazole Sodium 40 mg DAILY@0600 PO 09/03/24 06:00 Hold 09/08/24 05:55 40 MG Magnesium Oxide 800 mg BID PO 09/02/24 22:00 09/25/24 08:43 800 MG Patient Own Medication 1 DAILY PO 09/04/24 10:00 09/25/24 08:42 1 Sodium Chloride 10 ml QSHIFT@10,22 IV 09/03/24 22:00 09/25/24 08:42 10 ML Lorazepam 0.5 mg Q6HP PRN IV 09/08/24 09:00 09/21/24 23:45 0.5 MG Ondansetron HCl 4 mg Q4HPRN PRN IV 09/08/24 09:00 Sodium Chloride 1 spr QID PRN EACHNOSTRI 09/10/24 20:00 09/13/24 10:01 1 SPR Vancomycin HCl 0 ml @ 0 mls/hr UD IV 09/14/24 16:00 Micafungin Sodium 100 mg/Sodium Chloride 100 ml @ 100 mls/hr DAILY@1700 IV 09/15/24 17:00 09/25/24 16:08 100 MLS/HR Doxycycline Hyclate 100 ml @ 50 mls/hr Q12H IV 09/15/24 16:30 09/25/24 16:09 50 MLS/HR Guaifenesin/ Dextromethorphan 10 ml Q6HPRN PRN PO 09/18/24 13:15 09/25/24 13:30 10 ML Ipratropium [place] 0.5 mg Q6HPRN PRN NEB 09/19/24 12:30 Levalbuterol HCl 0.625 mg Q6HPRN PRN NEB 09/19/24 12:30 Vancomycin HCl 200 ml @ 200 mls/hr Q10H IV 09/19/24 23:00 09/25/24 18:05 200 MLS/HR Furosemide 40 mg DAILY IV 09/22/24 10:00 09/25/24 08:41 40 MG Acetaminophen/ Hydrocodone Bitart 1 tab Q6HPRN PRN PO 09/22/24 18:00 09/25/24 13:30 1 TAB Hydralazine HCl 10 mg Q6HP PRN IV 09/22/24 18:45 Cancel Docusate Sodium 100 mg BIDPRN PRN PO 09/22/24 20:00 09/24/24 23:02 100 MG laboratory and microbiology Laboratory Tests 09/23/24 08:33 09/17/24 06:47 Test 09/17/24 06:47 Range/Units Serum Glucose 121 H 74-106 mg/dL Assessment/Plan Impression: Acute hypoxic respiratory failure Dependence on supplemental oxygen Pneumonia, multifocal Pulmonary embolism Atelectasis Pulmonary edema Hemorrhoids Patient seen and examined Events: On 4 LPM Oxymask No acute events Plan: Continue antibiotics F/u cultures and ID Continue bronchodilators steroids Diurese Monitor renal function Monitor electrolytes Supplement as necessary Monitor ins and outs Monitor hemoglobin Awaiting placement DVT prophylaxis Dietary Evaluation Review Recommendations by RD: Protein Supplementation Comments: 1) Initiate Ensure qd; Encourage optimal PO intake 2) Refer to outpatient RD for weight management 3) Follow-up with cardiology, pulmonology, and gastroenterology 4) Continue to monitor I&O, labs, and skin integrity Expected Outcomes/Goals: 1) appetite and labs to improve 2) follow-up in 3-5 days Plan discussed with: Patient TARUN DOSHI MD September 25, 2024 18:11
[2024-09-26] VITALS (10 sets, daily range): BP systolic 109–118; BP diastolic 59–90; PULSE 82–107; RESP 16–18; TEMP 97.4–97.7; O2SAT 92–98
[2024-09-26] MEDS ORDERED: APIX5TAB PO (10:28)
[2024-09-26] MEDS ORDERED: HYDR-4902 PO (10:51)
--- NOTE | 2024-09-26 12:40 | DVHPN2 ---
Progress Note - Dictate Date Seen: September 26, 2024 Medical Necessity Reason Pt with a Central, PICC or Fol: No vital signs Vital Sign Date Time Temp Pulse Resp B/P (MAP) Pulse Ox O2 Delivery O2 Flow Rate FiO2 09/26/24 10:32 110/78 09/26/24 08:25 97.5 91 16 93 97.5 09/26/24 07:14 Nasal Cannula* 4 36 Total Intake and Output 09/25/24 09/25/24 09/26/24 15:00 23:00 07:00 Intake Total 700 ml 600 ml Output Total 1400 ml 450 ml Balance -700 ml 150 ml medications Current Medications Medications Dose Ordered Sig/Jaden Route Start Time Stop Time Status Last Admin Dose Admin Methylprednisolone Sodium Succinate 40 mg BID IV 08/31/24 10:00 09/26/24 10:30 40 MG Lidocaine HCl 10 ml Q4HP PRN MT 08/31/24 07:00 09/22/24 10:35 10 ML Pantoprazole Sodium 40 mg DAILY@0600 PO 09/03/24 06:00 Hold 09/08/24 05:55 40 MG Magnesium Oxide 800 mg BID PO 09/02/24 22:00 09/26/24 10:34 800 MG Patient Own Medication 1 DAILY PO 09/04/24 10:00 09/25/24 08:42 1 Sodium Chloride 10 ml QSHIFT@10,22 IV 09/03/24 22:00 09/26/24 10:33 10 ML Lorazepam 0.5 mg Q6HP PRN IV 09/08/24 09:00 09/21/24 23:45 0.5 MG Ondansetron HCl 4 mg Q4HPRN PRN IV 09/08/24 09:00 Sodium Chloride 1 spr QID PRN EACHNOSTRI 09/10/24 20:00 09/13/24 10:01 1 SPR Micafungin Sodium 100 mg/Sodium Chloride 100 ml @ 100 mls/hr DAILY@1700 IV 09/15/24 17:00 09/25/24 16:08 100 MLS/HR Doxycycline Hyclate 100 ml @ 50 mls/hr Q12H IV 09/15/24 16:30 09/26/24 05:26 50 MLS/HR Guaifenesin/ Dextromethorphan 10 ml Q6HPRN PRN PO 09/18/24 13:15 09/26/24 05:47 10 ML Ipratropium [place] 0.5 mg Q6HPRN PRN NEB 09/19/24 12:30 Levalbuterol HCl 0.625 mg Q6HPRN PRN NEB 09/19/24 12:30 Vancomycin HCl 200 ml @ 200 mls/hr Q10H IV 09/19/24 23:00 09/26/24 05:40 200 MLS/HR Furosemide 40 mg DAILY IV 09/22/24 10:00 09/26/24 10:32 40 MG Acetaminophen/ Hydrocodone Bitart 1 tab Q6HPRN PRN PO 09/22/24 18:00 09/26/24 05:48 1 TAB Hydralazine HCl 10 mg Q6HP PRN IV 09/22/24 18:45 Cancel Docusate Sodium 100 mg BIDPRN PRN PO 09/22/24 20:00 09/24/24 23:02 100 MG laboratory and microbiology Laboratory Tests 09/26/24 06:00 09/23/24 08:33 09/17/24 06:47 Test 09/17/24 06:47 Range/Units Serum Glucose 121 H 74-106 mg/dL Assessment/Plan Impression: Acute hypoxic respiratory failure Dependence on supplemental oxygen Pneumonia, multifocal Pulmonary embolism Atelectasis Pulmonary edema Hemorrhoids Patient seen and examined Events: On 4 LPM Oxymask No acute events Plan: Continue antibiotics F/u cultures and ID Continue bronchodilators steroids Diurese Monitor renal function Monitor electrolytes Supplement as necessary Monitor ins and outs Monitor hemoglobin DVT prophylaxis dc plans per primary Dietary Evaluation Review Recommendations by RD: Protein Supplementation Comments: 1) Initiate Ensure qd; Encourage optimal PO intake 2) Refer to outpatient RD for weight management 3) Follow-up with cardiology, pulmonology, and gastroenterology 4) Continue to monitor I&O, labs, and skin integrity Expected Outcomes/Goals: 1) appetite and labs to improve 2) follow-up in 3-5 days Plan discussed with: Other (rn) TARUN DOSHI MD September 26, 2024 12:40
--- NOTE | 2024-09-26 17:31 | DVHPN2 ---
Subjective Down to 4L NC Reviewed: Care Plan, H&P, Labs, Medications, Previous Orders, Radiology Changes from previous H/P or p: No Changes General: Per HPI Objective Vitals Vital Signs Date Time Temp Pulse Resp B/P (MAP) Pulse Ox O2 Delivery O2 Flow Rate FiO2 09/26/24 16:30 97.4 106 16 113/59 (77) 93 97.4 09/26/24 07:14 Nasal Cannula* 4 36 Intake/Output Intake and Output 09/26/24 07:00 Intake Total 1300 ml Output Total 1850 ml Balance -550 ml Intake Oral 1300 ml Output Urine Total 1850 ml # Voids 6 # Bowel Movements 3 General Appearance: Alert, Oriented X3 Lungs: Other (diminished) Cardiovascular: Regular rate, Normal S1, Normal S2 Abdomen: Normal bowel sounds, Soft Medications Current Medications Medications Dose Ordered Sig/Jaden Route Start Time Stop Time Status Last Admin Dose Admin Methylprednisolone Sodium Succinate 40 mg BID IV 08/31/24 10:00 09/26/24 10:30 40 MG Lidocaine HCl 10 ml Q4HP PRN MT 08/31/24 07:00 09/22/24 10:35 10 ML Pantoprazole Sodium 40 mg DAILY@0600 PO 09/03/24 06:00 Hold 09/08/24 05:55 40 MG Magnesium Oxide 800 mg BID PO 09/02/24 22:00 09/26/24 10:34 800 MG Patient Own Medication 1 DAILY PO 09/04/24 10:00 09/25/24 08:42 1 Sodium Chloride 10 ml QSHIFT@10,22 IV 09/03/24 22:00 09/26/24 10:33 10 ML Lorazepam 0.5 mg Q6HP PRN IV 09/08/24 09:00 09/26/24 13:22 0.5 MG Ondansetron HCl 4 mg Q4HPRN PRN IV 09/08/24 09:00 Sodium Chloride 1 spr QID PRN EACHNOSTRI 09/10/24 20:00 09/13/24 10:01 1 SPR Micafungin Sodium 100 mg/Sodium Chloride 100 ml @ 100 mls/hr DAILY@1700 IV 09/15/24 17:00 09/25/24 16:08 100 MLS/HR Doxycycline Hyclate 100 ml @ 50 mls/hr Q12H IV 09/15/24 16:30 09/26/24 17:03 50 MLS/HR Guaifenesin/ Dextromethorphan 10 ml Q6HPRN PRN PO 09/18/24 13:15 09/26/24 17:10 10 ML Ipratropium [place] 0.5 mg Q6HPRN PRN NEB 09/19/24 12:30 Levalbuterol HCl 0.625 mg Q6HPRN PRN NEB 09/19/24 12:30 Vancomycin HCl 200 ml @ 200 mls/hr Q10H IV 09/19/24 23:00 09/26/24 16:56 200 MLS/HR Furosemide 40 mg DAILY IV 09/22/24 10:00 09/26/24 10:32 40 MG Acetaminophen/ Hydrocodone Bitart 1 tab Q6HPRN PRN PO 09/22/24 18:00 09/26/24 17:10 1 TAB Hydralazine HCl 10 mg Q6HP PRN IV 09/22/24 18:45 Cancel Docusate Sodium 100 mg BIDPRN PRN PO 09/22/24 20:00 09/24/24 23:02 100 MG Laboratory Results Laboratory Tests 09/17/24 06:47 09/23/24 08:33 09/26/24 06:00 Urinalysis Test 08/31/24 04:35 Urine Color Light-yellow (Yellow) Urine Clarity Clear (Clear) Urine pH 7.0 (5.0-9.0) Urine Specific [place] 1.045 (1.001-1.035) Urine Protein Negative (Negative) Urine Ketones Negative (Negative) Urine Blood Negative /uL (Negative) Urine Nitrite Negative (Negative) Urine Bilirubin Negative (Negative) Urine Urobilinogen Normal mg/dL (Negative) Urine Leukocyte Esterase Negative /uL (Negative) Urine RBC 1 /hpf (0 - 3) Urine Microscopic WBC 1 /HPF (0-3) Urine Squamous Epithelial Cells Few /hpf (<5) Urine Bacteria None seen /hpf (None Seen) Urine Glucose Normal mg/dL (Normal) Microbiology Microbiology Date/Time Source Procedure Growth Status 08/31/24 04:35 Voided Urine Urine Culture - Final Complete 08/31/24 03:20 Nose MRSA Screen - Final Complete 08/30/24 23:30 Blood Blood Culture - Final NO GROWTH AFTER 5 DAYS OF INCUBATION. Complete Assessment/Plan Assessment/Plan Acute on chronic respiratory failure Sepsis secondary to pneumonia Multifocal pneumonia Gram-positive/Gram-negative Pulmonary embolism DVT Lymphoma currently under no chemotherapy Thrombocytopenia Normocytic anemia Oral thrush Moderate protein malnutrition- Dietary Consult Rectal bleed with hemorrhoid, c/w o2 supp maintain spo2 >90 Continuing current management. Continuing IV antibiotic and antifungal DC lovenox Appreciate GI input Local treatment of hemorrhoid with cream Not safe to transfer per [place] due to high oxygen demands 09/18/2024: discussed with daughter and pt at bedside pt is concerned "a hole in my lung" when he was at [place]. likely referring to a chest tube placement answered all questions by daughters and patient pt asked questions regarding his care at [place], which I could not confirm as this is from outside hospital pt was on 15 liter oxymizer and weaning down as tolerated 09/19/2024: pt is improving weaning down to just 4-5 liters but still on oxymizer 09/20/2024: pt is now on just 4 liter NC but during PT, pt desats, and needed to increase to 7 liters for transfer, pt is stable if still needs to be transferred 09/21 Continues on 4-6 L a day Feeling better 09/24 Continues to improve on 4L Hope to dc soon if continues to improve 09/25 Plan to dc tomorrow 09/26 Home health being set up today and plan to DC home tomorrow Plan discussed with: Patient My Orders Orders - PRAMOD BRAMBILA MD Procedure Category Date Status Time Discharge DISCHARGE 09/26/24 Transmitted 18:52 D/C Picc Line ORDERS 09/26/24 Transmitted 10:52 * Assistant Accounting Manager CONS 09/26/24 Transmitted Consult * Assistant Accounting Manager CONS 09/26/24 Transmitted Consult Date of Service: September 26, 2024 Billing Provider: PRAMOD BRAMBILA MD Common Visit Codes: [id number] INP/OBS CARE(HIGH) PRAMOD BRAMBILA MD September 26, 2024 17:31
[2024-09-27] VITALS (9 sets, daily range): BP systolic 103–133; BP diastolic 68–85; PULSE 97–133; RESP 16–20; TEMP 97.4–98.1; O2SAT 91–100
--- NOTE | 2024-09-27 14:48 | DVHPN2 ---
Progress Note - Dictate Date Seen: September 27, 2024 Medical Necessity Reason Pt with a Central, PICC or Fol: No vital signs Vital Sign Date Time Temp Pulse Resp B/P (MAP) Pulse Ox O2 Delivery O2 Flow Rate FiO2 09/27/24 12:11 97.6 97 20 112/84 (93) 97 97.6 09/27/24 08:36 Nasal Cannula 4.0 09/27/24 08:36 36 Total Intake and Output 09/26/24 09/26/24 09/27/24 12:59 20:59 04:59 Intake Total 600 ml 495 ml Output Total 450 ml 900 ml Balance 150 ml -405 ml medications Current Medications Medications Dose Ordered Sig/Jaden Route Start Time Stop Time Status Last Admin Dose Admin Methylprednisolone Sodium Succinate 40 mg BID IV 08/31/24 10:00 09/27/24 09:23 40 MG Lidocaine HCl 10 ml Q4HP PRN MT 08/31/24 07:00 09/22/24 10:35 10 ML Pantoprazole Sodium 40 mg DAILY@0600 PO 09/03/24 06:00 Hold 09/08/24 05:55 40 MG Magnesium Oxide 800 mg BID PO 09/02/24 22:00 09/27/24 09:22 800 MG Patient Own Medication 1 DAILY PO 09/04/24 10:00 09/27/24 10:00 1 Sodium Chloride 10 ml QSHIFT@10,22 IV 09/03/24 22:00 09/27/24 09:30 10 ML Lorazepam 0.5 mg Q6HP PRN IV 09/08/24 09:00 09/26/24 13:22 0.5 MG Ondansetron HCl 4 mg Q4HPRN PRN IV 09/08/24 09:00 Sodium Chloride 1 spr QID PRN EACHNOSTRI 09/10/24 20:00 09/13/24 10:01 1 SPR Guaifenesin/ Dextromethorphan 10 ml Q6HPRN PRN PO 09/18/24 13:15 09/27/24 06:14 10 ML Ipratropium [place] 0.5 mg Q6HPRN PRN NEB 09/19/24 12:30 Levalbuterol HCl 0.625 mg Q6HPRN PRN NEB 09/19/24 12:30 Vancomycin HCl 200 ml @ 200 mls/hr Q10H IV 09/19/24 23:00 09/27/24 01:08 200 MLS/HR Furosemide 40 mg DAILY IV 09/22/24 10:00 09/27/24 09:23 40 MG Acetaminophen/ Hydrocodone Bitart 1 tab Q6HPRN PRN PO 09/22/24 18:00 09/27/24 10:46 1 TAB Hydralazine HCl 10 mg Q6HP PRN IV 09/22/24 18:45 Cancel Docusate Sodium 100 mg BIDPRN PRN PO 09/22/24 20:00 09/24/24 23:02 100 MG laboratory and microbiology Laboratory Tests 09/26/24 06:00 09/23/24 08:33 09/17/24 06:47 Test 09/17/24 06:47 Range/Units Serum Glucose 121 H 74-106 mg/dL Assessment/Plan Impression: Acute hypoxic respiratory failure Dependence on supplemental oxygen Pneumonia, multifocal Pulmonary embolism Atelectasis Pulmonary edema Hemorrhoids Patient seen and examined Events: On 4 LPM Oxymask No distress Plan: Continue antibiotics F/u cultures and ID Continue bronchodilators steroids Diurese Monitor renal function Monitor electrolytes Supplement as necessary Monitor ins and outs Monitor hemoglobin Awaiting placement DVT prophylaxis Dietary Evaluation Review Recommendations by RD: Protein Supplementation Comments: 1) Initiate Ensure qd; Encourage optimal PO intake 2) Refer to outpatient RD for weight management 3) Follow-up with cardiology, pulmonology, and gastroenterology 4) Continue to monitor I&O, labs, and skin integrity Expected Outcomes/Goals: 1) appetite and labs to improve 2) follow-up in 3-5 days Plan discussed with: Patient TARUN DOSHI MD September 27, 2024 14:48
--- NOTE | 2024-09-27 19:09 | DVHPN2 ---
Subjective Down to 4L NC Reviewed: Care Plan, H&P, Labs, Medications, Previous Orders, Radiology Changes from previous H/P or p: No Changes General: Per HPI Objective Vitals Vital Signs Date Time Temp Pulse Resp B/P (MAP) Pulse Ox O2 Delivery O2 Flow Rate FiO2 09/27/24 16:59 98.1 133 20 133/85 (101) 91 98.1 09/27/24 08:36 Nasal Cannula 4.0 09/27/24 08:36 36 Intake/Output Intake and Output 09/27/24 07:00 Intake Total 795 ml Output Total 1175 ml Balance -380 ml Intake Oral 595 ml IV Total 200 ml Output Urine Total 1175 ml # Bowel Movements 2 General Appearance: Alert, Oriented X3 Lungs: Other (diminished) Cardiovascular: Regular rate, Normal S1, Normal S2 Abdomen: Normal bowel sounds, Soft Medications Current Medications Medications Dose Ordered Sig/Jaden Route Start Time Stop Time Status Last Admin Dose Admin Methylprednisolone Sodium Succinate 40 mg BID IV 08/31/24 10:00 09/27/24 09:23 40 MG Lidocaine HCl 10 ml Q4HP PRN MT 08/31/24 07:00 09/22/24 10:35 10 ML Pantoprazole Sodium 40 mg DAILY@0600 PO 09/03/24 06:00 Hold 09/08/24 05:55 40 MG Magnesium Oxide 800 mg BID PO 09/02/24 22:00 09/27/24 09:22 800 MG Patient Own Medication 1 DAILY PO 09/04/24 10:00 09/27/24 10:00 1 Sodium Chloride 10 ml QSHIFT@10,22 IV 09/03/24 22:00 09/27/24 09:30 10 ML Lorazepam 0.5 mg Q6HP PRN IV 09/08/24 09:00 09/26/24 13:22 0.5 MG Ondansetron HCl 4 mg Q4HPRN PRN IV 09/08/24 09:00 Sodium Chloride 1 spr QID PRN EACHNOSTRI 09/10/24 20:00 09/13/24 10:01 1 SPR Guaifenesin/ Dextromethorphan 10 ml Q6HPRN PRN PO 09/18/24 13:15 09/27/24 06:14 10 ML Ipratropium [place] 0.5 mg Q6HPRN PRN NEB 09/19/24 12:30 Levalbuterol HCl 0.625 mg Q6HPRN PRN NEB 09/19/24 12:30 Vancomycin HCl 200 ml @ 200 mls/hr Q10H IV 09/19/24 23:00 09/27/24 11:00 200 MLS/HR Furosemide 40 mg DAILY IV 09/22/24 10:00 09/27/24 09:23 40 MG Acetaminophen/ Hydrocodone Bitart 1 tab Q6HPRN PRN PO 09/22/24 18:00 09/27/24 16:49 1 TAB Hydralazine HCl 10 mg Q6HP PRN IV 09/22/24 18:45 Cancel Docusate Sodium 100 mg BIDPRN PRN PO 09/22/24 20:00 09/24/24 23:02 100 MG Laboratory Results Laboratory Tests 09/17/24 06:47 09/23/24 08:33 09/26/24 06:00 Urinalysis Test 08/31/24 04:35 Urine Color Light-yellow (Yellow) Urine Clarity Clear (Clear) Urine pH 7.0 (5.0-9.0) Urine Specific [place] 1.045 (1.001-1.035) Urine Protein Negative (Negative) Urine Ketones Negative (Negative) Urine Blood Negative /uL (Negative) Urine Nitrite Negative (Negative) Urine Bilirubin Negative (Negative) Urine Urobilinogen Normal mg/dL (Negative) Urine Leukocyte Esterase Negative /uL (Negative) Urine RBC 1 /hpf (0 - 3) Urine Microscopic WBC 1 /HPF (0-3) Urine Squamous Epithelial Cells Few /hpf (<5) Urine Bacteria None seen /hpf (None Seen) Urine Glucose Normal mg/dL (Normal) Microbiology Microbiology Date/Time Source Procedure Growth Status 08/31/24 04:35 Voided Urine Urine Culture - Final Complete 08/31/24 03:20 Nose MRSA Screen - Final Complete 08/30/24 23:30 Blood Blood Culture - Final NO GROWTH AFTER 5 DAYS OF INCUBATION. Complete Assessment/Plan Assessment/Plan Acute on chronic respiratory failure Sepsis secondary to pneumonia Multifocal pneumonia Gram-positive/Gram-negative Pulmonary embolism DVT Lymphoma currently under no chemotherapy Thrombocytopenia Normocytic anemia Oral thrush Moderate protein malnutrition- Dietary Consult Rectal bleed with hemorrhoid, c/w o2 supp maintain spo2 >90 Continuing current management. Continuing IV antibiotic and antifungal DC lovenox Appreciate GI input Local treatment of hemorrhoid with cream Not safe to transfer per [place] due to high oxygen demands 09/18/2024: discussed with daughter and pt at bedside pt is concerned "a hole in my lung" when he was at [place]. likely referring to a chest tube placement answered all questions by daughters and patient pt asked questions regarding his care at [place], which I could not confirm as this is from outside hospital pt was on 15 liter oxymizer and weaning down as tolerated 09/19/2024: pt is improving weaning down to just 4-5 liters but still on oxymizer 09/20/2024: pt is now on just 4 liter NC but during PT, pt desats, and needed to increase to 7 liters for transfer, pt is stable if still needs to be transferred 09/21 Continues on 4-6 L a day Feeling better 09/24 Continues to improve on 4L Hope to dc soon if continues to improve 09/25 Plan to dc tomorrow 09/26 Home health being set up today and plan to DC home tomorrow Plan discussed with: Patient My Orders Orders - PRAMOD BRAMBILA MD Procedure Category Date Status Time Complete Blood Count LAB 09/28/24 Verified 04:00 Creatinine LAB 09/28/24 Verified 04:00 Vancomycin,Trough LAB 09/28/24 Verified 06:00 Vancomycin Per [facility] 09/28/24 In Process [facility] 06:00 Date of Service: September 27, 2024 Billing Provider: PRAMOD BRAMBILA MD Common Visit Codes: [id number] INP/OBS CARE(HIGH) PRAMOD BRAMBILA MD September 27, 2024 19:09
== END 2024-09-27 19:25 | disposition home health service (06) | DRG 720 ==
LOC: EDBD 23:13 → ER 23:13 → OVERFLOW 08-31 02:54 → TELE-WESTW 08-31 16:24 → WEST WING 09-21 17:17
PROVIDERS: ADMIT Hospitalist; ATTEND Hospitalist
PROC: 5A09357 Assistance with Respiratory Ventilation, Less than 24 Consecutive Hours, Continuous Positive Airway Pressure (ICD-10-PCS; principal; 2024-08-31)
PROC: 5A09357 Assistance with Respiratory Ventilation, Less than 24 Consecutive Hours, Continuous Positive Airway Pressure (ICD-10-PCS; 2024-09-02)
PROC: 5A0935A Assistance with Respiratory Ventilation, Less than 24 Consecutive Hours, High Flow/Velocity Cannula (ICD-10-PCS; 2024-09-02)
PROC: 06H03DZ Insertion of Intraluminal Device into Inferior Vena Cava, Percutaneous Approach (ICD-10-PCS; 2024-09-02)
PROC: 5A09357 Assistance with Respiratory Ventilation, Less than 24 Consecutive Hours, Continuous Positive Airway Pressure (ICD-10-PCS; 2024-09-03)
PROC: 02HV33Z Insertion of Infusion Device into Superior Vena Cava, Percutaneous Approach (ICD-10-PCS; 2024-09-03)
PROC: 5A09357 Assistance with Respiratory Ventilation, Less than 24 Consecutive Hours, Continuous Positive Airway Pressure (ICD-10-PCS; 2024-09-04)
PROC: 5A09357 Assistance with Respiratory Ventilation, Less than 24 Consecutive Hours, Continuous Positive Airway Pressure (ICD-10-PCS; 2024-09-05)
PROC: 5A09357 Assistance with Respiratory Ventilation, Less than 24 Consecutive Hours, Continuous Positive Airway Pressure (ICD-10-PCS; 2024-09-06)
PROC: 5A09357 Assistance with Respiratory Ventilation, Less than 24 Consecutive Hours, Continuous Positive Airway Pressure (ICD-10-PCS; 2024-09-07)
PROC: 5A09357 Assistance with Respiratory Ventilation, Less than 24 Consecutive Hours, Continuous Positive Airway Pressure (ICD-10-PCS; 2024-09-08)
PROC: 5A09357 Assistance with Respiratory Ventilation, Less than 24 Consecutive Hours, Continuous Positive Airway Pressure (ICD-10-PCS; 2024-09-09)
PROC: 5A0955A Assistance with Respiratory Ventilation, Greater than 96 Consecutive Hours, High Flow/Velocity Cannula (ICD-10-PCS; 2024-09-19)
PROC: 5A0935A Assistance with Respiratory Ventilation, Less than 24 Consecutive Hours, High Flow/Velocity Cannula (ICD-10-PCS; 2024-09-26)
DX: A41.59 Other Gram-negative sepsis (principal); I26.99 Other pulmonary embolism without acute cor pulmonale; J96.21 Acute and chronic respiratory failure with hypoxia; J15.69 Pneumonia due to other Gram-negative bacteria; E44.0 Moderate protein-calorie malnutrition; D69.6 Thrombocytopenia, unspecified; I82.412 Acute embolism and thrombosis of left femoral vein; J15.9 Unspecified bacterial pneumonia; B37.0 Candidal stomatitis; Z20.822 Contact with and (suspected) exposure to COVID-19; I82.432 Acute embolism and thrombosis of left popliteal vein; J81.1 Chronic pulmonary edema; I82.442 Acute embolism and thrombosis of left tibial vein; C85.90 Non-Hodgkin lymphoma, unspecified, unspecified site; Z99.81 Dependence on supplemental oxygen; D64.9 Anemia, unspecified; Z95.828 Presence of other vascular implants and grafts; K64.9 Unspecified hemorrhoids; R59.0 Localized enlarged lymph nodes; I51.7 Cardiomegaly; K21.9 Gastro-esophageal reflux disease without esophagitis; Z92.21 Personal history of antineoplastic chemotherapy; Z86.718 Personal history of other venous thrombosis and embolism; Z86.711 Personal history of pulmonary embolism; Z68.29 Body mass index [BMI] 29.0-29.9, adult; Z88.2 Allergy status to sulfonamides; Z79.01 Long term (current) use of anticoagulants
CPT/HCPCS: 36415; 36569; 36600; 37619; 70491; 71045; 71250; 71275; 76937; 80048; 80053; 80061; 80202; 80307; 81001; 82306; 82378; 82565; 82607; 82805; 83036; 83605; 83735; 83880; 84100; 84439; 84443; 84480; 84484; 85007; 85025; 85027; 85610; 85730; 87040; 87081; 87086; 87426; 87804; 93005; 93306; 93970; 94640; 94660; 96365; 96375; 97110; 97116; 97163; 97530; 99152; 99291; C1894; G0378; J1100; J1450; J2003; J2248; J2250; J2470; J2543; Q9967

== ENCOUNTER 2024-10-09 02:50 | Inpatient (IN) | payer MEDICAID ==
[~2024-10-09] VITALS: Ht 180.3 cm; Wt 77.1 kg
[2024-10-09] VITALS (84 sets, daily range): BP systolic 48–133; BP diastolic 26–112; PULSE 85–165; RESP 18–34; TEMP 100.8–102.7; O2SAT 21–99
[~2024-10-09 02:50] MED LIST: AMLO1TAB22 PO; APIX5TAB PO; BISO5TAB44 PO; DABI150C5 PO; FLEETMIN PR; FURO40TA4 PO; HYDR-4902 PO; MAA30LQ PO; MELA3TAB27 PO; MIRT-94 PO; MONT-8 PO; PANT40TA2 PO; PRE1T PO; PRED20TA2 PO; [UNRECOGNIZED DRUG - CODE] PO
[2024-10-09] MEDS: SODIUM CHLORIDE 0.9% 1,000 ML IV ONE ×3 (03:15→09:03)
--- NOTE | 2024-10-09 03:32 | ED.PDOC ---
SOB-HPI HPI Comments 58 year old male with a Hx of Pneumonia, HTN, DVT's, GERD, Anemia, and T hrombocytopenia was BIBA for the c/c of SOB. Pt states that he was at home when he started to feel anxious around 12am this morning. Pt notes that shortly after he started to experience chest palpitations, with associated SOB w/ elevated respiratory rate. Per EMS pt was given 10L O2 and is now sitting at 93% room air. No other associated symptoms, modifiers, recent injuries or sick contacts present at this time. Past medical history includes lymphoma, multiple episodes of pneumonia, PE and DVT on Pradaxa. Chief Complaint: Shortness of Breath Time Seen by MD: 03:26 Reviewed notes: Nurses Notes, Online Marketing Coordinator Notes, Medications, Allergies Information Source: Patient, Emergency Med Personnel Mode of Arrival: EMS Severity: Moderate Timing: Hours Duration: Since onset, Hours Context: At Rest PE Risk Factors: None History of: None Prehospital treatment: 12 Lead EKG, Oxygen Modifying Factors: Exertion, Anxiety Associated Signs and Symptoms: Anxiety If cough with SOB: Non-Productive Vital Signs Vital Signs Date Time Temp Pulse Resp B/P (MAP) Pulse Ox O2 Delivery O2 Flow Rate FiO2 10/09/24 09:20 88/53 10/09/24 09:15 145 20 86 10/09/24 09:00 96.6 96.6 10/09/24 08:00 100 10/09/24 04:00 Non-Rebreather 15 Physical Exam General: Awake, alert and oriented. mild distress. Skin: Skin in warm, dry and intact. Appropriate color for ethnicity. HEENT: The head is normocephalic and atraumatic. Conjunctivae are clear without exudates or hemorrhage. Sclera is non-icteric. EOM are intact. No signs of nystagmus. Eyelids are normal in appearance without swelling or lesions. Oral mucosa is pink and moist Neck: The neck is supple with normal range of motion. No JVD. Cardiac: Patient is tachycardic with regular rhythm. No murmurs, gallops, or rubs are auscultated. Respiratory: Patient is tachypneic. Abdominal: Abdomen is soft, non-tender without distention, guarding or rigidity. Bowel sounds are present and normoactive in all four quadrants. Tachypneic Extremities: Left lower extremity Edema Neurological: The patient is awake, alert and oriented to person, place, and time with normal speech. Speech is clear. There is no facial asymmetry. Psychiatric: Appropriate mood and affect. Good judgement and insight. Review of Systems: REVIEW OF SYSTEMS: No fever, no chills, or fatigue HEENT: No sore throat, no earache, no congestion, no neck pain. Cardiac: No chest pain. + palpitations. Lungs: + shortness of breath, no cough. GI: No nausea, no vomiting, no diarrhea, no constipation, no abdominal pain : No dysuria, frequency, or urgency. No hematuria. Musculoskeletal: No joint pain , no joint swelling, no extremity edema. Skin: No rash, no itching. Neuro: No headache, no dizziness, no weakness Past Medical History PAST MEDICAL HISTORY: Denies Surgical History: Denies all surgeries Family History Family History: Reviewed,noncontributory to illness, No family hx of Cancer, No family hx of DM, No family hx of Heart osmar, No family hx of HTN, No family hx ofKidney osmar, No family hx of Liver osmar, No family hx of Lung osmar, No family hx of Stroke Social History Smoker: Non-Smoker Alcohol: Denies ETOH Use Drugs: Denies Drug Use Lives In: Home Was a procedure done? 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: Attending Physician Indication: Suspected infection Room prepared for procedure: Yes Steel Construction Worker performed hand hygien: Yes Maximal sterile barrier precau: Mask/Eye shield, Sterile gown, Cap, Sterlie gloves, Large sterlie drape Skin Preparation: Chlorhexidine gluconate Skin preparation completely dr: Yes Insertion site: Right, Femoral Central line catheter type: [id number] dialysis Number of lumens: 3 Central line exchanged over a: Yes Antiseptic ointment applied to: Yes Post Assessment: Proper placement Informed consent obtained: Yes Risks/benefits/alt described: Yes Notes Central Line performed by Dr. Corona. Intubation Indication: Airway Protection Prep: Preoxygenation Pretreated with: Sedation Intubation Approach: Orotracheal Intubation size: cm (8) Informed consent obtained: Yes Risks/benefits/alt described: Yes Notes Intubation performed by Dr. Corona. Differential Dx Differential Diagnosis: Anxiety, Asthma, Bronchitis, Cardiogenic Shock, CHF, COPD, Hypertension, Hyponatremia, Myocardial infarction, Pneumonia, Pneumothorax, Pulmonary Embolism, Respiratory Distress, URI, Other X-Ray, Labs, Meds, VS Vital Signs Date Time Temp Pulse Resp B/P (MAP) Pulse Ox O2 Delivery O2 Flow Rate FiO2 10/09/24 09:20 88/53 10/09/24 09:15 145 20 90/54 (66) 86 10/09/24 09:11 101/65 10/09/24 09:10 101/65 10/09/24 09:00 96.6 148 20 95/56 (69) 86 96.6 10/09/24 08:45 154 20 101/62 (75) 86 10/09/24 08:43 101/62 10/09/24 08:30 150 20 98/59 (72) 87 10/09/24 08:15 157 20 109/63 (78) 90 10/09/24 08:00 167 10/09/24 08:00 165 18 99/54 (69) 98 100 10/09/24 08:00 167 20 158/99 (118) 96 10/09/24 07:45 148 20 99/54 (69) 100 10/09/24 07:41 101/65 10/09/24 07:40 148 20 101/65 (77) 89 10/09/24 07:30 96.5 154 20 103/64 (77) 89 96.5 10/09/24 04:00 96.0 155 20 96/58 (71) 95 96.0 10/09/24 04:00 150 10/09/24 04:00 155 20 94 Non-Rebreather 15 N/A 10/09/24 02:56 98.9 152 44 114/89 (97) 93 98.9 10/09/24 02:50 147 Lab Test 10/09/24 08:57 10/09/24 08:25 10/09/24 05:57 10/09/24 03:44 Range/Units Blood Gas Specimen Type Arterial Blood Gas Sample Site Left radial Blood Gas Patient Temperature 37.0 Arterial Blood Date Drawn [id number] Arterial Blood pH 7.090 *L 7.350-7.450 Arterial Blood Partial Pressure CO2 100.2 *H 35.0-48.0 mmHg Arterial Blood Partial Pressure O2 83.5 83.0-108.0 mmHg Arterial Blood HCO3 29.7 H 21.0-28.0 mmol/L Arterial Blood Oxygen Saturation 89.0 L 94.0-98.0 % Arterial Blood Base Excess -2.3 L -2.0-3.0 mmol/L Arterial Blood Oxyhemoglobin 86.8 L 94.0-98.0 % Arterial Blood Carboxyhemoglobin 0.9 0.5-1.5 % Arterial Blood Methemoglobin 1.6 H 0.0-1.5 % Sim Test Modified Blood Gas Total Hemoglobin 11.90 L 13.5-17.5 g/dL Blood Gas Set Respiration Rate 18.0 Blood Gas Modality Vent - ac FiO2 % 100.0 Blood Gas Tidal Volume 450.0 Blood Gas PEEP or CPAP 5.0 Blood Gas Critical Value Read Back Yes Blood Gas Notified Whom Dr. hamida corona Blood Gas Notified Time [id number] Blood Gas Notified By Urine Color Yellow Yellow Urine Clarity Turbid H Clear Urine pH 6.0 5.0-9.0 Urine Specific [place] 1.021 1.001-1.035 Urine Protein 1+ H Negative Urine Ketones Negative Negative Urine Blood Negative Negative /uL Urine Nitrite Negative Negative Urine Bilirubin Negative Negative Urine Urobilinogen Normal Negative mg/dL Urine Leukocyte Esterase Negative Negative /uL Urine RBC 5 0 - 3 /hpf Urine Microscopic WBC 3 0-3 /HPF Urine Squamous Epithelial Cells None seen <5 /hpf Urine Bacteria None seen None Seen /hpf Urine Mucus Few None Seen Urine Sperm Present None Seen /hpf Urine Glucose Normal Normal mg/dL Urine Opiates Screen Neg NEGATIVE Urine Fentanyl Screen Neg NEGATIVE Urine Barbiturates Screen Neg NEGATIVE Urine Phencyclidine Screen Neg NEGATIVE Urine Amphetamines Screen Neg NEGATIVE Urine Benzodiazepines Screen Neg NEGATIVE Urine Cocaine Screen Neg NEGATIVE Urine Cannabinoids Screen Neg NEGATIVE Lactic Acid Level 5.5 *H 4.5 *H 0.4-2.0 mmol/L Troponin I High Sensitivity 26 12 </=54 ng/L White Blood Count 30.8 *H 4.4-10.8 10^3/uL Red Blood Count 3.91 L 4.5-5.90 10^6/uL Hemoglobin 11.6 L 13.5-17.5 g/dL Hematocrit 36.2 L 41.0-53.0 % Mean Corpuscular Volume 92.5 80.0-100.0 fL Mean Corpuscular Hemoglobin 29.6 28.0-32.0 pg Mean Corpuscular Hemoglobin Concent 32.0 32.0-36.0 g/dL Red Cell Distribution Width 18.8 H 11.8-14.3 % Platelet Count 228 140-450 10^3/uL Mean Platelet Volume 7.9 6.9-10.8 fL Neutrophils (%) (Auto) 37.0-80.0 % Lymphocytes (%) (Auto) 10.0-50.0 % Monocytes (%) (Auto) 0.0-12.0 % Basophils (%) (Auto) 0.0-2.0 % Neutrophils # (Auto) 1.6-8.6 10 ^3/uL Lymphocytes # (Auto) 0.4-5.4 10 ^3/uL Monocytes # (Auto) 0-1.3 10 ^3/uL Differential Total Cells Counted 100.0 100 Neutrophils % (Manual) 73 37.0-80.0 Band Neutrophils % (Manual) 1 Lymphocytes % (Manual) 21 10.0-50.0 Monocytes % (Manual) 5 0-12 Eosinophils % (Manual) 0 0-7 Basophils % (Manual) 0 0.0-2.0 Metamyelocytes % (manual) 0 Myelocytes % (Manual) 0 Promyelocytes % (Manual) 0 Blast Cells % (Manual) 0 Reactive Lymphocytes 0 Platelet Estimate Adequate Prothrombin Time 11.4 9.3-11.8 sec Prothrombin Time INR 1.08 0.9-1.15 Sodium Level 144 136-145 mmol/L Potassium Level 3.6 3.5-5.1 mmol/L Chloride Level 102 98-107 mmol/L Carbon Dioxide Level 30 20-31 mmol/L Anion Gap 12 5-15 Blood Urea Nitrogen 23 9-23 mg/dL Creatinine 0.59 L 0.700-1.30 mg/dL Glomerular Filtration Rate Calc 112 >90 mL/min BUN/Creatinine Ratio 39.0 H 10.0-20.0 Serum Glucose 104 74-106 mg/dL Calcium Level 10.0 8.7-10.4 mg/dL Magnesium Level 1.8 1.6-2.6 mg/dL Total Bilirubin 1.7 H 0.2-1.0 mg/dL Aspartate Amino Transferase (AST) 31 13-40 U/L Alanine Aminotransferase (ALT) 52 H 7-40 U/L Alkaline Phosphatase 504 H 46-116 U/L B-Type Natriuretic Peptide 63.22 0-100 pg/mL Total Protein 6.1 5.7-8.2 g/dL Albumin 4.2 3.2-4.8 g/dL Lipase 66 H 12-53 U/L Plasma/Serum Blood Alcohol < 3.0 <10 mg/dL Test 10/09/24 03:35 Range/Units Blood Gas Specimen Type Arterial Blood Gas Sample Site Right radial Blood Gas Patient Temperature 37.0 Arterial Blood Date Drawn [id number] Arterial Blood pH 7.514 H 7.350-7.450 Arterial Blood Partial Pressure CO2 33.1 L 35.0-48.0 mmHg Arterial Blood Partial Pressure O2 62.4 L 83.0-108.0 mmHg Arterial Blood HCO3 26.1 21.0-28.0 mmol/L Arterial Blood Oxygen Saturation 91.5 L 94.0-98.0 % Arterial Blood Base Excess 3.4 H -2.0-3.0 mmol/L Arterial Blood Oxyhemoglobin 88.7 L 94.0-98.0 % Arterial Blood Carboxyhemoglobin 1.3 0.5-1.5 % Arterial Blood Methemoglobin 1.8 H 0.0-1.5 % Sim Test Yes Blood Gas Total Hemoglobin 11.70 L 13.5-17.5 g/dL Blood Gas Liter Flow 10.00 Blood Gas Modality Mask - nrb Blood Gas Spontaneous Rate 22 FiO2 % 75.0 Specimen Drawn By [facility] rt Microbiology Date/Time Source Procedure Growth Status 10/09/24 03:55 Blood Blood Culture - Preliminary Resulted 10/09/24 03:44 Blood Blood Culture - Preliminary Resulted Current Medications Medications (Trade) Dose Ordered Sig/Jaden Route Start Time Stop Time Status Last Admin Sodium Chloride 1,000 ml @ 130 mls/hr [id number] ONCE IV 10/09/24 03:15 10/09/24 10:56 DC 10/09/24 03:15 Piperacillin Sod/ Tazobactam Sod 100 ml @ 100 mls/hr ONCE ONCE IV 10/09/24 05:00 10/09/24 05:59 DC 10/09/24 08:16 Vancomycin HCl 250 ml @ 250 mls/hr ONCE ONCE IV 10/09/24 05:00 10/09/24 05:59 DC 10/09/24 08:16 Sodium Chloride 1,000 ml @ 1,000 mls/hr Q1H ONCE IV 10/09/24 05:00 10/09/24 05:59 DC 10/09/24 05:05 Sodium Chloride 1,000 ml @ 1,000 mls/hr Q1H ONCE IV 10/09/24 07:15 10/09/24 08:14 DC 10/09/24 09:03 Etomidate 20 mg ONCE ONCE IV 10/09/24 07:30 10/09/24 07:31 DC 10/09/24 07:40 Rocuronium [place] 100 mg ONCE ONCE IV 10/09/24 07:30 10/09/24 07:31 DC 10/09/24 07:41 Midazolam HCl 50 ml @ 1 mls/hr Q24H IV 10/09/24 08:30 10/09/24 16:51 Fentanyl Citrate 250 ml @ 2.5 mls/hr Q24H IV 10/09/24 08:30 10/09/24 09:10 Norepinephrine Bitartrate 250 ml @ 3.75 mls/hr Q24H IV 10/09/24 08:30 10/09/24 13:30 DC 10/09/24 09:11 Doxycycline Hyclate 100 ml @ 50 mls/hr Q12H IV 10/09/24 08:15 10/09/24 16:07 DC 10/09/24 10:02 Acetaminophen (Tylenol Suppository) 650 mg Q6HP PRN CO 10/09/24 08:30 10/09/24 12:44 Lactated Ringer's 1,000 ml @ 1,000 mls/hr Q1H ONCE IV 10/09/24 08:30 10/09/24 09:29 DC 10/09/24 09:13 Lactated Ringer's 1,000 ml @ 75 mls/hr [id number] IV 10/09/24 08:30 10/09/24 16:07 DC 10/09/24 10:16 Vancomycin HCl 200 ml @ 200 mls/hr ONCE ONCE IV 10/09/24 09:15 10/09/24 10:14 DC 10/09/24 10:15 CHEST RADIOGRAPH Indication: AMS Technique: Single frontal view of the chest was obtained COMPARISON: XY CHEST PORTABLE on DOS: 09/17/24, XY CHEST XRAY 1 VIEW on DOS: 09/13/24, XY CHEST XRAY 1 VIEW on DOS: 09/10/24, XY CHEST XRAY 1 VIEW on DOS: 09/08/24, XY CHEST PORTABLE on DOS: 08/30/24 FINDINGS: Lines and Tubes: None Lungs: Multifocal airspace disease Pleura: No effusion. No pneumothorax. Cardiomediastinal contours: Unremarkable Bones: Unremarkable IMPRESSION: Multifocal airspace disease. ATED BY: FRANDY VARGHESE MD DICTATED DATE/TIME: 10/09/24507 SIGNED BY: FRANDY VARGHESE MD SIGNED DATE/TIME: 10/09/24507 CC: [id number]: Patient approved by [facility] Dr. Chopra for in-patient admission to the hospital. Approval #[id number]. Time of 1ST Reevaluation: 03:57 Reevaluation 1ST: Unchanged Patient Education/Counseling: Other (Need for admission) Family Education/Counseling: No Family Present Sepsis Sepsis Reasesment Focused Exam Orders: Laboratory Tests 10/09/24 05:57: Lactic Acid Level 5.5 Departure 1 Departure Time of Disposition: 05:14 Impression: Primary Impression: Acute respiratory failure Qualified Codes: J96.01 - Acute respiratory failure with hypoxia Additional Impressions: Pneumonia Qualified Codes: J18.9 - Pneumonia, unspecified organism Sepsis Qualified Codes: A41.9 - Sepsis, unspecified organism; R65.21 - Severe sepsis with septic shock; J96.01 - Acute respiratory failure with hypoxia Respiratory alkalosis Disposition: ADMITTED INPATIENT Admit to: ICU Condition: Critical Comments 58-year-old male with a history of lymphoma and recurrent pneumonia who presents with shortness of breath cough and hypoxia. Patient appears to be septic, antibiotics, IV fluids initiated in the emergency department. Patient admitted to hospitalist service for further treatment, evaluation and monitoring. Sounds oncoming provider at 6:00 a.m. Pending consult with [facility] insurance physician. Critical Care Note Critical Care Time?: Yes Critical care comment: Acute respiratory failure Authorized and Performed by: Gloria Corona MD Total critical care time: Approximately 114 minutes Due to a high probability of clinically significant, life threatening deterioration, the patient required my highest level of preparedness to intervene emergently and I personally spent this critical care time directly and personally managing the patient. This critical care time included obtaining a history; examining the patient; pulse oximetry; ordering and review of studies; arranging urgent treatment with development of a management plan; evaluation of patient's response to treatment; frequent reassessment; and, discussions with other providers. This critical care time was performed to assess and manage the high probability of imminent, life-threatening deterioration that could result in multi-organ failure. It was exclusive of separately billable procedures and treating other patients and teaching time. Please see my other sections and the rest of the note for further information on patient assessment and treatment. Stability Stability form required: No Heart Score Heart Score: Heart Score Response (Comments) Value History Slightly Suspicious 0 EKG Normal 0 Age 45-64 1 Risk Factors 1 or 2 risk factors 1 Troponin >3 x's Normal limit 2 Total 4 I personally scribed for SHANELL SALEEM MD ([email or web address]) on 10/09/24 at 03:31. Electronically submitted by Emanuel Obrien ([email or web address]). I personally scribed for SHANELL SALEEM MD ([email or web address]) on 10/09/24 at 07:56. Electronically submitted by Ervin Lockett ([email or web address]). SHANELL SALEEM MD Oct 09, 2024 03:31 GLORIA CORONA MD Oct 09, 2024 08:47
[2024-10-09 03:39] LABS: Base Excess 3.4 mmol/L (-2.0-3.0)
[2024-10-09] MEDS: ALBUTEROL SULF 2.5 MG/0.5ML(0.5%) NEB SOLN NEB ONE (03:40)
--- NOTE | 2024-10-09 03:52 | ECG ---
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
[2024-10-09 04:22] LABS: Hematocrit 36.2 % (41.0-53.0); Red Blood Cells 3.91 10^6/uL (4.5-5.90)
[2024-10-09 04:25] LABS: Hemoglobin 11.6 g/dL (13.5-17.5); Mean Corpuscular Hemoglobin 29.6 pg (28.0-32.0); Mean Corpuscular Volume 92.5 fL (80.0-100.0); Platelet Count (auto) 228 10^3/uL (140-450); Red Cell Distribution Width 18.8 % (11.8-14.3)
[2024-10-09 04:28] LABS: White Blood Cell 30.8 10^3/uL (4.4-10.8)
[2024-10-09 04:30] LABS: Basophils % (manual) 0 (0.0-2.0); Blast Cells 0; Eosinophils % (manual) 0 (0-7); Metamyelocytes % 0; Myelocytes % 0; Promyelocytes % 0; Reactive Lymphocytes 0
[2024-10-09 04:33] LABS: INR 1.08 (0.9-1.15); Prothrombin Time 11.4 sec (9.3-11.8)
[2024-10-09 04:44] LABS: Albumin 4.2 g/dL (3.2-4.8); Anion Gap 12 (5-15); Aspartate Aminotransferase 31 U/L (13-40); Blood Urea Nitrogen 23 mg/dL (9-23); Carbon Dioxide 30 mmol/L (20-31); Chloride 102 mmol/L (98-107); Glucose 104 mg/dL (74-106); Magnesium 1.8 mg/dL (1.6-2.6); Potassium 3.6 mmol/L (3.5-5.1); Sodium 144 mmol/L (136-145); Total Protein 6.1 g/dL (5.7-8.2)
[2024-10-09 04:48] LABS: Alanine Aminotransferase 52 U/L (7-40); Alkaline Phosphatase 504 U/L (46-116); Bilirubin, Total 1.7 mg/dL (0.2-1.0); Blood Alcohol < 3.0 mg/dL (<10); Lactic Acid w/Reflex 4.5 mmol/L (0.4-2.0)
[2024-10-09 04:56] LABS: Band Neutrophils % (manual) 1
[2024-10-09 04:57] LABS: Lymphocytes % (manual) 21 (10.0-50.0); Monocytes % (manual) 5 (0-12); Platelet Estimate Adequate
[2024-10-09 05:03] LABS: Lipase 66 U/L (12-53)
--- NOTE | 2024-10-09 05:11 | DVH ---
CHEST RADIOGRAPH Indication: AMS Technique: Single frontal view of the chest was obtained COMPARISON: XY CHEST PORTABLE on DOS: 09/17/24, XY CHEST XRAY 1 VIEW on DOS: 09/13/24, XY CHEST XRAY 1 VIEW on DOS: 09/10/24, XY CHEST XRAY 1 VIEW on DOS: 09/08/24, XY CHEST PORTABLE on DOS: 08/30/24 FINDINGS: Lines and Tubes: None Lungs: Multifocal airspace disease Pleura: No effusion. No pneumothorax. Cardiomediastinal contours: Unremarkable Bones: Unremarkable IMPRESSION: Multifocal airspace disease.
--- NOTE | 2024-10-09 07:03 | DVH ---
EXAM: US Abdomen Limited, Right Upper Quadrant CLINICAL INDICATION: Right upper quadrant ultrasound, elevated LFTs TECHNIQUE: Real-time ultrasound of the right upper quadrant with image documentation. COMPARISON: None FINDINGS: LIVER: Liver measures 16.8 cm. Left hepatic lobe not clearly visualized secondary to patient's pos ition. GALLBLADDER: Cholelithiasis. Negative Garcia's sign was reported by the system safety engineer. COMMON BILE DUCT: CBD not visualized secondary to bowel gas. PANCREAS: Unremarkable as visualized. RIGHT KIDNEY: Unremarkable. No stones. No hydronephrosis. Right kidney measures 9.7 cm. OTHER FINDINGS: . IMPRESSION: Cholelithiasis.
[2024-10-09] MEDS: LORazepam 2MG/ML-1ML VIAL IV ONE (07:07)
[2024-10-09] MEDS: ETOMIDATE (2MG/ML) 20ML VIAL IV ONE ×2 (07:40→08:17)
[2024-10-09] MEDS: ROCURONIUM 10MG/ML 10ML VIAL IV ONE ×2 (07:41→08:17)
[2024-10-09] MEDS ORDERED: NOREPINEPHRINE 8 MG/250ML KIT 250 ML IV SCH (07:45)
[2024-10-09] MEDS ORDERED: fentaNYL Drip 2500mCg/250mlNS 250 ML IV SCH (07:45)
[2024-10-09] MEDS ORDERED: PROPOFOL 100 ML IV SCH (07:45)
[2024-10-09] MEDS ORDERED: AZITHROMYCIN 500MG/ 250ML 250 ML IV ONE (07:45)
[2024-10-09] MEDS ORDERED: MIDAZOLAM DRIP 50 mg/50mL 50 ML IV SCH (07:45)
[2024-10-09] MEDS ORDERED: ONDANSETRON HCL 4 MG/2 ML VIAL IV PRN (08:15)
[2024-10-09] MEDS ORDERED: VANCOMYCIN PER PHARMACY 0 MG IV SCH (08:15)
[2024-10-09] MEDS: PIPERACILLIN-TAZOB 3.375GM 100 ML IV ONE (08:16)
[2024-10-09] MEDS: VANCOMYCIN 1GM/200ML PM 250 ML IV ONE (08:16)
[2024-10-09] MEDS: LORazepam 2MG/ML-1ML VIAL ONE (08:17)
[2024-10-09] MEDS ORDERED: DIGOXIN (250MCG/ML) 2 ML AMPULE IV ONE (08:30)
[2024-10-09] MEDS: MIDAZOLAM DRIP 50 mg/50mL 50 ML IV SCH (08:43)
[2024-10-09 08:44] LABS: Urine Bacteria None Seen /hpf (None Seen)
[2024-10-09 08:56] LABS: Amphetamine Screen, Urine Neg (NEGATIVE); Barbiturate Scree,Urine Neg (NEGATIVE); Benzodiazephine Screen, Urine Neg (NEGATIVE); Cannabinoid Screen, Urine Neg (NEGATIVE); Cocaine Screen, Urine Neg (NEGATIVE); Opiate Scree,Urine Neg (NEGATIVE); Phencyclidine Screen, Urine Neg (NEGATIVE); Urine Blood Negative /uL (Negative); Urine Clarity Turbid (Clear); Urine Color Yellow (Yellow); Urine Mucus FEW (None Seen); Urine Protein, UAD 1+ (Negative); Urine Specific Gravity 1.021 (1.001-1.035); Urine Sperm PRESENT /hpf (None Seen); Urine Squamous Epithelial Cell None Seen /hpf (<5); Urine Urobilinogen Normal (Negative); Urine WBC 3 /HPF (0-3)
[2024-10-09] MEDS: MIDAZOLAM DRIP 50 mg/50mL 50 ML IV ONE (09:04)
[2024-10-09] MEDS: NOREPINEPHRINE 8 MG/250ML KIT 250 ML IV ONE (09:04)
[2024-10-09] MEDS: fentaNYL Drip 2500mCg/250mlNS 250 ML IV ONE (09:06)
[2024-10-09] MEDS: fentaNYL Drip 2500mCg/250mlNS 250 ML IV SCH (09:10)
[2024-10-09] MEDS: NOREPINEPHRINE 8 MG/250ML KIT 250 ML IV SCH (09:11)
[2024-10-09 09:12] LABS: Base Excess -2.3 mmol/L (-2.0-3.0)
[2024-10-09] MEDS: LACTATED RINGER'S 1,000 ML IV ONE (09:13)
--- NOTE | 2024-10-09 09:13 | DVH ---
CHEST RADIOGRAPH Indication: intubation Technique: Single frontal view of the chest was obtained Comparison: XY CHEST XRAY 1 VIEW on DOS: 10/09/24, XY CHEST PORTABLE on DOS: 09/17/24, XY CHEST XRAY 1 VIEW on DOS: 09/13/24, XY CHEST XRAY 1 VIEW on DOS: 09/10/24, XY CHEST XRAY 1 VIEW on DOS: 09/08/24, XY CHEST XRAY 1 VIEW on DOS: 10/09/24 FINDINGS: Lines and Tubes: ET tube 3 cm from jerome. NG tube in stomach. Lungs: Multifocal airspace disease Pleura: No effusion. No pneumothorax. Cardiomediastinal contours: Unremarkable Bones: Unremarkable IMPRESSION: Multifocal airspace disease.
[2024-10-09] MEDS ORDERED: MORPHINE SULFATE INJ 2 MG/ml SYRG IV PRN (09:30)
[2024-10-09] MEDS ORDERED: NITROGLYCERIN 0.4 MG SL TAB SL PRN (09:30)
--- NOTE | 2024-10-09 09:30 | DVHHP2 ---
History of Present Illness Reason for Visit: Acute respiratory failure History of Present Illness The patient is a 58-year-old male with multiple past medical history including anemia, hypertension, DVTs, and lymphoma who presented to [facility] ED with complaint of shortness of breaths. Patient reports he was at home when he started feeling anxious this morning, experiencing chest palpitation, increased work of breathing, getting worse that EMS were called. When EMS arrived on the scene, patient's O2 saturation was 93% room air and was placed on oxygen 2L/min EN route to our facility ED. patient was seen and evaluated in the ED hypoxic, generalized weakness, critically significant life-threatening deterioration and was subsequently intubated. Laboratory data shows WBC 30.8, lactic acid 4.5, hemoglobin 11.6, hematocrit 36.2, platelets 228, sodium 144, potassium 3.6, BUN 23, creatinine 0.59, glucose 104, GFR 112, total bilirubin 1.7, alkaline phos 504, lipase 66, AST 31, ALT 52, troponin 26, blood pressure 96/58, heart rate 155 trending down to 120, temperature 96.0 F, O2 saturation 95% on ventilator. Single organ ultrasound revealing cholelithiasis, chest x-ray revealing multifocal airspace disease. Patient was started on IV antibiotic regimen vancomycin, please see medication orders section in the computer. On my assessment, patient is fully intubated, no diaphoresis, no diarrhea, no vomiting, no fever. Patient was admitted for further evaluation and medical management. Past Medical History Lymphoma, Pneumonia, PE, HTN, DVT's, GERD, Anemia, and Thrombocytopenia Past Surgical History Denies all surgeries Family History Reviewed, noncontributory to the management of this case. Past Social History The patient lives at home, denies smoking, alcohol or illicit drugs abuse. Review of Systems Constitutional: Yes: Chills, Weakness, Other (Fatigue); No: Fever, Sweats, Malaise Eyes: No: Pain, Vision change, Conjunctivae inflammation, Eyelid inflammation, Other, Redness ENT: No: Ear pain, Ear discharge, Nose pain, Nose discharge, Nose congestion, Mouth pain, Mouth swelling, Throat pain, Throat swelling, Other Respiratory: Shortness of breath, SOB with excertion, Other (SOB at rest); No: Cough, Dry, Wheezing, Hemoptysis, Pleuritic Pain, Sputum, Wheezing Cardiovascular: No: Chest Pain, Palpitations, Orthopnea, Paroxysmal Noc. Dyspnea, Edema, Lt Headedness, Other Gastrointestinal: No: Nausea, Vomiting, Abdominal Pain, Diarrhea, Constipation, Melena, Hematochezia, Other Genitourinary: No Dysuria, No Frequency, No Incontinence, No Hematuria, No Retention; Other (Turner catheter in place) Musculoskeletal: No: other, neck pain, shoulder pain, arm pain, back pain, hand pain, leg pain, foot pain Skin: No: Rash, Lesions, Jaundice, Bruising, Other Neurological: Weakness; No: Numbness, Incoordination, Change in speech, Confusion, Seizures, Other Allergies: Coded Allergies: Metoprolol (Verified Allergy, Unknown, 08/31/24) Sulfamethoxazole w/Trimethoprim (Verified Allergy, Unknown, 08/31/24) Medications Current Medications Medications Dose Ordered Sig/Jaden Route Start Time Stop Time Status Last Admin Dose Admin Propofol 100 ml @ 2.451 mls/ hr Q24H IV 10/09/24 07:45 Midazolam HCl 50 ml @ 1 mls/hr Q24H IV 10/09/24 08:30 10/09/24 08:43 10 MLS/HR Fentanyl Citrate 250 ml @ 2.5 mls/hr Q24H IV 10/09/24 08:30 10/09/24 09:10 2.5 MLS/HR Norepinephrine Bitartrate 250 ml @ 3.75 mls/hr Q24H IV 10/09/24 08:30 10/09/24 09:11 3.75 MLS/HR Vancomycin HCl 0 ml @ 0 mls/hr UD IV 10/09/24 08:15 Doxycycline Hyclate 100 ml @ 50 mls/hr Q12H IV 10/09/24 08:15 Famotidine 20 mg Q12HR IV 10/09/24 10:00 Methylprednisolone Sodium Succinate 40 mg Q8HR IV 10/09/24 14:00 Digoxin 125 mcg Q6H IV 10/09/24 08:15 Sodium Chloride 10 ml Q8HR IV 10/09/24 14:00 Ondansetron HCl 4 mg Q4HP PRN IV 10/09/24 08:15 Acetaminophen 650 mg Q6HP PRN VT 10/09/24 08:30 Lactated Ringer's 1,000 ml @ 75 mls/hr [id number] IV 10/09/24 08:30 Enoxaparin Sodium 40 mg DAILY SC 10/09/24 10:00 Exam Vital Signs Vital Signs Date Time Temp Pulse Resp B/P (MAP) Pulse Ox O2 Delivery O2 Flow Rate FiO2 10/09/24 09:11 101/65 10/09/24 08:00 167 10/09/24 04:00 96.0 20 95 96.0 10/09/24 04:00 Non-Rebreather 15 N/A General Appearance: Other (Fully intubated) HEENT: Atraumatic, PERRLA, EOMI, Mucous membr. moist/pink Respiratory: Normal air movement, Other (On ventilator) Cardiovascular: Normal S1, Normal S2, No murmurs, Other (Irregular rate and rhythm) Abdominal: Normal bowel sounds, Soft, No tenderness, No hepatospenomegaly, No masses Extremities: No clubbing, No cyanosis, No edema, Normal pulses, No tenderness/swelling Skin: No rashes, No breakdown, No significant lesion Neuro: Other (Generalized weakness) Psych/Mental Status: Other (Altered mental status) Labs/Xrays Labs Test 10/09/24 08:57 10/09/24 08:25 10/09/24 05:57 10/09/24 03:44 Range/Units Blood Gas Specimen Type Arterial Blood Gas Sample Site Left radial Blood Gas Patient Temperature 37.0 Arterial Blood Date Drawn [id number] Arterial Blood pH 7.090 *L 7.350-7.450 Arterial Blood Partial Pressure CO2 100.2 *H 35.0-48.0 mmHg Arterial Blood Partial Pressure O2 83.5 83.0-108.0 mmHg Arterial Blood HCO3 29.7 H 21.0-28.0 mmol/L Arterial Blood Oxygen Saturation 89.0 L 94.0-98.0 % Arterial Blood Base Excess -2.3 L -2.0-3.0 mmol/L Arterial Blood Oxyhemoglobin 86.8 L 94.0-98.0 % Arterial Blood Carboxyhemoglobin 0.9 0.5-1.5 % Arterial Blood Methemoglobin 1.6 H 0.0-1.5 % Sim Test Modified Blood Gas Total Hemoglobin 11.90 L 13.5-17.5 g/dL Blood Gas Set Respiration Rate 18.0 Blood Gas Modality Vent - ac FiO2 % 100.0 Blood Gas Tidal Volume 450.0 Blood Gas PEEP or CPAP 5.0 Blood Gas Critical Value Read Back Yes Blood Gas Notified Whom Dr. hamida corona Blood Gas Notified Time [id number] Blood Gas Notified By Urine Color Yellow Yellow Urine Clarity Turbid H Clear Urine pH 6.0 5.0-9.0 Urine Specific [place] 1.021 1.001-1.035 Urine Protein 1+ H Negative Urine Ketones Negative Negative Urine Blood Negative Negative /uL Urine Nitrite Negative Negative Urine Bilirubin Negative Negative Urine Urobilinogen Normal Negative mg/dL Urine Leukocyte Esterase Negative Negative /uL Urine RBC 5 0 - 3 /hpf Urine Microscopic WBC 3 0-3 /HPF Urine Squamous Epithelial Cells None seen <5 /hpf Urine Bacteria None seen None Seen /hpf Urine Mucus Few None Seen Urine Sperm Present None Seen /hpf Urine Glucose Normal Normal mg/dL Urine Opiates Screen Neg NEGATIVE Urine Fentanyl Screen Neg NEGATIVE Urine Barbiturates Screen Neg NEGATIVE Urine Phencyclidine Screen Neg NEGATIVE Urine Amphetamines Screen Neg NEGATIVE Urine Benzodiazepines Screen Neg NEGATIVE Urine Cocaine Screen Neg NEGATIVE Urine Cannabinoids Screen Neg NEGATIVE Lactic Acid Level 5.5 *H 0.4-2.0 mmol/L Troponin I High Sensitivity 26 </=54 ng/L White Blood Count 30.8 *H 4.4-10.8 10^3/uL Red Blood Count 3.91 L 4.5-5.90 10^6/uL Hemoglobin 11.6 L 13.5-17.5 g/dL Hematocrit 36.2 L 41.0-53.0 % Mean Corpuscular Volume 92.5 80.0-100.0 fL Mean Corpuscular Hemoglobin 29.6 28.0-32.0 pg Mean Corpuscular Hemoglobin Concent 32.0 32.0-36.0 g/dL Red Cell Distribution Width 18.8 H 11.8-14.3 % Platelet Count 228 140-450 10^3/uL Mean Platelet Volume 7.9 6.9-10.8 fL Neutrophils (%) (Auto) 37.0-80.0 % Lymphocytes (%) (Auto) 10.0-50.0 % Monocytes (%) (Auto) 0.0-12.0 % Basophils (%) (Auto) 0.0-2.0 % Neutrophils # (Auto) 1.6-8.6 10 ^3/uL Lymphocytes # (Auto) 0.4-5.4 10 ^3/uL Monocytes # (Auto) 0-1.3 10 ^3/uL Differential Total Cells Counted 100.0 100 Neutrophils % (Manual) 73 37.0-80.0 Band Neutrophils % (Manual) 1 Lymphocytes % (Manual) 21 10.0-50.0 Monocytes % (Manual) 5 0-12 Eosinophils % (Manual) 0 0-7 Basophils % (Manual) 0 0.0-2.0 Metamyelocytes % (manual) 0 Myelocytes % (Manual) 0 Promyelocytes % (Manual) 0 Blast Cells % (Manual) 0 Reactive Lymphocytes 0 Platelet Estimate Adequate Prothrombin Time 11.4 9.3-11.8 sec Prothrombin Time INR 1.08 0.9-1.15 Sodium Level 144 136-145 mmol/L Potassium Level 3.6 3.5-5.1 mmol/L Chloride Level 102 98-107 mmol/L Carbon Dioxide Level 30 20-31 mmol/L Anion Gap 12 5-15 Blood Urea Nitrogen 23 9-23 mg/dL Creatinine 0.59 L 0.700-1.30 mg/dL Glomerular Filtration Rate Calc 112 >90 mL/min BUN/Creatinine Ratio 39.0 H 10.0-20.0 Serum Glucose 104 74-106 mg/dL Calcium Level 10.0 8.7-10.4 mg/dL Magnesium Level 1.8 1.6-2.6 mg/dL Total Bilirubin 1.7 H 0.2-1.0 mg/dL Aspartate Amino Transferase (AST) 31 13-40 U/L Alanine Aminotransferase (ALT) 52 H 7-40 U/L Alkaline Phosphatase 504 H 46-116 U/L B-Type Natriuretic Peptide 63.22 0-100 pg/mL Total Protein 6.1 5.7-8.2 g/dL Albumin 4.2 3.2-4.8 g/dL Lipase 66 H 12-53 U/L Plasma/Serum Blood Alcohol < 3.0 <10 mg/dL Test 10/09/24 03:35 Range/Units Blood Gas Liter Flow 10.00 Blood Gas Spontaneous Rate 22 Specimen Drawn By shahzad rt PATIENT: ANAHI MATA ACCT: [id number] UNIT: [id number] : 1965 LOC: ER ROOM / BED: / AGE / SEX: 58 / M ADM STATUS: REG ER SERVICE 05 ORDERING PHYSICIAN: SHANELL SALEEM MD PROCEDURE(s): ABDL - ABDOMEN LIMITED REASON: Right upper quadrant ultrasound, elevated LFTs ORDER NUMBER(s): [id number], ACCESSION NUMBER(s): [id number] EXAM: US Abdomen Limited, Right Upper Quadrant CLINICAL INDICATION: Right upper quadrant ultrasound, elevated LFTs TECHNIQUE: Real-time ultrasound of the right upper quadrant with image documentation. COMPARISON: None FINDINGS: LIVER: Liver measures 16.8 cm. Left hepatic lobe not clearly visualized secondary to patient's position. GALLBLADDER: Cholelithiasis. Negative Garcia's sign was reported by the manager oncology. COMMON BILE DUCT: CBD not visualized secondary to bowel gas. PANCREAS: Unremarkable as visualized. RIGHT KIDNEY: Unremarkable. No stones. No hydronephrosis. Right kidney measures 9.7 cm. OTHER FINDINGS: IMPRESSION: Cholelithiasis. ORDERING PHYSICIAN: SHANELL SALEEM MD PROCEDURE(s): CXR1 - CHEST XRAY 1 VIEW REASON: AMS ORDER NUMBER(s): [id number], ACCESSION NUMBER(s): [id number] CHEST RADIOGRAPH Indication: AMS Technique: Single frontal view of the chest was obtained COMPARISON: XY CHEST PORTABLE on DOS: 09/17/24, XY CHEST XRAY 1 VIEW on DOS: 09/13/24, XY CHEST XRAY 1 VIEW on DOS: 09/10/24, XY CHEST XRAY 1 VIEW on DOS: 09/08/24, XY CHEST PORTABLE on DOS: 08/30/24 FINDINGS: Lines and Tubes: None Lungs: Multifocal airspace disease Pleura: No effusion. No pneumothorax. Cardiomediastinal contours: Unremarkable Bones: Unremarkable IMPRESSION: Multifocal airspace disease. FINDINGS: Lines and Tubes: ET tube 3 cm from jerome. NG tube in stomach. Lungs: Multifocal airspace disease Pleura: No effusion. No pneumothorax. Cardiomediastinal contours: Unremarkable Bones: Unremarkable Assessment/Plan Assessment/Plan Acute respiratory failure Respiratory alkalosis Generalized weakness Acute respiratory failure with hypoxia Pneumonia, unspecified organism Sepsis, unspecified organism Severe sepsis with septic shock Plan 1. Admit to intensive care unit 2. Breathing treatment 3. Pain control management 4. IV antibiotic management 5. Management of fluids and electrolytes 6. Consultation for pulmonology 7. Diagnostic test chest x-ray 8. DVT prophylaxis on Lovenox 9. Repeat labs CBC, CMP in a.m. 10. Home medication reviewed and reconciled 11. Continue with current medical management 12. Treatment plan discussed with patient/ and RN. verbalized understanding. Plan discussed with: Patient, Other (RN) My Orders Orders - EMILY JEROME DNP Procedure Category Date Status Time *Consult CONS 10/09/24 Transmitted / 08:13 Vancomycin Per PHA 10/09/24 In Process Pharmacy 08:15 Doxycycline PHA 10/09/24 In Process 100mg/100ml 08:15 Famotidine Injection PHA 10/09/24 In Process (Pepcid Injection) 10:00 Methylprednisolone PHA 10/09/24 In Process Sod Succ (Solu Medrol 14:00 Digoxin Injection PHA 10/09/24 In Process (Lanoxin Injection) 08:15 * Cardiology Consult CONS 10/09/24 Transmitted 08:13 Allergies IRVIN 10/09/24 In Process 08:13 Code Status CODE 10/09/24 Transmitted 08:13 Sodium Chloride Lock PHA 10/09/24 In Process (Saline Lock Ns) 14:00 Oxygen Per Hour RT 10/09/24 Transmitted 08:13 Ondansetron Hcl PHA 10/09/24 In Process (Zofran) 08:15 Fall Risk Precautions IRVIN 10/09/[address] 08:13 Complete Blood Count LAB 10/10/24 Verified 04:00 Comprehensive LAB 10/10/24 Verified Metabolic Panel 04:00 Npo (Nothing By DIET 10/09/24 Transmitted Mouth) Diet Breakfast Condition: Critical IRVIN 10/09/24 In Process 08:13 Maintain Bed Rest IRVIN 10/09/24 In Process 08:13 Sequential IRVIN 10/09/24 In Process Compression Device Acetaminophen PHA 10/09/24 In Process Suppository (Tylenol 08:30 Lactated Ringer's PHA 10/09/24 In Process 08:30 Lactic Acid W/ Reflex LAB 10/09/24 Logged Order 10:00 Enoxaparin Sodium PHA 10/09/24 In Process (Lovenox) 10:00 Vancomycin 1gm/200ml PHA 10/09/24 In Process Pm 09:15 Digoxin (Lanoxin) LAB 10/10/24 Verified 04:00 Problem List: (1) Acute respiratory failure (2) Respiratory alkalosis (3) Generalized weakness (4) Acute respiratory failure with hypoxia (5) Pneumonia, unspecified organism (6) Sepsis, unspecified organism (7) Severe sepsis with septic shock Date of Service: Oct 09, 2024 Billing Provider: EMILY JEROME DNP Common Visit Codes: 34910-SMONYMT INP/OBS CARE (HIGH) EMILY JEROME DNP Oct 09, 2024 09:30
[2024-10-09] MEDS: DIGOXIN (250MCG/ML) 2 ML AMPULE IV SCH (09:55)
[2024-10-09] MEDS: ENOXAPARIN SOD 40 MG/0.4 ML SYRINGE SC SCH (10:00)
[2024-10-09] MEDS: DOXYCYCLINE 100MG/100ML 100 ML IV SCH (10:02)
[2024-10-09] MEDS: VANCOMYCIN 1GM/200ML PM 200 ML IV ONE (10:15)
[2024-10-09 10:16] LABS: Lactic Acid w/Reflex 3.2 mmol/L (0.4-2.0)
[2024-10-09] MEDS: LACTATED RINGER'S 1,000 ML IV SCH (10:16)
[2024-10-09] MEDS: FAMOTIDINE (10MG/ML) 2ML VL IV SCH (10:19)
[2024-10-09 10:43] LABS: COVID19 ANTIGEN SOFIA FIA NEGATIVE (NEGATIVE); Rapid Influenza A Negative (Negative)
[2024-10-09 10:44] LABS: Rapid Influenza B Positive (Negative)
--- NOTE | 2024-10-09 11:16 | DVHINCON2 ---
Date Seen: Oct 09, 2024 Referring Physician DENITA Montero Reason for Consultation Tachycardia History of Present Illness This is a 58-year-old man who presented to the emergency room via EMS with a chief complaint of SOB since 99. At time of assessment, the patient was found endotracheally intubated with 100% FiO2, chemically sedated, and on single vasopressor. Information obtained from and daughter at bedside who reported the patient complaining of "not feeling well" in a cold room with O2 sat pulse oximetry not reading for which the patient was placed on an electric blanket with subsequent O2 Sat readings in between 80s-low 90s%. At that time his home O2 was increased from 4 to 8 LPM via NC. Given the patient's further deterioration, called 911. Cardiology consulted for sinus tachycardia with a monitor reading a HR at 135 bpm. A twelve lead electrocardiogram revealed a sinus tachycardia rhythm at 147 bpm with infrequent PVCs. Significant medical history includes Hodgkin's lymphoma diagnosed on 03/2021 status post chemotherapy treatment until 05/2024 at [facility], history of PE/LLE DVT status post IVC filter (09/02/2024) on Pradaxa therapy, history of pneumonia, GERD, anemia, thrombocytopenia, history of recent rectal bleed with hemorrhoid, prediabetes, and bed-bound status with sacral wounds. Past Medical History Past medical history reviewed. No other significant than mentioned above. Past Surgical History Bronchoscopy complicated with pneumothorax Status post IVC filter on 09/02/2024 Family History: Patient reports no known family medical history. Family History Family history reviewed. Mother with cardiovascular disease, unspecified. Social History Denies the use of illicit drugs, alcohol, or tobacco use. Allergies: Coded Allergies: Metoprolol (Verified Allergy, Unknown, 08/31/24) Sulfamethoxazole w/Trimethoprim (Verified Allergy, Unknown, 08/31/24) Home Meds Active Scripts Hydrocodone-Acetaminophen (Hydrocodone Bitartrate/AC 5-325 mg) 1 Tab Tab, 1 TAB PO TID PRN for 7 Days, #21 TAB Prov:PRAMOD BRAMBILA MD 09/26/24 Apixaban Base (ELIQUIS) 5 Mg Tab, 5 MG PO BID for 90 Days, #180 TAB Prov:PRAMOD BRAMBILA MD 09/26/24 Reported Medications Melatonin ( MELATONIN) 3 Mg Tab, 3 MG PO HS PRN for FOR INSOMNIA, TAB 09/03/24 Prednisone (Prednisone) 20 Mg Tab, 40 MG PO DAILY, MG 09/03/24 Prednisone (PREDNISONE) 1 Mg Tb, 4 TAB PO DAILY, #120 TAB 3 Refills 09/03/24 Alum & Mag Hydrox-Simethicone (Maalox Plus) 30 Ml Ss, 30 ML PO Q6HP, ML 09/03/24 Sodium Phosphate/Biphosphate (Fleet Enema) 133 Ml Rc, 133 ML [place] [id number], SUPP.RECT 09/03/24 Dabigatran Etexilate Mesylate (Pradaxa) 150 Mg Cap, 1 CAP PO BID, #180 CAP 1 Refill 09/03/24 Amlodipine Besylate (Amlodipine Besylate) 5 Mg Tab, 1 TAB PO DAILY, #30 TAB 5 Refills 09/03/24 Pantoprazole Sodium Sesquihydr (Protonix) 40 Mg Tab, 40 MG PO DAILY, #30 TAB 09/03/24 Montelukast Sodium (MONTELUKAST SODIUM) 10 Mg Tab, 1 TAB PO HS, #30 TAB 5 Refills 09/03/24 Dapsone (Dapsone) 100 Mg Tab, 100 MG PO DAILY, TAB 09/03/24 Mirtazapine (REMERON) 30 Mg Tab, 15 MG PO HS, TAB 09/03/24 Furosemide (Furosemide) 40 Mg Tab, 1 TAB PO DAILY, #30 TAB 5 Refills 09/03/24 Bisoprolol Fumarate (Bisoprolol Fumarate) 5 Mg Tab, 1 TAB PO DAILY, #90 TAB 3 Refills 09/03/24 Home Meds Home medications reviewed. Current Medications Current Medications Medications (Trade) Dose Ordered Sig/Jaden Route PRN Reason Start Time Stop Time Status Last Admin Propofol 100 ml @ 2.451 mls/ hr Q24H IV 10/09/24 07:45 10/09/24 09:55 DC Midazolam HCl 50 ml @ 1 mls/hr Q24H IV 10/09/24 07:45 10/09/24 08:40 DC Fentanyl Citrate 250 ml @ 2.5 mls/hr Q24H IV 10/09/24 07:45 10/09/24 08:40 DC Norepinephrine Bitartrate 250 ml @ 3.75 mls/hr Q24H IV 10/09/24 07:45 10/09/24 08:41 DC Midazolam HCl 50 ml @ 1 mls/hr Q24H IV 10/09/24 08:30 10/09/24 08:43 Fentanyl Citrate 250 ml @ 2.5 mls/hr Q24H IV 10/09/24 08:30 10/09/24 09:10 Norepinephrine Bitartrate 250 ml @ 3.75 mls/hr Q24H IV 10/09/24 08:30 10/09/24 09:11 Vancomycin HCl 0 ml @ 0 mls/hr UD IV 10/09/24 08:15 Doxycycline Hyclate 100 ml @ 50 mls/hr Q12H IV 10/09/24 08:15 10/09/24 10:02 Famotidine (Pepcid Injection) 20 mg Q12HR IV 10/09/24 10:00 Methylprednisolone Sodium Succinate (Solu Medrol) 40 mg Q8HR IV 10/09/24 14:00 Digoxin (Lanoxin Injection) 125 mcg Q6H IV 10/09/24 08:15 Sodium Chloride (Saline Lock Ns) 10 ml Q8HR IV 10/09/24 14:00 Ondansetron HCl (Zofran) 4 mg Q4HP PRN IV NAUSEA / VOMITING 10/09/24 08:15 Acetaminophen (Tylenol Suppository) 650 mg Q6HP PRN [place] PAIN SCALE 1-3 OR TEMP>100.4 10/09/24 08:30 Lactated Ringer's 1,000 ml @ 75 mls/hr [id number] IV 10/09/24 08:30 Enoxaparin Sodium (Lovenox) 40 mg DAILY SC 10/09/24 10:00 Nitroglycerin (Ntrostat Sublingual) 0.4 mg Q5MINP PRN SL FOR CHEST PAIN 10/09/24 09:30 UNV Morphine Sulfate 2 mg Q30M PRN IV FOR CHEST PAIN 10/09/24 09:30 UNV Review of Systems Constitutional: Generalized weakness Ears, Nose, & Throat: No symptom reported Eyes: No symptom reported Neurological: No symptoms reported Pulmonary/Respiratory: SOB Cardiovascular: No symptom reported Gastrointestinal: No symptom reported Genitourinary: No symptom reported Musculoskeletal: No symptom reported Skin: No symptom reported Psychiatric: No symptom reported Endocrine: No symptom reported Hemotologic/Lymphatic: No symptom reported Vital Signs Vital Signs Date Time Temp Pulse Resp B/P (MAP) Pulse Ox O2 Delivery O2 Flow Rate FiO2 10/09/24 09:30 140 20 96/59 (71) 89 10/09/24 09:00 96.6 96.6 10/09/24 04:00 Non-Rebreather 15 N/A Physical Exam General Appearance: Withdrawn. Chemically sedated. Endotracheally intubated Head Exam: Normal inspection Neck Exam: Normal inspection. Normal alignment Pulmonary/Respiratory: Coarse bilateral breath sounds. Endotracheally i ntubated 100% FiO2, 5 PEEP Cardiovascular/Chest: Regular rate and rhythm. S1, S2. Sinus tachycardia, 130s bpm. No murmurs. No JVD. Peripheral Pulses: 2+ Radial (R). 2+ Radial (L). 2+ Pedal (R). 2+ Pedal (L) Abdominal Exam: Normal bowel sounds. Soft. Ankle Exam: Positive left ankle edema, pitting 3+ Lower extremities: Left lower extremity edema, pitting 3+. Right lower ext remity cold to touch. Bilateral lower extremity mottled skin Neuro/Mental Status: Chemically sedated. Withdrawn. Pinpoint pupils. Negative gag reflex Thoughts/Psych: Unable to assess at this time Appearance: Withdrawn Skin Exam: Mottled skin Labs/Diagnostic Data Labs Test 10/09/24 09:30 10/09/24 08:57 10/09/24 08:25 10/09/24 03:44 Range/Units Blood Gas Specimen Type Arterial Blood Gas Sample Site Left radial Blood Gas Patient Temperature 37.0 Arterial Blood Date Drawn [id number] Arterial Blood pH 7.090 *L 7.350-7.450 Arterial Blood Partial Pressure CO2 100.2 *H 35.0-48.0 mmHg Arterial Blood Partial Pressure O2 83.5 83.0-108.0 mmHg Arterial Blood HCO3 29.7 H 21.0-28.0 mmol/L Arterial Blood Oxygen Saturation 89.0 L 94.0-98.0 % Arterial Blood Base Excess -2.3 L -2.0-3.0 mmol/L Arterial Blood Oxyhemoglobin 86.8 L 94.0-98.0 % Arterial Blood Carboxyhemoglobin 0.9 0.5-1.5 % Arterial Blood Methemoglobin 1.6 H 0.0-1.5 % Sim Test Modified Blood Gas Total Hemoglobin 11.90 L 13.5-17.5 g/dL Blood Gas Set Respiration Rate 18.0 Blood Gas Modality Vent - ac FiO2 % 100.0 Blood Gas Tidal Volume 450.0 Blood Gas PEEP or CPAP 5.0 Blood Gas Critical Value Read Back Yes Blood Gas Notified Whom Dr. hamida corona Blood Gas Notified Time [id number] Blood Gas Notified By Urine Color Yellow Yellow Urine Clarity Turbid H Clear Urine pH 6.0 5.0-9.0 Urine Specific [place] 1.021 1.001-1.035 Urine Protein 1+ H Negative Urine Ketones Negative Negative Urine Blood Negative Negative /uL Urine Nitrite Negative Negative Urine Bilirubin Negative Negative Urine Urobilinogen Normal Negative mg/dL Urine Leukocyte Esterase Negative Negative /uL Urine RBC 5 0 - 3 /hpf Urine Microscopic WBC 3 0-3 /HPF Urine Squamous Epithelial Cells None seen <5 /hpf Urine Bacteria None seen None Seen /hpf Urine Mucus Few None Seen Urine Sperm Present None Seen /hpf Urine Glucose Normal Normal mg/dL Urine Opiates Screen Neg NEGATIVE Urine Fentanyl Screen Neg NEGATIVE Urine Barbiturates Screen Neg NEGATIVE Urine Phencyclidine Screen Neg NEGATIVE Urine Amphetamines Screen Neg NEGATIVE Urine Benzodiazepines Screen Neg NEGATIVE Urine Cocaine Screen Neg NEGATIVE Urine Cannabinoids Screen Neg NEGATIVE White Blood Count 30.8 *H 4.4-10.8 10^3/uL Red Blood Count 3.91 L 4.5-5.90 10^6/uL Hemoglobin 11.6 L 13.5-17.5 g/dL Hematocrit 36.2 L 41.0-53.0 % Mean Corpuscular Volume 92.5 80.0-100.0 fL Mean Corpuscular Hemoglobin 29.6 28.0-32.0 pg Mean Corpuscular Hemoglobin Concent 32.0 32.0-36.0 g/dL Red Cell Distribution Width 18.8 H 11.8-14.3 % Platelet Count 228 140-450 10^3/uL Mean Platelet Volume 7.9 6.9-10.8 fL Neutrophils (%) (Auto) 37.0-80.0 % Lymphocytes (%) (Auto) 10.0-50.0 % Monocytes (%) (Auto) 0.0-12.0 % Basophils (%) (Auto) 0.0-2.0 % Neutrophils # (Auto) 1.6-8.6 10 ^3/uL Lymphocytes # (Auto) 0.4-5.4 10 ^3/uL Monocytes # (Auto) 0-1.3 10 ^3/uL Differential Total Cells Counted 100.0 100 Neutrophils % (Manual) 73 37.0-80.0 Band Neutrophils % (Manual) 1 Lymphocytes % (Manual) 21 10.0-50.0 Monocytes % (Manual) 5 0-12 Eosinophils % (Manual) 0 0-7 Basophils % (Manual) 0 0.0-2.0 Metamyelocytes % (manual) 0 Myelocytes % (Manual) 0 Promyelocytes % (Manual) 0 Blast Cells % (Manual) 0 Reactive Lymphocytes 0 Platelet Estimate Adequate Prothrombin Time 11.4 9.3-11.8 sec Prothrombin Time INR 1.08 0.9-1.15 Sodium Level 144 136-145 mmol/L Potassium Level 3.6 3.5-5.1 mmol/L Chloride Level 102 98-107 mmol/L Carbon Dioxide Level 30 20-31 mmol/L Anion Gap 12 5-15 Blood Urea Nitrogen 23 9-23 mg/dL Creatinine 0.59 L 0.700-1.30 mg/dL Glomerular Filtration Rate Calc 112 >90 mL/min BUN/Creatinine Ratio 39.0 H 10.0-20.0 Serum Glucose 104 74-106 mg/dL Calcium Level 10.0 8.7-10.4 mg/dL Magnesium Level 1.8 1.6-2.6 mg/dL Total Bilirubin 1.7 H 0.2-1.0 mg/dL Aspartate Amino Transferase (AST) 31 13-40 U/L Alanine Aminotransferase (ALT) 52 H 7-40 U/L Alkaline Phosphatase 504 H 46-116 U/L B-Type Natriuretic Peptide 63.22 0-100 pg/mL Total Protein 6.1 5.7-8.2 g/dL Albumin 4.2 3.2-4.8 g/dL Lipase 66 H 12-53 U/L Plasma/Serum Blood Alcohol < 3.0 <10 mg/dL Test 10/09/24 03:35 Range/Units Blood Gas Liter Flow 10.00 Blood Gas Spontaneous Rate 22 Specimen Drawn By [facility] rt Assessment Septic shock with multifocal pneumonia Acute on chronic hypoxic respiratory failure Recent history of PE/LLE DVT status post IVC filter (09/02/2024) Hodgkin lymphoma Prediabetes Bed-bound status with sacral wounds Plan/Recommendation (Dr. Molina) Patient presents with a sinus tachycardia rhythm secondary to septic shock. Recent transthoracic echocardiogram revealed an EF of 65% with normal RV function, normal atria, and no severe valve abnormalities noted. Continue therapeutic Lovenox given recent PE/LLE DVT. Patient is to continue Pradaxa therapy post discharge. Continue vasopressors for hemodynamic support. Digoxin therapy contraindicated for sinus tachycardia rhythm. ABX therapy per primary care team. There is no further cardiac workup indicated at this time. Kindly call if you need to re-consult. Thank you for allowing us to participate in this patient's care. Critical care time: 40 min. This medical document was created using an electronic medical record system with voice recognition software and computerized dictation system. Although this document has been carefully reviewed, there might still be some phonetic and typographical errors. Occasional wrong-word or ``sound-alike substitutions may have occurred due to the inherent limitations of voice recognition software. These areas are purely typographical due to imperfections of the software programs and do not reflect any compromise in the patient's medical care. Please read the chart carefully and recognize, using context, where these substitutions have occurred. Plan discussed with: Spouse, Daughter NYHA Physical activity limitations: NA Date of Service: Oct 09, 2024 Billing Provider: IZZY BOJORQUEZ Cardiology Common Codes: [id number] CARE 30-74 MIN IZZY BOJORQUEZ Oct 09, 2024 11:16
[2024-10-09] MEDS ORDERED: PHENYLEPHRINE IV 250 ML IV ONE (12:12)
[2024-10-09] MEDS ORDERED: PHENYLEPHRINE IV 250 ML IV SCH (12:15)
[2024-10-09 12:40] LABS: Base Excess -3.9 mmol/L (-2.0-3.0)
[2024-10-09] MEDS: ACETAMINOPHEN 650 MG RECT SUPP PR PRN (12:44)
--- NOTE | 2024-10-09 12:49 | DVHCONRES ---
Date Seen: Oct 09, 2024 Resident Creating Document: DENI PEDRAZA RESIDENT Referring Physician Ramakrishna Montero DNP Reason for Consultation Acute hypoxic respiratory failure History of Present Illness Patient is 58 years old male with past medical history of Lymphoma, Pneumonia, PE, HTN, DVT's, GERD, Anemia, and Thrombocytopenia was brought into the hospital due to shortness of breaths. Patient also experienced anxiety, palpitation and chest pain and increased work of breathing which was getting worse and EMS was called. As per patient usually gets 3-4 L of oxygen at home but due to worsening respiratory distress patient was up to 8 L of oxygen at home last night. also complained of bilateral leg swelling for 1 day On arrival to the ED patient was hypoxic, severely weak. Due to worsening hypoxia and respiratory distress patient was intubated at the ER. CXR revealed worsening lung short of or consolidation. CT angio of chest on 08/31/2024 revealed multifocal bilateral pulmonary emboli largest of which is located at the left lower branch point. Multifocal bilateral parenchymal consolidation, mostly not wall with a nearly anterior right upper lobe, consistent with multifocal pneumonia, focal nodular morphology was consistent with not look consideration versus underlying true pulmonary nodule. Doppler study of the lower extremity on 09/03/2024 revealed-DVT in the distal left superficial femoral vein, popliteal vein, and posterior tibial veins. Initial lab workup revealed leukocytosis with WBC 30.8, hemoglobin 11.8, platelet 228, RDW 18.8, lactic acidosis with lactic acid 4.5, elevated troponin 107, positive for influenza type B. CXR revealed-Multifocal airspace disease. Worsening lung infiltrate in compliance with the previous chest x-ray. Ultrasound of the right upper quadrant revealed cholelithiasis. ABG revealed respiratory acidosis with a pH 7.09, pCO2 100.2, PO2 83.5, bicarbonate 29.7. UDS negative. COVID-19 negative. Echo on 09/03/2024 revealed LVEF 65%. Past Medical History Lymphoma, Pneumonia, PE, HTN, DVT's, GERD, Anemia, and Thrombocytopenia Family History: Patient reports no known family medical history. Social History The patient lives at home, denies smoking, alcohol or illicit drugs abuse. Allergies: Coded Allergies: Metoprolol (Verified Allergy, Unknown, 08/31/24) Sulfamethoxazole w/Trimethoprim (Verified Allergy, Unknown, 08/31/24) Home Meds Active Scripts Hydrocodone-Acetaminophen (Hydrocodone Bitartrate/AC 5-325 mg) 1 Tab Tab, 1 TAB PO TID PRN for 7 Days, #21 TAB Prov:PRAMOD BRAMBILA MD 09/26/24 Apixaban Base (ELIQUIS) 5 Mg Tab, 5 MG PO BID for 90 Days, #180 TAB Prov:PRAMOD BRAMBILA MD 09/26/24 Reported Medications Melatonin (KP MELATONIN) 3 Mg Tab, 3 MG PO HS PRN for FOR INSOMNIA, TAB 09/03/24 Prednisone (Prednisone) 20 Mg Tab, 40 MG PO DAILY, MG 09/03/24 Prednisone (PREDNISONE) 1 Mg Tb, 4 TAB PO DAILY, #120 TAB 3 Refills 09/03/24 Alum & Mag Hydrox-Simethicone (Maalox Plus) 30 Ml Ss, 30 ML PO Q6HP, ML 09/03/24 Sodium Phosphate/Biphosphate (Fleet Enema) 133 Ml Rc, 133 ML OK [id number], SUPP.RECT 09/03/24 Dabigatran Etexilate Mesylate (Pradaxa) 150 Mg Cap, 1 CAP PO BID, #180 CAP 1 Refill 09/03/24 Amlodipine Besylate (Amlodipine Besylate) 5 Mg Tab, 1 TAB PO DAILY, #30 TAB 5 Refills 09/03/24 Pantoprazole Sodium Sesquihydr (Protonix) 40 Mg Tab, 40 MG PO DAILY, #30 TAB 09/03/24 Montelukast Sodium (MONTELUKAST SODIUM) 10 Mg Tab, 1 TAB PO HS, #30 TAB 5 Refills 09/03/24 Dapsone (Dapsone) 100 Mg Tab, 100 MG PO DAILY, TAB 09/03/24 Mirtazapine (REMERON) 30 Mg Tab, 15 MG PO HS, TAB 09/03/24 Furosemide (Furosemide) 40 Mg Tab, 1 TAB PO DAILY, #30 TAB 5 Refills 09/03/24 Bisoprolol Fumarate (Bisoprolol Fumarate) 5 Mg Tab, 1 TAB PO DAILY, #90 TAB 3 Refills 09/03/24 Current Medications Current Medications Medications (Trade) Dose Ordered Sig/Jaden Route PRN Reason Start Time Stop Time Status Last Admin Propofol 100 ml @ 2.451 mls/ hr Q24H IV 10/09/24 07:45 10/09/24 09:55 DC Midazolam HCl 50 ml @ 1 mls/hr Q24H IV 10/09/24 07:45 10/09/24 08:40 DC Fentanyl Citrate 250 ml @ 2.5 mls/hr Q24H IV 10/09/24 07:45 10/09/24 08:40 DC Norepinephrine Bitartrate 250 ml @ 3.75 mls/hr Q24H IV 10/09/24 07:45 10/09/24 08:41 DC Midazolam HCl 50 ml @ 1 mls/hr Q24H IV 10/09/24 08:30 10/09/24 10:15 Fentanyl Citrate 250 ml @ 2.5 mls/hr Q24H IV 10/09/24 08:30 10/09/24 09:10 Norepinephrine Bitartrate 250 ml @ 3.75 mls/hr Q24H IV 10/09/24 08:30 10/09/24 09:11 Vancomycin HCl 0 ml @ 0 mls/hr UD IV 10/09/24 08:15 Doxycycline Hyclate 100 ml @ 50 mls/hr Q12H IV 10/09/24 08:15 10/09/24 10:02 Famotidine (Pepcid Injection) 20 mg Q12HR IV 10/09/24 10:00 10/09/24 10:21 Methylprednisolone Sodium Succinate (Solu Medrol) 40 mg Q8HR IV 10/09/24 14:00 Digoxin (Lanoxin Injection) 125 mcg Q6H IV 10/09/24 08:15 10/09/24 10:12 DC Sodium Chloride (Saline Lock Ns) 10 ml Q8HR IV 10/09/24 14:00 Ondansetron HCl (Zofran) 4 mg Q4HP PRN IV NAUSEA / VOMITING 10/09/24 08:15 Acetaminophen (Tylenol Suppository) 650 mg Q6HP PRN OK PAIN SCALE 1-3 OR TEMP>100.4 10/09/24 08:30 Lactated Ringer's 1,000 ml @ 75 mls/hr [id number] IV 10/09/24 08:30 10/09/24 10:16 Enoxaparin Sodium (Lovenox) 40 mg DAILY SC 10/09/24 10:00 10/09/24 10:12 DC Nitroglycerin (Ntrostat Sublingual) 0.4 mg Q5MINP PRN SL FOR CHEST PAIN 10/09/24 09:30 10/09/24 10:12 DC Morphine Sulfate 2 mg Q30M PRN IV FOR CHEST PAIN 10/09/24 09:30 Enoxaparin Sodium (Lovenox) 80 mg Q12HR SC 10/09/24 22:00 Phenylephrine HCl 250 ml @ 30 mls/hr Q8H20M IV 10/09/24 12:15 UNV Review of Systems Review of other system could not be done as patient was intubated before assessment by Pulmonary team Vital Signs Vital Signs Date Time Temp Pulse Resp B/P (MAP) Pulse Ox O2 Delivery O2 Flow Rate FiO2 10/09/24 11:50 76/30 10/09/24 10:30 126 20 91 10/09/24 09:00 96.6 96.6 10/09/24 08:00 100 10/09/24 04:00 Non-Rebreather 15 Physical Exam General examination- patient on mechanical ventilation HEENT- PEERLA, no acute nasal discharge Cardiovascular- S1-S2 audible, rate and rhythm regular, no murmur Respiratory- bilateral lung crackles++ Gastrointestinal-nontender, bowel sound+. Nondistended Musculoskeletal-no acute joint swelling or tenderness or redness Lower extremity- bilateral leg edema++ Neurological- patient on chemical sedation Skin- no acute rash or purpura Labs/Diagnostic Data Labs Test 10/09/24 12:34 10/09/24 09:30 10/09/24 08:25 10/09/24 03:44 Range/Units Blood Gas Specimen Type Arterial Blood Gas Sample Site Left radial Blood Gas Patient Temperature 37.0 Arterial Blood Date Drawn [id number] Arterial Blood pH 7.165 *L 7.350-7.450 Arterial Blood Partial Pressure CO2 72.9 *H 35.0-48.0 mmHg Arterial Blood Partial Pressure O2 68.4 L 83.0-108.0 mmHg Arterial Blood HCO3 25.7 21.0-28.0 mmol/L Arterial Blood Oxygen Saturation 85.8 L 94.0-98.0 % Arterial Blood Base Excess -3.9 L -2.0-3.0 mmol/L Arterial Blood Oxyhemoglobin 84.5 L 94.0-98.0 % Arterial Blood Carboxyhemoglobin 0.6 0.5-1.5 % Arterial Blood Methemoglobin 0.9 0.0-1.5 % Sim Test Modified Blood Gas Total Hemoglobin 11.10 L 13.5-17.5 g/dL Blood Gas Set Respiration Rate 24.0 Blood Gas Modality Vent - ac FiO2 % 100.0 Blood Gas Tidal Volume 500.0 Blood Gas PEEP or CPAP 5.0 Blood Gas Critical Value Read Back Yes Blood Gas Notified Whom lenny Rondon Blood Gas Notified Time [id number] Blood Gas Notified By Yeast Tender pancho urena Lactic Acid Level 3.2 *H 0.4-2.0 mmol/L Troponin I High Sensitivity 107 *H </=54 ng/L Influenza Type A Antigen Negative Negative Influenza Type B Antigen Positive Negative SARS-CoV-2 Antigen (Rapid) Negative NEGATIVE Urine Color Yellow Yellow Urine Clarity Turbid H Clear Urine pH 6.0 5.0-9.0 Urine Specific [place] 1.021 1.001-1.035 Urine Protein 1+ H Negative Urine Ketones Negative Negative Urine Blood Negative Negative /uL Urine Nitrite Negative Negative Urine Bilirubin Negative Negative Urine Urobilinogen Normal Negative mg/dL Urine Leukocyte Esterase Negative Negative /uL Urine RBC 5 0 - 3 /hpf Urine Microscopic WBC 3 0-3 /HPF Urine Squamous Epithelial Cells None seen <5 /hpf Urine Bacteria None seen None Seen /hpf Urine Mucus Few None Seen Urine Sperm Present None Seen /hpf Urine Glucose Normal Normal mg/dL Urine Opiates Screen Neg NEGATIVE Urine Fentanyl Screen Neg NEGATIVE Urine Barbiturates Screen Neg NEGATIVE Urine Phencyclidine Screen Neg NEGATIVE Urine Amphetamines Screen Neg NEGATIVE Urine Benzodiazepines Screen Neg NEGATIVE Urine Cocaine Screen Neg NEGATIVE Urine Cannabinoids Screen Neg NEGATIVE White Blood Count 30.8 *H 4.4-10.8 10^3/uL Red Blood Count 3.91 L 4.5-5.90 10^6/uL Hemoglobin 11.6 L 13.5-17.5 g/dL Hematocrit 36.2 L 41.0-53.0 % Mean Corpuscular Volume 92.5 80.0-100.0 fL Mean Corpuscular Hemoglobin 29.6 28.0-32.0 pg Mean Corpuscular Hemoglobin Concent 32.0 32.0-36.0 g/dL Red Cell Distribution Width 18.8 H 11.8-14.3 % Platelet Count 228 140-450 10^3/uL Mean Platelet Volume 7.9 6.9-10.8 fL Neutrophils (%) (Auto) 37.0-80.0 % Lymphocytes (%) (Auto) 10.0-50.0 % Monocytes (%) (Auto) 0.0-12.0 % Basophils (%) (Auto) 0.0-2.0 % Neutrophils # (Auto) 1.6-8.6 10 ^3/uL Lymphocytes # (Auto) 0.4-5.4 10 ^3/uL Monocytes # (Auto) 0-1.3 10 ^3/uL Differential Total Cells Counted 100.0 100 Neutrophils % (Manual) 73 37.0-80.0 Band Neutrophils % (Manual) 1 Lymphocytes % (Manual) 21 10.0-50.0 Monocytes % (Manual) 5 0-12 Eosinophils % (Manual) 0 0-7 Basophils % (Manual) 0 0.0-2.0 Metamyelocytes % (manual) 0 Myelocytes % (Manual) 0 Promyelocytes % (Manual) 0 Blast Cells % (Manual) 0 Reactive Lymphocytes 0 Platelet Estimate Adequate Prothrombin Time 11.4 9.3-11.8 sec Prothrombin Time INR 1.08 0.9-1.15 Sodium Level 144 136-145 mmol/L Potassium Level 3.6 3.5-5.1 mmol/L Chloride Level 102 98-107 mmol/L Carbon Dioxide Level 30 20-31 mmol/L Anion Gap 12 5-15 Blood Urea Nitrogen 23 9-23 mg/dL Creatinine 0.59 L 0.700-1.30 mg/dL Glomerular Filtration Rate Calc 112 >90 mL/min BUN/Creatinine Ratio 39.0 H 10.0-20.0 Serum Glucose 104 74-106 mg/dL Calcium Level 10.0 8.7-10.4 mg/dL Magnesium Level 1.8 1.6-2.6 mg/dL Total Bilirubin 1.7 H 0.2-1.0 mg/dL Aspartate Amino Transferase (AST) 31 13-40 U/L Alanine Aminotransferase (ALT) 52 H 7-40 U/L Alkaline Phosphatase 504 H 46-116 U/L B-Type Natriuretic Peptide 63.22 0-100 pg/mL Total Protein 6.1 5.7-8.2 g/dL Albumin 4.2 3.2-4.8 g/dL Lipase 66 H 12-53 U/L Plasma/Serum Blood Alcohol < 3.0 <10 mg/dL Test 10/09/24 03:35 Range/Units Blood Gas Liter Flow 10.00 Blood Gas Spontaneous Rate 22 Specimen Drawn By shahzad rt Assessment Assessment and plan Acute hypoxic and hypercapnic respiratory failure likely due to pneumonia Gram- positive versus Gram-negative Acute pneumonia Gram-positive versus Gram-negative Metabolic encephalopathy likely due to pneumonia Influenza type B Acute Respiratory acidosis with metabolic compensation Septic shock likely due to pneumonia Leukocytosis likely due to lymphoma/sepsis Lactic acidosis likely due to sepsis Hodgkin lymphoma History of hypertension History of DVT/pulmonary embolism Anemia Plan Impending bronchoscopy Worsening chest x-ray finding On mechanical ventilation On chemical sedation On TV 500, FiO2 100%, peep 10, we will do titration based on further evaluation Pending blood culture, urine culture, sputum culture, respiratory culture, MRSA Continue antibiotic meropenem and vancomycin Continue nebulization as prescribed Continue anticoagulation as per primary care recommendation, monitor PT APTT Continue vasopressin as prescribed with titration Continue IV fluid and other treatment as per primary care team recommendation Continue oseltamivir Recommending cardiology consult for elevated troponin I-seen by Cardiology Pending Doppler study report Monitor vitals DVT prophylaxis heparin PUD prophylaxis pantoprazole Plan discussed with Dr. Garcia, nursing staff, Total time spent on patient evaluation, chart review, assessment and plan, discussion discussion >65 minutes Plan discussed with: Spouse, Other (RN) DENI PEDRAZA RESIDENT Oct 09, 2024 12:49
[2024-10-09] MEDS: VASOPRESSIN 20 UNITS in SODIUM CHL 0.9% 99 ML IV SCH (13:59)
[2024-10-09] MEDS ORDERED: SODIUM CHLOR 0.9% PF (SALINE LOCK) 10ML VIAL/SYR IV SCH (14:00)
[2024-10-09] MEDS: PHENYLEPHRINE INJ 80 MG in SODIUM CHL 0.9% 242 ML IV SCH (14:07)
[2024-10-09] MEDS: MAGNESIUM SULFATE 1GM/100ML 100 ML IV ONE (14:20)
[2024-10-09] MEDS: PANTOPRAZOLE 40 MG/10 ML VIAL INJ IV ONE (14:20)
[2024-10-09] MEDS: MEROPENEM 1GM IVPB 50 ML IV SCH (14:21)
[2024-10-09] MEDS: methylPREDNISolone SOD SUCC 40 MG/ML VL IV SCH (14:21)
[2024-10-09] MEDS: ENOXAPARIN SOD 100 MG/1 ML SYRINGE SC ONE (14:21)
[2024-10-09] MEDS: NOREPINEPHRINE BITARTRATE 32 MG in SODIUM CHL 0.9% 218 ML IV SCH (14:27)
--- NOTE | 2024-10-09 14:47 | DVH ---
EXAM: US LT LOWER DVT Clinical History: Edema with recent hx of DVT Comparison: US BILAT LOWER DVT on DOS: 08/31/24 Technique: Duplex Doppler evaluation of the deep venous systems of the left lower extremity from the common femo ral veins to the popliteal veins including color Doppler and spectral/pulsed waveform analysis was pe rformed. Findings: Partial incompressibility of the left common femoral and greater saphenous veins with decreased flow. Incompressibility and abnormal flow from the left proximal superficial femoral to the posterior tibia l veins. Impression: 1. Occlusive DVTs of the left proximal superficial femoral to the posterior tibial veins. 2. Nonocclusive DVTs of the common femoral and greater saphenous veins. Critical Result: DVT Findings discussed with Amparo LOYD at 10/09/2024 02:45 PM, and acknowledged receipt and understanding of the findings.
[2024-10-09] MEDS ORDERED: VASOPRESSIN 20 UNITS in SODIUM CHL 0.9% 99 ML IV SCH (15:15)
--- NOTE | 2024-10-09 16:14 | DVHPN2 ---
Progress Note Date Seen: Oct 09, 2024 Medical Necessity Reason Pt with a Central, PICC or Fol: Yes The following are medically ne: Central Line, Malin Catheter Reason for malin catheter: Strict I&O Subjective Patient reports: No new complaints Review of Systems: HEENT:Normal, CVS:Normal, RESPIRATORY:Normal, GI:Normal, :Normal, MSK:Normal, NEURO:Normal Objective vital signs Vital Sign Date Time Temp Pulse Resp B/P (MAP) Pulse Ox O2 Delivery O2 Flow Rate FiO2 10/09/24 13:59 97/41 10/09/24 13:44 102.4 10/09/24 10:30 126 20 91 10/09/24 09:50 100 10/09/24 04:00 Non-Rebreather 15 medications Current Medications Medications Dose Ordered Sig/Jaden Route Start Time Stop Time Status Last Admin Dose Admin Midazolam HCl 50 ml @ 1 mls/hr Q24H IV 10/09/24 08:30 10/09/24 10:15 10 MLS/HR Fentanyl Citrate 250 ml @ 2.5 mls/hr Q24H IV 10/09/24 08:30 10/09/24 09:10 2.5 MLS/HR Vancomycin HCl 0 ml @ 0 mls/hr UD IV 10/09/24 08:15 Doxycycline Hyclate 100 ml @ 50 mls/hr Q12H IV 10/09/24 08:15 10/09/24 10:02 50 MLS/HR Methylprednisolone Sodium Succinate 40 mg Q8HR IV 10/09/24 14:00 10/09/24 14:21 40 MG Sodium Chloride 10 ml Q8HR IV 10/09/24 14:00 Ondansetron HCl 4 mg Q4HP PRN IV 10/09/24 08:15 Acetaminophen 650 mg Q6HP PRN NC 10/09/24 08:30 10/09/24 12:44 650 MG Lactated Ringer's 1,000 ml @ 75 mls/hr [id number] IV 10/09/24 08:30 10/09/24 10:16 75 MLS/HR Morphine Sulfate 2 mg Q30M PRN IV 10/09/24 09:30 Enoxaparin Sodium 80 mg Q12HR SC 10/09/24 22:00 Meropenem 50 ml @ 17 mls/hr Q8HR IV 10/09/24 14:00 10/09/24 14:21 17 MLS/HR Pantoprazole Sodium 40 mg DAILY IV 10/10/24 10:00 Phenylephrine HCl 80 mg/Sodium Chloride 250 ml @ 7.5 mls/hr Q24H IV 10/09/24 13:30 10/09/24 14:07 33.75 MLS/HR Norepinephrine Bitartrate 32 mg/ Sodium Chloride 250 ml @ 0.938 mls/ hr Q24H IV 10/09/24 13:30 10/09/24 14:27 14.063 MLS/HR Vancomycin HCl 250 ml @ 200 mls/hr Q8H IV 10/09/24 17:00 Vasopressin 20 units/Sodium Chloride 100 ml @ 9 mls/hr Q11H7M IV 10/09/24 15:15 Examination: GENERAL:Normal, HEENT:Normal, NECK:Normal, LUNGS:Normal, LUNGS:Abnormal (intubated), CVS:Normal, ABDOMEN:Normal, MSK:Normal, MSK:Abnormal (mottling of extremities), SKIN:Normal, NEURO:Normal, :Normal laboratory and microbiology Laboratory Tests 10/09/24 03:44 Test 10/09/24 03:44 Range/Units Serum Glucose 104 74-106 mg/dL Microbiology Date/Time Source Procedure Growth Status 10/09/24 03:55 Blood Blood Culture - Preliminary Resulted Problem List/Assessment/Plan Problem List/Assessment/Plan #1 acute resp failure: cont acv, abg #2 septic shock with pneumonia- multifocal: iv antibiotics, pressors #3 extensive lymphoma #4 dvt with pe s/p ivc filter: lovenox #5 gallstones #6 transaminitis #7 influenza B #8 gi prophylaxis long dw /daughter- explained multi organ failure/poor prognosis-dnr status Plan discussed with: Spouse, Daughter My Orders My Orders Orders - CHAD BOWERS MD Procedure Category Date Status Time Sodium Chl 0.9% PHA 10/09/24 In Process (So... W/Vasopressin 15:15 Communication Order ORDERS 10/09/24 Transmitted 15:07 D5 W Sodium PHA 10/09/24 Transmitted Bicarbonate Drip 16:15 Complete Blood Count LAB 10/10/24 Verified 06:00 Comprehensive LAB 10/10/24 Verified Metabolic Panel 06:00 PTPTT LAB 10/10/24 Verified 04:00 Chest Portable XY 10/10/24 Logged 06:00 Abg W/ Co-Ox RT 10/10/24 Logged 06:00 Critical Care Time (mins): 91 (critical care time excluding procedures and including dw familyl was 91 mins) Date of Service: Oct 09, 2024 Billing Provider: CHAD BOWERS MD Common Visit Codes: 30943-[id number] CARE 30-74 MIN, [id number] CARE-EACH +30MIN CHAD BOWERS MD Oct 09, 2024 16:14
[2024-10-09] MEDS ORDERED: VANCOMYCIN 1.25GM/250ML 250 ML IV SCH (17:00)
[2024-10-09] MEDS: SODIUM BICARB 50mEq/50ml Vial 150 ML in D5W 5% 1,000 ML IV SCH (17:35)
[2024-10-09] MEDS ORDERED: ENOXAPARIN SOD 100 MG/1 ML SYRINGE SC SCH (22:00)
[2024-10-09] MEDS ORDERED: OSELTAMIVIR 30 MG CAP PO SCH (22:00)
[2024-10-10] MEDS ORDERED: PANTOPRAZOLE 40 MG/10 ML VIAL INJ IV SCH (10:00)
--- NOTE | 2024-10-10 18:23 | DVHDS ---
DATE OF DISCHARGE: 10/10/2024 SUMMARY DATE OF : 10/09/2024 HISTORY OF PRESENT ILLNESS: The patient is a 58-year-old gentleman who was admitted with history of increasing shortness of breath and palpitations and work of breathing. The patient has a history of metastatic lymphoma, DVT, anemia, and respiratory failure. HOSPITAL COURSE: The patient was noted to be in acute respiratory failure requiring intubation. He was in septic shock with needing multiple vasopressors. Blood cultures grew gram-negative rods. The patient was also very hypoxic and acidemic. I had a long discussion with the patient's family. They wish him to be DNR and subsequently comfort measures. The patient on 10/09/2024. FINAL DIAGNOSES: * Acute respiratory failure. * Septic shock with multifocal pneumonia, gram-positive, gram negative. * Extensive metastatic lymphoma. * DVT with PE status post IVC filter. * Gallstone. * Transaminitis. * Influenza B. * DNR/comfort measures. MD BRAEDEN Quinonez/SAMARA TID: [id number] RECEIPT: [id number]
== END 2024-10-10 00:43 | DRG 720 ==
LOC: ER 02:50 → EDBD 02:50 → OVERFLOW 09:29 → ICU WEST 10:24
PROVIDERS: ADMIT Nurse Practitioner Family; ATTEND Nurse Practitioner Family
PROC: 5A1935Z Respiratory Ventilation, Less than 24 Consecutive Hours (ICD-10-PCS; principal; 2024-10-09)
PROC: 0BH17EZ Insertion of Endotracheal Airway into Trachea, Via Natural or Artificial Opening (ICD-10-PCS; 2024-10-09)
PROC: 06HM33Z Insertion of Infusion Device into Right Femoral Vein, Percutaneous Approach (ICD-10-PCS; 2024-10-09)
DX: A41.50 Gram-negative sepsis, unspecified (principal); J96.21 Acute and chronic respiratory failure with hypoxia; R65.21 Severe sepsis with septic shock; J15.69 Pneumonia due to other Gram-negative bacteria; G93.41 Metabolic encephalopathy; J10.00 Influenza due to other identified influenza virus with unspecified type of pneumonia; J15.9 Unspecified bacterial pneumonia; E87.3 Alkalosis; E87.20 Acidosis, unspecified; Z20.822 Contact with and (suspected) exposure to COVID-19; K80.20 Calculus of gallbladder without cholecystitis without obstruction; I49.3 Ventricular premature depolarization; I10 Essential (primary) hypertension; J96.22 Acute and chronic respiratory failure with hypercapnia; R74.01 Elevation of levels of liver transaminase levels; K21.9 Gastro-esophageal reflux disease without esophagitis; Z51.5 Encounter for palliative care; R73.03 Prediabetes; D64.9 Anemia, unspecified; Z66 Do not resuscitate; Z95.828 Presence of other vascular implants and grafts; Z88.3 Allergy status to other anti-infective agents; Z92.21 Personal history of antineoplastic chemotherapy; Z87.01 Personal history of pneumonia (recurrent); Z86.718 Personal history of other venous thrombosis and embolism; Z86.711 Personal history of pulmonary embolism; Z85.71 Personal history of Hodgkin lymphoma; Z82.49 Family history of ischemic heart disease and other diseases of the circulatory system; Z79.01 Long term (current) use of anticoagulants; Z74.01 Bed confinement status; Z88.1 Allergy status to other antibiotic agents
CPT/HCPCS: 31500; 36415; 36556; 36600; 71045; 76705; 80053; 80307; 80320; 81001; 82805; 83605; 83690; 83735; 83880; 84484; 85007; 85027; 85610; 87040; 87070; 87077; 87081; 87086; 87186; 87205; 87426; 87804; 93005; 93971; 94003; 96365; 99152; 99291; 99292; G0378; G9035; J2185; J2470; J2543; J3490